=== PATIENT | female | born 2000 | race Caucasian/White ===

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

== ENCOUNTER 2023-07-04 07:39 | Outpatient (CLI) | payer OTHER, SELFPAY ==
--- NOTE | ~2023-07-04 | US_ITS ---
US thyroid INDICATION: Nontoxic goiter TECHNIQUE: Real-time sonographic images of the thyroid gland were obtained. COMPARISON: No prior studies for comparison. FINDINGS: The right thyroid lobe measures 4.6 x 1.1 x 1.3 cm. The left thyroid lobe measures 3.6 x 0 .6 x 1.3 cm. There is normal echotexture and echogenicity throughout the thyroid gland. No discrete n odules identified. Normal vascular flow is present. IMPRESSION: 1. Normal thyroid without discrete nodule or abnormal vascularity. Reviewed, dictated and finalized at location B. PRESIDENT OF MANUFACTURING
== END 2023-07-04 07:40 | disposition home or self-care (01) ==
PROVIDERS: PCP Family Medicine; Visit Provider Nurse Practitioner Family
DX: E04.9 Nontoxic goiter, unspecified (principal)
CPT/HCPCS: 76536

== ENCOUNTER 2023-08-11 11:59 | Outpatient (CLI) | payer OTHER, SELFPAY ==
--- NOTE | ~2023-08-11 | XR_ITS ---
EXAM: XR hand LT min 3V DATE: 08/11/2023 12:11 HISTORY: PAIN AND SWELLING IN JOINTS OF LEFT HAND, TREMORS . COMPARISON: None available. FINDINGS: Normal mineralization. No fracture or dislocation. No lytic or blastic lesion. Joint space s are maintained. No erosion or periosteal change. Soft tissues within normal limits. IMPRESSION: Normal left hand radiograph findings. Reviewed, dictated and finalized at location K. TS MANAGEMENT INTERN
== END 2023-08-11 12:00 | disposition home or self-care (01) ==
LOC: ANHIMG 12:01
PROVIDERS: PCP Nurse Practitioner Family; Visit Provider Nurse Practitioner Family
DX: M79.642 Pain in left hand (principal)
CPT/HCPCS: 73130

== ENCOUNTER 2023-10-15 13:28 | Outpatient (CLI) | payer OTHER, SELFPAY ==
--- NOTE | 2023-10-15 13:51 | ECHO_ITS ---
Patient Info Name: Lazara Ledesma Age: 23 years : 2000 Gender: Female Ht: 62 in Wt: 168 lbs BSA: 1.85 m2 HR: 69 bpm BP: 104 / 69 mmHg Heart Rhythm: Sinus Rhythm Technical Quality: Good Exam Date: 10/15/2023 1:56 PM Exam Location: Echo Lab Patient Status: Outpatient Admit Date: 10/15/2023 Staff Ordering Physician: Princess Buck NP Academic Interventionist: Chanel Chaney RDCS Attending Provider: Princess Buck NP Exam Type: CA echo doppler color flow Study Info Indications R00.2 - Palpitations Complete two-dimensional, color flow and Doppler transthoracic echocardiogram is performed. Summary 1. Complete two-dimensional, color flow and Doppler transthoracic echocardiogram is performed. 2. Left ventricular chamber dimension is normal. 3. Left ventricular systolic function is normal, estimated at 60-65%. 4. The left ventricular diastolic function is normal. 5. E/e' 5 is not elevated. 6. There is trace aortic valve regurgitation. Left Ventricle E/e' 5 is not elevated. Left ventricular chamber dimension is normal. Left ventricular systolic function is normal, estimated at 60-65%. The left ventricular diastolic function is normal. Right Ventricle Right ventricular systolic function is normal and with normal TAPSE 2.1 cm. Right ventricular chamber dimension is normal. Left Atria Left atrial chamber dimension is normal. Right Atria Right atrial chamber dimension is normal. Aortic Valve The aortic valve is trileaflet. There is no aortic valve stenosis. There is trace aortic valve regurgitation. Pulmonic Valve There is no pulmonic regurgitation. Mitral Valve There is no mitral valve stenosis. There is no mitral valve regurgitation. Tricuspid Valve There is no tricuspid valve regurgitation. Pericardium/Pleural There is no pericardial effusion. Inferior Vena Cava Normal inferior vena cava with >50% collapse upon inspiration consistent with normal right atrial pressure, 5 mmHg. Aorta The aortic root size at the sinus of Valsalva is normal. Tricuspid Valve Name Value Normal Estimated PAP/RSVP RA Pressure 5 mmHg Report Signatures
--- NOTE | 2023-10-15 14:37 | ECG_ITS ---
SEE SCANNED COPY FOR CONFIRMED REPORT MTDD
== END 2023-10-15 13:29 | disposition home or self-care (01) ==
LOC: ANHCARD 13:29
PROVIDERS: PCP Nurse Practitioner Family; Visit Provider Nurse Practitioner Family
DX: R00.2 Palpitations (principal); R42 Dizziness and giddiness
CPT/HCPCS: 93005; 93306

== ENCOUNTER 2023-11-02 13:32 | Outpatient (CLI) | payer OTHER, SELFPAY ==
--- NOTE | 2023-11-06 12:31 | WPDHOLTEREM ---
Holter/Event Monitor Holter/Event Monitor Date of procedure: 11/02/23 Holter/Event Procedure: 24 Hr Holter Monitor Indications: Dizziness Conclusion: 1. 24 hour holter monitor on 11/02/23. 2. Underlying rhythm is sinus rhythm. HR range 50-174 bpm; average HR 86 bpm. 3. There are 8 premature supraventricular complexes and 1 supraventricular couplet. No supraventricular tachycardia. 4. There is 1 premature ventricular complex. No ventricular tachycardia. 5. No sinoatrial or atrioventricular blocks. No significant pauses greater than 2 seconds. 6. Patient reports symptoms of dizziness, palpitations which demonstrate sinus rhythm, HR range 73-100 bpm.
== END 2023-11-02 13:33 | disposition home or self-care (01) ==
LOC: ANHCARD 13:33
PROVIDERS: PCP Nurse Practitioner Family; Visit Provider Nurse Practitioner Family
DX: R00.2 Palpitations (principal); R42 Dizziness and giddiness
CPT/HCPCS: 93225; 93226

== ENCOUNTER → 2023-12-04 10:12 | Outpatient (CLI) | payer OTHER, SELFPAY ==
--- NOTE | ~2023-12-04 | XR_ITS ---
Right Knee Technique: AP, lateral, and oblique views were obtained. Clinical History: Pain Findings: No fracture or dislocation is seen. Osseous alignment is anatomic. Joint spaces are preserv ed without degenerative or erosive change. Soft tissues are unremarkable. No joint effusion is seen. Impression: Unremarkable right knee radiographs. Reviewed, dictated and finalized at location . Impression: Unremarkable right knee radiographs.
== END ==
PROVIDERS: PCP Nurse Practitioner Family; Visit Provider Nurse Practitioner Family
DX: M25.561 Pain in right knee (principal); M25.562 Pain in left knee
CPT/HCPCS: 73564

== ENCOUNTER 2023-12-04 19:34 | Emergency (ER) | payer OTHER, SELFPAY ==
[2023-12-04 19:37] VITALS: BP 141/85; PULSE 98; RESP 16; TEMP 36.7; O2SAT 100
--- NOTE | 2023-12-04 21:49 | ED.LOWEXIN ---
HPI - Extremity Injury (Lower) General Chief Complaint: Extremity Injury, Lower Stated Complaint: knee pain Time Seen by Provider: 12/04/23 21:35 Source: patient Mode of arrival: ambulatory Limitations: no limitations History of Present Illness HPI Narrative: Patient presents with complaint of bilateral knee pain and subjective weakness, bilaterally though right greater than left. Currently being worked up by her PCP Princess Bcuk for this , particularly suspected nerve damage and has a conduction study scheduled for 12/18. She describes it as a burning and buzzing down her right posterior hip. No edema. SHe feels like her right knee cap is going to pop off. History of a tremor in these extremities. Related Data Home Medications Medication Instructions Recorded Confirmed albuterol sulfate 90 mcg/actuation 1 puff inhalation Q4H PRN 06/12/23 12/04/23 aerosol inhaler Shortness Of Breath metformin 500 mg tablet 500 mg PO DAILY 06/12/23 12/04/23 cholecalciferol (vitamin D3) 125 125 mcg PO DAILY 08/13/23 12/04/23 mcg (5,000 unit) capsule loratadine 10 mg disintegrating 10 mg PO DAILY 11/28/23 12/04/23 tablet (Claritin RediTabs) Allergies Allergy/AdvReac Type Severity Reaction Status Date / Time No Known Allergies Allergy Verified 12/04/23 19:40 [facility] Past Medical History Medical History (Updated 12/06/23 @ 00:01 by Julián Echols) Acid reflux ADD (attention deficit disorder) ADHD Anxiety Arthralgia of multiple joints BMI 25.0-25.9,adult BMI 26.0-26.9,adult BMI 27.0-27.9,adult BMI 30.0-30.9,adult 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 Curvature of thoracic spine Depression Dizziness Dysphagia Encounter to establish care Enlarged thyroid Exercise-induced asthma Fatigue Hand edema History of kidney stones Hypercalcemia Hyperlipidemia Left hand pain Left knee pain Low serum parathyroid hormone (PTH) Palpitations Paresthesia Paresthesia of both feet Paresthesia of both hands PCOS (polycystic ovarian syndrome) Post-traumatic stress disorder, unspecified PTSD (post-traumatic stress disorder) Recurrent kidney stones Right knee pain Snoring Tremor Family History Family History Mother Alcoholic Sibling Depression Asthma Grandparent Diabetes mellitus Grandparent Carcinoma of colon Father , 2014 No problems noted. Social History Social History (Updated 12/06/23 @ 18:54 by Isis Garcia MD) Smoking status: Never smoker Alcohol intake: current Alcohol use details: RARE OCCASIONS Substance use: current Substance use type: marijuana Other substance usage details: OCCASIONALLY FOR PAIN Do You Feel Safe in your Home?: Yes Lack of Transportation: No Lack of Food: Never True Current Housing: I Have Housing Concerned About Future Housing: No Difficulty Paying Gas/Electric Bills: No Difficulty Paying for Meds: No Currently Unemployed: YES Education: High School Diploma/GED Living arrangements: with family Additional living arrangements comments: LIVES WITH SISTER Occupation/Education: occupation 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 HEAD: Normocephalic, atraumatic. EYES: Non injected, non icteric ENT: Nares clear, no rhinorrhea or epistaxis. NECK: Supple. CHEST: Speaking in full sentences. No respiratory distress. HEART: Regular rate and rhythm. . ABDOMEN: Soft, nondistended. EXTREMITIES: Normal range of motion. No bilateral lower extremity edema. Grossly symmetric. No collateral veins present. Warm and well perfused. SKIN: Warm, dry, no rash. NEURO: No focal deficits. Alert and oriented x3. Slightly tremulous. PSYCH: Normal mood and affect. Course Vital Signs Vital signs: Vital Signs Temperature 98.1 F 12/04/23
[2023-12-04] MEDS: HYDROcodone/acetaminophen (*CRX) 5-325 MG TABLET 1 TAB PO (22:08)
[2023-12-04 22:20] LABS: Basophils Absolute Auto 0.1 K/mm3 (0.0-0.1); Basophils Percent Auto 0.3 % (0.2-1.2); Eosinophils Absolute Auto 0.4 K/mm3 (0-0.3); Eosinophils Percent Auto 2.8 % (0-4.4); Hematocrit 39.9 % (37.0-47.0); Hemoglobin 12.4 g/dL (12.0-15.0); Immature Granulocyte Absolute 0.03 K/mm3 (0.00-0.031); Immature Granulocyte Percent A 0.2 % (0-0.5); Lymphocytes Absolute Auto 3.52 K/mm3 (0.9-3.2); Lymphocytes Percent Auto 23.3 % (18.3-44.2); Mean Corpuscular HGB Conc 31.1 g/dl (32-36); Mean Corpuscular Hemoglobin 23.5 pg (26-34); Mean Corpuscular Volume 75.7 fl (80-100); Mean Platelet Volume 9.2 fl (7.4-10.4); Monocytes Absolute Auto 0.9 K/mm3 (0.1-0.6); Monocytes Percent Auto 5.8 % (2.6-8.5); Neutrophils Absolute Auto 10.2 K/mm3 (1.3-6.7); Neutrophils Percent Auto 67.6 % (45.5-73.1); Platelet Count Result 342 k/mm3 (150-375); Red Blood Count 5.27 M/mm3 (4.2-5.4); Red Cell Distribution Width 15.3 % (11.5-14.5); White Blood Count 15.1 K/mm3 (4.5-10.0)
[2023-12-04 22:28] LABS: Creatine Kinase 75 U/L (30-135)
[2023-12-04 22:30] LABS: Alanine Aminotransferase 22 U/L (6-35); Albumin Level 4.8 g/dL (3.5-5.1); Alkaline Phosphatase 83 U/L (38-126); Anion Gap 10 mmol/L (4-12); Aspartate Amino Transferase 24 U/L (14-36); Bilirubin,Total 0.3 mg/dL (0.2-1.3); Blood Urea Nitrogen 14 mg/dL (7-17); Calcium 9.5 mg/dL (8.4-10.2); Carbon Dioxide 26 mmol/L (22-30); Chloride 103 mmol/L (98-107); Estimated CRCL calculation 105 ml/min; Estimated Glomerular Filt Rate > 60; Glucose 87 mg/dL (65-110); Magnesium 2.1 mg/dL (1.6-2.3); Potassium 3.8 mmol/L (3.4-5.0); Sodium 139 mmol/L (137-145)
== END 2023-12-04 23:15 | disposition home or self-care (01) ==
PROVIDERS: Emergency Provider Student in an Organized Health Care Education/Training Program; PCP Nurse Practitioner Family
DX: M25.562 Pain in left knee (principal); M25.561 Pain in right knee; D72.829 Elevated white blood cell count, unspecified; E78.5 Hyperlipidemia, unspecified; Z79.84 Long term (current) use of oral hypoglycemic drugs
CPT/HCPCS: 36415; 73564; 80053; 82550; 83735; 85025; 99283; A9270

== ENCOUNTER 2023-12-14 01:15 | Day surgery (SDC) | payer OTHER, SELFPAY ==
[2023-11-28 15:47] VITALS: BMI 29.4
[2023-12-14 09:58] VITALS: BP 107/72; PULSE 103; RESP 17; TEMP 35.9; O2SAT 99; BMI 30.9
--- NOTE | 2023-12-14 10:04 | SUR.PREOP ---
Patient on metformin for treatment of her PCOS.
--- NOTE | 2023-12-14 10:05 | WPDANESEPPF ---
Anes - Initial Pre Proc Eval Procedure: Operation Date: 12/14/23 11:30 Proposed Procedures p Esophagogastroduodenoscopy - Ben Gomez MD Date/Time: 12/14/23 10:05 Surgeon: Ben Gomez MD Pre Op Diagnosis: Dysphagia Patient Data Age: 23 Gender: F Height: 1.57 m Weight: 76.7 kg Last Vital Signs Temp 96.7 F L 12/14/23 09:58 Pulse 103 H 12/14/23 09:58 Resp 17 12/14/23 09:58 BP 107/72 12/14/23 09:58 Pulse Ox 99 12/14/23 09:58 O2 Del Method Room Air 12/14/23 09:58 Allergies Allergy/AdvReac Type Severity Reaction Status Date / Time No Known Allergies Allergy Verified 12/14/23 09:57 Home Medications Medication Instructions Recorded Confirmed Type albuterol sulfate 90 mcg/actuation 1 puff inhalation Q4H PRN 06/12/23 12/14/23 History aerosol inhaler Shortness Of Breath metformin 500 mg tablet 500 mg PO DAILY 06/12/23 12/14/23 History cholecalciferol (vitamin D3) 125 125 mcg PO DAILY 08/13/23 12/14/23 History mcg (5,000 unit) capsule buspirone 5 mg tablet 5 mg PO BID #90 tabs 09/28/23 12/14/23 Rx loratadine 10 mg disintegrating 10 mg PO DAILY 11/28/23 12/14/23 History tablet (Claritin RediTabs) acetaminophen 500 mg capsule 1,000 mg PO Q6H PRN pain #30 caps 12/04/23 12/14/23 Rx ibuprofen 600 mg tablet 600 mg PO TID PRN pain #30 tabs 12/04/23 12/14/23 Rx Patient hx anesthesia problems: none Family hx anesthesia problems: none Results Review: All pre-operative results and documents have been reviewed as part of the pre-operative evaluation. 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 Curvature of thoracic spine Depression Dizziness Dysphagia Encounter to establish care Enlarged thyroid Exercise-induced asthma Fatigue Hand edema History of kidney stones Hypercalcemia Hyperlipidemia Left hand pain Left knee pain Low serum parathyroid hormone (PTH) Palpitations Paresthesia Paresthesia of both feet Paresthesia of both hands PCOS (polycystic ovarian syndrome) Post-traumatic stress disorder, unspecified PTSD (post-traumatic stress disorder) Recurrent kidney stones Right knee pain Snoring Tremor Family History Family History Mother Alcoholic Sibling Depression Asthma Grandparent Diabetes mellitus Grandparent Carcinoma of colon Father , 2014 No problems noted. Social History Social History (Updated 12/06/23 @ 18:54 by Isis Garcia MD) Smoking status: Never smoker Alcohol intake: current Alcohol use details: RARE OCCASIONS Substance use: current Substance use type: marijuana Other substance usage details: OCCASIONALLY FOR PAIN Do You Feel Safe in your Home?: Yes Lack of Transportation: No Lack of Food: Never True Current Housing: I Have Housing Concerned About Future Housing: No Difficulty Paying Gas/Electric Bills: No Difficulty Paying for Meds: No Currently Unemployed: YES Education: High School Diploma/GED Living arrangements: with family Additional living arrangements comments: LIVES WITH SISTER Occupation/Education: occupation 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
--- NOTE | 2023-12-14 11:00 | PM.HPGS ---
History of Present Illness History of Present Illness Consent: Risks, benefits, and alternatives have been discussed and questions answered. Patient agrees to proceed with procedure. 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 Curvature of thoracic spine Depression Dizziness Dysphagia Encounter to establish care Enlarged thyroid Exercise-induced asthma Fatigue Hand edema History of kidney stones Hypercalcemia Hyperlipidemia Left hand pain Left knee pain Low serum parathyroid hormone (PTH) Palpitations Paresthesia Paresthesia of both feet Paresthesia of both hands PCOS (polycystic ovarian syndrome) Post-traumatic stress disorder, unspecified PTSD (post-traumatic stress disorder) Recurrent kidney stones Right knee pain Snoring Tremor Family History Family History Mother Alcoholic Sibling Depression Asthma Grandparent Diabetes mellitus Grandparent Carcinoma of colon Father , 2014 No problems noted. Social History Social History (Updated 12/06/23 @ 18:54 by Isis Garcia MD) Smoking status: Never smoker Alcohol intake: current Alcohol use details: RARE OCCASIONS Substance use: current Substance use type: marijuana Other substance usage details: OCCASIONALLY FOR PAIN Do You Feel Safe in your Home?: Yes Lack of Transportation: No Lack of Food: Never True Current Housing: I Have Housing Concerned About Future Housing: No Difficulty Paying Gas/Electric Bills: No Difficulty Paying for Meds: No Currently Unemployed: YES Education: High School Diploma/GED Living arrangements: with family Additional living arrangements comments: LIVES WITH SISTER Occupation/Education: occupation 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 Spiritual care concerns: No Meds Home Medications and Allergies Home Medications Medication Instructions Recorded Confirmed Type albuterol sulfate 90 mcg/actuation 1 puff inhalation Q4H PRN 06/12/23 12/14/23 History aerosol inhaler Shortness Of Breath metformin 500 mg tablet 500 mg PO DAILY 06/12/23 12/14/23 History cholecalciferol (vitamin D3) 125 125 mcg PO DAILY 08/13/23 12/14/23 History mcg (5,000 unit) capsule buspirone 5 mg tablet 5 mg PO BID #90 tabs 09/28/23 12/14/23 Rx loratadine 10 mg disintegrating 10 mg PO DAILY 11/28/23 12/14/23 History tablet (Claritin RediTabs) acetaminophen 500 mg capsule 1,000 mg PO Q6H PRN pain #30 caps 12/04/23 12/14/23 Rx ibuprofen 600 mg tablet 600 mg PO TID PRN pain #30 tabs 12/04/23 12/14/23 Rx Allergies Allergy/AdvReac Type Severity Reaction Status Date / Time No Known Allergies Allergy Verified 12/14/23 09:57 Vital Signs Vital Signs - 24 hr 12/14/23 09:58 Temperature 96.7 F L Pulse Rate 103 H Respiratory Rate 17 Blood Pressure 107/72 Pulse Oximetry 99 Oxygen Delivery Room Air Exam Const: General: comfortable and no acute distress HENMT: Face/Nose/Sinus: Normal nares present Eyes: General: appearance normal, both eyes and all related structures Neck: Neck: no JVD Resp: Auscultation: clear to auscultation bilaterally Cardio: Rate: regular rate Rhythm: regular rhythm GI: Inspection: non-distended GI Palp: Yes Soft to palpation Skin: General skin exam: normal color Neuro: General: gait normal Speech: normal speech Extrem: General: normal to inspection Psych: Mental St
[2023-12-14 11:08] LABS: Beta HCG Quantitative < 2.39 mIU/ML
[2023-12-14 11:51] VITALS: BP 105/60; PULSE 91; RESP 22; O2SAT 93
[2023-12-14] MEDS: LACTATED RINGERS 1,000 ML 150 ML IV CONT (11:53)
[2023-12-14 12:00] VITALS: BP 110/64; PULSE 91; RESP 22; O2SAT 100
[2023-12-14 12:10] VITALS: BP 113/73; PULSE 86; RESP 22; O2SAT 100
== END 2023-12-14 12:25 | disposition home or self-care (01) ==
PROVIDERS: Anesthesiology; PCP Nurse Practitioner Family; Visit Provider Internal Medicine Gastroenterology
PROC: 0DJ08ZZ Inspection of Upper Intestinal Tract, Via Natural or Artificial Opening Endoscopic (ICD-10-PCS; CPT 43235; principal; 2023-12-14 11:30)
DX: K20.0 Eosinophilic esophagitis (principal); K29.50 Unspecified chronic gastritis without bleeding; E78.5 Hyperlipidemia, unspecified; K21.9 Gastro-esophageal reflux disease without esophagitis; F90.9 Attention-deficit hyperactivity disorder, unspecified type; F41.9 Anxiety disorder, unspecified; F32.A Depression, unspecified; E83.52 Hypercalcemia; E28.2 Polycystic ovarian syndrome; F43.10 Post-traumatic stress disorder, unspecified; F12.90 Cannabis use, unspecified, uncomplicated; E66.9 Obesity, unspecified; Z68.30 Body mass index [BMI] 30.0-30.9, adult; Z79.51 Long term (current) use of inhaled steroids; Z79.84 Long term (current) use of oral hypoglycemic drugs; Z79.1 Long term (current) use of non-steroidal anti-inflammatories (NSAID); Z80.0 Family history of malignant neoplasm of digestive organs
CPT/HCPCS: 43239; 36415; 84702; 88305; J2704; J7120

== ENCOUNTER 2023-12-19 10:08 | Outpatient (CLI) | payer OTHER, SELFPAY ==
--- NOTE | 2023-12-19 11:00 | NEURO_ITS ---
Impression: # Complains of paresthesia in upper and lower extremities. # Normal Nerve Conduction Study. # Normal needle/EMG exam. # Clinical correlation recommended. Nerve Conduction Studies Anti Sensory Summary Table Stim Site NR Peak (ms) P-T Amp (?V) Site1 Site2 Delta-P (ms) Dist (cm) Vince (m/s) Left Median Anti Sensory (2-3nd Digit) Wrist 2.3 80.8 Wrist 2-3nd Digit 2.3 14.0 61 Wrist 2.3 84.3 Wrist 2-3nd Digit 2.3 14.0 61 Right Median Anti Sensory (2-3nd Digit) Wrist 2.3 84.8 Wrist 2-3nd Digit 2.3 14.0 61 Wrist 2.2 68.8 Wrist 2-3nd Digit 2.3 14.0 61 Left Radial Anti Sensory (Base 1st Digit) Wrist 1.7 56.2 Wrist Base 1st Digit 1.7 0.0 Right Radial Anti Sensory (Base 1st Digit) Wrist 1.8 47.0 Wrist Base 1st Digit 1.8 0.0 Left Sup Fibular Anti Sensory (Ant Lat Mall) 14 cm 2.5 16.2 14 cm Ant Lat Mall 2.5 14.0 56 Right Sup Fibular Anti Sensory (Ant Lat Mall) 14 cm 3.0 16.5 14 cm Ant Lat Mall 3.0 16.0 53 Left Sural Anti Sensory (Lat Mall) Calf 3.7 8.4 Calf Lat Mall 3.7 16.0 43 Right Sural Anti Sensory (Lat Mall) Calf 3.6 35.5 Calf Lat Mall 3.6 16.0 44 Left Ulnar Anti Sensory (5th Digit) Wrist 2.4 63.3 Wrist 5th Digit 2.4 14.0 58 Right Ulnar Anti Sensory (5th Digit) Wrist 2.1 77.4 Wrist 5th Digit 2.1 14.0 67 Motor Summary Table Stim Site NR Onset (ms) O-P Amp (mV) Site1 Site2 Delta-0 (ms) Dist (cm) Vince (m/s) Left Median Motor (Abd Poll Brev) Wrist 2.8 6.9 Elbow Wrist 4.0 26.0 65 Elbow 6.8 3.2 Right Median Motor (Abd Poll Brev) Wrist 2.5 11.8 Elbow Wrist 4.2 26.0 62 Elbow 6.7 6.8 Left Peroneal Motor (Vastus Med) Ankle 3.8 2.9 Popit Ankle 7.0 40.0 57 Popit 10.8 3.3 Right Peroneal Motor (Vastus Med) Ankle 4.0 3.1 Popit Ankle 6.3 35.0 56 Popit 10.3 2.8 Left Tibial Motor (Abd Oliva Brev) Ankle 3.8 6.7 Knee Ankle 7.2 39.0 54 Knee 11.0 4.9 Right Tibial Motor (Abd Oliva Brev) Ankle 4.1 3.2 Knee Ankle 7.3 38.0 52 Knee 11.4 1.5 Left Ulnar Motor (Abd Dig Minimi) Wrist 2.3 4.1 A Elbow Wrist 4.4 27.0 61 A Elbow 6.7 3.2 Right Ulnar Motor (Abd Dig Minimi) Wrist 2.3 6.2 A Elbow Wrist 4.5 27.0 60 A Elbow 6.8 5.8 F Wave Studies NR F-Lat (ms) L-R F-Lat (ms) Left Median (Mrkrs) (Abd Poll Brev) 24.12 0.89 Right Median (Mrkrs) (Abd Poll Brev) 23.23 0.89 Left Peroneal (Mrkrs) (EDB) 44.53 0.62 Right Peroneal (Mrkrs) (EDB) 45.15 0.62 Left Tibial (Mrkrs) (Abd Hallucis) 44.41 0.44 Right Tibial (Mrkrs) (Abd Hallucis) 44.84 0.44 Left Ulnar (Mrkrs) (Abd Dig Min) 24.14 1.02 Right Ulnar (Mrkrs) (Abd Dig Min) 23.13 1.02 EMG Side Muscle Nerve Root Ins Act Fibs Amp Dur Recrt Comment Right 1stDorInt Ulnar C8-T1 Nml Nml Nml Nml Nml Right Ext Indicis Radial (Post Int) C7-8 Nml Nml Nml Nml Nml Right Ext Digitorum Radial (Post Int) C7-8 Nml Nml Nml Nml Nml Right BrachioRad Radial C5-6 Nml Nml Nml Nml Nml Right PronatorTeres Median C6-7 Nml Nml Nml Nml Nml Right Abd Poll Brev Median C8-T1 Nml Nml Nml Nml Nml Right ABD Dig Min Ulnar C8-T1 Nml Nml Nml Nml Nml Right AntTibialis Dp Br Fibular L4-5 Nml Nml Nml Nml Nml Right Ga
== END 2023-12-19 10:09 | disposition home or self-care (01) ==
LOC: ANHNEURO 10:09
PROVIDERS: PCP Nurse Practitioner Family; Visit Provider Nurse Practitioner Family
DX: R20.2 Paresthesia of skin (principal)
CPT/HCPCS: 95886; 95913

== ENCOUNTER 2023-12-31 10:01 | Outpatient (CLI) | payer OTHER, SELFPAY ==
--- NOTE | ~2023-12-31 | US_ITS ---
US axilla LT 12/31/2023 10:25 Indication: Palpable left axillary abnormality. Procedure: High-resolution ultrasound of the left axilla Comparison: No prior studies for comparison. Findings: There are multiple enlarged left axillary lymph nodes, largest measuring 2.4 x 3 x 1 cm. Impression: 1: Left axillary lymphadenopathy, nonspecific. This may be reactive, although other etiologies such a s lymphoma are not excluded. Consider correlation with biopsy. Reviewed, dictated and finalized at location B. Impression: 1: Left axillary lymphadenopathy, nonspecific. This may be reactive, although o ther etiologies such as lymphoma are not excluded. Consider correlation with bi opsy.
== END 2023-12-31 10:02 | disposition home or self-care (01) ==
PROVIDERS: PCP Nurse Practitioner Family; Visit Provider Nurse Practitioner
DX: R59.0 Localized enlarged lymph nodes (principal); M79.622 Pain in left upper arm
CPT/HCPCS: 76882

== ENCOUNTER 2024-01-11 12:27 | Emergency (ER) | payer OTHER, SELFPAY ==
[2024-01-11 12:46] VITALS: PULSE 102; RESP 14; TEMP 36.2; O2SAT 98
[2024-01-11 12:48] VITALS: BP 114/71; PULSE 102; RESP 14; TEMP 36.2; O2SAT 98
--- NOTE | 2024-01-11 13:05 | ED.FEVER ---
HPI - Fever General Chief Complaint: Upper Respiratory Infection Stated Complaint: Fever Time Seen by Provider: 01/11/24 12:59 Source: patient and RN notes reviewed Mode of arrival: ambulatory Limitations: no limitations History of Present Illness HPI Narrative: Patient presents today complaining of a 2-3 day history of fever up to 102.5 with slight decreased appetite. Patient denies any additional symptoms to include cough, congestion, sore throat, abdominal pain, urinary symptoms, nausea, vomiting, diarrhea. She has not treated her fever with any [id number] medications prior to arrival. States she is putting out normal urine and drinking plenty of fluids. 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 Related Data Home Medications Medication Instructions Recorded Confirmed albuterol sulfate 90 mcg/actuation 1 puff inhalation Q4H PRN 06/12/23 01/11/24 aerosol inhaler Shortness Of Breath metformin 500 mg tablet 500 mg PO DAILY 06/12/23 01/11/24 cholecalciferol (vitamin D3) 125 125 mcg PO DAILY 08/13/23 01/11/24 mcg (5,000 unit) capsule Allergies Allergy/AdvReac Type Severity Reaction Status Date / Time No Known Allergies Allergy Verified 01/11/24 12:47 Review of Systems Review of Systems: CONSTITUTIONAL: Denies body aches,chills, or sweats.+ fever EYES: Denies visual changes, redness, or discharge. ENT: Denies rhinorrhea, congestion, sore throat, or otalgia. CARDIOVASCULAR: Denies chest pain, palpitations, or edema. RESPIRATORY: Denies cough or dyspnea. GASTROINTESTINAL: Denies abdominal pain, nausea, vomiting, or diarrhea.+ decreased appetite GENITOURINARY: Denies dysuria or hematuria. SKIN: Denies rash, itching, or wounds. MUSCULOSKELETAL: Denies back pain, joint pain, or myalgia. NEUROLOGIC: Denies headache, numbness, tingling, or weakness. PSYCH: Denies depression or anxiety. 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 Curvature of thoracic spine Depression Dizziness Dysphagia Encounter to establish care Enlarged thyroid Exercise-induced asthma Fatigue Hand edema History of kidney stones Hypercalcemia Hyperlipidemia Left hand pain Left knee pain Low serum parathyroid hormone (PTH) Palpitations Paresthesia Paresthesia of both feet Paresthesia of both hands PCOS (polycystic ovarian syndrome) Post-traumatic stress disorder, unspecified PTSD (post-traumatic stress disorder) Recurrent kidney stones Right knee pain Snoring Tremor Tremor of both hands Family History Family History Mother Alcoholic Sibling Depression Asthma Grandparent Diabetes mellitus Grandparent Carcinoma of colon Father , 2014 No problems noted. Social History Social History Smoking status: Never smoker Alcohol intake: current Alcohol use details: RARE OCCASIONS Substance use: current Substance use type: marijuana Other substance usage details: OCCASIONALLY FOR PAIN Do You Feel Safe in your Home?: Yes Lack of Transportation: No Lack of Food: Never True Current Housing: I Have Housing Concerned About Future Housing: No Difficulty Paying Gas/Electric Bills: No Difficulty Paying for Meds: No Currently Unemployed: YES Education: High School Diploma/GED Living arrangements: with family Additional living arrangements comments: LIVES WITH SISTER Occupation/Education: occupation Additional occupation/education comments: [employer]
[2024-01-11 13:28] LABS: EDINFLUASCREEN Negative; EDINFLUBSCREEN Negative; EDSTREPNEGPOS1 Presumptive Negative
== END 2024-01-11 13:29 | disposition home or self-care (01) ==
PROVIDERS: Emergency Provider Nurse Practitioner; PCP Nurse Practitioner Family
DX: R50.9 Fever, unspecified (principal); Z20.822 Contact with and (suspected) exposure to COVID-19; K21.9 Gastro-esophageal reflux disease without esophagitis; J45.990 Exercise induced bronchospasm; E78.5 Hyperlipidemia, unspecified; E28.2 Polycystic ovarian syndrome; F12.90 Cannabis use, unspecified, uncomplicated
CPT/HCPCS: 87081; 87426; 87804; 87880; 99213; G0463

== ENCOUNTER → 2024-01-14 13:48 | Outpatient (CLI) | payer OTHER, SELFPAY ==
--- NOTE | ~2024-01-14 | XR_ITS ---
Clinical Indication: Hyperhidrosis PA and lateral views of the chest: Comparison: None Findings: The lungs are clear, without evidence of focal consolidation or pleural effusion. Cardiome diastinal silhouette is within normal limits. Bones and soft tissues are unremarkable. Impression: Normal chest. Reviewed, dictated and finalized at [facility]. Impression: Normal chest.
== END ==
LOC: EXPTRAD 13:53
PROVIDERS: PCP Family Medicine; Visit Provider Family Medicine
DX: R61 Generalized hyperhidrosis (principal)
CPT/HCPCS: 71046

== ENCOUNTER 2024-01-20 08:27 | Emergency (ER) | payer OTHER, SELFPAY ==
[2024-01-20 08:37] VITALS: BP 114/65; PULSE 81; RESP 16; TEMP 36.7; O2SAT 100
--- NOTE | 2024-01-20 08:41 | ED.GENADULT ---
HPI - General Adult General Chief complaint: Upper Respiratory Infection Stated complaint: sore throat Time Seen by Provider: 01/20/24 08:41 Source: patient Mode of arrival: ambulatory Limitations: no limitations History of Present Illness HPI narrative: 23-year-old female patient presents to [facility] with complaints of a sore throat that started about 3-4 days ago. Patient states she has had fevers as high as 100. Patient states she more so has pain to the left side than the right. Patient also states she noticed some weight. Spots on her tonsils this morning decided come get checked out. Denies any nausea, vomiting or diarrhea. Denies any congestion, coughing, chest pain or shortness of breath. Related Data Home Medications Medication Instructions Recorded Confirmed albuterol sulfate 90 mcg/actuation 1 puff inhalation Q4H PRN 06/12/23 01/20/24 aerosol inhaler Shortness Of Breath cholecalciferol (vitamin D3) 125 125 mcg PO DAILY 08/13/23 01/20/24 mcg (5,000 unit) capsule Allergies Allergy/AdvReac Type Severity Reaction Status Date / Time No Known Allergies Allergy Verified 01/20/24 08:29 Review of Systems Review of Systems: CONSTITUTIONAL: Denies fever, chills, or sweats. EYES: Denies visual changes, redness, or discharge. ENT: Denies rhinorrhea, congestion, sore throat, or otalgia. CARDIOVASCULAR: Denies chest pain, palpitations, or edema. RESPIRATORY: Denies cough or dyspnea. GASTROINTESTINAL: Denies abdominal pain, nausea, vomiting, or diarrhea. GENITOURINARY: Denies dysuria or hematuria. SKIN: Denies rash or itching. MUSCULOSKELETAL: Denies back pain, joint pain, or myalgia. NEUROLOGIC: Denies headache, numbness, or weakness. PSYCHIATRIC: Denies anxiety or depression. 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 Palpitations Paresthesia Paresthesia of both feet Paresthesia of both hands PCOS (polycystic ovarian syndrome) Post-traumatic stress disorder, unspecified PTSD (post-traumatic stress disorder) Recurrent kidney stones Right knee pain Snoring Tremor Tremor of both hands Family History Family History Mother Alcoholic Sibling Depression Asthma Grandparent Diabetes mellitus Grandparent Carcinoma of colon Father , 2014 No problems noted. Social History Social History Smoking status: Never smoker Alcohol intake: current Alcohol use details: RARE OCCASIONS Substance use: current Substance use type: marijuana Other substance usage details: OCCASIONALLY FOR PAIN Do You Feel Safe in your Home?: Yes Lack of Transportation: No Lack of Food: Never True Current Housing: I Have Housing Concerned About Future Housing: No Difficulty Paying Gas/Electric Bills: No Difficulty Paying for Meds: No Currently Unemployed: YES Education: High School Diploma/GED Living arrangements: with family Additional living arrangements comments: LIVES WITH SISTER Occupation/Education: occupation 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 There is no relevant family history pertinent to the
[2024-01-20 08:58] LABS: EDSTREPNEGPOS1 Presumptive Negative
== END 2024-01-20 09:04 | disposition home or self-care (01) ==
PROVIDERS: Emergency Provider Nurse Practitioner Family; PCP Nurse Practitioner Family
DX: J02.9 Acute pharyngitis, unspecified (principal); K21.9 Gastro-esophageal reflux disease without esophagitis; J45.990 Exercise induced bronchospasm; E78.5 Hyperlipidemia, unspecified; E28.2 Polycystic ovarian syndrome
CPT/HCPCS: 87081; 87880; 99213; G0463

== ENCOUNTER 2024-01-22 08:57 | Outpatient (CLI) | payer OTHER, SELFPAY ==
--- NOTE | ~2024-01-22 | US_ITS ---
EXAMINATION: US_BXSTAXLIMG_US DATE: 01/22/2024 10:38 INDICATION: Enlarged left axillary lymph node TECHNIQUE: The procedure including the risks and benefits was discussed with the patient. Risks discu ssed included bleeding and infection. The patient understood the risks and agreed to proceed. The sk in overlying the left axilla was prepped and draped in usual sterile fashion. Anesthetic was adminis tered with 1% lidocaine subcutaneously. An 18 gauge core biopsy needle was advanced under continuous ultrasound observation to the lesion of interest. 4 core biopsy specimens were obtained, 2 placed i n RPMI media and 2 in formalin. The needle was removed and the entry site was cleaned and dressed. Post procedure ultrasound demonstrated no hemorrhage. FINDINGS: Ultrasound images demonstrate a 4.2 x 1.3 cm left axillary lymph node. Subsequent images de monstrate the biopsy needle advanced into the cortex of the lymph node. IMPRESSION: 1. Successful Ultrasound-guided biopsy of the 4.2 x 1.3 cm left axillary lymph node of concern. Reviewed, dictated and finalized at location A.
== END 2024-01-22 08:58 | disposition home or self-care (01) ==
LOC: ANHIMG 08:59
PROVIDERS: PCP Nurse Practitioner Family; Visit Provider Surgery
DX: R59.1 Generalized enlarged lymph nodes (principal)
CPT/HCPCS: 20999; 76942; 88108; 88184; 88185; 88305; 88341; 88342; 88360; 88364; 88365

== ENCOUNTER 2024-04-09 08:49 | Emergency (ER) | payer OTHER, SELFPAY ==
[2024-04-09 09:11] VITALS: BP 119/63; PULSE 119; RESP 18; TEMP 38; O2SAT 100
--- NOTE | 2024-04-09 09:31 | ED_ITS ---
HPI - URI/Sore Throat General Chief Complaint: Upper Respiratory Infection Stated Complaint: sore throat and fever History of Present Illness HPI Narrative: 23-year-old female presented for complaint of sore throat and fever x3 days. Temp up to 103. Endorses nausea this morning. Took Tylenol. Denies cough, shortness of breath, wheezing, vomiting. Related Data Home Medications Medication Instructions Recorded Confirmed albuterol sulfate 90 mcg/actuation 1 puff inhalation Q4H PRN 06/12/23 04/09/24 aerosol inhaler Shortness Of Breath metformin 500 mg tablet 500 mg PO BID 04/09/24 04/09/24 Allergies Allergy/AdvReac Type Severity Reaction Status Date / Time No Known Allergies Allergy Verified 04/09/24 09:18 Review of Systems 2 Review of Systems: CONSTITUTIONAL:reports body aches, fever, chills EYES: Denies visual changes, redness, or discharge. ENT: reports sore throat Denies rhinorrhea, congestion, or otalgia. CARDIOVASCULAR: Denies chest pain, palpitations, or edema. RESPIRATORY: Denies dyspnea. GASTROINTESTINAL: Denies abdominal pain, nausea, vomiting, or diarrhea. 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 Palpitations Paresthesia Paresthesia of both feet Paresthesia of both hands PCOS (polycystic ovarian syndrome) Post-traumatic stress disorder, unspecified PTSD (post-traumatic stress disorder) Recurrent kidney stones Right knee pain Snoring Tremor Tremor of both hands Family History Family History Mother Alcoholic Sibling Depression Asthma Grandparent Diabetes mellitus Grandparent Carcinoma of colon Father , 2014 No problems noted. Social History Social History Smoking status: Never smoker Alcohol intake: current Alcohol use details: RARE OCCASIONS Substance use: current Substance use type: marijuana Other substance usage details: OCCASIONALLY FOR PAIN Do You Feel Safe in your Home?: Yes Lack of Transportation: No Lack of Food: Never True Current Housing: I Have Housing Concerned About Future Housing: No Difficulty Paying Gas/Electric Bills: No Difficulty Paying for Meds: No Currently Unemployed: YES Education: High School Diploma/GED Living arrangements: with family Additional living arrangements comments: LIVES WITH SISTER Occupation/Education: occupation Additional occupation/education comments: [employer]CH[employer]IAN Spiritual care concerns: No Exam Narrative: GENERAL: mildly Ill-appearing, no acute distress. EYES: conjunctivae clear ENT: Mucous membranes moist. TM pearly mack with normal light reflex bilaterally; no tragal tenderness. Oropharynx severely erythematous without lesions. Tonsils enlarged 2+ without exudate. No drooling, no hoarseness, no trismus, uvula midline. No tripod positioning, hot potato voice, or soft palate swelling. NECK: Supple. No lymphadenopathy CHEST: Clear to auscultation, breath sounds equal. No respiratory distress, speaks in full sentences. HEART: Regular rate and rhythm. No murmur heard. SKIN: Warm, dry, no rash. NEURO: Alert and oriented x3. Baseline tremor. Course Course Emergency Course: Patient is aware of diagnosis, understands and agrees to treatment plan. Anticipatory guidance given. Patient agrees to follow-up as directed and is aware of reasons to seek care at the emergency department. Portions of this record may have been created with voice recognition software Level of Care: Express Care Visit Vital Signs Vital signs: Vital Signs Temperature 100.4 F H 04/09/24 09:11 Pulse Rate 119 H 04/09/24 09:11 Respiratory Rate 18 04/09/24 09:11 Blood Pressure 119/63 04/09/24 09:11 Pulse Oximetry 100 04/09/24 09:11 Oxygen Delivery Room Air 04/09/24 09:11 Temperature 100.4 F H 04/09/24 09:11 Pulse Rate 119 H 04/09/24 09:11 Respiratory Rate 18 04/09/24 09:11 Blood Pressure 119/63 04/09/24 09:11 Pulse Oximetry 100 04/09/24 09:11 Oxygen Delivery Room Air 04/09/24 09:11 MDM - URI/Sore Throat MDM Narrative Medical decision making narrative: POS strep result reviewed with pt. Advise supportive treatments. Patient is appropriate for outpatient treatment and follow-up. Differential Diagnosis Differential diagnosis: Likely upper respiratory infection, viral infection and pharyngitis Lab Data Labs: Lab Results 04/09/24 Range/Units 10:08 POC Grp A Strep Screen Positive (Negative) Discharge Plan Discharge Clinical Impression: Strep pharyngitis Patient Disposition: Home, Self-Care Condition: Stable Instructions: Antibiotic Form, Strep Throat (ED) Additional Instructions: - Take the antibiotic as directed. Fever and sore throat typically resolve within one to three days. Most patients can return to work, after 12 to 24 hours of antibiotic therapy, provided you are fever free and otherwise well. -Eat and drink things that are easy to swallow, like soft foods, cool liquids, tea with honey, or popsicles . -Salt water gargles and/or may use topical anesthetic ( Chloraseptic spray) or lozenges to relieve dryness or throat pain -Alternate Tylenol and ibuprofen as needed for pain and fever as directed. -Frequent hand washing or hand biomass production manager is one of the best ways to prevent spread of infection. Throw away the toothbrush after 24hours of antibiotic. -Follow up with primary care provider in 2-3 days if condition is not improving -Go to the ER if you have trouble breathing, cannot drink enough fluids, have muffled voice or drooling, difficulty opening your mouth, or severe swelling. Prescriptions: New ibuprofen 800 mg tablet 800 mg PO TID PRN (Reason: pain) Qty: 15 0RF amoxicillin 500 mg tablet 1,000 mg PO DAILY 10 Days Qty: 20 0RF No Action metformin 500 mg Tablet 500 mg PO BID albuterol sulfate 90 mcg/actuation HFA aerosol inhaler 1 puff inhalation Q4H PRN (Reason: Shortness Of Breath) buspirone 5 mg tablet 5 mg PO BID Qty: 90 0RF Rx Instructions: start 5mg 2x/day and increase by 5mg every 5 days to max 15mg BID. Call for refill fluticasone propionate 220 mcg/actuation HFA aerosol inhaler 2 puff .ROUTE Q12H 28 Days Qty: 12 1RF Rx Instructions: 2 puffs every 12 hours; Administer fluticasone by spraying the aerosol inhaler (without a spacer) into the throat; patient should not inhale when dose is being delivered; instead, patient should swallow the accumulated liquid. Do not eat or drink for 30 minutes after administration Follow-up/Referrals: Princess Buck, DARRYL [Primary Care Provider] -
[2024-04-09 10:10] LABS: EDSTREPNEGPOS1 Positive (Negative)
== END 2024-04-09 09:41 | disposition home or self-care (01) ==
PROVIDERS: Emergency Provider Nurse Practitioner Family; PCP Nurse Practitioner Family
DX: J02.0 Streptococcal pharyngitis (principal); F12.90 Cannabis use, unspecified, uncomplicated; K21.9 Gastro-esophageal reflux disease without esophagitis; J45.990 Exercise induced bronchospasm; E78.5 Hyperlipidemia, unspecified; E78.1 Pure hyperglyceridemia; E28.2 Polycystic ovarian syndrome; K20.0 Eosinophilic esophagitis
CPT/HCPCS: 87880; 99213; G0463

== ENCOUNTER 2024-07-11 14:24 | Emergency (ER) | payer OTHER, SELFPAY ==
[2024-07-11 14:30] VITALS: BP 111/94; PULSE 88; RESP 18; TEMP 36.6; O2SAT 99
--- NOTE | 2024-07-11 14:30 | ED_ITS ---
HPI - URI/Sore Throat General Chief Complaint: Upper Respiratory Infection Stated Complaint: covid and flu test Time Seen by Provider: 07/11/24 14:30 Source: patient, RN notes reviewed and old records reviewed Mode of arrival: ambulatory Limitations: no limitations History of Present Illness HPI Narrative: 23-year-old female presents to the [facility] with complaints of cough, sinus pressure, drainage and headache that started last night. Has taken ibuprofen. Onset (ago): day(s) (1) Treatments prior to arrival: ibuprofen Related Data Home Medications ?Medication ?Instructions ?Recorded ?Confirmed ?Last Taken ?Type albuterol sulfate 90 mcg/actuation 1 puff inhalation Q4H PRN 06/12/23 04/09/24 Unknown History aerosol inhaler Shortness Of Breath metformin 500 mg tablet 500 mg PO BID 04/09/24 04/09/24 Unknown History ergocalciferol (vitamin D2) 1,250 07/11/24 Unknown History mcg (50,000 unit) capsule Allergies Allergy/AdvReac Type Severity Reaction Status Date / Time No Known Allergies Allergy Verified 07/11/24 14:32 Review of Systems Review of Systems: All systems reviewed & are unremarkable except as noted in HPI and below Constitutional: Constitutional: Reports as per HPI and Reports headache(s) ENT: Reports as per HPI and Reports nasal discharge Cardiovascular: Cardiovascular: Reports no additional cardiovascular complaints, Denies chest pain and Denies dyspnea Respiratory: Respiratory: Reports as per HPI, Denies chest congestion, Reports cough and Denies dyspnea Musculoskeletal: Musculoskeletal: Reports no additional musculoskeletal complaints Integumentary/Breasts: Skin/Breast: Reports system reviewed and no additional complaints, except as docu PMFSH Past Medical History Medical History Hypertriglyceridemia Elevated liver enzymes Eosinophilic esophagitis Night sweats Chest x-ray 01/14/2024 unremarkable. Tremor of both hands Right knee pain Left knee pain Paresthesia of both hands Paresthesia of both feet Dizziness Palpitations PTSD (post-traumatic stress disorder) Low serum parathyroid hormone (PTH) Left hand pain Hand edema Arthralgia of multiple joints Hyperlipidemia Hypercalcemia ADHD Recurrent kidney stones Dysphagia Fatigue Snoring Exercise-induced asthma Paresthesia Tremor Encounter to establish care Enlarged thyroid BMI 30.0-30.9,adult History of kidney stones PCOS (polycystic ovarian syndrome) Acid reflux BMI 27.0-27.9,adult ADD (attention deficit disorder) BMI 26.0-26.9,adult BMI 25.0-25.9,adult Anxiety Post-traumatic stress disorder, unspecified 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 Social History Social History Smoking status: Never smoker Alcohol intake: current Alcohol use details: RARE OCCASIONS Substance use: current Substance use type: marijuana Other substance usage details: OCCASIONALLY FOR PAIN Do You Feel Safe in your Home?: Yes Lack of Transportation: No Lack of Food: Never True Current Housing: I Have Housing Concerned About Future Housing: No Difficulty Paying Gas/Electric Bills: No Difficulty Paying for Meds: No Currently Unemployed: YES Education: High School Diploma/GED Living arrangements: with family Additional living arrangements comments: LIVES WITH SISTER Occupation/Education: occupation 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 There is no relevant family history pertinent to the patient complaint. Exam Const: General: cooperative, healthy appearing, comfortable, no acute distress, well developed, alert and well nourished Nutritional Appearance: well nourished Orientation/consciousness: patient oriented x3 Limitations: no limitations HENMT: Head: normal to inspection Ears: hearing grossly normal bilaterally, external ears normal, TM's normal bilaterally, EAC's normal, mastoids normal and no periauricular adenopathy Mouth: Yes Normal oral and palatal mucosa present, Yes lip normal, Yes tongue normal and Yes moist mucous membranes Throat: posterior oropharynx normal, uvula midline and no uvular edema Eyes: General: appearance normal, both eyes and all related structures Alignment and Position: alignment normal Neck: Neck: normal visual inspection, full ROM, no lymphadenopathy and no meningeal signs Chest: Chest palpation & inspection: normal inspection of the chest Resp: Effort & Inspection: normal respiratory effort and able to speak in complete sentences Auscultation: clear to auscultation bilaterally, no crackles, no rales, no rhonchi and no wheezes Cardio: Rate: regular rate Skin: General skin exam: normal color and no rashes or lesions noted Neuro: General: patient oriented x3, gait normal, moves all extremities and no meningeal signs Cognition (Neuro): normal cognition Speech: normal speech Gait exam (Neuro): Normal gait present Extrem: General: normal to inspection, full ROM, capillary refill normal and normal gait Psych: Appearance: grossly normal and well kempt Mental Status: mental status grossly normal Speech and movement: Normal speech and movement present and Clear speech present Affect: normal affect Attitude: cooperative Course Course Level of Care: Express Care Visit Vital Signs Vital signs: Vital Signs Temperature 97.8 F 07/11/24 14:30 Pulse Rate 88 07/11/24 14:30 Respiratory Rate 18 07/11/24 14:30 Blood Pressure 111/94 H 07/11/24 14:30 Pulse Oximetry 99 07/11/24 14:30 Oxygen Delivery Room Air 07/11/24 14:30 Temperature 97.8 F 07/11/24 14:30 Pulse Rate 88 07/11/24 14:30 Respiratory Rate 18 07/11/24 14:30 Blood Pressure 111/94 H 07/11/24 14:30 Pulse Oximetry 99 07/11/24 14:30 Oxygen Delivery Room Air 07/11/24 14:30 Reviewed MDM - URI/Sore Throat MDM Narrative Medical decision making narrative: Patient sitting comfortably in exam room. Nontoxic, vitals stable. Patient in no acute distress. Patient presents with less than 24 hours of URI symptoms Flu and COVID test are negative Patient appropriate for outpatient treatment of viral URI Discharge instructions reviewed with patient, as well as provided in writing per nursing staff. The instructions also include specific and strict return/GO TO THE ER as well as f/u information. All questions have been answered, and the patient deny any further questions with discharge and discharge plan. Some parts of this dictation were generated by voice recognition software and may contain typographical and/or grammatical inaccuracies. Differential Diagnosis Differential diagnosis: Likely upper respiratory infection, otitis media, sinusitis, viral infection, bronchitis and influenza Lab Data Labs: Lab Results 07/11/24 Range/Units 14:49 POC Influenza A Ag Negative (Negative) POC Influenza B Ag Negative (Negative) POC SARS CoV-2 Ag Negative (Negative) Reviewed Critical Care Time Critical Care Time Critical Care Time: No Discharge Plan Discharge Clinical Impression: Upper respiratory infection, viral Patient Disposition: Home, Self-Care Condition: Stable Instructions: Antibiotic Form, Upper Respiratory Infection (DC) Additional Instructions: Your rapid COVID test were negative Your rapid flu test was negative If you still have concerns in the next 24-48 hours for flu were COVID it is recommended that you do an at home test. Your symptoms are likely due to a viral illness, which is not treated with antibiotics. Typically viral infections last 7-10 days, can linger for couple of weeks. It is very important to treat your symptoms. Drink plenty of water, Gatorade, Pedialyte, ice pops or Jell-O. -Alternate Tylenol and Motrin per package directions for fever or pain. You can alternate every 4 hours -Antihistamine medication such as Zyrtec/Claritin/Samantha during the day can help improve symptoms. -doing daily nasal irrigations can help relieve pressure your sinuses. Things like a Neti pot -Use Flonase twice a day for 5 days then daily to help reduce the inflammation and dry up your sinuses. -You can also use Mucinex. Be sure to drink plenty of water with this medication at least 8 ounces with every dose and it is important to drink 8 to 10 glasses of water per day. Water is a natural decongestant -Eat and drink things that are easy to swallow, like tea or soup, or popsicles. -Oral rinses such as: Salt water gargles and/or may use topical anesthetic (eg. Chloraseptic spray) or lozenges to relieve dryness or throat pain). -Frequent hand washing or hand activity therapy teacher is one of the best ways to prevent spread of infection. -Using a vaporizer or humidifier at night will also help thin secretions and help with coughing up phlegm. -Follow up with primary care provider in 7-10 days if condition is not improving - For new or worsening symptoms go directly to the nearest ER Patient Language: [place] Prescriptions: No Action metformin 500 mg Tablet 500 mg PO BID ergocalciferol (vitamin D2) 1,250 mcg (50,000 unit) capsule albuterol sulfate 90 mcg/actuation HFA aerosol inhaler 1 puff inhalation Q4H PRN (Reason: Shortness Of Breath) buspirone 5 mg tablet 5 mg PO BID Qty: 90 0RF Rx Instructions: start 5mg 2x/day and increase by 5mg every 5 days to max 15mg BID. Call for refill fluticasone propionate 220 mcg/actuation HFA aerosol inhaler 2 puff .ROUTE Q12H 28 Days Qty: 12 1RF Rx Instructions: 2 puffs every 12 hours; Administer fluticasone by spraying the aerosol inhaler (without a spacer) into the throat; patient should not inhale when dose is being delivered; instead, patient should swallow the accumulated liquid. Do not eat or drink for 30 minutes after administration Follow-up/Referrals: Princess Buck NP [Primary Care Provider] - 2 Weeks ([facility] follow-up) Stand Alone Forms: Work/School Release IP Time of Disposition: 14:46
--- OUTSIDE RECORDS SUMMARY | 2024-07-11 14:31 | XMS_ITS | Data Portability ---
Author Organization [place] - [facility], [place] [address] Care Team Providers Care Certified Legal Secretary Specialist Name Role Phone MONIKA JOLIE Referring Provider Assessment Encounter Date Assessment Date Assessment LastModified by Organization Details LastModified Time 01/16/2023 01/16/2023 UA reviewed and does not appear infected. Discussed options of continued trial of passage vs ureteroscopy with stent placement. She has been to the ER twice and would like to have the stone removed. I discussed URS in detail. I discuss the need for a stent and stent related side effects. Patient understands all information and agrees to proceed. Will work on scheduling. She will continue to strain all her urine and call us should her stone pass. Not available 01/17/2023 14:25:59 02/21/2023 02/21/2023 She is doing well postop ureteroscopy and stone extraction. You today's is a few cells but is pretty unremarkable. She was given a copy of her stone analysis. Would advise increasing fluids and cutting down oxalates in her diet. She will follow-up as needed. [email or web address] Not available 02/22/2023 22:35:58 Plan of Treatment Reminders Order Date Submit Date Provider Last Modified By Organization Details Last Modified Time Details Appointments None recorded. Lab urinalysis, dipstick, auto 2022 023 [email or web address] [facility]), [address], [address], [place], [address], 15:16:02 urinalysis, microscopic 2022 023 [email or web address] [facility], [address], [place], [address], 3 15:16:02 urinalysis, dipstick, auto 2022 023 CHAR[facility] ([facility]), [address], [address], [place], [address], 3 15:37:39 urinalysis, microscopic 2022 023 [email or web address] [facility], [address], [place], [address], 3 15:27:08 Referral None recorded. Procedures None recorded. Surgeries ureteroscop y with stone basket extraction, holmium laser fragmentati on (SURG) 2022 023 [email or web address] [facility], [address], [place], [address], 3 10:08:26 Imaging None recorded. Medication Orders None recorded. Patient TargetsNo targets recorded. Patient Instructions Encounter Date Encounter Id Patient Instructions Last Modified By Organization Details Last Modified Time 01/16/2023 [id number] Patient Surgery Schedule and Instructions Not available 01/16/2023 15:16:47 Reason for Referral None Reported. Results Created Date Observation Date Name Description Value Unit Range Abnormal Flag Note LastModifiedBy Organization Detail LastModifiedTime 01/17/2001/16/2023 urina lysis , micro scopi c WBC/hpf rare 0 - 4 Not Available [facility] [address], [place], [address], 01/16/2023 15:01:55 01/17/20 23 01/16/2023 urina lysis , micro scopi c RBC/hpf 10-20 0 - 2 Not Available [facility] [address], [place], [address], 01/16/2023 15:01:55 01/17/20 23 01/16/2023 urina lysis , micro scopi c casts/lpf 0 neg Not Available [facility] [address], [place], [address], 01/16/2023 15:01:55 01/17/20 23 01/16/2023 urina lysis , micro scopi c bacteria trace neg Not Available [facility] [address], [place], [address], 01/16/2023 15:01:55 01/17/20 23 01/16/2023 urina lysis , micro scopi c crystals 0 occ Not Available [facility] [address], [place], [address], 01/16/2023 15:01:55 01/17/20 23 01/16/2023 urina lysis , micro scopi c epith cells >40 0 - 5 Not Available [facility] [address], [place], [address], 01/16/2023 15:01:55 01/17/20 23 01/16/2023 urina lysis , micro scopi c date resulted 01/16/23 Not Available [facility] [address], [place], [address], 01/16/2023 15:01:55 01/17/20 23 01/16/2023 urina lysis , micro scopi c resulted by tk Not Available [facility] [address], [place], [address], 01/16/2023 15:01:55 01/17/20 23 01/16/2023 urina lysis , dipst ick, auto color lizet normal Not Available [facility]) [address], [place], [address], 01/16/2023 14:48:16 01/17/20 23 01/16/2023 urina lysis , dipst ick, auto clarity slight ly cloudy normal Not Available [facility] ([facility]) [address], [place], [address], 01/16/2023 14:48:16 01/17/20 23 01/16/2023 urina lysis , dipst ick, auto glucose negati ve mg/dL neg normal Not Available [facility] ([facility]) [address], [place], [address], 01/16/2023 14:48:16 01/17/20 23 01/16/2023 urina lysis , dipst ick, auto bilirubin negati ve neg normal Not Available [facility] ([facility]) [address], [place], [address], 01/16/2023 14:48:16 01/17/20 23 01/16/2023 urina lysis , dipst ick, auto ketones trace neg abnormal Not Available [facility] ([facility]) [address], [place], [address], 01/16/2023 14:48:16 01/17/20 23 01/16/2023 urina lysis , dipst ick, auto specific gravity 1.015 1-1.03 normal Not Available [facility] ([facility]) [address], [place], [address], 01/16/2023 14:48:16 01/17/20 23 01/16/2023 urina lysis , dipst ick, auto blood/hemogl obin modera te joseluis/m c neg abnormal Not Available [facility] ([facility]) [address], [place], [address], 01/16/2023 14:48:16 01/17/20 23 01/16/2023 urina lysis , dipst ick, auto pH 6.0 5-9 normal Not Available [facility]) [address], [place], [address], 01/16/2023 14:48:16 01/17/20 23 01/16/2023 urina lysis , dipst ick, auto protein 30 mg/dL neg abnormal Not Available [facility]) [address], [place], [address], 01/16/2023 14:48:16 01/17/20 23 01/16/2023 urina lysis , dipst ick, auto urobilinogen 0.2 eu/dL normal normal Not Available [facility]) [address], [place], [address], 01/16/2023 14:48:16 01/17/20 23 01/16/2023 urina lysis , dipst ick, auto nitrites negati ve neg normal Not Available [facility]) [address], [place], [address], 01/16/2023 14:48:16 01/17/20 23 01/16/2023 urina lysis , dipst ick, auto leukocytes small neg abnormal Not Available [facility]) [address], [place], [address], 01/16/2023 14:48:16 02/22/20 23 02/21/2023 urina lysis , dipst ick, auto color yellow normal Not Available [facility]) [address], [place], [address], 02/21/2023 15:13:18 02/22/20 23 02/21/2023 urina lysis , dipst ick, auto clarity clear normal Not Available [facility] [place] [facility] ([facility]) [address], [place], [address], 02/21/2023 15:13:18 02/22/20 23 02/21/2023 urina lysis , dipst ick, auto glucose negati ve mg/dL neg normal Not Available [facility] ([facility]) [address], [place], [address], 02/21/2023 15:13:18 02/22/20 23 02/21/2023 urina lysis , dipst ick, auto bilirubin negati ve neg normal Not Available [facility] ([facility]) [address], [place], [address], 02/21/2023 15:13:18 02/22/20 23 02/21/2023 urina lysis , dipst ick, auto ketones negati ve neg normal Not Available [facility] ([facility]) [address], [place], [address], 02/21/2023 15:13:18 02/22/20 23 02/21/2023 urina lysis , dipst ick, auto specific gravity 1.025 1-1.03 normal Not Available The [facility] ([facility]) [address], [place], [address], 02/21/2023 15:13:18 02/22/20 23 02/21/2023 urina lysis , dipst ick, auto blood/hemogl obin small joseluis/m c neg abnormal Not Available [facility] ([facility]) [address], [place], [address], 02/21/2023 15:13:18 02/22/20 23 02/21/2023 urina lysis , dipst ick, auto pH 7.0 5-9 normal Not Available [facility]) [address], [place], [address], 02/21/2023 15:13:18 02/22/20 23 02/21/2023 urina lysis , dipst ick, auto protein trace mg/dL neg abnormal Not Available [facility]) [address], [place], [address], 02/21/2023 15:13:18 02/22/20 23 02/21/2023 urina lysis , dipst ick, auto urobilinogen 0.2 eu/dL normal normal Not Available [facility] [place] [facility] ([facility]) [address], [place], [address], 02/21/2023 15:13:18 02/22/20 23 02/21/2023 urina lysis , dipst ick, auto nitrites negati ve neg normal Not Available [facility]) [address], [place], [address], 02/21/2023 15:13:18 02/22/20 23 02/21/2023 urina lysis , dipst ick, auto leukocytes trace neg abnormal Not Available [facility] ([facility]) [address], [place], [address], 02/21/2023 15:13:18 02/22/20 23 02/21/2023 urina lysis , micro scopi c WBC/hpf rare 0 - 4 Not Available [facility] [address], [place], [address], 02/21/2023 15:18:33 02/22/20 23 02/21/2023 urina lysis , micro scopi c RBC/hpf 5-10 0 - 2 Not Available [facility] [address], [place], [address], 02/21/2023 15:18:33 02/22/20 23 02/21/2023 urina lysis , micro scopi c casts/lpf 0 neg Not Available [facility] [address] , [place], [address], 02/21/2023 15:18:33 02/22/20 23 02/21/2023 urina lysis , micro scopi c bacteria trace neg Not Available The [place] [address] , [place], [address], 02/21/2023 15:18:33 02/22/20 23 02/21/2023 urina lysis , micro scopi c crystals 0 occ Not Available The [place] [address] , [place], [address], 02/21/2023 15:18:33 02/22/20 23 02/21/2023 urina lysis , micro scopi c epith cells 4 0 - 5 Not Available The [facility] [place] [address] , [place], [address], 02/21/2023 15:18:33 02/22/20 23 02/21/2023 urina lysis , micro scopi c date resulted 3 Not Available [facility] [address] , [place], [address], 02/21/2023 15:18:33 02/22/20 23 02/21/2023 urina lysis , micro scopi c resulted by tk Not Available The [place] [address] , [place], [address], 02/21/2023 15:18:33 01/17/20 23 01/12/2023 CT, abdom en + pelvi s, w/o contr ast No observ ation record ed. [email or web address] Not Available 2022 12:53:56 01/20/20 23 01/18/2023 fluor oscop y (PROC ) No observ ation record ed. [address], [address], 01/19/2023 12:25:35 05/07/20 23 05/07/2023 XR, urogr am, retro grade No observ ation record ed. [address], [address], 05/07/2023 17:10:11 Result Notes None recorded. Problems No Known Problems Procedures Surgical History Date Name Laterality Status Provider Name and Address Organization Details Recorded Time 05/11/20 23 DELORES Dangler Stent Removal completed Minoo Miles [facility] 05/11/2023 15:59:19 05/06/20 23 Cystouretero w/stone remove completed Sreedhar Flores [facility] 05/10/2023 11:31:39 01/24/20 23 DELORES Clinical Photographer Assistant Note completed Isabelle Barba [facility] 01/23/2023 09:23:43 01/24/20 23 Cysto Stent Removal completed Sreedhar Flores [facility] 02/06/2023 11:06:03 01/19/20 23 Cystouretero w/stone remove completed Sreedhar Flores [facility] 02/06/2023 11:05:49 06/11/19 21 extraction of wisdom tooth completed Minoo Miles [facility] 01/16/2023 15:14:22 Imaging Results Imaging Date Name Status LastModified by Organ [facility] Details LastModified Time 01/12/2023 CT, abdomen + pelvis, w/o contrast completed [email or web address] Information not available 01/16/2023 12:53:56 01/18/2023 fluoroscopy (PROC) completed [address], [address], 01/19/2023 12:25:35 05/07/2023 XR, urogram, retrograde completed [address], [address], 05/07/2023 17:10:11 Procedure Notes None recorded. Medical Equipment None Reported. Allergies No known drug allergies Medications Name Sig Start Date Stop Date Status Note LastModified by Organization Details LastModified Time primidone 50 mg tablet 02/21 completed Not Available Not Available Not Available azithromyci n 250 mg tablet TAKE TWO TABLETS BY MOUTH ONE DOSE ON THE FIRST DAY, THEN TAKE ONE DAILY THEREBHUPENDRAE R. active Not Available Not Available No t Available fluconazole 150 mg tablet 01/16 completed Not Available Not Available Not Available benzonatate 200 mg capsule TAKE ONE CAPSULE BY MOUTH EVERY 8 HOURS NEEDED FOR COUGH active Not Available Not Available No t Available hydrocodone 5 mg-acetamin ophen 325 mg tablet TAKE 1 TABLET BY MOUTH EVERY 6 HOURS NEEDED FOR PAIN. MAX OF 4 TABLETS PER DAY 01/16 completed Not Available Not Available Not Available phenazopyri dine 200 mg tablet TAKE 1 TABLET BY MOUTH THREE TIMES DAILY FOR 3 DAYS active Not Available Not Available No t Available prednisone 20 mg tablet TAKE 2 TABLETS BY MOUTH DAILY FOR 5 DAYS active Not Available Not Available No t Available ketorolac 10 mg tablet 02/21 completed Not Available Not Available Not Available propranolol 10 mg tablet TAKE 1 TABLET BY MOUTH TWICE DAILY NEEDED FOR ANXIETY 01/16 completed Not Available Not Available Not Available tamsulosin 0.4 mg capsule TAKE 1 CAPSULE BY MOUTH EVERY DAY FOR 14 DAYS 02/21 completed Not Available Not Available Not Available cephalexin 500 mg capsule TAKE 1 CAPSULE BY MOUTH TWICE DAILY FOR 7 DAYS 02/21 completed Not Available Not Available Not Available ibuprofen 400 mg tablet 02/21 completed Not Available Not Available Not Available fluoxetine 10 mg capsule 01/16 completed Not Available Not Available Not Available oxybutynin chloride ER 5 mg tablet,exte nded release 24 hr TAKE 1 TABLET BY MOUTH DAILY active Not Available Not Available No t Available hydroxyzine HCl 25 mg tablet TAKE ONE-HALF TO 1 TABLET BY MOUTH EVERY NIGHT AT BEDTIME NEEDED FOR ANXIETY OR POOR SLEEP 01/16 completed Not Available Not Available Not Available albuterol sulfate HFA 90 mcg/actuati on aerosol inhaler INHALE 2 PUFFS INTO THE LUNGS EVERY 4 TO 6 HOURS NEEDED FOR COUGH/ARIA RTNESS OF BREATH active Not Available Not Available No t Available oxybutynin chloride 5 mg tablet TAKE 1 TABLET BY MOUTH TWICE DAILY 02/21 completed Not Available Not Available Not Available ondansetron 4 mg disintegrat ing tablet DISSOLVE 1 TABLET ON THE TONGUE EVERY 6 HOURS NEEDED FOR NAUSEA active Not Available Not Available No t Available fluoxetine 20 mg capsule 01/16 completed Not Available Not Available Not Available metformin ER 500 mg tablet,exte nded release 24 hr active Not Available Not Available Not Available amoxicillin 875 mg-potassiu m clavulanate 125 mg tablet TAKE 1 TABLET BY MOUTH TWICE DAILY FOR 10 DAYS active Not Available Not Available No t Available oxycodone 5 mg tablet TAKE 1 TABLET BY MOUTH EVERY 4 HOURS FOR 2 DAYS NEEDED FOR PAIN active Not Available Not Available No t Available aripiprazol e 10 mg tablet 01/16 completed Not Available Not Available Not Available aripiprazol e 5 mg tablet TAKE 1 TABLET BY MOUTH DAILY 01/16 completed Not Available Not Available Not Available omeprazole 20 mg tablet,suzanne yed release active Not Available Not Available Not Available Xulane 150 mcg-35 mcg/24 hr transdermal patch 01/16 completed Not Available Not Available Not Available Vitals Date Recorded Body temperature Provider Name a nd Address Organization Details Last Updated DateTime 01/16/2023 98.3 [degF] Denise Davies [place] [facility] 01/16/2023 14:57:00 Date Recorded Heart rate Provider Name an d Address Organization Details Last Updated DateTime 01/16/2023 88 /min Denise Davies [place] [facility] 01/16/2023 14:57:06 Date Recorded Body height Provider Name an d Address Organization Details Last Updated DateTime 01/16/2023 170.18 cm Minoo Miles [facility] 01/16/2023 15:11:06 Date Recorded Body mass index (BMI) Percentile per age and sex Body mass index (BMI) Body weight Provider Name and Address Organization Details Last Updated DateTime 01/16/2023 86 % 26.9 kg/m2 61362.89 g Minoo Miles [facility] 01/16/2023 15:11:14 Date Recorded Body height Provider Name an d Address Organization Details Last Updated DateTime 01/23/2023 170.18 cm [facility] [place] [facility] 01/23/2023 09:20:02 Date Recorded Body mass index (BMI) Percentile per age and sex Body mass index (BMI) Body weight Provider Name and Address Organization Details Last Updated DateTime 01/23/2023 87 % 27.4 kg/m2 60857.66 g Isabelle Barba [place] [facility] 01/23/2023 09:20:13 Date Recorded Heart rate Provider Name an d Address Organization Details Last Updated DateTime 01/23/2023 89 /min Yogeshaudrey Freda [place] [facility] 01/23/2023 09:20:18 Date Recorded Body temperature Provider Name a nd Address Organization Details Last Updated DateTime 01/23/2023 98 [degF] Yogeshaudrey Barba [place] [facility] 01/23/2023 09:20:31 Date Recorded Body height Provider Name an d Address Organization Details Last Updated DateTime 02/21/2023 156.21 cm Minoo Miles [place] [facility] 02/21/2023 15:11:21 Date Recorded Body mass index (BMI) Percentile per age and sex Body mass index (BMI) Body weight Provider Name and Address Organization Details Last Updated DateTime 02/21/2023 95 % 32.2 kg/m2 52449.48 g Minoo Miles [place] [facility] 02/21/2023 15:11:25 Date Recorded Heart rate Provider Name an d Address Organization Details Last Updated DateTime 02/21/2023 86 /min [place] [facility] 02/21/2023 15:11:30 Date Recorded Body temperature Provider Name a nd Address Organization Details Last Updated DateTime 02/21/2023 97.6 [degF] [place]o [place] [facility] 02/21/2023 15:11:40 Date Recorded Body height Provider Name an d Address Organization Details Last Updated DateTime 05/11/2023 156.21 cm Minoo Miles [place] [facility] 05/11/2023 15:57:05 Date Recorded Body mass index (BMI) Percentile per age and sex Body mass index (BMI) Body weight Provider Name and Address Organization Details Last Updated DateTime 05/11/2023 96 % 33.5 kg/m2 52934.63 g Minoo Miles [place] [facility] 05/11/2023 15:57:16 Date Recorded Heart rate Provider Name an d Address Organization Details Last Updated DateTime 05/11/2023 89 /min [place] [facility] 05/11/2023 15:57:28 Date Recorded Body temperature Provider Name a nd Address Organization Details Last Updated DateTime 05/11/2023 97.7 [degF] [place]o [place] [facility] 05/11/2023 15:57:42 Date Recorded Systolic blood pressure Diastolic blood pressure Provider Name and Address Organization Details Last Updated DateTime 01/16/2023 120 mm[Hg] 66 mm[Hg] Denise Eastmanux [place] [facility] 01/16/2023 14:57:04 Date Recorded Systolic blood pressure Diastolic blood pressure Provider Name and Address Organization Details Last Updated DateTime 01/23/2023 129 mm[Hg] 74 mm[Hg] Isabelle Barba [place] [facility] 01/23/2023 09:20:27 Date Recorded Systolic blood pressure Diastolic blood pressure Provider Name and Address Organization Details Last Updated DateTime 02/21/2023 105 mm[Hg] 69 mm[Hg] Minoo Miles [place] [facility] 02/21/2023 15:11:36 Date Recorded Systolic blood pressure Diastolic blood pressure Provider Name and Address Organization Details Last Updated DateTime 05/11/2023 104 mm[Hg] 71 mm[Hg] Minoo Miles [place] [facility] 05/11/2023 15:57:36 Social History Question Answer Notes LastModified by Organizat ion Details LastModified Time Tobacco Smoking Status Never Smoker Minoo juarez, [place] - [facility] 01/16/2023 15:13:47 Do You Have An Advance Directive? No Information not available 01/16/2023 What Is Your Level Of Alcohol Consumption? None [email or web address] Information not available 01/16/2023 What Is Your Level Of Caffeine Consumption? Occasional Information not available 01/16/2023 Sex: Unknown Functional Status None recorded. Mental Status None recorded. Family History Relationship Description Onset Age of this Age Resolved Age Notes LastModified by Organization Details LastModified Time Mother Diabetes mellitus [email or web address] Not available 2022 15:12:02 Father Kidney stone [email or web address] Not avail able 01/16/2023 15:12:15 Notes:dad passed 38 from acc ident, mom passed at 50 from hepatitis from ETOH(kidneys and liver failed) Medical History Condition Response Cancer - Prostate N Coronary Artery Disease N Crohn's/Ulcerative Colitis N Gout N Spina Bifida or Myelomeningocele N Atrial Fibrillation N Kidney Stones N Liver Disease/Jaundice N MRSA N Benign Prostatic Hypertrophy (BPH) or En larged Prostate N Neurogenic Bladder N Renal Insufficiency N Glaucoma N High Blood Pressure/Hypertension N Prostatitis N Congestive Heart Failure N Bleeding Tendency Disorder N Deep Vein Thrombosis N Radiation Cystitis N Arthritis N Cancer - Bladder N Cancer N Stroke N COPD/Emphysema N Epilepsy/Seizure Disorder N Patient Denies Significant Past Medical History N Urethral Stricture Disease N Cancer - Kidney N STD N Cancer - Testicular N Parkinson's Disease N Heart Attack/LA N Chemotherapy N Cardiac Arrhythmia N Multiple Sclerosis N Diabetes N Dementia/Alzheimer's N Tuberculosis N Bladder Infection N Diverticulitis N Asthma N Sleep Apnea N Hepatitis N Pulmonary Embolism N Osteoporosis N Gynecological HistoryNo gynecological history recorded. Obstetrics History GPAL:G 0 P 0 0 0 0 Past Encounters Encounter ID Performer Location Encounter Start Date Encounter Closed Date Diagnosis/Indication Diagnosis SNOMED-CT Code Diagnosis ICD10 Code Diagnosis Note [id number] Roxane Curry [address] [address] 01/16/2023 14:45:54 01/18/2023 10:48:50 Urolithiasis 45455610 N20.9 Left flank pain 43276412 9 R10.9 [id number] Isabelle Barba [address] [address] 01/23/2023 08:48:54 01/23/2023 09:27:42 Urolithiasis 08285959 N20.9 [id number] Frankie Butts MD [address] [address] 02/21/2023 14:29:54 02/23/2023 12:47:55 Kidney stone 73543093 N20.0 [id number] Minoo Miles [address] [address] 05/11/2023 15:34:25 05/11/2023 16:00:45 Health Concerns Section Related Observation LastModified by Organization Detai ls LastModified Time None Recorded Concern Status LastModified by Organization Details LastModified Time None Recorded Advance Directives Directive N: Payers Encounter Date Sequence Insurance Name Policy Number Policy Sorto Covered Member ID Sorto Member ID Guarantor Name 01/16/2023 1 [employer] () Zaire Marian Hymane [id number] Lazara Jeniffer Kuhse 01/23/2023 1 [employer] () Zaire Fonseca Kuhse [id number] Lazara R Kuhse 02/21/2023 1 [employer] () Zaire Marian Hymane [id number] Lazara Jeniffer Kuhse 05/11/2023 1 [employer] () Zaire Marian Ledesma [id number] Lazara Swift Kuhse Notes Date Note Type Note Provider Name and Address Organization Details Recorded Time 01/16/2023 text/html 22 year old mitch le patient who presents today for ER follow up. She initially presented to [facility] ER on 01/12/23 due to severe left flank pain. CT scan was done showing a 3 mm left UPJ stone. UA with 10-100 bacteria. Creatinine 0.8. She was discharged with norco, zofran, and flomax.She returned to the ER on 01/15/23 due to increased pain, nausea, and vomiting. Creat 1.11. UA 0-10 bacteria. WBC 21. ER MD spoke with Urologist, Dr. Trujillo who recommended antibiotics. She was given Rocephin in the ER and discharged with Keflex.She has had a stone when she was 18 years old Today she continues to have left flank pain. She has not seen the stone pass. She does have some nausea when the pain is worse. No vomiting. No fevers, chills, No gross hematuria or dysuria. She does have a history of some issues with dysphagia. She is currently being evaluated for this. Roxane Curry [address] [place] [address], [id number], [facility] 01/17/2023 14:26:14 02/21/2023 text/html She initially presented to [facility] ER on 01/12/23 due to severe left flank pain. CT scan was done showing a 3 mm left UPJ stone. She returned to the ER on 01/15/23 due to increased pain.She has had a stone when she was 18 years old She underwent a left ureteroscopy and extraction of the 3 mm left UPJ stone on 01/18/23. Cease felt fine since her stent was removed. The stone was 50% calcium oxalate and 50% calcium phosphate. Frankie Butts MD [address] [place] [address], [phone], [place] [facility] 02/22/2023 22:36:42 OBGyn Episode No OBEpisode recorded.
--- OUTSIDE RECORDS SUMMARY | 2024-07-11 14:31 | XMS_ITS | Continuity of Care Document ---
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 [facility] Urinalys is UA Urobilinog en 0.2 E.U./dL 11/13 N [facility] Urinalys is UA Nitrite Negative (11/13/22 11:34 AM) 11/13 N [facility] Urinalys is UA Leuk Esterase Moderate *ABN* (11/13/22 11:34 AM) 11/13 [facility] Urinalys is UA WBC >20 /HPF 0 - 5 11/13 A Result Comment: UNSPUN MICROSCOPIC [facility] Urinalys is UA RBC 6-10 /HPF 0 - 5 11/13 A Result Comment: UNSPUN MICROSCOPIC [facility] Urinalys is UA Bacteria 1+ 9 *ABN* (11/13/22 11:34 AM) 11/13 A Result Comment: UNSPUN MICROSCOPIC [facility] Urinalys is UA Epi Squam >20 /HPF 11/13 N Result Comment: UNSPUN MICROSCOPIC [facility] Urinalys is UA Mucous 1+ 11 *ABN* (11/13/22 11:34 AM) 11/13 A Result Comment: UNSPUN MICROSCOPIC [facility] Urinalys is UA Ca Ox Crystal 5 - 10 /HPF 11/13 A Result Comment: UNSPUN MICROSCOPIC [facility] Immunolo gy/Serol ogy Immunoglob E 190.2 IU/mL 0.0 - 100.0 10/13 H Interpretiv e Data: 13 APR 2017 Notice: Samples for this assay should not be taken from patients receiving therapy with high biotin doses (i.e. > 5 mg/day) until 8 hours following last biotin administrat ion. [facility] Allergy Testing Allergen, Honey bee IgE <0.10 kUA/l 10/13 Interpretiv e Data: Result Class Level of Allergen-Sp ecific IgE Antibody <0.10 kUA/l 0 Absent or Undetectabl e 0.10 - 0.34 kUA/l 0/I Very Low 0.35 - 0.69 kUA/l I Low 0.70 - 3.49 kUA/l II Moderate 3.50 - 17.50 kUA/l III High 17.5 - 49.99 kUA/l IV Very High 50.0 - 100.0 kUA/l V Very High >100.0 kUA/l Very High In food allergy, circulating IgE antibodies may remain undetectabl e despite a convincing clinical history because these antibodies may be directed towards allergens that are revealed or altered during industrial processing, cooking or digestion and therefore do not exist in the original food for which the patient is tested. Methodology - FEIA (Fluorescen ce Enzyme Immunoassay ) [facility] Allergy Testing Allergen, White-face d hornet venom IgE <0.10 kUA/l 10/13 Interpretiv e Data: Result Class Level of Allergen-Sp ecific IgE Antibody <0.10 kUA/l 0 Absent or Undetectabl e 0.10 - 0.34 kUA/l 0/I Very Low 0.35 - 0.69 kUA/l I Low 0.70 - 3.49 kUA/l II Moderate 3.50 - 17.50 kUA/l III High 17.5 - 49.99 kUA/l IV Very High 50.0 - 100.0 kUA/l V Very High >100.0 kUA/l Very High In food allergy, circulating IgE antibodies may remain undetectabl e despite a convincing clinical history because these antibodies may be directed towards allergens that are revealed or altered during industrial processing, cooking or digestion and therefore do not exist in the original food for which the patient is tested. Methodology - FEIA (Fluorescen ce Enzyme Immunoassay ) [facility] Allergy Testing Allergen, Wasp Venom, yellow jacket IgE <0.10 kUA/l 10/13 Interpretiv e Data: Result Class Level of Allergen-Sp ecific IgE Antibody <0.10 kUA/l 0 Absent or Undetectabl e 0.10 - 0.34 kUA/l 0/I Very Low 0.35 - 0.69 kUA/l I Low 0.70 - 3.49 kUA/l II Moderate 3.50 - 17.50 kUA/l III High 17.5 - 49.99 kUA/l IV Very High 50.0 - 100.0 kUA/l V Very High >100.0 kUA/l Very High In food allergy, circulating IgE antibodies may remain undetectabl e despite a convincing clinical history because these antibodies may be directed towards allergens that are revealed or altered during industrial processing, cooking or digestion and therefore do not exist in the original food for which the patient is tested. Methodology - FEIA (Fluorescen ce Enzyme Immunoassay ) [facility] Allergy Testing Allergen, Paper wasp IgE <0.10 kUA/l 10/13 Interpretiv e Data: Result Class Level of Allergen-Sp ecific IgE Antibody <0.10 kUA/l 0 Absent or Undetectabl e 0.10 - 0.34 kUA/l 0/I Very Low 0.35 - 0.69 kUA/l I Low 0.70 - 3.49 kUA/l II Moderate 3.50 - 17.50 kUA/l III High 17.5 - 49.99 kUA/l IV Very High 50.0 - 100.0 kUA/l V Very High >100.0 kUA/l Very High In food allergy, circulating IgE antibodies may remain undetectabl e despite a convincing clinical history because these antibodies may be directed towards allergens that are revealed or altered during industrial processing, cooking or digestion and therefore do not exist in the original food for which the patient is tested. Methodology - FEIA (Fluorescen ce Enzyme Immunoassay ) [facility] Allergy Testing Allergen, Yellow Hornet Venom IgE <0.10 kUA/l 10/13 Interpretiv e Data: Result Class Level of Allergen-Sp ecific IgE Antibody <0.10 kUA/l 0 Absent or Undetectabl e 0.10 - 0.34 kUA/l 0/I Very Low 0.35 - 0.69 kUA/l I Low 0.70 - 3.49 kUA/l II Moderate 3.50 - 17.50 kUA/l III High 17.5 - 49.99 kUA/l IV Very High 50.0 - 100.0 kUA/l V Very High >100.0 kUA/l Very High In food allergy, circulating IgE antibodies may remain undetectabl e despite a convincing clinical history because these antibodies may be directed towards allergens that are revealed or altered during industrial processing, cooking or digestion and therefore do not exist in the original food for which the patient is tested. Methodology - FEIA (Fluorescen ce Enzyme Immunoassay ) [facility] Allergy Testing Allergen, Fire Ant IgE 0.36 kUA/l 10/13 Interpretiv e Data: Result Class Level of Allergen-Sp ecific IgE Antibody <0.10 kUA/l 0 Absent or Undetectabl e 0.10 - 0.34 kUA/l 0/I Very Low 0.35 - 0.69 kUA/l I Low 0.70 - 3.49 kUA/l II Moderate 3.50 - 17.50 kUA/l III High 17.5 - 49.99 kUA/l IV Very High 50.0 - 100.0 kUA/l V Very High >100.0 kUA/l Very High In food allergy, circulating IgE antibodies may remain undetectabl e despite a convincing clinical history because these antibodies may be directed towards allergens that are revealed or altered during industrial processing, cooking or digestion and therefore do not exist in the original food for which the patient is tested. Methodology - FEIA (Fluorescen ce Enzyme Immunoassay ) [facility] Chemistr y Albumin Lvl.EPI 5.08 g/dL 03/03 Result Comment: INTERPRETAT ION(S): Performed by: [facility] [employer] [address] [place] [address], [place] [phone] [facility] Chemistr y Testostero ne Free.EPI 0.61 ng/dL 03/03 H [facility] Chemistr y Testostero ne Total.EPI 24.9 ng/dL 03/03 Result Comment: INTERPRETAT ION(S): Performed by: [facility] [employer] [address]. [address] [place] [address], [place] [address] [facility] Chemistr y SHBG.EPI 13.7 nmol/L 03/03 L Result Comment: INTERPRETAT ION(S): Performed by: [facility] [employer] [address] [address] [place] [address], [place] [address] [facility] Chemistr y Androgen Free.EPI 6.31 % 03/03 H [facility] Chemistr y Testostero ne Bioavail.E PI 16.74 ng/dL 03/03 H [facility] Chemistr y Beta hCG, Serum Qual Negative (03/03/22 2:07 PM) 03/03 N [facility] Chemistr y TSH No Result 0.47 - 4.68 03/03 [facility] Chemist[facility] y LH.LC 5.9 m[iU]/mL 03/03 Result Comment: Adult Female: Follicular phase 2.4 - 12.6 Ovulation phase 14.0 - 95.6 Luteal phase 1.0 - 11.4 [place]men[place] jeremiah 7.7 - 58.5 [facility] Chemistr y FSH.LC 5.5 m[iU]/mL 03/03 Result Comment: Adult Female: Follicular phase 3.5 - 12.5 Ovulation phase 4.7 - 21.5 Luteal phase 1.7 - 7.7 [place] jeremiah 25.8 - 134.8 Performed At: 01 [facility] [address] [id number] Jorge Lockwood MD [phone] [facility] Chemistr y Prolactin. LC 6.7 ng/mL 03/03 Result Comment: Performed At: 01 [facility] [id number] [id number] Jorge Lockwood MD Ph:[phone] [facility] Chemistr y DHEA Sulfate.EP I 438.0 ug/dL 03/03 H Result Comment: INTERPRETAT ION(S): Performed by: [facility]emi[facility] [address] [place] [phone] [facility] Vital Signs Combined list of inpatient and outpatient Vital Signs from Department of Defense and Veterans Affairs, ranging from 12 months to all on record, depending upon the facility. Vital Sign Value Date Comments Source Systolic Blood Pressure 117mm[Hg] 04/13/2023 20:50:00 Ambulatory Pharmacy Diastolic Blood Pressure 76mm[Hg] 04/13/2023 20:50:00 Ambulatory Pharmacy Mean Arterial Pressure, Calc 90mm[Hg] 04/13/2023 20:50:00 Ambulatory P harmacy Peripheral Pulse Rate 77bpm 04/13/2023 20:50:00 Ambulatory Pharmacy Temperature Oral 36.5Cel 04/13/2023 20:50:00 Ambulatory Pharmacy BP Site 04/13/2023 20:50:00 [facility] Blood Pressure Manual 04/13/2023 20:50:00 Ambulatory Pharmacy Systolic Blood Pressure 120mm[Hg] 08/29/2022 20:13:00 Ambulatory Pharmacy Diastolic Blood Pressure 64mm[Hg] 08/29/2022 20:13:00 Ambulatory Pharmacy Mean Arterial Pressure, Calc 83mm[Hg] 08/29/2022 20:13:00 Ambulatory P harmacy Peripheral Pulse Rate 18bpm 08/29/2022 20:13:00 Ambulatory Pharmacy Temperature Oral 36.5Cel 08/29/2022 20:13:00 Ambulatory Pharmacy BP Site 08/29/2022 20:13:00 [facility] Blood Pressure Manual 08/29/2022 20:13:00 Ambulatory Pharmacy Systolic Blood Pressure 108mm[Hg] 09/12/2022 20:36:00 Ambulatory Pharmacy Diastolic Blood Pressure 68mm[Hg] 09/12/2022 20:36:00 Ambulatory Pharmacy Mean Arterial Pressure, Calc 81mm[Hg] 09/12/2022 20:36:00 Ambulatory P harmacy Peripheral Pulse Rate 93bpm 09/12/2022 20:36:00 Ambulatory Pharmacy Respiratory Rate 16br/min 09/12/2022 20:36:00 Ambulatory Pharmacy Temperature Oral 36.7Cel 09/12/2022 20:36:00 Ambulatory Pharmacy Blood Pressure Manual 09/12/2022 20:36:00 Ambulatory Pharmacy Systolic Blood Pressure 113mm[Hg] 06/23/2022 17:28:00 Ambulatory Pharmacy Diastolic Blood Pressure 82mm[Hg] 06/23/2022 17:28:00 Ambulatory Pharmacy Mean Arterial Pressure, Calc 92mm[Hg] 06/23/2022 17:28:00 Ambulatory P harmacy Peripheral Pulse Rate 82bpm 06/23/2022 17:28:00 Ambulatory Pharmacy Respiratory Rate 16br/min 06/23/2022 17:28:00 Ambulatory Pharmacy Temperature Oral 36.4Cel 06/23/2022 17:28:00 Ambulatory Pharmacy Systolic Blood Pressure 107mm[Hg] 04/14/2022 17:41:00 Ambulatory Pharmacy Diastolic Blood Pressure 70mm[Hg] 04/14/2022 17:41:00 Ambulatory Pharmacy Mean Arterial Pressure, Calc 82mm[Hg] 04/14/2022 17:41:00 Ambulatory P harmacy Peripheral Pulse Rate 80bpm 04/14/2022 17:41:00 Ambulatory Pharmacy Respiratory Rate 18br/min 04/14/2022 17:41:00 Ambulatory Pharmacy Temperature Oral 36.4Cel 04/14/2022 17:41:00 Ambulatory Pharmacy BP Site 04/14/2022 17:41:00 [facility] Blood Pressure Manual 04/14/2022 17:41:00 Ambulatory Pharmacy Systolic Blood Pressure Supine 113mm[Hg] 04/14/2022 17:41:00 Ambulatory P harmacy Diastolic Blood Pressure Supine 67mm[Hg] 04/14/2022 17:41:00 Ambulatory P harmacy Systolic Blood Pressure Sitting 104mm[Hg] 04/14/2022 17:41:00 Ambulatory P harmacy Diastolic Blood Pressure Sitting 66mm[Hg] 04/14/2022 17:41:00 Ambulatory P harmacy Systolic Blood Pressure Standing 114mm[Hg] 04/14/2022 17:41:00 Ambulatory P harmacy Diastolic Blood Pressure Standing 74mm[Hg] 04/14/2022 17:41:00 Ambulatory P harmacy Systolic Blood Pressure 104mm[Hg] 02/16/2023 13:30:00 Ambulatory Pharmacy Diastolic Blood Pressure 71mm[Hg] 02/16/2023 13:30:00 Ambulatory Pharmacy Mean Arterial Pressure, Calc 82mm[Hg] 02/16/2023 13:30:00 Ambulatory P harmacy Peripheral Pulse Rate 93bpm 02/16/2023 13:30:00 Ambulatory Pharmacy Respiratory Rate 16br/min 02/16/2023 13:30:00 Ambulatory Pharmacy Temperature Oral 37.5Cel 02/16/2023 13:30:00 Ambulatory Pharmacy Systolic Blood Pressure 112mm[Hg] 03/03/2022 18:13:00 Ambulatory Pharmacy Diastolic Blood Pressure 78mm[Hg] 03/03/2022 18:13:00 Ambulatory Pharmacy Mean Arterial Pressure, Calc 89mm[Hg] 03/03/2022 18:13:00 Ambulatory P harmacy Peripheral Pulse Rate 98bpm 03/03/2022 18:13:00 Ambulatory Pharmacy BP Site 03/03/2022 18:13:00 [facility] Blood Pressure Manual 03/03/2022 18:13:00 Ambulatory Pharmacy Systolic Blood Pressure 125mm[Hg] 11/13/2022 16:16:00 Ambulatory Pharmacy Diastolic Blood Pressure 70mm[Hg] 11/13/2022 16:16:00 Ambulatory Pharmacy Mean Arterial Pressure, Calc 88mm[Hg] 11/13/2022 16:16:00 Ambulatory P harmacy Peripheral Pulse Rate 69bpm 11/13/2022 16:16:00 Ambulatory Pharmacy Respiratory Rate 16br/min 11/13/2022 16:16:00 Ambulatory Pharmacy Temperature Oral 36.7Cel 11/13/2022 16:16:00 Ambulatory Pharmacy Systolic Blood Pressure 105mm[Hg] 04/05/2022 16:03:00 Ambulatory Pharmacy Diastolic Blood Pressure 67mm[Hg] 04/05/2022 16:03:00 Ambulatory Pharmacy Mean Arterial Pressure, Calc 80mm[Hg] 04/05/2022 16:03:00 Ambulatory P harmacy Peripheral Pulse Rate 85bpm 04/05/2022 16:03:00 Ambulatory Pharmacy BP Site 04/05/2022 16:03:00 [facility] Pharm[facility] Blood Pressure Manual 04/05/2022 16:03:00 Ambulatory Pharmacy Encounters Combined list of: 1) Encounters from Department of [facility] 2) Encounters from the Department of [facility] facilities going back up to 280 months. Location Location Details Encounter Type Encounter Number Reason For Visit Attending Provider ADM Date DC Date Status Disposition Source [facility] OUTPATIENT [id number] blue lips, rsv+ MICHOACANO CLINTON 08/18 Released w/o Limitations [facility] OUTPATIENT [id number] CHEST CONGEST ION/COL D SYMPTOM S/RASH ON MOUTH CHEEKS MICHOACANO CLINTON 09/06 Released w/o Limitations [facility] Red [facility]) TELE CONSULT [id number] HANDS ALEXKE EMILIANA CAN 11/30 [facility] Red [facility]) [facility] Blue [facility]) TELE CONSULT [id number] ant bite on rt foot/ swellin g/ redness / eyes swellin g/ foot is hot to touch JAMES ALEXIS 12/05 [facility] Blue Team) [facility] Red [facility]) TELE CONSULT [id number] ER VISIT JHONY VARELA 01/18 [employer] [facility] Red [facility]) [facility] Red [facility]) OUTPATIENT [id number] 5YR OLD;BOWERS DS DO MEZA 01/26 Released w/o Limitations [employer] [facility] Red Team) [facility]) OUTPATIENT [id number] SHAKING DO WADDELL 06/19 Released w/o Limitations [facility] Red [facility]) [facility] TELE CONSULT [id number] GT GRAY 07/16 [facility] Red Team) [facility] Practice Red Team) TELE CONSULT [id number] SWALLOW ED RHETT CREWS 12/26 [facility] Pract[facility] Red Team) [facility] Practice Red Team) OUTPATIENT [id number] SWELLIN G TO TOE--UN ABLE TO WEAR SHOE GABE VUONG 02/14 Released w/o Limitations [facility] Pract[facility] Red Team) [facility] TELE CONSULT [id number] VAGINAL RASH REUBEN , JAMES G 02/26 [facility] Red [facility]) [facility] Practice Red Team) OUTPATIENT [id number] new pt- eval/ referra ARUN Stewart 04/10 Released w/o Limitations [employer] [facility] Pract[facility] Red Team) [facility] OUTPATIENT [id number] LA Haywood 06/28 Released w/o Limitations [facility] Red [facility]) [facility] Practice Red Team) TELE CONSULT [id number] cac-- rt eye redness /cruste d over/it RHETT García 11/25 [facility] Red Team) [facility] Practice Red Team) OUTPATIENT [id number] fever/ nausea/ poss insect bite to rt arm DIANA ANTONY S 02/11 Sick at Home/Quarter s [facility] Red Team) [facility]) OUTPATIENT [id number] Paperwo rk to be complet ed for PCS Dany Buck 7 3922 BECK WHITTAKER 06/18 Released w/o Limitations [facility]) [facility]) TELE CONSULT [id number] CAC - constip ation x1wk now vomitin g x3 today NICHOLEJHONY Mariano 08/19 [facility]) OUTPATIENT [id number] impacti ons x 4 this week AKBARLEIDY SalRA 08/20 Released w/o Limitations [facility]) [employer] [facility](Ped iatric Team A Non-GME) OUTPATIENT [id number] neuro check per parent request for school ARTZEN [place] 12/22 Released w/o Limitations [employer](P ediatri c Team A Non-GME ) [facility](Ped iatric Team A Non-GME) OUTPATIENT [id number] sports physicSYED Matta 01/26 Released w/o Limitations [employer](P ediatri c Team A Non-GME ) [facility](Ped iatric Team A Non-GME) OUTPATIENT [id number] NEW REFERRA L SHANNANS TUYET DE LA VEGA 08/19 Released w/o Limitations [employer](P ediatri c Team A Non-GME ) [facility](Ped iatric Team A Non-GME) TELE CONSULT [id number] NOT ABLE TO CONTACT PT RONY YUAN 08/[facility](P ediatri c Team A Non-GME ) [facility](Ped iatric Team A Non-GME) OUTPATIENT [id number] Sports Physica PRISCILA Blank 02/17 Released w/o Limitations [employer](P ediatri c Team A Non-GME ) [facility](Ped iatric Team A-Non-GME ) TELE CONSULT [id number] G DIRECT REFERRA L RONY YUAN 07/03 [employer](P ediatri c Team A-Non-G ME) [employer](Ped iatric Team A-Non-GME ) TELE CONSULT [id number] Notes Entered by: BASSAM CHI 24 Oct 2011 1540 ------- ------- ------- ------- -- SPECIAL NEEDS OCTOBERDELMI Dany 10/23 [employer](P ediatri c Team A-Non-G ME) [facility] [facility](Ped iatric Team A-Non-GME ) OUTPATIENT [id number] Rosangela yeh Evaluat ion OCTOBERDELMI 11/06 Released w/o Limitations [employer] [facility](P ediatri c Team A-Non-G ME) [employer] [facility](Ped iatric Team A-Non-GME ) TELE CONSULT [id number] Notes Entered by: BASSAM CHI 09 Jul 2012 1527 ------- ------- ------- ------- -- MEDICAL GA VIVAS 07/09 Referred for Appointment [facility](P ediatri c Team A-Non-G ME) [employer] [facility](Ped iatric Team A-Non-GME ) OUTPATIENT [id number] pain when urinati on ALEJANDRA BENITO S 08/01 Released w/o Limitations [employer] [facility](P ediatri c Team A-Non-G ME) [facility] [facility](Ped iatric Team A-Non-GME ) OUTPATIENT [id number] 11yo PRISCILA Bourgeois 09/04 Released w/o Limitations [employer] [facility](P ediatri c Team A-Non-G ME) [employer] [facility](Ped iatric Team A-Non-GME ) TELE CONSULT [id number] Notes Entered by: CARIDAD CONTRERAS 25 Sep 2012 1451 ------- ------- ------- ------- -- Network Results - Optomet oliverio 3 ZEN SWANSON 09/25 [employer](P ediatri c Team A-Non-G ME) [facility] [facility](Ped iatric Team A-Non-GME ) TELE CONSULT [id number] Notes Entered by: ABY COREY 08 Oct 2012 1420 ------- ------- ------- ------- -- Out-pro ABY Tong 10/08 Referred for Appointment [facility](P ediatri c Team A-Non-G ME) [employer] [facility](Ped iatric Team A-Non-GME ) OUTPATIENT [id number] FEVER, SORE THROAT, AND COUGHIN G/AYAH YIP 10/30 Released w/o Limitations [employer](P ediatri c Team A-Non-G ME) [employer] [facility] [facility] FAM[facility] Tm Blue) OUTPATIENT [id number] [facility] stanlyDAIANA Cavazos 01/07 Released w/o Limitations [employer] ([facility]S cott [facility] Tm Blue) [employer] ([facility]Sco tt [facility] Fam Res Tm Green) OUTPATIENT [id number] [facility] JEANNIE HUGHES LT 01/27 Released w/o Limitations [employer] ([facility]S cott [facility] Fam Res Tm Green) [employer] ([facility]Sco tt [facility] Fam Res Tm Green) OUTPATIENT [id number] fever, sore throat, losing voice, [phone] REUBEN KHAN 03/30 Released w/o Limitations [employer] ([facility]S cott [facility] Fam Res Tm Green) [facility] [employer] ([facility]Sco tt [facility] Fam Res Tm Red) TELE CONSULT [id number] Notes Entered by: Marian PHAN 02 Apr 2014 1734 ------- ------- ------- ------- -- Error in Rapid strep testing JOEY CARDONA 04/02 Referred for Appointment [employer] ([facility]S cott [facility] Fam Res Tm Red) [employer] [facility]Sco tt [facility] Fam Res Tm Green) OUTPATIENT [id number] [facility] physica l - [phone] CYRIL WEINSTEIN 01/12 Released w/o Limitations [address] [place] [address] [employer] ([facility]S [facility] Fam Res Tm Green) [address] [place] [address] [facility] Fam Res Tm Gold) TELE CONSULT [id number] Notes Entered by: ABY LYLE 27 May 2015 1513 ------- ------- ------- ------- -- Lebron / CYRIL Camara 05/[address] [place] [address] [facility]S cott [facility] Fam Res Tm Gold) [address] [place] [address] [facility]zo [facility] Fam Res Tm Green) TELE CONSULT [id number] Notes Entered by: Mariano PHAM 01 Jun 2015 1323 ------- ------- ------- ------- -- MOP request s re evaluat ion for autism/ Justin/6 [phone] or [phone] CYRIL WEINSTEIN 06/[address] [place] [address] [employer] [facility] [place] [place] [place]) Procedures Combined list of: 1) Procedures from Department of Veterans Affairs facilities going back up to thelast 18 months, not all VA non-surgical procedures are included; 2) All procedures from the Department of Defense facilities. Procedure Procedure Type Code Date Perfomer Comments Sour e Psychiatric Diagnostic Evaluation Review of Records and Reports Psychiatric Diagnostic Evaluation Review of Records and Reports 27617 12/31/19 10 NICK CARRENO [facility] Psychiatric Diagnostic Evaluation Comprehensive Examination Psychiatric Diagnostic Evaluation Comprehensive Examination [id number] 11/13/19 10 NEVAEH HOPKINS [facility] Psychiatric Diagnostic Evaluation Comprehensive Examination Psychiatric Diagnostic Evaluation Comprehensive Examination [id number] 08/16/19 10 CESIA AYALA [facility] PSYCHIATRIC EVALUATION OF HOSPITAL RECORDS, OTHER PSYCHIATRIC REPORTS, PSYCHOMETRIC AND/OR PROJECTIVE TESTS, AND OTHER ACCUMULATED DATA FOR MEDICALDIAGNOSTIC PURPOSES 12/31/19 10 [facility] PSYCHIATRIC DIAGNOSTIC INTERVIEW EXAMINATION 11/13/19 10 [facility] PSYCHIATRIC DIAGNOSTIC INTERVIEW EXAMINATION 08/13/19 10 [facility] No data available for this section Ambulatory Pharmacy Social History Combined list of available smoking, tobacco, and other social history from Department of Defense and Veterans Affairs facilities. Social History Type Response Date Comment Sourc e This section is an empty social history section. DoD Tobacco Never-cigarette user Cigarette use:. Never-other tobacco user (not cigarettes) Other Tobacco use:. Ambulatory Pharmacy Sexual Orientation Ambula tory Pharmacy Gender identity Ambulator y Pharmacy Female Ambulatory Pha rmacy Assessment and Plan Combined list of future care activities from Department of Defense and Veterans Affairs facilities (e.g., assessment and plan notes, appointments, orders, and referrals). Additional future care activities may be listed in the Plan of Care section. Result Assessment and Plan Date Source Assessment and Plan Extracted from:Title : FMR n europathy Author: CAMILLE JACK DO Date: 04/13/23 1.?Neuropathy Established. ?Uncontrolled. Patient's lab work-up to date has been largely unremarkable. ?No identified?cause of?her neuropathies.? Given patient's ongoing tremor with?ongoing neuropathy, will refer to neurology.? Patient symptoms inconsistent with carpal tunnel?and do not follow a dermatomal pattern.? Discussed?potential for?nerve conduction testing?with neurology, however,?low suspicion that this would lead to?useful data.? Patient to follow-up?as needed or?if symptoms are?worse. Ordered: Referral Request 2.0 ? 2.?Anxiety Established. ?Well-controlled. Patient wishes to reestablish with new psychiatrist. ?Patient currently seeing [facility]psychiatry. ?Discussed due to the long wait times with psychiatry?that she should continue seeing [facility] psychiatry?until she is able to reestablish.? Patient will continue to get Abilify from her [facility] psychiatrist. ? Orders: Microalbumin Panel, Urine Urinalysis with Microscopic and Culture if Indicated Urine Culture Capt Camille Jack DO [employer], [facility], [facility] [employer], [place] ? ? ? Addendum by SYLVAIN MENDOZA MD on April 16, 2023 08:35:47 PROFESSOR OF COMMUNICATION ARTS I have reviewed the above record as preceptor for this encounter. ?I was available for consultation during this encounter. ?The case WAS discussed with me [id number] at the time of the encounter. ?I agree with the assessment and plan for this encounter as described above.? ? 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 ?Uncontrolled. Likely gastroenteritis given close contact with?sick individuals?on a daily basis.? Given her symptoms are going on for 2 days, will?treat with Imodium. ?No indication to do GI pathogen panel at this time.? Patient to follow-up if her symptoms do not resolve. Ordered: RF Esophagus ? 2.?Neuropathy Chronic. ?Uncontrolled. Recent?lab?revealed?mildly microcytic?with increased RDW.? She also had elevated eosinophils.? We will add B12 and folate?to initiate neuropathy work-up. ?Low suspicion for carpal tunnel or?nerve?compression given bilateral upper and lower extremity distribution.? No observable muscle weakness.? Sensations?distribution?not consistent nerve distribution.? Ordered: Vitamin B12 and Folate Panel RF Esophagus ? 3.?Globus sensation Chronic. ?Uncontrolled. Will begin sensation work-up with?esophagram. ?Will consider?GI?referral for possible EGD based on results.? Given patient's history of uncontrolled GERD?differential includes Lewis's esophagus.? Symptom is described?could be consistent with achalasia.? Patient will follow-up after esophagram is obtained. Ordered: RF Esophagus ? Orders: loperamide(loperamide 1 mg/7.5 mL oral liquid), 10 mL, Oral, TID, PRN loose stool, not to exceed 40 mL/day, # 120 mL, 0 total refill(s), Acute, 02/23/2023, 10 mL Oral TID,PRN:loose stool,Instr:not to exceed 40 mL/day, Pharmacy: [facility] [Not filled] Capt Camille Jack DO [facility], [facility], [facility] [place], [place] ? Addendum by SYLVAIN JAMESON MD on February 19, 2023 11:21:38 CDT I have reviewed the above record and discussed the patient with the resident?as preceptor for this encounter. ?I was immediately?available in the clinic for consultation during the encounter. ?The case WAS discussed with me [id number] at the time of the encounter. ?I agree with the assessment and plan for this encounter as described above.? ? Capt Sylvain Jameson MD, Family Medicine [address] [place] [address], [facility] [place], [place]? Extracted from:Title: [facility]MR ([facility] - ER Follow-up/Nephrolithiasis Author: FRANKLYN GARCIA MD Date: 11/13/22 1.?Nephrolithiasis Acute on chronic, improving - asymptomatic -Patient presented to ER on November 01 with R plank pain and was diagnosed with bilateral nephrolithiasis, with evidence of mild hydronephrosis R -Reviewed CT imaging and labs results. Will repeat CBC, BMP, and UA today. -Vitals were reviewed and are normal. Physical exam is reassuring. -Has scheduled follow-up with Urology, will see them in the coming weeks. -Counseled patient on preventative measures - namely fluid intake with the goal to reach approximately 2L urine output per day. ? Ordered: Basic Metabolic Panel CBC w/ Diff Urinalysis with Microscopic ? Orders: *Differential Automated *Glomerular Filtration Rate, Estimated Urine Culture Addendum by RULA EVERETT DO on November 14, 2022 15:54:41 CDT I have reviewed the above record and discussed the patient with the resident?as preceptor for this encounter. ?I was immediately?available in the clinic for consultation during the encounter. ?The case WAS discussed with me [id number] at the time of the encounter. ?I agree with the assessment and plan for this encounter as described above.? ? Rula Everett DO, FAWM [employer], [facility] Faculty Physician Extracted from:Title: History of anaphylactic reaction, panic attack Author: ERICK ZHOU MD Date: 09/13/22 History of anaphylaxis Chronic,?patient currently establishing with allergy and immunology for exposure prophylaxis,?when seen on September 05 patient was given?2 EpiPen's.?symptoms today do seem to be more consistent with?panic attack,?however if?there is a underlying component of reactive airway process, patient is already?establishing with allergy and immunology?who can consider?skin prick testing,?or if desired pulmonary function testing.? Patient has?plenty of urgent care provided?albuterol?inhaler. ?Normal physical exam and?only single utilization of?albuterol inhaler?do seem to be?more consistent with?single episode panic attack. Ordered: ? Addendum by МАРИЯ HUERTA MD on September 18, 2022 11:03:19 CDT On the date of this encounter, I was immediately available to assist the resident in the care of the patient, and we discussed the case on the day of the encounter, and I have reviewed and agree with the resident s findings and plan of care. Extracted from:Title: History of anaphylactic reaction Author: ERICK ZHOU MD Date: 09/01/22 Anaphylactic reaction Chronic,?order placed for allergy and immunology?referral?due to patient's reported history of anaphylactic reaction.? Anticipate patient will be provided with epinephrine pen?when she is assessed by the paid internship.? Patient has never been previously formally diagnosed with?any form of allergy or reactive?type condition.? Patient had no further questions Addendum by SYLVAIN MENDOZA MD on September 01, 2022 09:15:09 CDT I have reviewed the above record as preceptor for this encounter. ?I was available for consultation during this encounter. ?The case WAS discussed with me [id number] at the time of the encounter. ?I agree with the assessment and plan for this encounter as described above.? Extracted from:Title: FMR ([employer]) - Back Pain/Rash Author: FRANKLYN GARCIA MD Date: 06/23/22 1.?Back pain Acute on chronic, stable -No red flags are present on history or physical exam -Continue current conservative measures?with heating pad as needed.? Recommended use of topical products such as icy hot, BenGay or Aspercreme.? Tylenol or ibuprofen as needed. -Given duration of symptoms, patient would be a good candidate for formal physical therapy, patient amendable. ?Referral placed. -No indication for?x-ray or more advanced?imaging at this time. -Discussed overall expectations for recovery?and?recommended?patient contact/return to clinic if?symptoms fail to improve?after a full course of physical therapy and the above measures. -All questions were answered and patient is in agreement with the above plan ? Ordered: Referral Request 2.0 ? 2.?Tinea versicolor Acute, uncontrolled -History and physical exam appear most consistent with pityriasis versicolor -Given?diffuse?distribution?will treat with?oral therapy f luconazole?300 mg?once weekly for 2 weeks ? 3.?Hearing loss Chronic, stable -Based on provided history, suspect?secondary to?exposure to loud noise/music -We will refer to audiology for formal hearing assessment ? ? ? Ordered: Referral Request 2.0 ? Orders: fluconazole(fluconazole 150 mg oral tablet), See Instructions, Take 2 tabs (300mg) once weekly for two weeks., # 4 tab(s), 0 total refill(s), Acute, 06/24/2023, Take 2 tabs (300mg) once weekly for two weeks., Pharmacy: [facility] [Last filled 06/23/22] ketoconazole topical(ketoconazole 2% topical cream), 1 appl(s), Topical, Daily, Apply to affected areas and immediate surrounding skin once daily for 2-3 weeks., # 60 g, 0 total refill(s), Acute, 1 appl(s) Topical Daily,Instr:Apply to affected areas and immediate surrounding skin once daily for 2-3 week... Addendum by DEANDRA GUSTAFSON MD on June 27, 2022 10:17:36 PROFESSOR OF COMMUNICATION ARTS I have reviewed the above record and discussed the patient with the resident?as preceptor for this encounter. ?I was immediately?available in the clinic for consultation during the encounter. ?The case WAS discussed with me [id number] at the time of the encounter. ?I agree with the assessment and plan for this encounter as described above.? Extracted from:Title: FMR - essential tremor, dizzziness Author: MEGAN THOMPSON DO Date: 04/14/22 1.?Dizziness new the last few years. postural, exertion, and heat triggers likely orthostatic despite negative orthostatic pressures. physical exam findings were also reassuring. - discussed maintaining adequate hydration, giving herself time between positional changes, being aware of her triggers (exertion/heat), and adding extra salt to her diet may help mitigate it - return to clinic if it continues to worsen ? ? 2.?Essential tremor chronic. constant tremor in arms and sometimes legs. Requesting neurology referral. Previously worked-up when she was younger and providers were leaning toward essential tremor. 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 She has not started taking propranolol yet. - start her prescription for propranolol. Make sure that the first time it is taken is at home or a safe environment to monitor for any adverse effects - neurology referral given ? Ordered: Referral Request 2.0 ? 3.?Anxiety est. diagnosis with depression, PTSD, ADHD, and Autism.?on Abilify and prozac. Managed by?Dr. Sal at [facility], ? Addendum by NEDA MCKINLEY MD on April 17, 2022 09:31:40 PROFESSOR OF COMMUNICATION ARTS This encounter was indirectly supervised. ?I was physically at the site of patient care and was immediately available to provide direct supervision. ?I have reviewed the note and agree with the findings, assessment, and plan. ? Neda Fonseca. MD [facility] Faculty Physician Extracted from:Title: PCOS -> iniation of OrthoEvra Patch [facility] Author: GERMAN ZHOU, DOCUMENT MANAGEMENT TECHNICIAN Date: 04/05/22 1.?PCOS- polycystic ovary syndrome Reviewed lab and ultrasound results with pt and her friend Tanika.? These results along with Lazara's hx of irregular periods suggest she has PCOS.? We had discussed at previous appt that we need to have her have a routine withdrawal bleed to protect her endometrium.? Pt does not want to use OCPs as she is going to be starting some new antidepression meds so instead would like to use the Patch which we also discussed before.? Pt will start this Sunday.? Pt is not concerned about any and did have a period within this past month.? Written instructions regarding risks,benefits, warning signs associated with combined hormone contraception given to pt.? Pt denies any hx of bleeding disorders/blood clots or migraine headaches. Ordered: norelgestromin-ethinyl estradiol(Ortho Evra 150 mcg-35 mcg/24 hr transdermal film, extended release), 1 patch(es), Topical, every week, # 12 EA, 4 total refill(s), Maintenance, 1 patch(es) Topical every week, Pharmacy: [facility] [Not filled] ? Extracted from:Title: Ambulatory Patient Education Author: GERMAN ZHOU NP Date: 04/05/22 Patient Education Materials Follows:and Gynecology Polycystic Ovary Syndrome Polycystic ovarian syndrome (PCOS) is a common hormonal disorder among women of reproductive age. In most women with PCOS, small fluid-filled sacs (cysts) grow on the ovaries. PCOS can cause problems with menstrual periods and make it hard to get and stay . If this condition is not treated, it can lead to serious health problems, such as diabetes and heart disease. What are the causes? The cause of this condition is not known. It may be due to certain factors, such as: Irregular menstrual cycle. High levels of certain hormones. Problems with the hormone that helps to control blood sugar (insulin). Certain genes. What increases the risk? You are more likely to develop this condition if you: Have a family history of PCOS or type 2 diabetes. Are overweight, eat unhealthy foods, and are not active. These factors may cause problems with blood sugar control, which can contribute to PCOS or PCOS symptoms. What are the signs or symptoms? Symptoms of this condition include: Ovarian cysts and sometimes pelvic pain. Menstrual periods that are not regular or are too heavy. Inability to get or stay . Increased growth of hair on the face, chest, stomach, back, thumbs, thighs, or toes. Acne or oily skin. Acne may develop during adulthood, and it may not get better with treatment. Weight gain or obesity. Patches of thickened and dark brown or black skin on the neck, arms, breasts, or thighs. How is this diagnosed? This condition is diagnosed based on: Your medical history. A physical exam that includes a pelvic exam. Your health care provider may look for areas of increased hair growth on your skin. Tests, such as: ? An ultrasound to check the ovaries for cysts and to view the lining of the uterus. ? Blood tests to check levels of sugar (glucose), male hormone (testosterone), and female hormones (estrogen and progesterone). How is this treated? There is no cure for this condition, but treatment can help to manage symptoms and prevent more health problems from developing. Treatment varies depending on your symptoms and if you want to have a baby or if you need control. Treatment may include: Making nutrition and lifestyle changes. Taking the progesterone hormone to start a menstrual period. Taking control pills to help you have regular menstrual periods. Taking medicines such as: ? Medicines to make you ovulate, if you want to get . ? Medicine to reduce extra hair growth. Having surgery in severe cases. This may involve making small holes in one or both of your ovaries. This decreases the amount of testosterone that your body makes. Follow these instructions at home: Take puzm-pqh-wevdgjy and prescription medicines only as told by your health care provider. Follow a healthy meal plan that includes lean proteins, complex carbohydrates, fresh fruits and vegetables, low-fat dairy products, healthy fats, and fiber. If you are overweight, lose weight as told by your health care provider. Your health care provider can determine how much weight loss is best for you and can help you lose weight safely. Keep all follow-up visits. This is important. Contact a health care provider if: Your symptoms do not get better with medicine. Your symptoms get worse or you develop new symptoms. Summary Polycystic ovarian syndrome (PCOS) is a common hormonal disorder among women of reproductive age. PCOS can cause problems with menstrual periods and make it hard to get and stay . If this condition is not treated, it can lead to serious health problems, such as diabetes and heart disease. There is no cure for this condition, but treatment can help to manage symptoms and prevent more health problems from developing. This information is not intended to replace advice given to you by your health care provider. Make sure you discuss any questions you have with your health care provider. Document Revised: 11/04/2020 Document Reviewed: 11/04/2020 [employer] Patient Education ? 2021 [employer] Diet for Polycystic Ovary Syndrome Polycystic ovary syndrome (PCOS) is a common hormonal disorder that affects a woman's reproductive system. It can cause problems with menstrual periods and make it hard to get and stay . Changing what you eat can help your hormones reach normal levels, improve your health, and help you better manage PCOS. Following a balanced diet can help you lose weight and improve the way that your body uses the hormone insulin to control blood sugar. This may include: Eating low-fat (lean) proteins, complex carbohydrates, fresh fruits and vegetables, low-fat dairy products, healthy fats, and fiber. Cutting down on calories. Exercising regularly. What are tips for following this plan? Follow a balanced diet for meals and snacks. Eat breakfast, lunch, dinner, and one or two snacks every day. Include protein in each meal and snack. Choose whole grains instead of products that are made with refined flour. Eat a variety of foods. Exercise regularly as told by your health care provider. Aim to do at least 30 minutes of exercise on most days of the week. If you are overweight or obese: ? Pay attention to how many calories you eat. Cutting down on calories can help you lose weight. ? Work with your health care provider or a dietitian to figure out how many calories you need each day. What foods should I eat? Fruits Include a variety of colors and types. All fruits are helpful for PCOS. Vegetables Include a variety of colors and types. All vegetables are helpful for PCOS. Grains Whole grains, such as whole wheat. Whole-grain breads, crackers, cereals, and pasta. Unsweetened oatmeal. Bulgur, barley, quinoa, and brown rice. Tortillas made from corn or whole-wheat flour. Meats and other proteins Lean proteins, such as fish, chicken, beans, eggs, and tofu. Dairy Low-fat dairy products, such as skim milk, cheese sticks, and yogurt. Beverages Low-fat or fat-free drinks, such as water, low-fat milk, sugar-free drinks, and small amounts of 100% fruit juice. Seasonings and condiments Ketchup. Mustard. Barbecue sauce. Relish. Low-fat or fat-free mayonnaise. Fats and oils Cameron oil or canola oil. Walnuts and almonds. The items listed above may not be a complete list of recommended foods and beverages. Contact a dietitian for more options. What foods should I avoid? Foods that are high in calories or fat, especially saturated or trans fats. Fried foods. Sweets. Products that are made from refined white flour, including white bread, pastries, white rice, and pasta. The items listed above may not be a complete list of foods and beverages to avoid. Contact a dietitian for more information. Summary PCOS is a hormonal imbalance that affects a woman's reproductive system. It can cause problems with menstrual periods and make it hard to get and stay . You can help to manage your PCOS by exercising regularly and eating a healthy, varied diet of vegetables, fruit, whole grains, lean protein, and low-fat dairy products. Changing what you eat can improve the way that your body uses insulin, help your hormones reach normal levels, and help you lose weight. This information is not intended to replace advice given to you by your health care provider. Make sure you discuss any questions you have with your health care provider. Document Revised: 11/04/2020 Document Reviewed: 11/04/2020 [employer] Patient Education ? 2021 [employer]. Extracted from:Title: Oligomenorrhea [facility] Author: GEMRAN ZHOU NP Date: 03/03/22 1.?Oligomenorrhea Pt to get labs done today (day #3 of menses) and scheduled pelvic us.? Pt to f/u with me the week after u/s completed to review results and discuss plan of care. Ordered: Beta HCG Qualitative, Serum DHEA Sulfate EPI 2604 FSH and LH [id number] Prolactin [id number] Thyroid Stimulating Hormone with reflex Free T4 US Pelvis Ltd w/Transvag if indicated ? Orders: Testosterone Panel EPI [id number] Extracted from:Title: Ambulatory Patient Education Author: GERMAN ZHOU NP Date: 03/03/22 Patient Education Materials Follows:and Gynecology Polycystic Ovary Syndrome Polycystic ovarian syndrome (PCOS) is a common hormonal disorder among women of reproductive age. In most women with PCOS, small fluid-filled sacs (cysts) grow on the ovaries. PCOS can cause problems with menstrual periods and make it hard to get and stay . If this condition is not treated, it can lead to serious health problems, such as diabetes and heart disease. What are the causes? The cause of this condition is not known. It may be due to certain factors, such as: Irregular menstrual cycle. High levels of certain hormones. Problems with the hormone that helps to control blood sugar (insulin). Certain genes. What increases the risk? You are more likely to develop this condition if you: Have a family history of PCOS or type 2 diabetes. Are overweight, eat unhealthy foods, and are not active. These factors may cause problems with blood sugar control, which can contribute to PCOS or PCOS symptoms. What are the signs or symptoms? Symptoms of this condition include: Ovarian cysts and sometimes pelvic pain. Menstrual periods that are not regular or are too heavy. Inability to get or stay . Increased growth of hair on the face, chest, stomach, back, thumbs, thighs, or toes. Acne or oily skin. Acne may develop during adulthood, and it may not get better with treatment. Weight gain or obesity. Patches of thickened and dark brown or black skin on the neck, arms, breasts, or thighs. How is this diagnosed? This condition is diagnosed based on: Your medical history. A physical exam that includes a pelvic exam. Your health care provider may look for areas of increased hair growth on your skin. Tests, such as: ? An ultrasound to check the ovaries for cysts and to view the lining of the uterus. ? Blood tests to check levels of sugar (glucose), male hormone (testosterone), and female hormones (estrogen and progesterone). How is this treated? There is no cure for this condition, but treatment can help to manage symptoms and prevent more health problems from developing. Treatment varies depending on your symptoms and if you want to have a baby or if you need control. Treatment may include: Making nutrition and lifestyle changes. Taking the progesterone hormone to start a menstrual period. Taking control pills to help you have regular menstrual periods. Taking medicines such as: ? Medicines to make you ovulate, if you want to get . ? Medicine to reduce extra hair growth. Having surgery in severe cases. This may involve making small holes in one or both of your ovaries. This decreases the amount of testosterone that your body makes. Follow these instructions at home: Take [id number] and prescription medicines only as told by your health care provider. Follow a healthy meal plan that includes lean proteins, complex carbohydrates, fresh fruits and vegetables, low-fat dairy products, healthy fats, and fiber. If you are overweight, lose weight as told by your health care provider. Your health care provider can determine how much weight loss is best for you and can help you lose weight safely. Keep all follow-up visits. This is important. Contact a health care provider if: Your symptoms do not get better with medicine. Your symptoms get worse or you develop new symptoms. Summary Polycystic ovarian syndrome (PCOS) is a common hormonal disorder among women of reproductive age. PCOS can cause problems with menstrual periods and make it hard to get and stay . If this condition is not treated, it can lead to serious health problems, such as diabetes and heart disease. There is no cure for this condition, but treatment can help to manage symptoms and prevent more health problems from developing. This information is not intended to replace advice given to you by your health care provider. Make sure you discuss any questions you have with your health care provider. Document Revised: 11/04/2020 Document Reviewed: 11/04/2020 [employer] Patient Education ? 2021 [employer] 07/11/2024 Ambulatory Pharmacy Functional Status Combined list of recent functional and cognitive assessments recorded at [employer] ([employer]VA Functional Prospect Measurement (FIM) Scale: 1 = Total Assistance (Subject = 0% +), 2 = Maximal Assistance (Subject = 25% +), 3 = Moderate Assistance (Subject = 50% +), 4 = Minimal Assistance (Subject = 75% +), 5 = Supervision, 6 = Modified Prospect (Device), 7 = Complete Prospect (Timely, Safely). Assessment Date/Time Source Assessment Type Assessment Skill Assessment Score Assessment Details No data available for this section
--- OUTSIDE RECORDS SUMMARY | 2024-07-11 14:31 | XMS_ITS | Referral Summary ---
Author Organization [facility] Address [address] [place] [address] Care Team Providers Care Dumpcart Driver Name Role Phone Unavailable Primary Care Provider Unavailabl e Source Comments [facility],non-owned Affiliates and Associated Physician Practices is amultiple site organization consisting of ambulatory clinics and hospital sitesin [place], [place], [place] and [place]. This disclosure is being madepursuant to the Care Everywhere program and may not contain all information available regarding this patient. Last updated 18.[facility] Social History Tobacco Use Types Packs/Day Years Used Date Smoking Tobacco: Never Assessed Sex and Gender Information Value Date Recorded Sex Assigned at Not on file Gender Identity Not on file Sexual Orientation Not on file Plan of Treatment Not on file RAFY LEDESMA Personal/Famil y [address] [place] [address] [place] [address] RAFY LEDESMA Personal/Famil y [address] [place] [address] [place] [address] RAFY LEDESMA Personal/Famil y [address] [place] [address] [place] [address]
--- OUTSIDE RECORDS SUMMARY | 2024-07-11 14:31 | XMS_ITS | Clinical Summary ---
Author Organization [facility] Address [address] [place] [address] Care Team Providers Care Press Pipe Inspector Name Role Phone Unavailable Primary Care Provider Unavailabl e Source Comments [facility],non-owned Affiliates and Associated Physician Practices is amultiple site organization consisting of ambulatory clinics and hospital sitesin [place], [place], [place] and [place]. This disclosure is being madepursuant to the Care Everywhere program and may not contain all information available regarding this patient. Last updated 18.[facility] Social History Tobacco Use Types Packs/Day Years Used Date Smoking Tobacco: Never Assessed Sex and Gender Information Value Date Recorded Sex Assigned at Not on file Gender Identity Not on file Sexual Orientation Not on file Plan of Treatment Health Maintenance Due Date Last Done Comments PAP SMEAR 2002 HIV SCREENING 2017 HPV VACCINE (1 - 3-dose series) 2017 CHLAMYDIA/GONORRHEA SCREENING 2018 MENINGOCOCCAL (Group B) VACC INE (1 of 2 - Standard) 2018 HEPATITIS C SCREENING 08/21/2020 DTAP/TDAP/TD VACCINES (1 - Tdap) 2021 HEPATITIS B VACCINE (1 of 3 - 19+ 3-dose series) 2021 COVID-19 VACCINE (1 - 2023-2 5 season) 2024 INFLUENZA VACCINE (#1) 2024 DEPRESSION SCREENING 06/11/2024 ZOSTER VACCINE (1 of 2) 2052 HIB VACCINE Aged Out No longer eligi ble based on patient's age to complete this topic MENINGOCOCCAL VACCINE Aged Out No makenna austin eligible based on patient's age to complete this topic PNEUMOCOCCAL VACCINE Aged Out No long er eligible based on patient's age to complete this topic TRICE LEDESMAANA Personal/Famil y [address] [place] [address] [place] [address] CALLIERAFY Personal/Famil y [address] [place] [address] [place] [address] LYNSEYHSDallasRAFY Personal/Famil y [address] [place] [address] [place] [address]
--- OUTSIDE RECORDS SUMMARY | 2024-07-11 14:31 | XMS_ITS | Data Portability ---
Author Organization [facility] Address [address] [place] [address] Care Team Providers Care Global Marketing Operations Manager Name Role Phone TIM POON Primary Care Provider Assessment Encounter Date Assessment Date Assessment LastModified by Organization Details LastModified Time 09/01/2023 09/01/2023 Annual gynecological exam performed. Patient will come back in a year unless there are new symptoms. Not available 09/01/2023 10:59:30 Plan of Treatment Reminders Order Date Submit Date Provider Last Modified By Organization Details Last Modified Time Details Appointments None recorded. Lab prolactin, serum 2023 024 [facility] (Lab), [address] [place], [address], 4 23:59:03 FSH (follicle-s timulating hormone), serum 2023 024 [facility] (Lab), [address] [place], [address], 4 23:59:04 estradiol, serum 2023 024 [facility] (Lab), [address] [place], [address], 4 23:59:03 lh (luteinizin g hormone), serum 2023 024 [facility] (Lab), [address] [place], [address], 4 23:59:04 17-hydroxyp rogesterone , QN, serum 2023 024 [facility] (Lab), [address], [place], [address], 4 23:59:05 HbA1c (hemoglobin A1c), blood 2023 024 [facility] (Lab), [address], [place], [address], 4 23:59:05 testosteron e, total, serum 2023 024 [facility] (Lab), [address], [place], [address], 4 23:59:02 Referral None recorded. Procedures None recorded. Surgeries None recorded. Imaging US, pelvis [address], [address], [address], [place], [address], 4 15:20:44 US, transvagina l [address], [address], [place], [address], 15:20:44 US, transvagina l 2023 [address], [address], [place], [address], 4 22:38:19 US, axilla - left 2023 024 [facility], [address], [place] [address], [place], [address], 4 12:02:26 Medication Orders Provera 10 mg tablet 2023 024 [id number], [address], [place], [place], [id number], 10:21:42 Prometrium 200 mg capsule 2023 [id number], [address], [place], [place], [id number], 17:38:58 Patient TargetsNo targets recorded. Patient InstructionsNo instructions recorded. Reason for Referral None Reported. Results Created Date Observation Date Name Description Value Unit Range Abnormal Flag Note LastModifiedBy Organization Detail LastModifiedTime 09/03/19 24 09/03/2023 IMAGE GUIDE D PAP, REFLE X HPV IF ASCUS ONLY image guided Pap, reflex HPV ASCUS only SEE RESULT S BELOW CASE REPOR T: Cytol ogy Gynec ologi dave Repor t Case: [id number] Autho melvina alvarez Provi shiloh: Markel Shukla Colle cted: 09/02 0805 POLISHER ALUMINUM Order ing Locat ion: [place] [facility] Recei edgardo: 09/03 0951 First Scree n: Megan Pathak, CT Speci men: Scree susie Pap - Image d, Cervi x STATE MENT OF ADEQU ACY: Satis facto ry for evalu ation Trans forma tion zone compo nent prese nt FINAL DIAGN OSIS: Negat maria del carmen for Intra epith elial Sayra holman or Nic busch (NIL) . Elect jesse kang nicol d by Megan Pathak, CT on 2023 at 8:59 PM ----- ----- ----- ----- ----- ----- ----- ----- ----- ----- ----- ----- ----- ----- ----- ----- ----- ---- COMME NT: This speci men was revie wed by a Cytot echno logis t and/o r Patho logis t (as indic ated in this repor t) after evalu ation using the Thinp rep Imagi ng Syste m. CLINI DAVE INFOR MATIO N: Menst rual Statu s: LMP (if appli cable ): Clini dave Histo ry/Pr eviou s Pap: Type of Neopl marco a (if appli cable ): Signi fican t Clini dave Findi ngs: Other Histo ry: Hormo raeann (if appli cable ): PAP EDUCA ANALIA L NOTE: The Pap Test is a scree susie test with an inher ent false negat maria del carmen rate. Liqui d-bas ed sampl ing may decre ase, but will not elimi philip, false negat maria del carmen resul ts. A negat maria del carmen resul t does not precl ude the prese nce and/o r devel opmen t of disea se, since the prese nce of abnor mal cells in the sampl e depen ds on the locat ion of the lesio n and sampl ing techn ique. Tom nued regul ar scree susie is the best metho d of cance r preve ntion . If repor priscilla cytol ogic findi ng do not corre late with physi dave and/o r histo rical findi ngs, furth er inves tigat ion is recom ihsan d, as clini chema curran nted. Not Available [facility] (Lab) [address] , [place], [address], 09/05/2023 22:02:42 09/03/19 24 09/03/2023 TRICH OMONA S VAGIN BRONWYN (RRNA ) trichomonas vaginalis ribosomal RNA (rrna) Negati ve negati ve Not Available [facility] (Lab) [address], [place], [address], 09/05/2023 22:02:42 09/03/19 24 09/03/2023 CT/GC (HEYDI) , THINP REP VIAL chlamydia trachomatis, PCR Negati ve negati ve Not Available [facility] (Lab) [address] [place], [address], 09/05/2023 22:02:43 09/03/19 24 09/03/2023 CT/GC (HEYDI) , THINP REP VIAL neisseria gonorrhoeae, PCR Negati ve negati ve Not Available [facility] (Lab) [address], [place], [address], 09/05/2023 22:02:43 09/17/19 24 09/17/2023 TESTO STERO NE, TOTAL testosterone , total 90 NG/dL 0-100 Not Available [facility] (Lab) [address], [place], [address], 09/20/2023 23:59:02 09/17/19 24 09/17/2023 ESTRA DIOL estradiol 39.2 pg/mL This assay was perfo rmed using [employer] ratio n reage nts and test kits. Value s obtai yaneth with other assay metho ds or kits canno t be used inter joyce eably . Femal e Estra diol Range s: Folli cular phasE 12.4- 233 pg/mL Ovula tion phasE 41.0- 398 pg/mL Lutea l phasE 22.3- 341 pg/mL Postm enopa usal <5-13 8 pg/mL Healt hy Pregn ant Women 1st Trime ster 154-3 243 pg/mL 2nd Trime ster 1561- 34894 pg/mL 3rd Trime ster 8525- >3000 0 pg/mL Not Available [facility] (Lab) [address], [place], [address], 09/20/2023 23:59:03 09/17/19 24 09/17/2023 PROLA CTIN prolactin, total 40.30 NG/mL 4.79-2 3.30 high This assay was perfo rmed using [employer] ratio n reage nts and test kits. Value s obtai yaneth with other assay metho ds or kits canno t be used inter joyce eably . Not Available [facility] (Lab) [address], [place], [address], 09/20/2023 23:59:03 09/17/19 24 09/17/2023 LH (LUTE NIZIN G HORMO NE) LH 16.7 mIU/m L This assay was perfo rmed using [employer] reage nts and test kits. Value s obtai yaneth with other assay metho ds or kits canno t be used inter [facility] . Femal es Mid-F ollic ular: 2.4-1 2.6 mIU/m L Mid-C ycle: 14.0- 95.6 mIU/m L Mid-L uteal : 1.0-1 1.4 mIU/m L Postm enopa use: 7.7-5 8.5 mIU/m L Not Available [facility] (Lab) [address], [place], [address], 09/20/2023 23:59:04 09/17/19 24 09/17/2023 FSH FSH 5.9 mIU/m L This assay was perfo rmed using [employer] ratio n reage nts and test kits. Value s obtai yaneth with other assay metho ds or kits canno t be used inter [facility] . Femal es Folli cular : 3.5-1 2.5 mIU/m L Ovula tion: 4.7-2 1.5 mIU/m L Lutea l: 1.7-7 .7 mIU/m L Postm enopa use: 25.8- 134.8 mIU/m L Not Available [facility] (Lab) [address], [place], [address], 09/20/2023 23:59:04 09/17/19 24 09/17/2023 HEMOG LOBIN A1C hemoglobin A1C 6.0 % 0-5.6 high The Ameri can Diabe maylin [employer] iatio n recom mends that a prima ry goal of thera py jg d be a HBA1C of < 7% and that physi cians shoul d reeva luate the treat ment regim en in patie nts with HBA1C value s consi stent ly > 8%. <5.7% Lilia l 5.7 - 6.4% Incre ased risk for diabe maylin >=6.5 % Diagn ostic of diabe amylin <7.0% Goal of thera py >8.0% Actio n sugge sted Not Available [facility] (Lab) [address], [place], [address], 09/20/2023 23:59:05 09/17/19 24 09/17/2023 17-OH PROGE STERO NE 17-hydroxypr ogesterone, lc/MS/MS 76 NG/dL Adult Femal e Refer ence Range s for 17-Hy droxy proge stero ne: Pre-M enopa usal Mid Folli cular : 23-10 2 ng/dL Pre-M enopa usal Surge : 67-34 9 ng/dL Pre-M enopa usal Mid Lutea l: 139-4 31 ng/dL Postm enopa usal Phase : < or = 45 ng/dL Pregn patricia: First Trime ster: 78-45 7 ng/dL Secon d Trime ster: 90-35 7 ng/dL Third Trime ster: 144-5 78 ng/dL This test was devel oped and its johnson tical perfo rmanc e ciera cteri stics have been deter mined by [facility]. It has not been clear ed or appro edgardo by FDA. This assay has been valid ated pursu ant to the CLIA regul ation s and is used for clini dave purpo ses. Perfo rming Organ izati on [facility]for [facility]: Site ID: [id number] Name: [facility] Jostin Mulligan [place] , Addre ss: [id number] [place] [address] Direc tor: Licha clayton MD,Ph D,GABRIELLA Not Available [facility] (Lab) [address], [place], [address], 09/20/2023 23:59:05 10/04/19 24 10/04/2023 GTT- NON GESTA ANALIA L, 2 HOUR glucose, fasting 77 mg/dL 70-100 Not Available [facility] (Lab) [address] [place], [address], 10/05/2023 07:28:22 10/04/19 24 10/04/2023 GTT- NON GESTA ANALIA L, 2 HOUR glucose, 2 hour 138 mg/dL 70-139 Not Available [facility] (Lab) [address], [place], [address], 10/05/2023 07:28:22 10/04/19 24 10/04/2023 PROLA CTIN prolactin, total 40.30 NG/mL 4.79-2 3.30 high This assay was perfo rmed using [employer] ratio n reage nts and test kits. Value s obtai yaneth with other assay metho ds or kits canno t be used inter [facility] . Not Available [facility] (Lab) [address] [place], [address], 10/05/2023 07:28:23 10/04/19 24 10/04/2023 INSUL IN,FA STING insulin, fasting 11.4 uIU/m L 1.9-23 .0 Not Available [facility] (Lab) [address] [place], [address], 10/05/2023 07:28:23 10/04/19 24 10/04/2023 C-PEP TIDE C-peptide 3.29 NG/mL 1.1-4. 4 Not Available [facility] (Lab) [address] [place], [address], 10/05/2023 07:28:23 10/18/19 24 10/18/2023 PROLA CTIN prolactin, total 21.70 NG/mL 4.79-2 3.30 This assay was perfo rmed using [employer] ratio n reage nts and test kits. Value s obtai yaneth with other assay metho ds or kits canno t be used inter joyce eay . Not Available [facility] (Lab) [address], [place], [address], 10/19/2023 03:55:41 11/20/19 24 11/20/2023 PROLA CTIN prolactin, total 20.30 NG/mL 4.79-2 3.30 This assay was perfo rmed using [employer] ratio n reage nts and test kits. Value s obtai yaneth with other assay metho ds or kits canno t be used inter joyce eably . Not Available [facility] ([facility]) [address], [place], [address], 11/21/2023 03:55:46 09/17/19 24 09/18/2023 US, pelvi s No observ ation record ed. [email or web address] [facility] [address], [place], [address], 09/18/2023 13:05:27 09/17/19 24 09/18/2023 US, trans vagin al No observ ation record ed. [email or web address] [facility] [address], [place], [address], 09/18/2023 13:05:17 09/17/19 24 09/17/2023 US, pelvi s No observ ation record ed. [email or web address] [address] [facility], [place], [address], 09/19/2023 13:50:40 12/17/19 24 12/17/2023 US, trans vagin al No observ ation record ed. [email or web address] [facility] [address], [place], [address], 12/17/2023 11:06:17 12/17/19 24 12/17/2023 US, trans vagin al No observ ation record ed. [email or web address] [address], [place], [address], 12/19/2023 15:54:48 07/22/20 24 12/31/2023 US, axill a No observ ation record ed. [email or web address] [facility] [address], [place], [address], 01/08/2024 17:14:08 Result Notes None recorded. Procedures Surgical History Date Name Laterality Status Provider Name and Address Organization Details Recorded Time 09/01/19 24 Date of Last Pap Smear completed Maryuri Vasquez [facility] 09/01/2023 11:08:39 06/11/19 23 ultrasonic fragmentation of urinary stone through percutaneous nephrostomy completed Kristi [facility] 12/18/2023 10:22:59 06/11/19 21 extraction of wisdom tooth completed Kristi Anne [facility] 12/18/2023 10:22:44 Imaging Results Imaging Date Name Status LastModified by Organization Details LastModified Time 09/18/2023 US, pelvis completed [email or web address] [facility] [address], [place], [address], 09/18/2023 13:05:27 09/18/2023 [facility]inal [email or web address] [address], [place], [address], 09/18/2023 13:05:17 09/17/2023 US, pelvis completed [email or web address] [address], [place], [address], 09/19/2023 13:50:40 12/17/2023 US, transvaginal completed [email or web address] [facility] [address], [place], [address], 12/17/2023 11:06:17 12/17/2023 US, transvaginal completed [email or web address] [address], [place], [address], 12/19/2023 15:54:48 12/31/2023 US, axilla completed [email or web address] [facility] [address], [place], [address], 01/08/2024 17:14:08 Procedure Notes None recorded. Medical Equipment None Reported. Allergies No known drug allergies Medications Name Sig Start Date Stop Date Status Note LastModified by Organization Details LastModified Time cyclobenzap rine 10 mg tablet TAKE 1 TABLET BY MOUTH EVERY 8 HOURS 08/31 completed Not Available Not Available Not Available medroxyprog esterone 10 mg tablet TAKE 1 TABLET BY MOUTH EVERY DAY AT BEDTIME FOR 10 DAYS 12/17 completed Not Available Not Available Not Available buspirone 5 mg tablet active Not Available Not Available No t Available azithromyci n 250 mg tablet 08/31 completed Not Available Not Available Not Available ibuprofen 800 mg tablet TAKE 1 TABLET BY MOUTH THREE TIMES DAILY NEEDED FOR PAIN 08/31 completed Not Available Not Available Not Available benzonatate 200 mg capsule TAKE ONE CAPSULE BY MOUTH EVERY 8 HOURS NEEDED FOR COUGH 08/31 completed Not Available Not Available Not Available hydrocodone 5 mg-acetamin ophen 325 mg tablet TAKE 1 TABLET BY MOUTH EVERY 6 HOURS NEEDED FOR PAIN. MAX OF 4 TABLETS PER DAY 08/31 completed Not Available Not Available Not Available phenazopyri dine 200 mg tablet TAKE 1 TABLET BY MOUTH THREE TIMES DAILY FOR 3 DAYS 08/31 completed Not Available Not Available Not Available prednisone 20 mg tablet TAKE 2 TABLETS BY MOUTH DAILY FOR 5 DAYS 08/31 completed Not Available Not Available Not Available omeprazole 40 mg capsule,del ayed release active Not Available Not Available Not Available ketorolac 10 mg tablet 08/31 completed Not Available Not Available Not Available tamsulosin 0.4 mg capsule TAKE 1 CAPSULE BY MOUTH EVERY DAY FOR 14 DAYS 08/31 completed Not Available Not Available Not Available cephalexin 500 mg capsule TAKE 1 CAPSULE BY MOUTH TWICE DAILY FOR 7 DAYS 08/31 completed Not Available Not Available Not Available ibuprofen 400 mg tablet 08/31 completed Not Available Not Available Not Available progesteron e micronized 200 mg capsule If at home test is negative, then take 1 tablet by mouth for 10 days every 3 months if period does not occur on its own active Not Available Not Available No t Available oxybutynin chloride ER 5 mg tablet,exte nded release 24 hr TAKE 1 TABLET BY MOUTH DAILY 08/31 completed Not Available Not Available Not Available albuterol sulfate HFA 90 mcg/actuati on aerosol inhaler INHALE 2 PUFFS INTO THE LUNGS EVERY 4 TO 6 HOURS NEEDED FOR COUGH/ARIA RTNESS OF BREATH 08/31 completed Not Available Not Available Not Available oxybutynin chloride 5 mg tablet TAKE 1 TABLET BY MOUTH TWICE DAILY 08/31 completed Not Available Not Available Not Available ondansetron 4 mg disintegrat ing tablet DISSOLVE 1 TABLET ON THE TONGUE EVERY 6 HOURS NEEDED FOR NAUSEA 08/31 completed Not Available Not Available Not Available metformin ER 500 mg tablet,exte nded release 24 hr active Not Available Not Available Not Available amoxicillin 875 mg-potassiu m clavulanate 125 mg tablet TAKE 1 TABLET BY MOUTH TWICE DAILY FOR 10 DAYS 08/31 completed Not Available Not Available Not Available oxycodone 5 mg tablet TAKE 1 TABLET BY MOUTH EVERY 4 HOURS FOR 2 DAYS NEEDED FOR PAIN 08/31 completed Not Available Not Available Not Available omeprazole 20 mg tablet,suzanne yed release 08/31 completed Not Available Not Available Not Available Vitals Date Recorded Body height Body mass index (BMI) Body weight Systolic blood pressure Diastolic blood pressure Provider Name and Address Organization Details Last Updated DateTime 09/01/2023 157.48 cm 31.3 kg/m2 91009.73 g 111 mm[Hg] 79 mm[Hg] Maryuri Vasquez [facility] 4 11:08:15 Date Recorded Body height Body mass index (BMI) Body weight Systolic blood pressure Diastolic blood pressure Provider Name and Address Organization Details Last Updated DateTime 09/18/2023 157.48 cm 31.3 kg/m2 75896.3 g 126 mm[Hg] 64 mm[Hg] Lia Roger [facility] 4 12:02:18 Date Recorded Body height Body mass index (BMI) Body weight Systolic blood pressure Diastolic blood pressure Provider Name and Address Organization Details Last Updated DateTime 12/18/2023 157.48 cm 31.1 kg/m2 29490.7 g 100 mm[Hg] 70 mm[Hg] Kristi Smith [facility] 10:21:11 Social History Question Answer Notes LastModified by Organizat ion Details LastModified Time Tobacco Smoking Status Never Smoker Maryuri Vasquez ann, [facility] 09/01/2023 11:09:37 What Is Your Level Of Alcohol Consumption? None Information not available 09/01/2023 Are You Blind Or Do You Have Difficulty Seeing? No Information n ot available 09/01/2023 What Is Your Level Of Caffeine Consumption? Moderate Information not available 09/01/2023 In The 14 Days Before Symptom Onset, Have You Had Close Contact With A Laboratory-confirm ed COVID-19 While That Case Was Ill? No Information n ot available 09/01/2023 In The 14 Days Before Symptom Onset, Have You Had Close Contact With A Person Who Is Under Investigation For COVID-19 While That Person Was Ill? No Information not available 09/01/2023 Have You Been To An Area Known To Be High Risk For COVID-19? No Information not available 09/01/2023 Are You Deaf Or Do You Have Serious Difficulty Hearing? No Information not available 09/01/2023 What Type Of Diet Are You Following? REGULAR Information n ot available 09/01/2023 What Is The Highest Grade Or Level Of School You Have Completed Or The Highest Degree You Have Received? [id number] Information not available 09/01/2023 What Is Your Occupation? [employer] Information not available 09/01/2023 Are There Any Guns Present In Your Home? No Information not available 09/01/2023 Do You Use Your Seat Belt Or Car Seat Routinely? Yes Information not available 09/01/2023 Do You Have Smoke And Carbon Monoxide Detectors In Your Home? No Information not available 09/01/2023 How Much Tobacco Do You Smoke? No Information not available 09/01/2023 Do You Feel Stressed (tense, Restless, Nervous, Or Anxious, Or Unable To Sleep At Night)? [id number] Information not available 09/01/2023 Do You Use Any Illicit Or Recreational Drugs? No Information not available 09/01/2023 Do You Use Sunscreen Routinely? No Information not available 09/01/2023 Have You Used IV Drugs? No Information not available 09/01/2023 Sex: Unknown Functional Status Question Answer Note LastModified by Organizat ion Details LastModified Time Do you have difficulty walking or climbing stairs? No Information not available 09/01/2023 Are you able to walk? YESWOREST Information not available 09/01/2023 Are you able to care for yourself? Yes Information not available 09/01/2023 Do you have difficulty dressing or bathing? No Information not available 09/01/2023 What is your exercise level? Moderate Information not available 09/01/2023 Mental Status None recorded. Family History Nothing Reported. Medical History Condition Response Polycystic ovary syndrome Y Acid Reflux (GERD) Y Gynecological History Statement/Question Response Abnormal Pap N Date of Last Mammogram Date of LMP 12/10/2023 N On BCP's at Conception? N STIs/STDs N Was last menstrual period normal N HPV Vaccine Y Colposcopy Duration of Flow (days) 2 Current Control Method None Are cycles usually normal N Date of Last Colonoscopy Frequency of Cycle (Q days) 2 Sexually Active? Y Menses Monthly N Date of DEXA bone scan Age of first menstrual cycle 14 Date of Last Pap Smear 09/01/2023 Sexual Problems? N LMP Approximate N Obstetrics History GPAL:G 0 P 0 0 0 0 Past Encounters Encounter ID Performer Location Encounter Start Date Encounter Closed Date Diagnosis/Indication Diagnosis SNOMED-CT Code Diagnosis ICD10 Code Diagnosis Note [id number] Shahida Will [facility] [address] [address] 09/01/2023 10:56:59 09/01/2023 11:35:56 Gynecologic examination 83029610 Z01.419 Take Calcium with Vitamin D 1200mg daily if not receiving in daily diet. It is strongly advised to have an annual flu shot and up can obtain at most pharmacies . If you have not had a TDap shot in the last 10 years you should obtain one as well. Discussed with patient & provided with informatio n regarding Gardisil vaccine to prevent the 4 strains for HPV that cause cervical cancer if under age 26. Encourage safe sexual practices, to use condoms and limit partners if not already in a monogamous relationsh ip. Do monthly self breast exams. Have mammogram yearly or every other year depending on family history. BRCA testing is now available for patients with strong genetic history of female cancer. If interested contact the office. Engage in daily exercise of low impact aerobic exercise 45-60 minutes 4-5 times weekly. Avoid tobacco and illicit drugs as well as using moderation with alcohol intake less than 1-2 8 oz beverages daily. This lifestyle behavior pattern will lead to less health conditions and longer life span. If BMI greater than 25 weight watchers or dietary consult advised. Patient received above instructio ns, and questions have been answered. If you have any questions please call or respond to this email. Patient was made aware of the patient portal and may obtain a paper copy of today's plan if desired.Curtis znuiga sentSTD Screen sentGeneti c Screen discussedC olon Screen naDexa Screen naRoutine Labs Ordered Secondary amenorrhea 156 480288 N91.1 Today we discussed pursuing the followin. TAUS with possible TVUS if feels comfortabl e with this.2. Lab work-when return for US3. Consider Provera q1-3mos to manage menses4. EMBX-will need ativan (very anxious) [id number] Mirta Coats [facility] [address] [address] 09/17/2023 09:45:21 09/17/2023 11:19:19 Irregular periods [id number] N92.6 [id number] [facility] [address],[place] [address] 09/18/2023 11:51:51 09/18/2023 12:16:23 Secondary amenorrhea [id number] N91.1 Today we reviewed TVUS/TAUSW e agreed to first complete provera 10mg x 10 days; to initiate a withdrawal bleed.We will r/p TVUS/TAUS in 3mos and recheck lining.We will then decide if she would like to continue q1-3mos provera to keep lining thin and avoid risks uterine cancers; or if a daily option would be more appropriat e.We can also discuss if an EMBx is warranted if not getting the results we expect.Lab work was not back yet so I will reach out if further interventi on is required. Counseled on medication R/B's, Most common side effects, & use. All questions were answered to patient satisfacti on. RTO x 3mos r/p US and med check Time spent in visit is a total of 25 mins with at least 50% of visit consisting of counseling and review of plan of care. [id number] Yenny Lopez [facility] [address] [address] 12/17/2023 10:14:42 12/17/2023 11:05:18 Irregular periods [id number] N92.6 [id number] DANNIE Albarran [facility] [address] [address] 12/18/2023 10:14:01 12/19/2023 07:24:56 Irregular periods 61992090 N92.6 Detailed health hx updated and revieweddi scussed h/o irregular periods/PC OSreviewed updated pelvic u/sdiscuss ed options for endometria l protection declines BC at this time, would like to continue with cyclic progestero ner/b/a reviewed, rx sent, take every 3 months if spontaneou s menses does not occurquest ions answered, encouraged healthy lifestyle/ regular exercise Pain in axilla [id number] M79.629 left axillary u/s ordered Time spent in visit is a total of 30 mins with at least 50% of visit consisting of counseling and review of plan of care. Health Concerns Section Related Observation LastModified by Organization Detai ls LastModified Time None Recorded Concern Status LastModified by Organization Details LastModified Time None Recorded Advance Directives Directive None Recorded Payers Encounter Date Sequence Insurance Name Policy Number Policy Sorto Covered Member ID Sorto Member ID Guarantor Name 09/01/2023 1 [facility] - DOS ON OR AFTER 20 (MEDICAID REPLACEMENT - HMO) Lazara Ledesma [id number] Lazara Ledesma 09/17/2023 1 [facility] ON OR AFTER 12/09/20 (MEDICAID REPLACEMENT - HMO) Lazara Ruizlissette [id number] Lazara Ledesma 09/18/2023 1 [facility] ON OR AFTER 12/09/20 (MEDICAID REPLACEMENT - HMO) Lazara Ledesma [id number] Lazara Ledesma 12/17/2023 1 [facility] ON OR AFTER 12/09/20 (MEDICAID REPLACEMENT - HMO) Lazara Ruizlissette [id number] Lazara Ledesma 12/18/2023 1 [facility] ON OR AFTER 12/09/20 (MEDICAID REPLACEMENT - HMO) Lazara Ruizlissette [id number] Lazara Hymane Notes Date Note Type Note Provider Name and Address Organization Details Recorded Time 09/01/2023 text/html Annual GYNReport ed bypatient.Menstrua l cycle:Missed most recent period(Secondary amenorrhea with Hx of PCOS Had a full menses August of 2022; then no menses until June of 2023 which was only2 days and very light.SA-Females only Never SA Males) Urinary symptoms:No hematuria; No incontinence Vulva:No genital lesion Vagina:Normal vaginal discharge Breast:No breast pain; No breast lump; No nipple discharge Current Contraception:Teto h control not practiced Sexual complaints:No sexual complaints; No pain during intercourse; Normal libido Menopausal Symptoms:No menopausal symptoms; Normal vaginal lubrication Psychological symptoms:No depression; No anxiety; No PMDD Preventive measures:Encourage self breast examination; Encourage regular exercise; Encourage no tobacco use; Encourage regular mammograms starting age 40; Followed with yearly pap smears DANNIE Tsai-BC [address], [place], [address], [facility] 09/01/2023 11:35:02 12/18/2023 text/html 23yop[age] for u/s f/uh/o irregular periods/PCOS, went 1 yr without a period in 2022took provera course 09/2023 which produced a withdrawal bleed, had a period on her own last week that lasted 4 daysnot currently SA left axillary tenderness x 1 month, comes and goes Jennie LaMay, WHNP [address], [place], [address], [facility] 12/18/2023 17:40:44 OBGyn Episode No OBEpisode recorded.
--- OUTSIDE RECORDS SUMMARY | 2024-07-11 14:31 | XMS_ITS | Patient Health Summary ---
Author Organization [facility] Address [address] [place] [address] Care Team Providers Care Wiper Blender Name Role Phone Unavailable Primary Care Provider Unavailabl e Note from [facility],non-owned Affiliates and Associated Physician Practices is amultiple site organization consisting of ambulatory clinics and hospital sitesin [place], [place], [place] and [place]. This disclosure is being madepursuant to the Care Everywhere program and may not contain all information available regarding this patient. Last updated 18.[facility] Social History Tobacco Use Types Packs/Day Years Used Date Smoking Tobacco: Never Assessed Sex and Gender Information Value Date Recorded Sex Assigned at Not on file Gender Identity Not on file Sexual Orientation Not on file Procedures * PATHOLOGY TISSUE(Performed 01/22/2024) Performed for Illness, unspecified * FLOW CYTOMETRY TISSUE PANEL(Performed 01/22/2024) Performed for Enlarged lymph nodes, unspecified Results * PATHOLOGY TISSUE (01/22/2024 10:41 AM CDT) Case Report Surgical Pathology Report ? Case: [id number] ? Authorizing Provider: ??Bri Mendoza MD ? Collected: ? 01/22/2024 10:41 AM ? Ordering Location: ? [facility] - ??Received: ?01/24/2024 09:10 AM ? Pathology Lab ? Pathologist: ? Peter Greenwood MD ? Specimen: ?Lymph Node Biopsy ? 01/29/2024 3:39 PM [facility] Final Diagnosis Axillary lymph node, core biopsy: Reactive lymphoid tissue, with EBV-related changes and focal dermatopathic changes. 01/29/2024 3:39 PM [facility] Microscopic Description and Comment The H&E sections of the lymph node core biopsy specimen reveal lymphoid proliferation, and collections of histiocytes, plasma cells, and rare neutrophils. Scattered hemosiderin-laden macrophages, and scattered larger cells with more conspicuous nucleoli, and irregular nuclear membrane are present. Selected immunostains are performed to further evaluate the immunoarchitecture, and reveal the following: CD45 highlights the lymphocytes, including some larger forms. EBV by in-situ hybridization ([place]) highlights scattered cells, including a subset of larger forms. CD3 and CD5 highlight the T-cells, predominantly in the interfollicular areas. CD20, PAX5, and Gino 1 highlight the B-cells, predominantly in the follicles. BCL2 highlights the T-cells, the B-cells in primary follicles, and the B-cells in the mantle zone. CD10 and BCL6 highlight scattered cells, with no discernible germinal center B-cells being highlighted. CD30 highlights scattered larger cells. KHADRA displays background staining. CD138 highlights the scattered plasma cells, which are polyclonal, as demonstrated by in-situ hybridization for kappa and lambda stains. Ki-67 highlights the proliferating cells with no specific pattern. CD21 and CD23 highlight the follicular dendritic cell networks. CD15 highlights the background granulocytes/neutroph ils. Concurrent flow cytometry study reveals no diagnostic evidence of non Hodgkin T-cell or B-cell lymphoma. 01/29/2024 3:39 PM [facility] Clinical History Lymphadenopathy. 01/29/2024 3:39 PM [facility] AP Comment Overall, the finding s are consistent with EBV-related lymphoid proliferation. There is no diagnostic evidence of T- or B-cell lymphoma in the current material. If clinically indicated, an excisional biopsy can be considered to provide architecture information, and additional material for further evaluation. Clinical and imaging correlation, and correlation with serology study recommended. 01/29/2024 3:39 PM [facility] Materials Received Received are 3 slide(s) and 1 block labeled [id number] along with a copy of the outside pathology report. [place] [address] . All original materials are returned to the referring institution, along with a copy of our final report. 01/29/2024 3:39 PM [facility] Pathologist Location at [facility] 01/29/2024 3:39 PM [facility] Disclaimer The performance characteristics of all immunohistochemical and indirect immunofluorescence stains (if any) cited in this report were determined by the Histopathology Laboratory of [facility]. Some of these tests were developed by our own laboratory and have not been cleared or approved by the US Food and Drug Administration. The FDA does not require this test to go through premarket FDA review. These tests are used for clinical purposes. They should not be regarded as investigational or for research. This laboratory is certified under the Clinical Laboratory Improvement Amendments (CLIA) as qualified to perform high complexity clinical laboratory testing. This case has been personally reviewed and interpreted by the attending (teaching) pathologist. 01/29/2024 3:39 PM [facility] Embedded Images 01/29/2024 3:39 PM [facility] Pathology/Cytolo gy BIOPSY OF LYMPH NODE / Unknown 01/22/2024 10:41 AM CDT 01/24/2024 9:10 AM CDT Bri Mendoza MD LAB - PATHOLOGY/CYT OLOGY ORDERABLES [facility] [address] [place] [address], [place] [phone] * FLOW CYTOMETRY TISSUE PANEL (01/22/2024 10:00 AM CDT) Case Report Flow Cytometry ?Case: [id number] ? Authorizing Provider: ??Bri Mendoza MD ? Collected: ? 01/22/2024 10:00 AM ? Ordering Location: ? [facility] - ??Received: ?01/22/2024 02:01 PM ? Pathology Lab ? Pathologist: ? Peter Greenwood MD ? Specimen: ?Axillary Lymph Node, Left Axillary ? 01/23/2024 8:13 AM [facility] Final Diagnosis Axillary lymph node, flow cytometric immunophenotypic analysis: - No diagnostic evidence of non-Hodgkin T-cell or B-cell lymphoma. - See interpretation. 01/23/2024 8:13 AM [facility] Flow Cytometry Interpretation Viability: 71% Lymphocytes: 99% B-cells: 37% of the lymphocytes, polytypic, kappa:lambda ratio 1.56:1 T-cells: 61% % of the lymphocytes, no immunophenotypic aberrancy detected based on the markers performed, CD4:CD8 ratio 1.57:1 Dim CD45 region: 0%. No blasts are identified Granulocytes: 1% A cytospin prepared from the flow cytometry specimen has been reviewed for bottle house quality control technician purposes. 01/23/2024 8:13 AM [facility] Flow Cytometry Results Differential Result Comment Flow Cell Count /uL 4,200 Total Viability % 71.0 Lymphocytes % 99 Dim CD45 Region % 0 Monocytes % 0 Granulocytes % 1 01/23/2024 8:13 AM [facility] Reason for test Enlarged lymph nodes, unspecified 01/23/2024 8:13 AM [facility] Client Specimen ID # [id number] 01/23/2024 8:13 AM [facility] Number of markers 16 were performed. A-2 Flow CD3 A-4 Flow CD10 A-6 Flow CD20 A-7 Flow CD23 A-12 Flow CD2 A-13 Flow CD4 A-16 Flow CD1a A-3 Flow CD5 A-5 Flow CD19 A-8 Flow CD34 A-9 Flow CD45 A-14 Flow CD7 A-15 Flow CD8 A-17 Flow CD30 A-10 [place]+CD19+ A-11 Lambda+CD19+ 01/23/2024 8:13 AM [facility] Pathologist Location at [facility] 01/23/2024 8:13 AM [facility] Disclaimer Test performed at [facility], [address] [place] [address], [id number]. *The established laboratory minimum viability is 70%. Values below the minimum may result in the failure to find an abnormal population of cells. This test was developed and its performance characteristics determined by the Flow Cytometry Laboratory. It has not been cleared by the [place] Food and Drug Administration (FDA). The FDA has determined that such clearance or approval is not necessary. This test is used for clinical purposes. It should not be regarded as investigational or for research. This laboratory is regulated under the Clinical Laboratory Improvement Amendments of 1998 (CLIA) as a qualified to perform high complexity clinical testing. 01/23/2024 8:13 AM CDT [facility] Embedded Images 8:13 AM CDT [facility] Pathology/Cytolo gy AXILLARY LYMPH NODE STRUCTURE / Unknown 01/22/2024 10:00 AM CDT 01/22/2024 2:01 PM CDT Bri Mendoza MD LAB - PATHOLOGY/CYT OLOGY ORDERABLES [facility] [address] [phone]
--- OUTSIDE RECORDS SUMMARY | 2024-07-11 14:31 | XMS_ITS | Encounter Summary ---
Author Organization [facility] Address [address] [place] [address] [place] [address] Care Team Providers Care Embosser Operator Name Role Phone Unavailable Primary Care Provider Unavailabl e Encounter Details Date Type Department Care Team (Late st Contact Info) Description 01/24/2024 Lab Requisition [facility] - Pathology Lab [address] [place] [address] Bri Mendoza MD [address] [place] [address] Illness, unspecified Social History Tobacco Use Types Packs/Day Years Used Date Smoking Tobacco: Never Assessed Sex and Gender Information Value Date Recorded Sex Assigned at Not on file Gender Identity Not on file Sexual Orientation Not on file documented as of this encounter Plan of Treatment Not on file documented as of this encounter Procedures Procedure Name Priority Date/Time Associated Diagnosis Comments PATHOLOGY TISSUE Routine 01/22/2024 10:4 1 AM CDT Illness, unspecified documented in this encounter Results * PATHOLOGY TISSUE (01/22/2024 10:41 AM CDT) Case Report Surgical Pathology Report ? Case: [id number] ? Authorizing Provider: ??Bri Mendoza MD ? Collected: ? 01/22/2024 10:41 AM ? Ordering Location: ? [facility] - ??Received: ?01/24/2024 09:10 AM ? Pathology Lab ? Pathologist: ? Peter Greenwood MD ? Specimen: ?Lymph Node Biopsy ? 01/29/2024 3:39 PM [facility] Final Diagnosis Axillary lymph node, core biopsy: Reactive lymphoid tissue, with EBV-related changes and focal dermatopathic changes. 01/29/2024 3:39 PM [facility] Microscopic Description and Comment The [...] T-cell or B-cell lymphoma. 01/29/2024 3:39 PM [facility] Clinical History Lymphadenopathy. 01/29/2024 3:39 PM [facility] AP Comment Overall, the finding s are consistent with EBV-related lymphoid proliferation. There is no diagnostic evidence of T- or B-cell lymphoma in the current material. If clinically indicated, an excisional biopsy can be considered to provide architecture information, and additional material for further evaluation. Clinical and imaging correlation, and correlation with serology study recommended. 01/29/2024 3:39 PM [facility] Materials Received Received are 3 slide(s) and 1 block labeled [id number] along with a copy of the outside pathology report. [place] [address] . All original materials are returned to the referring institution, along with a copy of our final report. 01/29/2024 3:39 PM [facility] Pathologist Location at [facility] 01/29/2024 3:39 PM [facility] Disclaimer The performance characteristics of all immunohistochemical and indirect immunofluorescence stains (if any) cited in this report were determined by the Histopathology Laboratory of [facility]. Some of these tests were developed [...] the attending (teaching) pathologist. 01/29/2024 3:39 PM [facility] Embedded Images 01/29/2024 3:39 PM CDT [facility] Pathology/Cytolo gy BIOPSY OF LYMPH NODE / Unknown 01/22/2024 10:41 AM CDT 01/24/2024 9:10 AM CDT Bri Mendoza MD LAB - PATHOLOGY/CYT OLOGY ORDERABLES Performing Organization Address City/State/[facility] Co de Phone Number [facility] [address] [phone] documented in this encounter Visit Diagnoses Diagnosis Illness, unspecified documented in this encounter
--- OUTSIDE RECORDS SUMMARY | 2024-07-11 14:31 | XMS_ITS | Encounter Summary ---
Author Organization [facility] Address [address] [place] [address] [place] [address] Care Team Providers Care Cmm Technician Name Role Phone Unavailable Primary Care Provider Unavailabl e Encounter Details Date Type Department Care Team (Late st Contact Info) Description 01/22/2024 Lab Requisition [facility] - Pathology Lab [address] [place] [phone] Bri Mendoza MD [address] [place] [address] Enlarged lymph nodes, unspecified Social History Tobacco Use Types Packs/Day Years Used Date Smoking Tobacco: Never Assessed Sex and Gender Information Value Date Recorded Sex Assigned at Not on file Gender Identity Not on file Sexual Orientation Not on file documented as of this encounter Plan of Treatment Not on file documented as of this encounter Procedures Procedure Name Priority Date/Time Associated Diagnosis Comments FLOW CYTOMETRY TISSUE PANEL Routine 01/22/2024 10:00 AM CDT Enlarged lymph nodes, unspecified documented in this encounter Results * FLOW CYTOMETRY TISSUE PANEL (01/22/2024 10:00 AM CDT) Case Report Flow Cytometry ?Case: [id number] ? Authorizing Provider: ??Bri Mendoza MD ? Collected: ? 01/22/2024 10:00 AM ? Ordering Location: ? [facility] - ??Received: ?01/22/2024 02:01 PM ? Pathology Lab ? Pathologist: ? Peter Greenwood MD ? Specimen: ?Axillary Lymph Node, Left Axillary ? 01/23/2024 8:13 AM [facility] Final Diagnosis Axillary lymph node, flow cytometric immunophenotypic analysis: - No diagnostic evidence of non-Hodgkin T-cell or B-cell lymphoma. - See interpretation. 01/23/2024 8:13 AM [facility] Flow Cytometry Interpretation Viability: 71% Lymphocytes: 99% B-cells: 37% of the lymphocytes, polytypic, kappa:lambda ratio 1.56:1 T-cells: 61% % of the lymphocytes, no immunophenotypic aberrancy detected based on the markers performed, CD4:CD8 ratio 1.57:1 Dim CD45 region: 0%. No blasts are identified Granulocytes: 1% A cytospin prepared from the flow cytometry specimen has been reviewed for senior quality technician purposes. 01/23/2024 8:13 AM [facility] Flow Cytometry Results Differential Result Comment Flow Cell Count /uL 4,200 Total Viability % 71.0 Lymphocytes % 99 Dim CD45 Region % 0 Monocytes % 0 Granulocytes % 1 01/23/2024 8:13 AM [facility] Reason for test Enlarged lymph nodes, unspecified 01/23/2024 8:13 AM T [facility] Client Specimen ID # [id number] 01/23/2024 8:13 AM [facility] Number of markers 16 were performed. A-2 Flow CD3 A-4 Flow CD10 A-6 Flow CD20 A-7 Flow CD23 A-12 Flow CD2 A-13 Flow CD4 A-16 Flow CD1a A-3 Flow CD5 A-5 Flow CD19 A-8 Flow CD34 A-9 Flow CD45 A-14 Flow CD7 A-15 Flow CD8 A-17 Flow CD30 A-10 [place]+CD19+ A-11 Lambda+CD19+ 01/23/2024 8:13 AM T [facility] Pathologist Location at [facility] 01/23/2024 8:13 AM [facility] Disclaimer Test performed at [facility], [address] [place] [address], [facility]. *The established laboratory minimum viability is 70%. [...] high complexity clinical testing. 01/23/2024 8:13 AM T [facility] Embedded Images 8:13 AM T [facility] Pathology/Cytolo gy AXILLARY LYMPH NODE STRUCTURE / Unknown 01/22/2024 10:00 AM CDT 01/22/2024 2:01 PM CDT Bri Mendoza MD LAB - PATHOLOGY/CYT OLOGY ORDERABLES [facility] [address] [place] [address]. [place] [address], [facility] [phone] documented in this encounter Visit Diagnoses Diagnosis Enlarged lymph nodes, unspecified documented in this encounter
[2024-07-11 14:52] LABS: EDCOVIDSCREEN Negative (Negative); EDINFLUASCREEN Negative (Negative); EDINFLUBSCREEN Negative (Negative)
== END 2024-07-11 14:50 | disposition home or self-care (01) ==
PROVIDERS: Emergency Provider Nurse Practitioner; PCP Nurse Practitioner Family
DX: J06.9 Acute upper respiratory infection, unspecified (principal); Z20.822 Contact with and (suspected) exposure to COVID-19; E78.1 Pure hyperglyceridemia; K20.0 Eosinophilic esophagitis; E78.5 Hyperlipidemia, unspecified; E28.2 Polycystic ovarian syndrome; K21.9 Gastro-esophageal reflux disease without esophagitis; F41.9 Anxiety disorder, unspecified; J45.990 Exercise induced bronchospasm; F32.A Depression, unspecified
CPT/HCPCS: 87426; 87804; 99212; G0463

== ENCOUNTER 2024-07-22 08:28 | Emergency (ER) | payer OTHER, SELFPAY ==
[2024-07-22 08:43] VITALS: BP 97/59; PULSE 115; RESP 18; TEMP 38.3; O2SAT 98
--- NOTE | 2024-07-22 08:48 | ED_ITS ---
HPI - URI/Sore Throat General Chief Complaint: Upper Respiratory Infection Stated Complaint: cough / fever / dizzy Time Seen by Provider: 07/22/24 09:11 Source: patient, RN notes reviewed and old records reviewed Mode of arrival: ambulatory Limitations: no limitations History of Present Illness HPI Narrative: 23-year-old female presents to the [facility] with complaints of cough, fever for 3 days. States that she has been taking Tylenol and Advil. Patient is not flu vaccinated this year Onset (ago): day(s) (Three) Treatments prior to arrival: acetaminophen and ibuprofen Related Data Home Medications ?Medication ?Instructions ?Recorded ?Confirmed ?Last Taken ?Type albuterol sulfate 90 mcg/actuation 1 puff inhalation Q4H PRN 06/12/23 04/09/24 Unknown History aerosol inhaler Shortness Of Breath metformin 500 mg tablet 500 mg PO BID 04/09/24 04/09/24 Unknown History ergocalciferol (vitamin D2) 1,250 07/11/24 Unknown History mcg (50,000 unit) capsule Allergies Allergy/AdvReac Type Severity Reaction Status Date / Time No Known Allergies Allergy Verified 07/22/24 08:37 Review of Systems Review of Systems: All systems reviewed & are unremarkable except as noted in HPI and below Constitutional: Constitutional: Reports as per HPI, Reports body ache(s), Reports chills, Reports fatigue and Reports fever(s) ENT: Reports system reviewed and no additional complaints, except as documented Cardiovascular: Cardiovascular: Reports no additional cardiovascular complaints, Denies chest pain and Denies dyspnea Respiratory: Respiratory: Reports as per HPI, Denies chest congestion, Reports cough and Denies dyspnea Musculoskeletal: Musculoskeletal: Reports no additional musculoskeletal complaints Integumentary/Breasts: Skin/Breast: Reports system reviewed and no additional complaints, except as docu PMFSH Past Medical History Medical History Hypertriglyceridemia Elevated liver enzymes Eosinophilic esophagitis Night sweats Chest x-ray 01/14/2024 unremarkable. Tremor of both hands Right knee pain Left knee pain Paresthesia of both hands Paresthesia of both feet Dizziness Palpitations PTSD (post-traumatic stress disorder) Low serum parathyroid hormone (PTH) Left hand pain Hand edema Arthralgia of multiple joints Hyperlipidemia Hypercalcemia ADHD Recurrent kidney stones Dysphagia Fatigue Snoring Exercise-induced asthma Paresthesia Tremor Encounter to establish care Enlarged thyroid BMI 30.0-30.9,adult History of kidney stones PCOS (polycystic ovarian syndrome) Acid reflux BMI 27.0-27.9,adult ADD (attention deficit disorder) BMI 26.0-26.9,adult BMI 25.0-25.9,adult Anxiety Post-traumatic stress disorder, unspecified 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 Social History Social History Smoking status: Never smoker Alcohol intake: current Alcohol use details: RARE OCCASIONS Substance use: current Substance use type: marijuana Other substance usage details: OCCASIONALLY FOR PAIN Do You Feel Safe in your Home?: Yes Lack of Transportation: No Lack of Food: Never True Current Housing: I Have Housing Concerned About Future Housing: No Difficulty Paying Gas/Electric Bills: No Difficulty Paying for Meds: No Currently Unemployed: YES Education: High School Diploma/GED Living arrangements: with family Additional living arrangements comments: LIVES WITH SISTER Occupation/Education: occupation 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 There is no relevant family history pertinent to the patient complaint. Exam Const: General: cooperative, no acute distress, well developed, alert, tired appearing, uncomfortable and well nourished Nutritional Appearance: well nourished Orientation/consciousness: patient oriented x3 Limitations: no limitations HENMT: Head: normal to inspection Ears: hearing grossly normal bilaterally, external ears normal, TM's normal bilaterally, EAC's normal, mastoids normal and no periauricular adenopathy Mouth: Yes Normal oral and palatal mucosa present, Yes lip normal, Yes tongue normal and Yes moist mucous membranes Throat: posterior oropharynx normal, uvula midline and no uvular edema Eyes: General: appearance normal, both eyes and all related structures Alignment and Position: alignment normal Neck: Neck: normal visual inspection, full ROM, no lymphadenopathy and no meningeal signs Chest: Chest palpation & inspection: normal inspection of the chest Resp: Effort & Inspection: normal respiratory effort and able to speak in complete sentences Auscultation: clear to auscultation bilaterally, no crackles, no rales, no rhonchi and no wheezes Cardio: Rate: regular rate Skin: General skin exam: normal color and no rashes or lesions noted Neuro: General: patient oriented x3, gait normal, moves all extremities and no meningeal signs Cognition (Neuro): normal cognition Speech: normal speech Gait exam (Neuro): Normal gait present Extrem: General: normal to inspection, full ROM, capillary refill normal and normal gait Psych: Appearance: grossly normal and well kempt Mental Status: mental status grossly normal Speech and movement: Normal speech and movement present and Clear speech present Affect: normal affect Attitude: cooperative Course Course Level of Care: Express Care Visit Vital Signs Vital signs: Vital Signs Temperature 100.9 F H 07/22/24 08:43 Pulse Rate 115 H 07/22/24 08:43 Respiratory Rate 18 07/22/24 08:43 Blood Pressure 97/59 L 07/22/24 08:43 Pulse Oximetry 98 07/22/24 08:43 Oxygen Delivery Room Air 07/22/24 08:43 Temperature 100.9 F H 07/22/24 08:43 Pulse Rate 115 H 07/22/24 08:43 Respiratory Rate 18 07/22/24 08:43 Blood Pressure 97/59 L 07/22/24 08:43 Pulse Oximetry 98 07/22/24 08:43 Oxygen Delivery Room Air 07/22/24 08:43 Reviewed MDM - URI/Sore Throat MDM Narrative Medical decision making narrative: Patient sitting comfortably in exam room. Nontoxic, vitals stable. Patient presents with 3 day history of URI symptoms. Patient is flu A positive. Patient appropriate for outpatient treatment with close follow-up. Discharge instructions reviewed with patient, as well as provided in writing per nursing staff. The instructions also include specific and strict return/GO TO THE ER as well as f/u information. All questions have been answered, and the patient deny any further questions with discharge and discharge plan. Some parts of this dictation were generated by voice recognition software and may contain typographical and/or grammatical inaccuracies. Differential Diagnosis Differential diagnosis: Likely upper respiratory infection, otitis media, sinusitis, viral infection, bronchitis and influenza Lab Data Labs: Lab Results 07/22/24 Range/Units 09:18 POC Influenza A Ag Positive (Negative) POC Influenza B Ag Negative (Negative) POC SARS CoV-2 Ag Negative (Negative) Reviewed Critical Care Time Critical Care Time Critical Care Time: No Discharge Plan Discharge Clinical Impression: Influenza A Patient Disposition: Home, Self-Care Condition: Stable Instructions: Antibiotic Form, Influenza (DC) Additional Instructions: Your rapid COVID test were negative Your rapid flu test was positive for influenza A Your symptoms are due to a viral illness, which is not treated with antibiotics. Typically viral infections last 7-10 days, can linger for couple of weeks. Up It is very important to treat your symptoms. Drink plenty of water, Gatorade, Pedialyte, ice pops or Jell-O. -Alternate Tylenol and Motrin per package directions for fever or pain. You can alternate every 4 hours -Antihistamine medication such as Zyrtec/Claritin/Samantha during the day can help improve symptoms. -doing daily nasal irrigations can help relieve pressure your sinuses. Things like a Neti pot -Use Flonase twice a day for 5 days then daily to help reduce the inflammation and dry up your sinuses. -You can also use Mucinex. Be sure to drink plenty of water with this medication at least 8 ounces with every dose and it is important to drink 8 to 10 glasses of water per day. Water is a natural decongestant -Eat and drink things that are easy to swallow, like tea or soup, or popsicles. -Oral rinses such as: Salt water gargles and/or may use topical anesthetic (eg. Chloraseptic spray) or lozenges to relieve dryness or throat pain). -Frequent hand washing or hand equalizing saw operator is one of the best ways to prevent spread of infection. -Using a vaporizer or humidifier at night will also help thin secretions and help with coughing up phlegm. -Follow up with primary care provider in 7-10 days if condition is not improving - For new or worsening symptoms go directly to the nearest ER Patient Language: Nepali Prescriptions: No Action metformin 500 mg Tablet 500 mg PO BID ergocalciferol (vitamin D2) 1,250 mcg (50,000 unit) capsule albuterol sulfate 90 mcg/actuation HFA aerosol inhaler 1 puff inhalation Q4H PRN (Reason: Shortness Of Breath) buspirone 5 mg tablet 5 mg PO BID Qty: 90 0RF Rx Instructions: start 5mg 2x/day and increase by 5mg every 5 days to max 15mg BID. Call for refill fluticasone propionate 220 mcg/actuation HFA aerosol inhaler 2 puff .ROUTE Q12H 28 Days Qty: 12 1RF Rx Instructions: 2 puffs every 12 hours; Administer fluticasone by spraying the aerosol inhaler (without a spacer) into the throat; patient should not inhale when dose is being delivered; instead, patient should swallow the accumulated liquid. Do not eat or drink for 30 minutes after administration Follow-up/Referrals: Princess Buck NP [Primary Care Provider] - 2 Weeks ([facility] care follow [facility] ) Stand Alone Forms: Work/School Release IP Time of Disposition: 09:17
--- OUTSIDE RECORDS SUMMARY | 2024-07-22 09:01 | XMS_ITS | Encounter Summary ---
Author Organization [facility] Address [address] [place] [address] [place] [address] Care Team Providers Care Finished Cloth Examiner Name Role Phone Unavailable Primary Care Provider Unavailabl e Encounter Details Date Type Department Care Team (Late st Contact Info) Description 01/22/2024 Lab Requisition [facility] - Pathology Lab [address] [place] [id number] Bri Mendoza MD [address] [place] [address] Enlarged lymph nodes, unspecified Social [...] 10:00 AM CDT) Case Report Flow Cytometry Case: [id number] Authorizing Provider: Bri Mendoza MD Collected: 01/22/2024 10:00 AM Ordering Location: [facility] - Received: 01/22/2024 02:01 PM Pathology Lab Pathologist: Peter Greenwood MD Specimen: Axillary Lymph Node, Left Axillary 01/23/2024 8:13 AM CDT [facility] Final Diagnosis Axillary lymph node, flow cytometric immunophenotypic analysis: - No diagnostic evidence of non-Hodgkin T-cell or B-cell lymphoma. - See interpretation. 01/23/2024 8:13 AM CDT [facility] Flow Cytometry Interpretation Viability: 71% Lymphocytes: 99% B-cells: 37% of the lymphocytes, polytypic, kappa:lambda ratio 1.56:1 T-cells: 61% % of the lymphocytes, no immunophenotypic aberrancy detected based on the markers performed, CD4:CD8 ratio 1.57:1 Dim CD45 region: 0%. No blasts are identified Granulocytes: 1% A cytospin prepared from the flow cytometry specimen has been reviewed for quality system manager purposes. 01/23/2024 8:13 AM [facility] Flow Cytometry Results Differential Result Comment Flow Cell Count /uL 4,200 Total Viability % 71.0 Lymphocytes % 99 Dim CD45 Region % 0 Monocytes % 0 Granulocytes % 1 01/23/2024 8:13 AM [facility] Reason for test Enlarged lymph nodes, unspecified 01/23/2024 8:13 AM [facility] Client Specimen ID # [id number] 01/23/2024 8:13 AM [facility] Number of markers 16 were performed. A-2 Flow CD3 A-4 Flow CD10 A-6 Flow CD20 A-7 Flow CD23 A-12 Flow CD2 A-13 Flow CD4 A-16 Flow CD1a A-3 Flow CD5 A-5 Flow CD19 A-8 Flow CD34 A-9 Flow CD45 A-14 Flow CD7 A-15 Flow CD8 A-17 Flow CD30 A-10 [place]+CD19+ A-11 Lambda+CD19+ 01/23/2024 8:13 AM [facility] Pathologist Location at [facility] 01/23/2024 8:13 AM [facility] Disclaimer Test performed at [facility], [address] [place] [address], [id number]. *The established laboratory minimum viability is 70%. [...] complexity clinical testing. 01/23/2024 8:13 AM CDT [facility] Embedded Images 8:13 AM CDT [facility] Pathology/Cytolo gy AXILLARY LYMPH NODE STRUCTURE / Unknown 01/22/2024 10:00 AM CDT 01/22/2024 2:01 PM CDT Bri Mendoza MD LAB - PATHOLOGY/CYT OLOGY ORDERABLES [facility] [address] [phone] documented in this encounter Visit Diagnoses Diagnosis Enlarged lymph nodes, unspecified documented in this encounter
--- OUTSIDE RECORDS SUMMARY | 2024-07-22 09:02 | XMS_ITS | Data Portability ---
Author Organization [place] [facility], [place] [address] Care Team Providers Care Accelerator Operator Name Role Phone MONIKA JOLIE Referring Provider [...] auto 2022 023 [email or web address] [facility] ([facility]), [address], [address], [place], [address], 15:16:02 urinalysis, microscopic 2022 023 [email or web address] [facility], [address], [place], [address], 3 15:16:02 urinalysis, dipstick, auto 2022 023 CHARLY [facility] ([facility]), [address], [address], [place], [address], 3 15:37:39 urinalysis, microscopic 2022 023 [email or web address] [facility], [address], [place], [address], 3 15:27:08 Referral None recorded. Procedures None recorded. Surgeries ureteroscop y with stone basket extraction, holmium laser fragmentati on (SURG) 2022 023 [facility], [address], [place], [address], 3 10:08:26 Imaging None recorded. Medication Orders None recorded. Patient TargetsNo targets recorded. Patient Instructions Encounter Date Encounter Id Patient Instructions Last Modified By Organization Details Last Modified Time 01/16/2023 [id number] Patient Surgery Schedule and Instructions Not available 01/16/2023 15:16:47 Reason for Referral None Reported. Results Created Date Observation Date Name Description Value Unit Range Abnormal Flag Note LastModifiedBy Organization Detail LastModifiedTime 01/17/2001/16/2023 urina lysis , micro scopi c WBC/hpf rare 0 - 4 Not Available [facility] [address], [place], [address], 01/16/2023 15:01:55 01/17/20 23 01/16/2023 urina lysis , micro scopi c RBC/hpf 10-20 0 - 2 Not Available [facility] [address], [place], [address], 01/16/2023 15:01:55 01/17/20 23 01/16/2023 urina lysis , micro scopi c casts/lpf 0 neg Not Available [facility] [address], [place], [address], 01/16/2023 15:01:55 01/17/20 23 01/16/2023 urina lysis , micro scopi c bacteria trace neg Not Available [facility] [address], [place], [address], 01/16/2023 15:01:55 01/17/20 23 01/16/2023 urina lysis , micro scopi c crystals 0 occ Not Available [facility] [address], [place], [address], 01/16/2023 15:01:55 01/17/20 23 01/16/2023 urina lysis , micro scopi c epith cells >40 0 - 5 Not Available [facility] [address], [place], [address], 01/16/2023 15:01:55 01/17/20 23 01/16/2023 urina lysis , micro scopi c date resulted 01/16/23 Not Available [facility] [address], [place], [address], 01/16/2023 15:01:55 01/17/20 23 01/16/2023 urina lysis , micro scopi c resulted by tk Not Available [facility] [address], [place], [address], 01/16/2023 15:01:55 01/17/20 23 01/16/2023 urina lysis , dipst ick, auto color lizet normal Not Available [facility] ([facility]) [address], [place], [address], 01/16/2023 14:48:16 01/17/20 23 01/16/2023 urina lysis , dipst ick, auto clarity slight ly cloudy normal Not Available [facility] ([facility]) [address], [place], [address], 01/16/2023 14:48:16 01/17/20 23 01/16/2023 urina lysis , dipst ick, auto glucose negati ve mg/dL neg normal Not Available [facility] ([facility]) [address], [place], [address], 01/16/2023 14:48:16 01/17/20 23 01/16/2023 urina lysis , dipst ick, auto bilirubin negati ve neg normal Not Available [facility] ([facility]) [address], [place], [address], 01/16/2023 14:48:16 01/17/20 23 01/16/2023 urina lysis , dipst ick, auto ketones trace neg abnormal Not Available [facility] ([facility]) [address], [place], [address], 01/16/2023 14:48:16 01/17/20 23 01/16/2023 urina lysis , dipst ick, auto specific gravity 1.015 1-1.03 normal Not Available [facility] ([facility]) [address], [place], [address], 01/16/2023 14:48:16 01/17/20 23 01/16/2023 urina lysis , dipst ick, auto blood/hemogl obin modera te joseluis/m c neg abnormal Not Available [facility] ([facility]) [address], [place], [address], 01/16/2023 14:48:16 01/17/20 23 01/16/2023 urina lysis , dipst ick, auto pH 6.0 5-9 normal Not Available [facility] ([facility]) [address], [place], [address], 01/16/2023 14:48:16 01/17/20 23 01/16/2023 urina lysis , dipst ick, auto protein 30 mg/dL neg abnormal Not Available [facility]) [address], [place], [address], 01/16/2023 14:48:16 01/17/20 23 01/16/2023 urina lysis , dipst ick, auto urobilinogen 0.2 eu/dL normal normal Not Available [facility]) [address], [place], [address], 01/16/2023 14:48:16 01/17/20 23 01/16/2023 urina lysis , dipst ick, auto nitrites negati ve neg normal Not Available [facility] ([facility]) [address], [place], [address], 01/16/2023 14:48:16 01/17/20 23 01/16/2023 urina lysis , dipst ick, auto leukocytes small neg abnormal Not Available [facility] ([facility]) [address], [place], [address], 01/16/2023 14:48:16 02/22/20 23 02/21/2023 urina lysis , dipst ick, auto color yellow normal Not Available [facility]) [address], [place], [address], 02/21/2023 15:13:18 02/22/20 23 02/21/2023 urina lysis , dipst ick, auto clarity clear normal Not Available [facility] ([facility]) [address], [place], [address], 02/21/2023 15:13:18 02/22/20 23 02/21/2023 urina lysis , dipst ick, auto glucose negati ve mg/dL neg normal Not Available The [facility] ([facility]) [address], [place], [address], 02/21/2023 15:13:18 02/22/20 23 02/21/2023 urina lysis , dipst ick, auto bilirubin negati ve neg normal Not Available [facility] ([facility]) [address], [place], [address], 02/21/2023 15:13:18 02/22/20 23 02/21/2023 urina lysis , dipst ick, auto ketones negati ve neg normal Not Available [facility] ([facility]) [address], [place], [address], 02/21/2023 15:13:18 02/22/20 23 02/21/2023 urina lysis , dipst ick, auto specific gravity 1.025 1-1.03 normal Not Available The [facility] ([facility]) [address], [place], [address], 02/21/2023 15:13:18 02/22/20 23 02/21/2023 urina lysis , dipst ick, auto blood/hemogl obin small joseluis/m c neg abnormal Not Available The [facility] ([facility]) [address], [place], [address], 02/21/2023 15:13:18 02/22/20 23 02/21/2023 urina lysis , dipst ick, auto pH 7.0 5-9 normal Not Available [facility]) [address], [place], [address], 02/21/2023 15:13:18 02/22/20 23 02/21/2023 urina lysis , dipst ick, auto protein trace mg/dL neg abnormal Not Available [facility]) [address], [place], [address], 02/21/2023 15:13:18 02/22/20 23 02/21/2023 urina lysis , dipst ick, auto urobilinogen 0.2 eu/dL normal normal Not Available [facility] ([facility]) [address], [place], [address], 02/21/2023 15:13:18 02/22/20 23 02/21/2023 urina lysis , dipst ick, auto nitrites negati ve neg normal Not Available [facility] ([facility]) [address], [place], [address], 02/21/2023 15:13:18 02/22/20 23 02/21/2023 urina lysis , dipst ick, auto leukocytes trace neg abnormal Not Available The [facility] ([facility]) [address], [place], [address], 02/21/2023 15:13:18 02/22/20 23 02/21/2023 urina lysis , micro scopi c WBC/hpf rare 0 - 4 Not Available [facility] [address], [place], [address], 02/21/2023 15:18:33 02/22/20 23 02/21/2023 urina lysis , micro scopi c RBC/hpf 5-10 0 - 2 Not Available [facility] [address], [place], [address], 02/21/2023 15:18:33 02/22/20 23 02/21/2023 urina lysis , micro scopi c casts/lpf 0 neg Not Available [facility] [address] , [place], [address], 02/21/2023 15:18:33 02/22/20 23 02/21/2023 urina lysis , micro scopi c bacteria trace neg Not Available The [place] [address] , [place], [address], 02/21/2023 15:18:33 02/22/20 23 02/21/2023 urina lysis , micro scopi c crystals 0 occ Not Available The [place] [address] , [place], [address], 02/21/2023 15:18:33 02/22/20 23 02/21/2023 urina lysis , micro scopi c epith cells 4 0 - 5 Not Available The oly [place] [address] , [place], [address], 02/21/2023 15:18:33 02/22/20 23 02/21/2023 urina lysis , micro scopi c date resulted 3 Not Available [facility] [address] , [place], [address], 02/21/2023 15:18:33 02/22/20 23 02/21/2023 urina lysis , micro scopi c resulted by tk Not Available The [place] [address] , [place], [address], 02/21/2023 15:18:33 01/17/20 23 01/12/2023 CT, abdom en + pelvi s, w/o contr ast No observ ation record ed. [email or web address] Not Available 2022 12:53:56 01/20/20 23 01/18/2023 fluor oscop y (PROC ) No observ ation record ed. [address], [address], 01/19/2023 12:25:35 05/07/20 23 05/07/2023 XR, urogr am, retro grade No observ ation record ed. [address], [address], 05/07/2023 17:10:11 Result Notes None recorded. Problems No Known Problems Procedures Surgical History Date Name Laterality Status Provider Name and Address Organization Details Recorded Time 05/11/20 23 DELORES Dangler Stent Removal completed Minoo Miles [facility] 05/11/2023 15:59:19 05/06/20 23 Cystouretero w/stone remove completed Sreedhar Flores [facility] 05/10/2023 11:31:39 01/24/20 23 DELORES Clinical Accelerator Operator Note completed Isabelle Barba [facility] 01/23/2023 09:23:43 01/24/20 23 Cysto Stent Removal completed Sreedhar Flores [facility] 02/06/2023 11:06:03 01/19/20 23 Cystouretero w/stone remove completed Sreedhar Flores [facility] 02/06/2023 11:05:49 06/11/19 21 extraction of wisdom tooth completed Minoo Miles [facility] 01/16/2023 15:14:22 Imaging Results Imaging Date Name Status LastModified by Organ [facility] Details LastModified Time 01/12/2023 CT, abdomen + pelvis, w/o contrast completed [email or web address] Information not available 01/16/2023 12:53:56 01/18/2023 fluoroscopy (PROC) completed [address], [address], 01/19/2023 12:25:35 05/07/2023 XR, urogram, retrograde completed [address], [address], 05/07/2023 17:10:11 Procedure Notes None recorded. Medical [...] Not Available Vitals Date Recorded Body temperature Heart rate Systolic blood pressure Diastolic blood pressure Provider Name and Address Organization Details Last Updated DateTime 01/16/2023 98.3 [degF] 88 /min 120 mm[Hg] 66 mm[Hg] Halie Davies [place] - [facility] 01/16/2023 14:57:04 Date Recorded Body height Body mass index (BMI) Percentile per age and sex Body mass index (BMI) Body weight Provider Name and Address Organization Details Last Updated DateTime 01/16/2023 170.18 cm 86 % 26.9 kg/m2 90421.89 g Minoo Miles [place] [facility] 01/16/2023 15:11:14 Date Recorded Body height Body mass index (BMI) Percentile per age and sex Body mass index (BMI) Body weight Heart rate Body temperature Systolic blood pressure Diastolic blood pressure Provider Name and Address Organization Details Last Updated DateTime 170.18 cm 87 % 27.4 kg/m2 96078.6 6 g 89 /min 98 [degF] 129 mm[Hg] 74 mm[Hg] Isabelle Barba [facility] 3 09:20:27 Date Recorded Body height Body mass index (BMI) Percentile per age and sex Body mass index (BMI) Body weight Heart rate Body temperature Systolic blood pressure Diastolic blood pressure Provider Name and Address Organization Details Last Updated DateTime 3 156.21 cm 95 % 32.2 kg/m2 72017.4 8 g 86 /min 97.6 [degF] 105 mm[Hg] 69 mm[Hg] Minoo Miles [facility] 3 15:11:36 Date Recorded Body height Body mass index (BMI) Percentile per age and sex Body mass index (BMI) Body weight Heart rate Body temperature Systolic blood pressure Diastolic blood pressure Provider Name and Address Organization Details Last Updated DateTime 3 156.21 cm 96 % 33.5 kg/m2 83325.6 3 g 89 /min 97.7 [degF] 104 mm[Hg] 71 mm[Hg] Minoo Miles [facility] 3 15:57:36 Social History Question Answer Notes LastModified by [employer] ion Details LastModified Time Tobacco Smoking Status Never Smoker [facility] 01/16/2023 15:13:47 Do You Have An Advance Directive? No [email or web address] Information not available 01/16/2023 What Is Your Level Of Alcohol Consumption? None Information not available 01/16/2023 What Is Your Level Of Caffeine Consumption? Occasional [email or web address] Information not available 01/16/2023 Sex: Unknown Functional Status None recorded. Mental Status None recorded. Family History Relationship Description Onset Age of this Age Resolved Age Notes LastModified by Organization Details LastModified Time Mother Diabetes mellitus [email or web address] Not available 2022 15:12:02 Father Kidney stone Not avail able 01/16/2023 15:12:15 Notes:dad passed 38 from acc ident, mom passed at 50 from hepatitis from ETOH(kidneys and liver failed) Medical History Condition Response Coronary Artery Disease N Cancer - Prostate N Gout N Crohn's/Ulcerative Colitis N Spina Bifida or Myelomeningocele N Atrial Fibrillation N Kidney Stones N MRSA N Benign Prostatic Hypertrophy (BPH) or En larged Prostate N Liver Disease/Jaundice N Neurogenic Bladder N Renal Insufficiency N Glaucoma N High Blood Pressure/Hypertension N Prostatitis N Congestive Heart Failure N Bleeding Tendency Disorder N Deep Vein Thrombosis N Radiation Cystitis N Cancer - Bladder N Arthritis N Cancer N Stroke N COPD/Emphysema N Epilepsy/Seizure Disorder N Patient Denies Significant Past Medical History N Urethral Stricture Disease N Cancer - Kidney N STD N Cancer - Testicular N Parkinson's Disease N Heart Attack/ND N Chemotherapy N Cardiac Arrhythmia N Multiple [...] SNOMED-CT Code Diagnosis ICD10 Code Diagnosis Note [id number] Roxane Curry [address] [address] 01/16/2023 14:45:54 01/18/2023 10:48:50 Urolithiasis 62537187 N20.9 Left flank pain 78430960 9 R10.9 [id number] Isabelle Barba [address] [address] 01/23/2023 08:48:54 01/23/2023 09:27:42 Urolithiasis 34191440 N20.9 [id number] Frankie Butts MD [address] [address] 02/21/2023 14:29:54 02/23/2023 12:47:55 Kidney stone 56503771 N20.0 [id number] Minoo Milse [address] [address] 05/11/2023 15:34:25 05/11/2023 16:00:45 Health Concerns Section Related Observation LastModified by Organization Detai ls LastModified Time None Recorded Concern Status LastModified by Organization Details LastModified Time None Recorded Advance Directives Directive N: Payers Encounter Date Sequence Insurance Name Policy Number Policy Sorto Covered Member ID Sorto Member ID Guarantor Name 01/16/2023 1 [facility] () Zaire Ledesma [id number] Lazara Ledesma 01/23/2023 1 [place] () Zaire Fonseca Josephe [id number] Lazara Ledesma 02/21/2023 1 [place] [employer] () Zaire Fonseca Josephlissette [id number] Lazara Ledesma 05/11/2023 1 [place] [employer] () Zaire Fonseca Josephlissette [id number] Lazara Ledesma Notes Date Note Type Note Provider Name and Address Organization Details Recorded Time 01/16/2023 text/html 22 year old mitch tanner patient who presents today for ER follow up. She initially presented to [facility] ER on 01/12/23 due to severe left [...] currently being evaluated for this. Roxane Curry [address] [place] [address], [phone], [facility] 01/17/2023 14:26:14 02/21/2023 text/html She initially presented to [facility] ER on 01/12/23 due to severe left [...] and 50% calcium phosphate. Frankie Butts MD [address] [place] [address], [address], [place] [facility] 02/22/2023 22:36:42 OBGyn Episode No OBEpisode recorded.
--- OUTSIDE RECORDS SUMMARY | 2024-07-22 09:02 | XMS_ITS | Patient Health Summary ---
Author Organization [facility] Address [address] [place] [address] Care Team Providers Care Instant Printer Operator Name Role Phone Unavailable Primary Care Provider Unavailabl e Note from [facility],non-owned Affiliates and Associated Physician Practices is amultiple site organization consisting of ambulatory clinics and hospital sitesin [place], [place], [place] and [place]. This disclosure is being madepursuant to the Care Everywhere program and may not contain all information available regarding this patient. Last updated 18.[facility] Social History Tobacco Use Types Packs/Day Years [...] AM CDT) Case Report Surgical Pathology Report Case: [id number] Authorizing Provider: Bri Mendoza MD Collected: 01/22/2024 10:41 AM Ordering Location: [facility] - Received: 01/24/2024 09:10 AM Pathology Lab Pathologist: Peter Greenwood MD Specimen: Lymph Node Biopsy 01/29/2024 3:39 PM CDT [facility] Final Diagnosis Axillary lymph node, core biopsy: Reactive lymphoid tissue, with EBV-related changes and focal dermatopathic changes. 01/29/2024 3:39 PM CDT [facility] Microscopic Description and [...] T-cell or B-cell lymphoma. 01/29/2024 3:39 PM [facility] Clinical History Lymphadenopathy. 01/29/2024 3:39 PM [facility] AP Comment Overall, the finding s are consistent with EBV-related lymphoid proliferation. There is no diagnostic evidence of T- or B-cell lymphoma in the current material. If clinically indicated, an excisional biopsy can be considered to provide architecture information, and additional material for further evaluation. Clinical and imaging correlation, and correlation with serology study recommended. 01/29/2024 3:39 PM [facility] Materials Received Received are 3 slide(s) and 1 block labeled [id number] along with a copy of the outside pathology report. [place] [address] . All original materials are returned to the referring institution, along with a copy of our final report. 01/29/2024 3:39 PM [facility] 01/29/2024 3:39 PM [facility] Disclaimer The performance characteristics of all immunohistochemical and indirect immunofluorescence stains (if any) cited in this report were determined by the Histopathology Laboratory of [facility]. Some of these tests were developed by [...] the attending (teaching) pathologist. 01/29/2024 3:39 PM CDT [facility] Embedded Images 01/29/2024 3:39 PM CDT [facility] Pathology/Cytolo gy BIOPSY OF LYMPH NODE / Unknown 01/22/2024 10:41 AM CDT 01/24/2024 9:10 AM CDT Bri Mendoza MD LAB - PATHOLOGY/CYT OLOGY ORDERABLES Performing Organization Address [facility] de Phone Number [facility] [address] [phone] * FLOW CYTOMETRY TISSUE PANEL (01/22/2024 10:00 AM CDT) Case Report Flow Cytometry Case: [id number] Authorizing Provider: Bri Mendoza MD Collected: 01/22/2024 10:00 AM Ordering Location: [facility] - Received: 01/22/2024 02:01 PM Pathology Lab Pathologist: Peter Greenwood MD Specimen: Axillary Lymph Node, Left Axillary 01/23/2024 8:13 AM CDT [facility] Final Diagnosis Axillary lymph node, flow cytometric immunophenotypic analysis: - No diagnostic evidence of non-Hodgkin T-cell or B-cell lymphoma. - See interpretation. 01/23/2024 8:13 AM CDT [facility] Flow Cytometry Interpretation Viability: 71% Lymphocytes: 99% B-cells: 37% of the lymphocytes, polytypic, kappa:lambda ratio 1.56:1 T-cells: 61% % of the lymphocytes, no immunophenotypic aberrancy detected based on the markers performed, CD4:CD8 ratio 1.57:1 Dim CD45 region: 0%. No blasts are identified Granulocytes: 1% A cytospin prepared from the flow cytometry specimen has been reviewed for air quality chemist purposes. 01/23/2024 8:13 AM [facility] Flow Cytometry Results Differential Result Comment Flow Cell Count /uL 4,200 Total Viability % 71.0 Lymphocytes % 99 Dim CD45 Region % 0 Monocytes % 0 Granulocytes % 1 01/23/2024 8:13 AM [facility] Reason for test Enlarged lymph nodes, unspecified 01/23/2024 8:13 AM [facility] Client Specimen ID # [id number] 01/23/2024 8:13 AM [facility] Number of markers 16 were performed. A-2 Flow CD3 A-4 Flow CD10 A-6 Flow CD20 A-7 Flow CD23 A-12 Flow CD2 A-13 Flow CD4 A-16 Flow CD1a A-3 Flow CD5 A-5 Flow CD19 A-8 Flow CD34 A-9 Flow CD45 A-14 Flow CD7 A-15 Flow CD8 A-17 Flow CD30 A-10 [place]+CD19+ A-11 Lambda+CD19+ 01/23/2024 8:13 AM [facility] Pathologist Location at [facility] 01/23/2024 8:13 AM [facility] Disclaimer Test performed at [facility], [address] [place] [address], [address]. *The established laboratory minimum viability is 70%. [...] high complexity clinical testing. 01/23/2024 8:13 AM [facility] Embedded Images 8:13 AM [facility] Pathology/Cytolo gy AXILLARY LYMPH NODE STRUCTURE / Unknown 01/22/2024 10:00 AM CDT 01/22/2024 2:01 PM CDT Bri Mendoza MD LAB - PATHOLOGY/CYT OLOGY ORDERABLES [facility] [address] [phone]
--- OUTSIDE RECORDS SUMMARY | 2024-07-22 09:02 | XMS_ITS | Encounter Summary ---
Author Organization [facility] Address [address] [place] [address] [place] [address] Care Team Providers Care Experimental Electronics Developer Name Role Phone Unavailable Primary Care Provider Unavailabl e Encounter Details Date Type Department Care Team (Late st Contact Info) Description 01/24/2024 Lab Requisition [facility] - Pathology Lab [address] [place] [address] Bri Mendoza MD [address] [place], [place] [id number] Illness, unspecified Social History Tobacco Use Types [...] CDT) Case Report Surgical Pathology Report Case: [id number] Authorizing Provider: Bri Mendzoa MD Collected: 01/22/2024 10:41 AM Ordering Location: [facility] - Received: 01/24/2024 09:10 AM Pathology Lab Pathologist: Peter Greenwood MD Specimen: Lymph Node Biopsy 01/29/2024 3:39 PM CDT [facility] Final Diagnosis Axillary lymph node, core biopsy: Reactive lymphoid tissue, with EBV-related changes and focal dermatopathic changes. 01/29/2024 3:39 PM CDT [facility] Microscopic Description and Comment The [...] or B-cell lymphoma. 01/29/2024 3:39 PM [facility] Clinical History Lymphadenopathy. 01/29/2024 3:39 PM [facility] AP Comment Overall, the finding s are consistent with EBV-related lymphoid proliferation. There is no diagnostic evidence of T- or B-cell lymphoma in the current material. If clinically indicated, an excisional biopsy can be considered to provide architecture information, and additional material for further evaluation. Clinical and imaging correlation, and correlation with serology study recommended. 01/29/2024 3:39 PM [facility] Materials Received Received are 3 slide(s) and 1 block labeled [id number] along with a copy of the outside pathology report. The materials originate from [address] [address] . All original materials are returned to the referring institution, along with a copy of our final report. 01/29/2024 3:39 PM [facility] Pathologist Location at [facility] 01/29/2024 3:[address] [facility] Disclaimer The performance characteristics of all immunohistochemical and indirect immunofluorescence stains (if any) cited in this report were determined by the Histopathology Laboratory of [facility]. Some of these tests were developed [...] attending (teaching) pathologist. 01/29/2024 3:[address] [facility] Embedded Images 01/29/2024 3:[address] [facility] Pathology/Cytolo gy BIOPSY OF LYMPH NODE / Unknown 01/22/2024 10:41 AM CDT 01/24/2024 9:10 AM CDT Bri Mendoza MD LAB - PATHOLOGY/CYT OLOGY ORDERABLES [facility] [address] [phone] documented in this encounter Visit Diagnoses Diagnosis Illness, unspecified documented in this encounter
--- OUTSIDE RECORDS SUMMARY | 2024-07-22 09:02 | XMS_ITS | Referral Summary ---
Author Organization [facility] Address [address] [place] [address] Care Team Providers Care Fixture Repairer Fabricator Name Role Phone Unavailable Primary Care Provider Unavailabl e Source Comments [facility],non-owned Affiliates and Associated Physician Practices is amultiple site organization consisting of ambulatory clinics and hospital sitesin [place], [place], [place] and [place]. This disclosure is being madepursuant to the Care Everywhere program and may not contain all information available regarding this patient. Last updated 18.[facility] Social History Tobacco Use Types Packs/Day Years Used Date Smoking Tobacco: Never Assessed Sex and Gender Information Value Date Recorded Sex Assigned at Not on file Gender Identity Not on file Sexual Orientation Not on file Plan of Treatment Not on file RAFY LEDESMA Personal/Famil y [address] [place] [address] RAFY LEDESMA Personal/Famil y [address] [place] [address] RAFY LEDESMA Personal/Famil y [address] [place] [address]
--- OUTSIDE RECORDS SUMMARY | 2024-07-22 09:02 | XMS_ITS | Data Portability ---
Author Organization [facility] Address [address] [place] [address] Care Team Providers Care Assistant Education Director Name Role Phone TIM POON Primary Care [...] None recorded. Lab prolactin, serum 2023 024 [facility] (Lab), [address] [place], [address], 4 23:59:03 FSH (follicle-s timulating hormone), serum 2023 024 [facility] (Lab), [address] [place], [address], 4 23:59:04 estradiol, serum 2023 024 [facility] (Lab), [address] [place], [address], 4 23:59:03 lh (luteinizin g hormone), serum 2023 024 [facility] (Lab), [address] [place], [address], 4 23:59:04 17-hydroxyp rogesterone , QN, serum 2023 024 [facility] (Lab), [address], [place], [address], 4 23:59:05 HbA1c (hemoglobin A1c), blood 2023 024 [facility] (Lab), [address], [place], [address], 4 23:59:05 testosteron e, total, serum 2023 024 [facility] (Lab), [address], [place], [address], 4 23:59:02 Referral None recorded. Procedures None recorded. Surgeries None recorded. Imaging US, pelvis [address], [address], [place], [address], 4 15:20:44 US, transvagina l [address], [address], [place], [address], 15:20:44 US, transvagina l 2023 [address], [place], [address], 4 22:38:19 US, axilla - left 2023 024 [facility], [address], [place] [address], [place], [address], 4 12:02:26 Medication Orders Provera 10 mg tablet 2023 024 [id number], [address], [place], [place], [id number], 10:21:42 Prometrium 200 mg capsule 2023 [id number], [address], [place], [place], [id number], 17:38:58 Patient TargetsNo targets recorded. 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 Not Available [facility] (Lab) [address] , [place], [address], 09/05/2023 22:02:42 09/03/19 24 09/03/2023 TRICH OMONA S VAGIN BRONWYN (RRNA ) trichomonas vaginalis ribosomal RNA (rrna) Negati ve negati ve Not Available [facility] (Lab) [address], [place], [address], 09/05/2023 22:02:42 09/03/19 24 09/03/2023 CT/GC (HEYDI) , THINP REP VIAL chlamydia trachomatis, PCR Negati ve negati ve Not Available [facility] (Lab) [address] [place], [address], 09/05/2023 22:02:43 09/03/19 24 09/03/2023 CT/GC (HEYDI) , THINP REP VIAL neisseria gonorrhoeae, PCR Negati ve negati ve Not Available [facility] (Lab) [address] [facility], [place], [address], 09/05/2023 22:02:43 09/17/19 24 09/17/2023 TESTO STERO NE, TOTAL testosterone , total 90 NG/dL 0-[address] [facility] (Lab) [address] [facility], [place], [address], 09/20/2023 23:59:02 09/17/19 24 09/17/2023 ESTRA DIOL [...] 154-3 243 pg/mL 2nd Trime ster 1561- 64160 pg/mL 3rd Trime ster 8525- >3000 0 pg/mL Not Available [facility] (Lab) [address] [facility], [place], [address], 09/20/2023 23:59:03 09/17/19 24 09/17/2023 PROLA CTIN prolactin, total 40.30 NG/mL 4.79-2 3.30 high This assay was perfo rmed using [employer] ratio n reage nts and test kits. Value s obtai yaneth with other assay metho ds or kits canno t be used inter joyce eably . Not Available [facility] (Lab) [address] [facility], [place], [address], 09/20/2023 23:59:03 09/17/19 24 09/17/2023 LH (LUTE NIZIN G HORMO NE) LH 16.7 mIU/m L This assay was perfo rmed using [employer] reage nts and test kits. Value s obtai yaneth with other assay metho ds or kits canno t be used inter [facility] . Femal es Mid-F ollic ular: 2.4-1 2.6 mIU/m L Mid-C ycle: 14.0- 95.6 mIU/m L Mid-L uteal : 1.0-1 1.4 mIU/m L Postm enopa use: 7.7-5 8.5 mIU/m L Not Available [facility] (Lab) [address] [facility], [place], [address], 09/20/2023 23:59:04 09/17/19 24 09/17/2023 FSH FSH 5.9 mIU/m L This assay was perfo rmed using [employer] n reage nts and test kits. Value s obtai yaneth with other assay metho ds or kits canno t be used inter [facility] . Femal es Folli cular : 3.5-1 2.5 mIU/m L Ovula tion: 4.7-2 1.5 mIU/m L Lutea l: 1.7-7 .7 mIU/m L Postm enopa use: 25.8- 134.8 mIU/m L Not Available [facility] (Lab) [address] [facility], [place], [address], 09/20/2023 23:59:04 09/17/19 24 09/17/2023 HEMOG LOBIN [...] maylin >=6.5 % Diagn ostic of diabe maylin <7.0% Goal of thera py >8.0% Actio n sugge sted Not Available [facility] (Lab) [address] [facility], [place], [address], 09/20/2023 23:59:05 09/17/19 24 09/17/2023 17-OH PROGE [...] ses. Perfo rming Organ izati on Infor [facility] partners[facility]ina n: Site ID: EZ Name: [facility] Jostin Mulligan [place] , Addre ss: [id number] [place] [address] Direc tor: Licha clayton MD,Ph D,GABRIELLA Not Available [facility] (Lab) [address] [facility], [place], [address], 09/20/2023 23:59:05 10/04/19 24 10/04/2023 GTT- NON GESTA ANALIA L, 2 HOUR glucose, fasting 77 mg/dL 70-[address] [facility] (Lab) [address] [place], [address], 10/05/2023 07:28:22 10/04/19 24 10/04/2023 GTT- NON GESTA ANALIA L, 2 HOUR glucose, 2 hour 138 mg/dL 70-[address] [facility] (Lab) [address] [facility], [place], [address], 10/05/2023 07:28:22 10/04/19 24 10/04/2023 PROLA CTIN prolactin, total 40.30 NG/mL 4.79-2 3.30 high This assay was perfo rmed using [employer] ratio n reage nts and test kits. Value s obtai yaneth with other assay metho ds or kits canno t be used inter [facility] . Not Available [facility] (Lab) [address] [place], [address], 10/05/2023 07:28:23 10/04/19 24 10/04/2023 INSUL IN,FA STING insulin, fasting 11.4 uIU/m L 1.9-23 .0 Not Available [facility] (Lab) [address] [place], [address], 10/05/2023 07:28:23 10/04/19 24 10/04/2023 C-PEP TIDE C-peptide 3.29 NG/mL 1.1-4. 4 Not Available [facility] (Lab) [address] [place], [address], 10/05/2023 07:28:23 10/18/19 24 10/18/2023 PROLA CTIN prolactin, total 21.70 NG/mL 4.79-2 3.30 This assay was perfo rmed using [employer] n reage nts and test kits. Value s obtai yaneth with other assay metho ds or kits canno t be used inter joyce eay . Not Available [facility] (Lab) [address] [facility], [place], [address], 10/19/2023 03:55:41 11/20/19 24 11/20/2023 PROLA CTIN prolactin, total 20.30 NG/mL 4.79-2 3.30 This assay was perfo rmed using [employer] n reage nts and test kits. Value s obtai yaneth with other assay metho ds or kits canno t be used inter joyce eably . Not Available [facility] (Lab) [address] [facility], [place], [address], 11/21/2023 03:55:46 09/17/19 24 09/18/2023 US, pelvi s No observ ation record ed. [email or web address] [facility] [address], [place], [address], 09/18/2023 13:05:27 09/17/19 24 09/18/2023 US, trans vagin al No observ ation record ed. [email or web address] [facility] [address], [place], [address], 09/18/2023 13:05:17 09/17/19 24 09/17/2023 US, pelvi s No observ ation record ed. [email or web address] [address] [facility], [place], [address], 09/19/2023 13:50:40 12/17/19 24 12/17/2023 US, trans vagin al No observ ation record ed. [email or web address] [facility] [address], [place], [address], 12/17/2023 11:06:17 12/17/19 24 12/17/2023 US, trans vagin al No observ ation record ed. [email or web address] [address], [place], [address], 12/19/2023 15:54:48 07/22/20 24 12/31/2023 US, axill a No observ ation record ed. [email or web address] [facility] [address], [place], [address], 01/08/2024 17:14:08 Result Notes None recorded. Procedures Surgical History Date Name Laterality Status Provider Name and Address Organization Details Recorded Time 09/01/19 24 Date of Last Pap Smear completed Maryuri Vasquez [facility] 09/01/2023 11:08:39 06/11/19 23 ultrasonic fragmentation of urinary stone through percutaneous nephrostomy completed Kristi [facility] 12/18/2023 10:22:59 06/11/19 21 extraction of wisdom tooth completed Kristi [facility] 12/18/2023 10:22:44 Imaging Results Imaging Date Name Status LastModified by Organization Details LastModified Time 09/18/2023 US, pelvis completed [email or web address] [facility] [address], [place], [address], 09/18/2023 13:05:27 09/18/2023 [facility]inal [email or web address] [address], [place], [address], 09/18/2023 13:05:17 09/17/2023 US, pelvis completed [email or web address] [address], [place], [address], 09/19/2023 13:50:40 12/17/2023 US, transvaginal completed [email or web address] [facility] [facility] [address], [place], [address], 12/17/2023 11:06:17 12/17/2023 US, transvaginal completed [email or web address] [address], [place], [address], 12/19/2023 15:54:48 12/31/2023 US, axilla completed [email or web address] [facility] [address], [place], [address], 01/08/2024 17:14:08 Procedure Notes None recorded. Medical [...] Updated DateTime 09/01/2023 157.48 cm 31.3 kg/m2 66637.73 g 111 mm[Hg] 79 mm[Hg] Maryuri Vasquez [facility] 4 11:08:15 Date Recorded Body height Body mass index (BMI) Body weight Systolic blood pressure Diastolic blood pressure Provider Name and Address Organization Details Last Updated DateTime 09/18/2023 157.48 cm 31.3 kg/m2 31237.3 g 126 mm[Hg] 64 mm[Hg] Lia Roger [facility] 4 12:02:18 Date Recorded Body height Body mass index (BMI) Body weight Systolic blood pressure Diastolic blood pressure Provider Name and Address Organization Details Last Updated DateTime 12/18/2023 157.48 cm 31.1 kg/m2 66398.7 g 100 mm[Hg] 70 mm[Hg] Kristi Smith [facility] 10:21:11 Social History Question Answer Notes LastModified by Organizat ion Details LastModified Time Tobacco Smoking Status Never Smoker Maryuri Vasquez ann, [facility] 09/01/2023 11:09:37 What Is Your Level [...] Or The Highest Degree You Have Received? UR87510-8 Information not available 09/01/2023 What Is Your [...] Anxious, Or Unable To Sleep At Night)? [id number] Information not available 09/01/2023 Do You Use [...] History Nothing Reported. Medical History Condition Response Acid Reflux (GERD) Y Polycystic ovary syndrome Y Gynecological History Statement/Question Response Abnormal Pap [...] SNOMED-CT Code Diagnosis ICD10 Code Diagnosis Note [id number] Shahida Will [facility] [address] [address] 09/01/2023 10:56:59 09/01/2023 11:35:56 Gynecologic examination [id number] Z01.419 Take Calcium with Vitamin D 1200mg [...] paper copy of today's plan if desired.Curtis zuniga sentSTD Screen sentGeneti c Screen discussedC olon Screen naDexa Screen naRoutine Labs Ordered Secondary amenorrhea 156 342230 N91.1 Today we discussed pursuing the followin. TAUS with possible TVUS if feels comfortabl e with this.2. Lab work-when return for US3. Consider Provera q1-3mos to manage menses4. EMBX-will need ativan (very anxious) [id number] Mirta Coats [facility] [address] [address] 09/17/2023 09:45:21 09/17/2023 11:19:19 Irregular periods 79297236 N92.6 [id number] [facility] [address],[place] [address] 09/18/2023 11:51:51 09/18/2023 12:16:23 Secondary amenorrhea 039590698 N91.1 Today we reviewed TVUS/TAUSW e agreed [...] counseling and review of plan of care. [id number] Yenny Lopez [facility] [address] [address] 12/17/2023 10:14:42 12/17/2023 11:05:18 Irregular periods 71411486 N92.6 [id number] DANNIE Albarran [facility] [address] [address] 12/18/2023 10:14:01 12/19/2023 07:24:56 Irregular periods 10497244 N92.6 Detailed health hx updated and revieweddi scussed h/o irregular periods/PC OSreviewed updated pelvic u/sdiscuss ed options for endometria l protection declines BC at this time, would like to continue with cyclic progestero ner/b/a reviewed, rx sent, take every 3 months if spontaneou s menses does not occurquest ions answered, encouraged healthy lifestyle/ regular exercise Pain in axilla [id number] M79.629 left axillary u/s ordered Time spent [...] Sorto Member ID Guarantor Name 09/01/2023 1 [facility] - DOS ON OR AFTER 20 (MEDICAID REPLACEMENT - HMO) Lazara Ledesma [id number] Lazara Ledesma 09/17/2023 1 [facility] ON OR AFTER 12/09/20 (MEDICAID REPLACEMENT - HMO) Lazara Ruizlissette [id number] Lazara Ledesma 09/18/2023 1 [facility] ON OR AFTER 12/09/20 (MEDICAID REPLACEMENT - HMO) Lazara Ledesma [id number] Lazara Ledesma 12/17/2023 1 [facility] ON OR AFTER 12/09/20 (MEDICAID REPLACEMENT - HMO) Lazara Ruizlissette [id number] Lazara Ledesma 12/18/2023 1 [facility] ON OR AFTER 12/09/20 (MEDICAID REPLACEMENT - HMO) Lazara Ruizlissette [id number] Lazara Hymane Notes Date Note Type Note [...] with yearly pap smears DANNIE Tsai-BC [address], [place], [address], [facility] 09/01/2023 11:35:02 12/18/2023 text/html 23yopresents for u/s f/uh/o irregular periods/PCOS, went 1 yr without a period in 2022took provera course 09/2023 which produced a withdrawal bleed, had a period on her own last week that lasted 4 daysnot currently SA left axillary tenderness x 1 month, comes and goes Jennie LaMay, [facility] [address], [place], [address], [place] [facility] 12/18/2023 17:40:44 OBGyn Episode No OBEpisode recorded.
--- OUTSIDE RECORDS SUMMARY | 2024-07-22 09:03 | XMS_ITS | Clinical Summary ---
Author Organization [facility] Address [address] 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 This disclosure is being madepursuant to the Care Everywhere program and may not contain all information available regarding this patient. Last updated 18.[facility] Social History Tobacco Use Types Packs/Day [...] Personal/Famil y [address] [place] [address] [place] [address] CALLIERAFY Personal/Famil y [address] [place] [address] [place] [address] LYNSEYHSDallasRAFY Personal/Famil y [address] [place] [address]
--- OUTSIDE RECORDS SUMMARY | 2024-07-22 09:04 | XMS_ITS | Continuity of Care Document ---
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 RTC if not improving DoD foreign body - alimentary tract swallowed Inactive Condition [facility] visit for: administrative purpose Inactive Condition Guardian [...] hyperactive. Parents wanted refered to child psychiatrist. [facility] Physical Examination Inactive Condition Her exam is normal except for deviation of left eye in when she looks at you. [place] has been seen at [place] Patient Counseling: Inactive Condition D oD visit for: administrative purpose Inactive Condition DoD otitis media Inactive Condition DoD gastroenteritis Inactive Condition [facility] visit for: follow-up exam Inactive Condition DoD Anxiety Active Condition [facility] Back pain Active Condition [facility] Depression Active Condition [facility] Diverticulosis of colon Active Condition [facility] GERD Active Condition [facility] Hearing loss Active Condition [facility] Nephrolithiasis Active Condition [facility] Tinea versicolor Active Condition [facility] Medications Combined list of outpatient medications from [...] Oral (given by mouth) Discont inued 02/16/[address] [place] [address] CYCLOBENZAP RINE HCL (cyclobenza jose angel HCl), 10 MG, TABLET, ORAL, [facility], 1000 ea. BOTTLE Active [id number] 2023 30 Pharmac y Data Transac tion Service Facilit y fluconazole 150 mg oral tablet See Instruct ions, Take 2 tabs (300mg) once weekly for two weeks., # 4 tab(s), 0 total refill(s ), Acute, 08/29/22 3:12:51 PM CDT, Pharmacy : [facility] Complet ed 08/29/[address] [place] [address] ketoconazol e 2% topical cream 1 appl(s), Topical, Daily, Apply to affected areas and immediat e surround ing skin once daily for 2-3 weeks., # 60 g, 0 total refill(s ), Acute, Pharmacy : [facility] Topica l (on the skin) Complet ed 09/12/[address] [place] [address] loperamide 1 mg/7.5 mL oral liquid 10 mL, Oral, TID, PRN loose stool, not to exceed 40 mL/day, # 120 mL, 0 total refill(s ), Acute, 02/23/23 12:00:00 AM CDT, Pharmacy : [facility] Oral (given by mouth) Complet ed 02/23/[address] [place] [address] metFORMIN 500 mg oral tablet, extended release See Instruct ions, Oral, Take one tablet by mouth every evening with food for 7 days, then take one tablet two times daily with food for blood sugar., # 180 tab(s), 3 total refill(s ), Maintena nce, 30 days, Pharmacy : [facility] Oral (given by mouth) Ordered 180.[address] [place] [address] Ortho Evra 150 mcg-35 mcg/24 hr transdermal film, extended release 1 patch(es ), Topical, every week, # 12 EA, 4 total refill(s ), Maintena nce, Pharmacy : [facility] Topica l (on the skin) Complet ed 09/12/[address] [place] [address] PREDNISONE (prednisone ), 20 MG, TABLET, ORAL, NOVITIUM/AN I PH, 500 ea. BOTTLE Active [id number] 2023 10 Pharmac y Data Transac tion Service Facilit y propranolol 0 total refill(s ), Maintena nce Discont inued 02/16/[address] [place] [address] PROzac Oral, Daily, 0 total refill(s ), Maintena nce Oral (given by mouth) Discont inued 02/16/[address] [place] [address] Allergies, Adverse Reactions, Alerts Combined list of [...] Site Reaction Lot Number CVX Code Drug Senior Coldfusion Developer Status Comments Source Influenza, injectable, MDCK, preservative free, quadrivalent 2021 TIP, () Not Given Influenza , injectabl e, MDCK, preservat maria del carmen free, quadrival ent DoD COVID-19, mRNA, LNP-S, PF, 100 mcg or 50 mcg dose 2021 [employer] (MOD) Not Given COVID-19, mRNA, LNP-S, PF, 100 mcg or 50 mcg dose DoD COVID-19, mRNA, LNP-S, PF, 100 mcg or 50 mcg dose 2020 [employer] (MOD) Not Given COVID-19, mRNA, LNP-S, PF, 100 mcg or 50 mcg dose DoD COVID-19, mRNA, LNP-S, PF, 100 mcg or 50 mcg dose 2020 [employer] (MOD) Not Given COVID-19, mRNA, LNP-S, PF, 100 mcg or 50 mcg dose DoD influenza, injectable, quadrivalent- pf 2015 zzLef t Arm [id number] GlaxoSmEcoDirectKli fl complet ed influenza , injectabl e, quadrival ent-pf 04/05/16 Given Ambulat ory Pharmac y Influenza, injectable, quadrivalent, preservative free 1 2015 Unknown, Provider [id number] 150 [facility] ([facility]) complet ed Influenza , injectabl e, quadrival ent, preservat maria del carmen free DoD influenza, live, intranasal,qu adrivalent 2014 [id number] Medimmune Inc comple t ed influenza , live, intranasa l,quadriv alent 05/05/15 Given Ambulat ory Pharmac y influenza, live, intranasal, quadrivalent 2 2014 Unknown, Provider [id number] 149 MedImmune, Inc. (MED) complet ed influenza , live, intranasa l, quadrival ent DoD influenza, live, intranasal,qu adrivalent 2013 [id number] Med[employer] Inc comple t ed influenza , live, intranasa l,quadriv alent 04/03/14 Given Ambulat ory Pharmac y influenza, live, intranasal, quadrivalent 2 2013 Unknown, Provider [id number] 149 MedImmune, Inc. (MED) complet ed influenza , live, intranasa l, quadrival ent DoD tetanus, diphtheria, acellular pertu is 2013 zzLef t Arm [id number] 115 sanofi pasteur complet ed tetanus, diphtheri a, acellular pertussis 01/13/14 Given Ambulat ory Pharmac y meningococcal A,C,Y,W-135 (MCV4P) 2013 zzRig ht Arm [id number] sanofi pasteur complet ed meningoco ccal A,C,Y,W-1 35 (MCV4P) 01/13/14 Given Ambulat ory Pharmac y meningococcal polysaccharid e (groups A, C, Y and W-135) diphtheria toxoid conjugate vaccine (MCV4P) 1 2013 Unknown, Provider [id number] 114 Sanofi Pasteur (PMC) complet ed meningoco ccal polysacch aride (groups A, C, Y and W-135) diphtheri a toxoid conjugate vaccine (MCV4P) DoD tetanus toxoid, reduced diphtheria toxoid, and acellular pertu is vaccine, adsorbed 1 2013 Unknown, Provider [id number] 115 Sanofi Pasteur (PMC) complet ed tetanus toxoid, reduced diphtheri a toxoid, and acellular pertussis vaccine, adsorbed DoD influenza, live, intranasal,qu adrivalent 2012 [id number] Medimmune Inc comple t ed influenza , live, intranasa l,quadriv alent 04/04/13 Given Ambulat ory Pharmac y influenza, live, intranasal, quadrivalent 2 2012 Unknown, Provider [id number] 149 MedImmune, Inc. (MED) complet ed influenza , live, intranasa l, quadrival ent DoD Hep A, pediatric, unspecified formul 2007 zRafiaef t Thigh [id number] 31 GlaxoSmithKli ne complet ed Hep A, pediatric , unspecifi ed formul 02/24/08 Given Ambulat ory Pharmac y hepatitis A vaccine, pediatric dosage, unspecified formulation 2 2007 Unknown, Provider [id number] 31 [facility] ([facility]) complet ed hepatitis A vaccine, pediatric dosage, unspecifi ed formulati on DoD influenza virus vaccine, live 2007 [id number] [employer] Inc comple t ed influenza virus vaccine, [...] for intranasal use 1 2007 Unknown, Provider [id number] 111 Veoh, [employer]. (MED) complet ed influenza virus vaccine, live, attenuate d, for intranasa l use DoD DTaP 2006 zzRig ht Thigh [id number] 20 GlaxoSmithKli ne complet ed DTaP [...] pertu is vaccine 5 2006 Unknown, Provider [id number] 20 [facility] ([facility]) complet ed diphtheri a, tetanus toxoids and acellular pertussis vaccine DoD hepatitis A vaccine, pediatric dosage, unspecified formulation 1 2006 Unknown, Provider [id number] 31 [employer] (SKB) complet ed hepatitis A vaccine, pediatric dosage, unspecifi ed formulati on DoD pneumococcal 7-valent vaccine 2004 zRafiaef t Thigh [id number] [employer] complet ed pneumococ dave 7-valent vaccine 07/13/04 Given Ambulat ory Pharmac y DTaP 2004 zJulia ht Thigh [id number] 20 sanofi pasteur complet ed DTaP 07/13/04 Given Ambulat ory Pharmac y diphtheria, tetanus toxoids and acellular pertu is vaccine 4 2004 Unknown, Provider [id number] 20 Sanofi Pasteur (PMC) complet ed diphtheri a, tetanus toxoids and acellular pertussis vaccine DoD pneumococcal conjugate vaccine, 7 valent 4 2004 Unknown, Provider [id number] [facility] complet ed pneumococ dave conjugate vaccine, 7 valent DoD haemophilus b-hepatitis B vaccine 2003 zzLef t Thigh [id number] 51 Merck & Company Inc complet ed haemophil us b-hepatit is B vaccine 10/13/03 Given Ambulat ory Pharmac y measles/mumps /rubella virus vaccine 2003 zzRig ht Thigh [id number] 03 Merck & Company Inc complet ed measles/m umps/rube lla virus vaccine 10/13/03 Given Ambulat ory Pharmac y varicella virus vaccine 2003 zzLef t Thigh [id number] 21 Merck & Company [...] B vaccine DoD pneumococcal 7-valent vaccine 2003 zzLef t Thigh [id number] [employer] complet ed pneumococ dave 7-valent vaccine 07/03/03 Given Ambulat ory Pharmac y DTaP 2003 zzRig ht Thigh [id number] 20 sanofi pasteur complet ed DTaP 07/03/03 Given Ambulat ory Pharmac y poliovirus vaccine, inactivated 2003 zzRig ht Thigh [id number] 10 sanofi pasteur complet ed polioviru s vaccine, inactivat ed 07/03/03 Given Ambulat ory Pharmac y poliovirus vaccine, inactivated 3 2003 Unknown, Provider [id number] 10 Sanofi Pasteur (PMC) complet ed polioviru s vaccine, inactivat ed DoD diphtheria, tetanus toxoids and acellular pertu is vaccine 3 2003 Unknown, Provider [id number] 20 Sanofi Pasteur (PMC) complet ed diphtheri a, tetanus toxoids and acellular pertussis vaccine DoD pneumococcal conjugate vaccine, 7 valent 3 2003 Unknown, Provider [id number] 100 Carli ([facility]) complet ed pneumococ dave conjugate vaccine, 7 [...] Reference Range Date Interpretation Specimen Comments Source Chemistry Ur Microalbum in 1.3 mg/24hr 0.0 - 30.024 04/13 N [facility] Chemistry Ur Microalb/U r Creat Ratio 22.81 mg/g 0.00 - 30.00 04/13 N [facility] Chemistry Ur Creat 57 mg/dL 04/13 [facility] Urinalysi s UA Color Yellow (04/13/23 4:23 PM) 04/13 N [facility] Urinalysi s UA Clarity CLEAR 04/13 [facility] Urinalysi s UA pH 6.5 5.0 - 8.0 04/13 N [facility] Urinalysi s UA Spec Sage 1.010 g/mL 1.003 - 1.035 04/13 N [facility] Urinalysi s UA Glucose Negative mg/dL 04/13 N Interpretiv [...] 500, >=1000 AND Ketones equals - Negative] [facility] Urinalysi s UA Ketones Negative mg/dL 04/13 N Interpretiv [...] 500, >=1000 AND Ketones equals - Negative] [facility] Urinalysi s UA Blood Small *ABN* (04/13/23 4:23 PM) 04/13 A [facility] Urinalysi s UA Protein Negative mg/dL 04/13 N [facility] Urinalysi s UA Bili Negative (04/13/23 4:23 PM) 04/13 N [facility] Urinalysi s UA Urobilinog en 0.2 E.U./dL 04/13 N [facility] Urinalysi s UA Nitrite Negative (04/13/23 4:23 PM) 04/13 N [facility] Urinalysi s UA Leuk Esterase Trace *ABN* (04/13/23 4:23 PM) 04/13 A [facility] Urinalysi s UA WBC 6-10 /HPF 0 - 5 04/13 A [facility] Urinalysi s UA RBC 0-5 /HPF 0 - 5 04/13 N [facility] Urinalysi s UA Bacteria Trace (04/13/23 4:23 PM) 04/13 N [facility] Chemistry Vitamin B12 397 pg/mL 232 - 1245 02/16 N Interpretiv e Data: 13 APR 2017 Notice: Samples for this assay should not be taken from patients receiving therapy with high biotin doses (i.e. > 5 mg/day) until 8 hours following last biotin administrat ion. [facility]117[facility] Chemistry Folate Lvl 13.4 ng/mL 02/16 N Interpretiv e Data: 10 MAY 2017 Notice: Samples for thes asssay should not be taken from patients receiving [...] dietary status. New Reference Range effective 17 0117A-[facility] -[facility]-59[facility] Chemistry Hemoglobin A1c LC 6.0 % 11/20 H Result Comment: Performed At: [address] [id number] Jorge Lockwood MD Ph:[phone] [facility] Chemistry Creatinine Level 0.61 mg/dL 0.52 - 1.04 11/13 N [facility]A-[facility] Chemistry AGAP 8.0 5.0 - 20.0 11/13 N [facility] Chemistry BUN 11 mg/dL 7 - 11/13 N [facility] Chemistry Calcium 9.0 mg/dL 8.9 - 10.5 11/13 N [facility] Chemistry Chloride 104 mmol/L 98 - 107 11/13 N [facility]A-[facility] Chemistry CO2 26 mmol/L 22 - 30 11/13 N [facility] Chemistry Glucose Lvl 157 mg/dL 70 - 100 11/13 H [facility] Chemistry Potassium Lvl 4.0 mmol/L 3.5 - 5.1 11/13 N [facility] Chemistry Sodium 138 mmol/L 137 - 145 11/13 N [facility] Chemistry eGFR CKD EPI 131 mL/min/1 .73_m2 11/13 Interpretiv e Data: Estimated Glomerular Filtration Rate (eGFR) calculated using the 2020 Chronic Kidney Disease-Epi demiology (CKD-EPI) Collaborati on creatinine equation; units of measure are mL/min/1.73 m2. Results are only valid for adults ( 18 years) whose serum creatinine is in steady state. eGFR calculation s are not valid for patients with acute kidney injury and for patients on dialysis. C reatinine-b ased estimates of kidney function may also be [...] (mL/min/1.7 3 m2) CKD stage Interpretat ion 90 G1 Normal 60-89 G2 Mild decrease 45-59 G3A Mild to moderate decrease 30-44 G3B Moderate to severe decrease 15-29 G4 Severe decrease <15 G5 Kidney failure [facility] Hematolog y WBC 8.2 x10^9/L 3.6 - 11.0109 11/13 N [facility] Hematolog y RBC 5.38 x10^12/L 3.79 - 5.111929 11/13 N [facility] Hematolog y Hemoglobin 12.7 g/dL 11.0 - 16.0 11/13 N [facility] Hematolog y Hematocrit 40.4 % 35.0 - 48.0 11/13 N [facility] Hematolog y MCV 75 fL 79 - 102 11/13 L [facility] Hematolog y MCH 23.6 pg 24.0 - 34.0 11/13 L [facility] Hematolog y MCHC 31.4 g/dL 30.2 - 34.8 11/13 N [facility] Hematolog y RDW 15.1 % 11.5 - 14.5 11/13 H [facility] Hematolog y Platelets 358 x10^9/L 165 - 157075 11/13 N [facility] Hematolog y MPV 9.20 fL 6.90 - 10.60 11/13 N [facility] Hematolog y Neutrophil % Auto 56.8 % 36.0 - 66.0 11/13 N [facility] Hematolog y Lymphocyte % Auto 29.6 % 22.0 - 44.0 11/13 N [facility] Hematolog y Monocyte % Auto 7.9 % 0.0 - 10.0 11/13 N [facility] Hematolog y Eosinophil % Auto 5.0 % 0.0 - 3.0 11/13 H [facility] Hematolog y Basophil % Auto 0.5 % 0.0 - 1.0 11/13 N [facility] Hematolog y Imm. Granulocyt e % 0.2 % 0.0 - 0.4 11/13 N [facility] Hematolog y Neutro Absolute 4.69 x10^9/L 1.30 - 7.11208 11/13 N [facility] Hematolog y Lymph Absolute 2.44 x10^9/L 0.70 - 3.39931 11/13 N [facility] Hematolog y Breathitt Absolute 0.65 x10^9/L 0.20 - 1.16886 11/13 N [facility] Hematolog y Eos Absolute 0.41 x10^9/L 0.00 - 0.33417 11/13 N [facility] Hematolog y Baso Absolute 0.04 x10^9/L 0.00 - 0.28945 11/13 N [facility] Hematolog y Imm. Granulocyt e Absolute 0.02 x10^3/mc L 0.00 - 0.01973 11/13 N [facility] Urinalysi s UA Color Yellow (11/13/22 11:34 AM) 11/13 N [facility] Urinalysi s UA Clarity Cloudy *ABN* (11/13/22 11:34 AM) 11/13 A [facility] Urinalysi s UA pH 6.0 5.0 - 8.0 11/13 N [facility] Urinalysi s UA Spec Sage 1.025 g/mL 1.003 - 1.035 11/13 N [facility] Urinalysi s UA Glucose Negative mg/dL 11/13 N Interpretiv [...] 500, >=1000 AND Ketones equals - Negative] [facility] Urinalysi s UA Ketones Negative mg/dL 11/13 N Interpretiv [...] 500, >=1000 AND Ketones equals - Negative] [facility] Urinalysi s UA Blood Trace-In tact *ABN* (11/13/22 11:34 AM) 11/13 A [facility] Urinalysi s UA Protein Trace mg/dL 11/13 A [facility] Urinalysi s UA Bili Negative (11/13/22 11:34 AM) 11/13 N [facility] Urinalysi s UA Urobilinog en 0.2 E.U./dL 11/13 N [facility] Urinalysi s UA Nitrite Negative (11/13/22 11:34 AM) 11/13 N [facility] Urinalysi s UA Leuk Esterase Moderate *ABN* (11/13/22 11:34 AM) 11/13 A [facility] Urinalysi s UA WBC >20 /HPF 0 - 5 11/13 A Result Comment: UNSPUN MICROSCOPIC [facility] Urinalysi s UA RBC 6-10 /HPF 0 - 5 11/13 A Result Comment: UNSPUN MICROSCOPIC [facility] Urinalysi s UA Bacteria 1+ 9 *ABN* (11/13/22 11:34 AM) 11/13 A Result Comment: UNSPUN MICROSCOPIC [facility] Urinalysi s UA Epi Squam >20 /HPF 11/13 N Result Comment: UNSPUN MICROSCOPIC [facility] Urinalysi s UA Mucous 1+ 11 *ABN* (11/13/22 11:34 AM) 11/13 A Result Comment: UNSPUN MICROSCOPIC [facility] Urinalysi s UA Ca Ox Crystal 5 - 10 /HPF 11/13 A Result Comment: UNSPUN MICROSCOPIC [facility] Immunolog y/Serolog y Immunoglob E 190.2 IU/mL 0.0 - 100.0 10/13 H Interpretiv e Data: 13 APR 2017 Notice: Samples for this assay should not be taken from patients receiving therapy with high biotin doses (i.e. > 5 mg/day) until 8 hours following last biotin administrat ion. 0117A-[facility] -[facility]U-59t h [facility] [place] [facility] Allergy Testing Allergen, Honey bee IgE <0.10 [...] - FEIA (Fluorescen ce Enzyme Immunoassay ) 0117A-AF -ASU-59t h [facility] [place] [facility] Allergy Testing Allergen, White-face d hornet venom [...] - FEIA (Fluorescen ce Enzyme Immunoassay ) 0117A-[facility] -[facility]-59t h [facility] Allergy Testing Allergen, Wasp Venom, yellow jacket [...] - FEIA (Fluorescen ce Enzyme Immunoassay ) 0117A-[facility] -[facility]U-59t [facility] Allergy Testing Allergen, Paper wasp IgE <0.10 [...] - FEIA (Fluorescen ce Enzyme Immunoassay ) 0117A-AF -[facility]U-59t h [facility] Allergy Testing Allergen, Yellow Hornet Venom IgE [...] - FEIA (Fluorescen ce Enzyme Immunoassay ) 0117A-AF -ASU-59t h [facility] nd Allergy Testing Allergen, Fire Ant IgE 0.36 [...] which the patient is tested. Methodology - RAGHAV (Fluorescen ce Enzyme Immunoassay ) 0117A-AF -ASU-59t h [facility] [facility] Chemistry Albumin Lvl.EPI 5.08 g/dL 03/03 Result Comment: INTERPRETAT ION(S): Performed by: Epidemiolog y Laboratory Service [facility] [id number] [place] [address], [place] [address] [facility] Chemistry Testostero ne Free.EPI 0.61 ng/dL 03/03 H [facility] Chemistry Testostero ne Total.EPI 24.9 ng/dL 03/03 Result Comment: INTERPRETAT ION(S): Performed by: [facility]olog [facility] Laboratory Service [employer] [address] [place] [address], [place] [address] [facility] Chemistry SHBG.EPI 13.7 nmol/L 03/03 L Result Comment: INTERPRETAT ION(S): Performed by: [facility] [address] [place] [address], [place] [address] [facility] Chemistry Androgen Free.EPI 6.31 % 03/03 H [facility] Chemistry Testostero ne Bioavail.E PI 16.74 ng/dL 03/03 H [facility] Chemistry Beta hCG, Serum Qual Negative (03/03/22 2:07 PM) 03/03 N [facility] Chemistry TSH No Result 0.47 - 4.68 03/03 [facility] Chemistry LH.LC 5.9 m[iU]/mL 03/03 Result Comment: Adult Female: Follicular phase 2.4 - 12.6 Ovulation phase 14.0 - 95.6 Luteal phase 1.0 - 11.4 [place] jeremiah 7.7 - 58.5 [facility] Chemistry FSH.LC 5.5 m[iU]/mL 03/03 Result Comment: Adult Female: Follicular phase 3.5 - 12.5 Ovulation phase 4.7 - 21.5 Luteal phase 1.7 - 7.7 [place] jeremiah 25.8 - 134.8 Performed At: [address] [id number] Jorge Lockwood MD Ph:[phone] 0078A-[facility] Chemistry Prolactin. LC 6.7 ng/mL 03/03 Result Comment: Performed At: [address] [id number] Jorge Lockwood MD Ph:[phone] 0078A-[facility] Chemistry DHEA Sulfate.EP I 438.0 ug/dL 03/03 H Result Comment: INTERPRETAT ION(S): Performed by: Epidemiolog y Laboratory Service [facility] [address] [place] [phone] 0078A-[facility] Vital Signs Combined list of inpatient and outpatient Vital Signs from Department of Defense and Veterans Affairs, ranging from 12 months to all on record, depending upon the facility. Vital Sign Value Date Comments Source Systolic Blood Pressure 117 mm[Hg] 04/13/20 23 20:50:[address] [place] [address] Diastolic Blood Pressure 76 mm[Hg] 023 20:50:[address] [place] [address] Mean Arterial Pressure, Calc 90 mm[Hg] 04/13/2023 20:50:[address] [place] [address] Peripheral Pulse Rate 77 bpm 04/13/2023 20:50:[address] [place] [address] Temperature Oral 36.5 Tosha 04/13/2023 20:50:[address] [place] [address] BP Site Left arm 04/13/2023 20:50:[address] [place] [address] Blood Pressure Manual Automatic 04/13/2023 20:50:[address] [place] [address] Systolic Blood Pressure 120 mm[Hg] 08/30/19 23 20:13:[address] [place] [address] Diastolic Blood Pressure 64 mm[Hg] 03/21/2 023 20:13:[address] [place] [address] Mean Arterial Pressure, Calc 83 mm[Hg] 08/29/2022 20:13:[address] [place] [address] Clinic Peripheral Pulse Rate 18 bpm 08/29/2022 20:13:[address] [place] [address] Medical Clinic Temperature Oral 36.5 Tosha 08/29/2022 20:13:[address] [place] [address] BP Site Right arm 08/29/2022 20:13:[address] [place] [address] Clinic Blood Pressure Manual Automatic 08/29/2022 20:13:[address] [place] [address] Systolic Blood Pressure 108 mm[Hg] 09/13/19 23 20:36:[address] [place] [address] Medical Clinic Diastolic Blood Pressure 68 mm[Hg] 023 20:36:[address] [place] [address] Clinic Mean Arterial Pressure, Calc 81 mm[Hg] 09/12/2022 20:36:[address] [place] [address] Peripheral Pulse Rate 93 bpm 09/12/2022 20:36:[address] [place] [address] Medical Clinic Respiratory Rate 16 br/min 09/12/2022 20:36:[address] [place] [address] Clinic Temperature Oral 36.7 Tosha 09/12/2022 20:36:00 [address] [place] [address] [facility] Clinic Blood Pressure Manual Automatic 09/12/2022 20:36:[address] [place] [address] Clinic Systolic Blood Pressure 113 mm[Hg] 06/23/19 23 17:28:[address] [place] [address] Medical Clinic Diastolic Blood Pressure 82 mm[Hg] 023 17:28:[address] [place] [address] Clinic Mean Arterial Pressure, Calc 92 mm[Hg] 06/23/2022 17:28:[address] [place] [address] Clinic Peripheral Pulse Rate 82 bpm 06/23/2022 17:28:[address] [place] [address] Medical Clinic Respiratory Rate 16 br/min 06/23/2022 17:28:[address] [place] [address] Clinic Temperature Oral 36.4 Tosha 06/23/2022 17:28:[address] [place] [address] Clinic Systolic Blood Pressure 107 mm[Hg] 04/14/20 22 17:41:[address] [place] [address] Diastolic Blood Pressure 70 mm[Hg] 022 17:41:[address] [place] [address] Mean Arterial Pressure, Calc 82 mm[Hg] 04/14/2022 17:41:[address] [place] [address] Peripheral Pulse Rate 80 bpm 04/14/2022 17:41:[address] [place] [address] Respiratory Rate 18 br/min 04/14/2022 17:41:[address] [place] [address] Temperature Oral 36.4 Tosha 04/14/2022 17:41:[address] [place] [address] BP Site Right arm 04/14/2022 17:41:[address] [place] [address] Blood Pressure Manual Automatic 04/14/2022 17:41:[address] [place] [address] Systolic Blood Pressure Supine 113 mm[Hg] 04/14/2022 17:41:[address] [place] [address] Diastolic Blood Pressure Supine 67 mm[Hg] 04/14/2022 17:41:[address] [place] [address] Systolic Blood Pressure Sitting 104 mm[Hg] 04/14/2022 17:41:[address] [place] [address] Diastolic Blood Pressure Sitting 66 mm[Hg] 04/14/2022 17:41:[address] [place] [address] Systolic Blood Pressure Standing 114 mm[Hg] 04/14/2022 17:41:[address] [place] [address] Diastolic Blood Pressure Standing 74 mm[Hg] 04/14/2022 17:41:[address] [place] [address] Systolic Blood Pressure 104 mm[Hg] 02/17/20 23 13:30:[address] [place] [address] Diastolic Blood Pressure 71 mm[Hg] 023 13:30:[address] [place] [address] Mean Arterial Pressure, Calc 82 mm[Hg] 02/16/2023 13:30:[address] [place] [address] Peripheral Pulse Rate 93 bpm 02/16/2023 13:30:[address] [place] [address] Respiratory Rate 16 br/min 02/16/2023 13:30:[address] [place] [address] Temperature Oral 37.5 Tosha 02/16/2023 13:30:[address] [place] [address] Systolic Blood Pressure 112 mm[Hg] 03/03/20 18:13:[address] [place] [address] Clinic Diastolic Blood Pressure 78 mm[Hg] 022 18:13:[address] [place] [address] Mean Arterial Pressure, Calc 89 mm[Hg] 03/03/2022 18:13:[address] [place] [address] Peripheral Pulse Rate 98 bpm 03/03/2022 18:13:[address] [place] [address] BP Site Left arm 03/03/2022 18:13:[address] [place] [address] Blood Pressure Manual Automatic 03/03/2022 18:13:[address] [place] [address] Systolic Blood Pressure 125 mm[Hg] 11/14/19 16:16:[address] [place] [address] Diastolic Blood Pressure 70 mm[Hg] 023 16:16:[address] [place] [address] Mean Arterial Pressure, Calc 88 mm[Hg] 11/13/2022 16:16:[address] [place] [address] Peripheral Pulse Rate 69 bpm 11/13/2022 16:16:[address] [place] [address] Respiratory Rate 16 br/min 11/13/2022 16:16:[address] [place] [address] Temperature Oral 36.7 Tosha 11/13/2022 16:16:[address] [place] [address] Systolic Blood Pressure 105 mm[Hg] 04/05/20 16:03:[address] [place] [address] Diastolic Blood Pressure 67 mm[Hg] 022 16:03:[address] [place] [address] Mean Arterial Pressure, Calc 80 mm[Hg] 04/05/2022 16:03:[address] [place] [address] Clinic Peripheral Pulse Rate 85 bpm 04/05/2022 16:03:[address] [place] [address] Clinic BP Site Left arm 04/05/2022 16:03:[address] [place] [address] Clinic Blood Pressure Manual Automatic 04/05/2022 16:03:00 [id number] Encounters Combined list of: 1) Encounters from Department of Veterans Affairs facilities going backup to the last 18 months, not all VA inpatient encounters are included; 2) Encounters from the Department of Defense facilities going backup to 280 months. Location Location Details Encounter Type Encounter Number Reason For Visit Attending Provider ADM Date DC Date Status Disposition Source [facility] OUTPATIENT [id number] blue lips, rsv+ MICHOACANO CLINTON D 08/18 Released w/o Limitations [facility]) [facility] OUTPATIENT [id number] CHEST CONGEST ION/COL D SYMPTOM S/RASH ON MOUTH CHEEKS MICHOACANO CLINTON 09/06 Released w/o Limitations [facility]) [facility] Red [facility]) TELE CONSULT [id number] HANDS ALEXKE EMILIANA CAN 11/30 [facility] Pract[facility] e Red Team) [facility] Blue Team) TELE CONSULT [id number] ant bite on rt foot/ swellin g/ redness / eyes swellin g/ foot is hot to touch JAMES ALEXIS 12/05 [facility] Pract[facility] e Blue Team) [facility] Red [facility]) TELE CONSULT [id number] ER VISIT JHONY VARELA 01/18 [facility] e Red Team) [facility] Red [facility]) OUTPATIENT [id number] 5YR OLD;BOWERS DS DO MEZA 01/26 Released w/o Limitations [facility] Pract[facility] e Red Team) [facility] Red [facility]) OUTPATIENT [id number] SHAKING DO WADDELL 06/19 Released w/o Limitations [facility] Pract[facility] e Red Team) [facility] Red [facility]) TELE CONSULT [id number] GT GRAY 07/16 [facility] Pract[facility] e Red Team) [facility] Practice Red Team) TELE CONSULT [id number] SWALLOW ED RHETT CREWS 12/26 [facility] Pract[facility] e Red Team[facility] Practice Red Team) OUTPATIENT [id number] SWELLIN G TO TOE--UN ABLE TO WEAR SHOE CAROLANNGABE A 02/14 Released w/o Limitations [facility] Pract[facility] e Red Team) [facility] Practice Red Team) TELE CONSULT [id number] VAGINAL RASH REUBEN , JAMES G 02/[facility](F [facility] Practic e Red Team) [facility] Practice Red Team) OUTPATIENT [id number] new pt- eval/ referra ARUN Stewart 04/10 Released w/o Limitations [facility] Red Team) [facility] Practice Red Team) OUTPATIENT [id number] seasonLA Adler 06/28 Released w/o Limitations [facility] Pract[facility] e Red Team) [facility] Practice Red Team) TELE CONSULT [id number] cac-- rt eye redness /cruste d over/it RHETT García 11/25 [facility] Pract[facility] e Red Team) [facility] Practice Red Team) OUTPATIENT [id number] fever/ nausea/ poss insect bite to rt arm DIANA ANTONY S 02/11 Sick at Home/Quarter s [facility] Practic e Red Team) [facility]) OUTPATIENT [id number] Paperwo rk to be complet ed for PCS Dany Buck 7 [phone] BECK WHITTAKER 06/18 Released w/o Limitations [facility]) [facility]) TELE CONSULT [id number] CAC - constip ation x1wk now vomitin g x3 today JHONY VARELA 08/19 [facility]) [facility]) OUTPATIENT [id number] impacti ons x 4 this week BECK WHITTAKER 08/20 Released w/o Limitations [facility]) [employer](Ped iatric Team A Non-GME) OUTPATIENT [id number] neuro check per parent request for gladys ZEN CORDOVA [place] 12/22 Released w/o Limitations [employer] [facility](P ediatri c Team A Non-GME ) [facility](Ped iatric Team A Non-GME) OUTPATIENT [id number] sports physicSYED Matta 01/26 Released w/o Limitations [facility](P ediatri c Team A Non-GME ) [facility] [facility](Ped iatric Team A Non-GME) OUTPATIENT [id number] NEW REFERRA Dany CAMPBELLS DEJAH MENDEZ TUYET GLOVERELYN 08/19 Released w/o Limitations [facility] [employer] [facility](P ediatri c Team A Non-GME ) [facility](Ped iatric Team A Non-GME) TELE CONSULT [id number] NOT ABLE TO CONTACT PT RONY YUAN 08/30 [employer] [facility](P ediatri c Team A Non-GME ) [facility] [facility](Ped iatric Team A Non-GME) OUTPATIENT [id number] Sports PhysicPRISCILA Leal 02/17 Released w/o Limitations [employer](P ediatri c Team A Non-GME ) [facility] [facility](Ped iatric Team A-Non-GME ) TELE CONSULT [id number] MDG DIRECT REFERRA RONY COE 07/03 [facility] [employer] [facility](P ediatri c Team A-Non-G ME) [facility](Ped iatric Team A-Non-GME ) TELE CONSULT [id number] Notes Entered by: BASSAM CHI 24 Oct 2011 1540 ------- ------- ------- ------- -- SPECIAL NEEDS OCTOBERDELMI 10/[facility](P ediatri c Team A-Non-G ME) [facility](Ped iatric Team A-Non-GME ) OUTPATIENT [id number] Rosangela l Evaluat ion DELMI RECINOS L 11/06 Released w/o Limitations [employer](P ediatri c Team A-Non-G ME) [facility] [facility](Ped iatric Team A-Non-GME ) TELE CONSULT [id number] Notes Entered by: BASSAM CHI 09 Jul 2012 1527 ------- ------- ------- ------- -- MEDICAL GA VIVAS 07/09 Referred for Appointment [facility] [employer] [facility](P ediatri c Team A-Non-G ME) [facility] [facility](Ped iatric Team A-Non-GME ) OUTPATIENT [id number] pain when urinati on ALEJANDRA BENITO 08/01 Released w/o Limitations [employer](P ediatri c Team A-Non-G ME) [facility] [facility](Ped iatric Team A-Non-GME ) OUTPATIENT [id number] 11yo PRISCILA Bourgeois 09/04 Released w/o Limitations [employer](P ediatri c Team A-Non-G ME) [facility] [employer] [facility](Ped iatric Team A-Non-GME ) TELE CONSULT [id number] Notes Entered by: CARIDAD CONTRERAS 25 Sep 2012 1451 ------- ------- ------- ------- -- Network Results - Optomet ry 3 ZEN SWANSON 09/25 [facility] [employer] [facility](P ediatri c Team A-Non-G ME) [facility] [employer] [facility](Ped iatric Team A-Non-GME ) TELE CONSULT [id number] Notes Entered by: ABY COREY 08 Oct 2012 1420 ------- ------- ------- ------- -- Out-pro nhiing ABY COREY 10/08 Referred for Appointment [facility] [employer] [facility](P ediatri c Team A-Non-G ME) [facility](Ped iatric Team A-Non-GME ) OUTPATIENT [id number] FEVER, SORE THROAT, AND COUGHIN G/AYAH YIP 10/30 Released w/o Limitations [facility](Radha sanchez Team A-Non-G ME) [facility] [employer] ([facility])(Sco tt [facility] FAM[facility] Tm Blue) OUTPATIENT [id number] [facility] DAIANA Byers 01/07 Released w/o Limitations [employer] ([facility])(S cott [facility] Tm Blue) [facility] [employer] ([facility])(Sco tt [facility] Fam Res Tm Green) OUTPATIENT [id number] [facility] JEANNIE HUGHES LT 01/27 Released w/o Limitations Medical [facility] [employer] ([facility])(S cott [facility] Fam Res Tm Green) Medical Group [employer] ([facility])(Sco tt [facility] Fam Res Tm Green) OUTPATIENT [id number] fever, sore throat, losing voice, [phone] REUBEN KHAN 03/30 Released w/o Limitations [employer] ([facility])(S cott [facility] Res Tm Green) [facility] [employer] [facility]Sco tt [facility] Fam Res Tm Red) TELE CONSULT [id number] Notes Entered by: Marian PHAN 02 Apr 2014 1734 ------- ------- ------- ------- -- Error in Rapid strep testing JOEY CARDONA 04/02 Referred for Appointment [facility] [employer] ([facility])(S cott [facility] Fam Res Tm Red) [facility] [employer] ([facility])(Sco tt [facility] Fam Res Tm Green) OUTPATIENT [id number] [facility] physica l - [phone] CYRIL WEINSTEIN 01/12 Released w/o Limitations [employer] ([facility])(S cott [facility] Fam Res Tm Green) [facility] [employer] ([facility])(Sco tt [facility] Fam Res Tm Gold) TELE CONSULT [id number] Notes Entered by: ABY LYLE 27 May 2015 1513 ------- ------- ------- ------- -- Lebron / CYRIL Camara 05/[address] [place] [address] [employer] MAT[employer] ([facility])(S cott [facility] Fam Res Tm Gold) [address] [place] [address] [employer] Franchesca [facility])(Sco tt [facility] Fam Res Tm Green) TELE CONSULT [id number] Notes Entered by: Mariano PHAM 01 Jun 2015 1323 ------- ------- ------- ------- -- MOP request s re evaluat ion for autism/ Justin/6 [phone] or [phone] CYRIL WEINSTEIN 06/[address] [place] [address] [employer] ([facility])(S jalyn [facility] Fam Res Tm Green) Procedures Combined list of: 1) Procedures from Department of Veterans Affairs facilities going back up to thelast 18 months, not all VA non-surgical procedures are included; 2) All procedures from the Department of Defense facilities. Procedure Procedure Type Code Date Perfomer Comments Sourc e PSYCHIATRIC EVALUATION OF HOSPITAL RECORDS, OTHER PSYCHIATRIC REPORTS, PSYCHOMETRIC AND/OR PROJECTIVE TESTS, AND OTHER ACCUMULATED DATA FOR MEDICALDIAGNOSTIC PURPOSES 12/31/19 10 [facility] PSYCHIATRIC DIAGNOSTIC INTERVIEW EXAMINATION 11/13/19 10 [facility] PSYCHIATRIC DIAGNOSTIC INTERVIEW EXAMINATION 08/13/19 10 [facility] Psychiatric Diagnostic Evaluation Review of Records and Reports Psychiatric Diagnostic Evaluation Review of Records and Reports [id number] 12/31/19 10 NICK CARRENO [facility] Psychiatric Diagnostic Evaluation Comprehensive Examination Psychiatric Diagnostic Evaluation Comprehensive Examination [id number] 11/13/19 10 NEVAEH HOPKINS [facility] Psychiatric Diagnostic Evaluation Comprehensive Examination Psychiatric Diagnostic Evaluation Comprehensive Examination [id number] 08/16/19 10 CESIA AYALA [facility] No data available for this section Ambulatory Pharmacy Social History Combined list of available smoking, tobacco, and other social history from Department of Defense and Veterans Affairs facilities. Social History Type Response Date Comment Sourc e This section is an empty social history section. [facility] Tobacco Never-cigarette user Cigarette use:. Never-other tobacco [...] and Plan Extracted from:Title : FMR n aviva Author: CAMILLE JACK, Date: 04/13/23 1. N europathy Established. U ncontrolled. Patient's lab work-up to date has been largely unremarkable. N o identified c ause of?her neuropathies. Given patient's ongoing tremor with o ngoing neuropathy, will refer to neurology. Patient symptoms inconsistent with carpal tunnel a nd do not follow a dermatomal pattern. Discussed p otential for n erve conduction testing w ith neurology, however, l ow suspicion that this would lead to u seful data. Patient to follow-up a s needed or i f symptoms are w orse. Ordered: Referral Request 2.0 2. A nxiety Established. W ell-controlled. Patient wishes to reestablish with new psychiatrist. P atient currently seeing [facility] p sychiatry. D iscussed due to the long wait times with psychiatry t hat she should continue seeing [facility] psychiatry u ntil she is able to reestablish. Patient will continue to get Abilify from her [facility] psychiatrist. Orders: Microalbumin Panel, Urine Urinalysis with Microscopic and Culture if Indicated Urine Culture Capt Camille Jack DO [address] [place] [address], [facility], [facility] SHAWNA, LADI Addendum by SYLVAIN MENDOZA MD on April 16, 2023 08:35:47 DESIGN ARCHITECT I have reviewed the above record as preceptor for this encounter. I was available for consultation during this encounter. T he case WAS discussed with me [id number] at the time of the encounter. I agree with the assessment and plan for this encounter as described above. Lopez Mendoza MD, FAAFP [address] [place] [address], HCOS [facility] [employer], [place] Extracted from:Title: [facility] - Multiple Author: CAMILLE JACK, Date: 02/16/23 1. N ausea, vomiting and diarrhea Acute. U ncontrolled. Likely gastroenteritis given close contact with s ick individuals o n a daily basis. Given her symptoms are going on for 2 days, will t reat with Imodium. N o indication to do GI pathogen panel at this time. Patient to follow-up if her symptoms do not resolve. Ordered: RF Esophagus 2. N europathy Chronic. U ncontrolled. Recent l ab r evealed m ildly microcytic w ith increased RDW. She also had elevated eosinophils. We will add B12 and folate t o initiate neuropathy work-up. L ow suspicion for carpal tunnel or n erve c ompression given bilateral upper and lower extremity distribution. No observable muscle weakness. Sensations d istribution n ot consistent nerve distribution. Ordered: Vitamin B12 and Folate Panel RF Esophagus 3. G lobus sensation Chronic. U ncontrolled. Will begin sensation work-up with e sophagram. W ill consider G I r eferral for possible EGD based on results. Given patient's history of uncontrolled GERD d ifferential includes Lewis's esophagus. Symptom is described c ould be consistent with achalasia. Patient will follow-up after esophagram is obtained. Ordered: RF Esophagus Orders: loperamide(loperamide 1 mg/7.5 mL oral liquid), 10 mL, Oral, TID, PRN loose stool, not to exceed 40 mL/day, # 120 mL, 0 total refill(s), Acute, 02/23/2023, 10 mL Oral TID,PRN:loose stool,Instr:not to exceed 40 mL/day, Pharmacy: [facility] [Not filled] Capt Camille Jack DO [address] [place] [address], [place], FMR [facility] [employer], [place] Addendum by SYLVAIN JAMESON MD on February 19, 2023 11:21:38 CDT I have reviewed the above record and discussed the patient with the resident a s preceptor for this encounter. I was immediately a vailable in the clinic for consultation during the encounter. T he case WAS discussed with me [id number] at the time of the encounter. I agree with the assessment and plan for this encounter as described above. Capt Sylvain Jameson MD, Family Medicine [address] [place] [address], [place] [facility] [employer], [place] Extracted from:Title: [facility] ([address]) - ER Follow-up/Nephrolithiasis Author: FRANKLYN GARCIA MD Date: 11/13/22 1. N ephrolithiasis Acute on chronic, improving - asymptomatic -Patient [...] reach approximately 2L urine output per day. Ordered: Basic Metabolic Panel CBC w/ Diff Urinalysis with Microscopic Orders: *Differential Automated *Glomerular Filtration Rate, Estimated Urine Culture Addendum by RULA EVERETT DO on November 14, 2022 15:54:41 CDT I have reviewed the above record and discussed the patient with the resident a s preceptor for this encounter. I was immediately a vailable in the clinic for consultation during the encounter. T he case WAS discussed with me [id number] at the time of the encounter. I agree with the assessment and plan for this encounter as described above. Rula Everett DO, JESIKA [employer] [facility] Faculty Physician Extracted from:Title: History of anaphylactic reaction, panic attack Author: ERICK ZHOU MD Date: 09/13/22 History of anaphylaxis Chronic, p atient currently establishing with allergy and immunology for exposure prophylaxis,?when seen on September 05 patient was given 2 EpiPen's. s ymptoms today do seem to be more consistent with p anic attack, h owever if t here is a underlying component of reactive airway process, patient is already e stablishing with allergy and immunology w ho can consider s kin prick testing, o r if desired pulmonary function testing. Patient has?plenty of urgent care provided a lbuterol i nhaler. N ormal physical exam and o nly single utilization of a lbuterol inhaler d o seem to be m ore consistent with s danuta episode panic attack. Ordered: Addendum by МАРИЯ HUERTA MD on September [...] ERICK ZHOU MD Date: 09/01/22 Anaphylactic reaction Chronic, o rder placed for allergy and immunology r eferral d ue to patient's reported history of anaphylactic reaction. Anticipate patient will be provided with epinephrine pen w hen she is assessed by the shuttle preparation supervisor. Patient has never been previously formally diagnosed with a ny form of allergy or reactive t ype condition. Patient had no further questions Addendum by SYLVAIN MENDOZA MD on September 01, 2022 09:15:09 CDT I have reviewed the above record as preceptor for this encounter. I was available for consultation during this encounter. T he case WAS discussed with me [id number] at the time of the encounter. I agree with the assessment and plan for this encounter as described above. Extracted from:Title: [facility] ([employer]) - Back Pain/Rash Author: FRANKLYN GARCIA MD Date: 06/23/22 1. B ack pain Acute on chronic, stable -No red flags are present on history or physical exam -Continue current conservative measures w ith heating pad as needed. Recommended use of topical products such as icy hot, BenGay or Aspercreme. Tylenol or ibuprofen as needed. -Given duration of symptoms, patient would be a good candidate for formal physical therapy, patient amendable. R eferral placed. -No indication for x -ray or more advanced i maging at this time. -Discussed overall expectations for recovery a nd r ecommended p atient contact/return to clinic if s ymptoms fail to improve a fter a full course of physical therapy and the above measures. -All questions were answered and patient is in agreement with the above plan Ordered: Referral Request 2.0 2. 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 H earing loss Chronic, stable -Based on provided history, suspect s econdary to e xposure to loud noise/music -We will refer to audiology for formal hearing assessment Ordered: Referral Request 2.0 Orders: fluconazole(fluconazole 150 mg oral tablet), See Instructions, Take 2 tabs (300mg) once weekly for two weeks., # 4 tab(s), 0 total refill(s), Acute, 06/24/2023, Take 2 tabs (300mg) once weekly for two weeks., Pharmacy: [facility] [Last filled 06/23/22] ketoconazole topical(ketoconazole 2% topical cream), 1 appl(s), Topical, Daily, Apply to affected areas and immediate surrounding skin once daily for 2-3 weeks., # 60 g, 0 total refill(s), Acute, 1 appl(s) Topical Daily,Instr:Apply to affected areas and immediate surrounding skin once daily for 2-3 week... Addendum by DEANDRA GUSTAFSON MD on June 27, 2022 10:17:36 DESIGN ARCHITECT I have reviewed the above record and discussed the patient with the resident a s preceptor for this encounter. I was immediately a vailable in the clinic for consultation during the encounter. T he case WAS discussed with me [id number] at the time of the encounter. I agree with the assessment and plan for this encounter as described above. Extracted from:Title: FMR - essential tremor, dizzziness Author: MEGAN THOMPSON, Date: 04/14/22 1. D izziness new the last few years. postural, exertion, and heat triggers likely orthostatic despite negative orthostatic pressures. physical exam findings were also reassuring. - discussed maintaining adequate hydration, giving herself time between positional changes, being aware of her triggers (exertion/heat), and adding extra salt to her diet may help mitigate it - return to clinic if it continues to worsen 2. E ssential tremor chronic. constant tremor in arms and [...] any adverse effects - neurology referral given Ordered: Referral Request 2.0 3. A nxiety est. diagnosis with depression, PTSD, ADHD, and Autism. kourtney Mcgowan and donny. Managed by Mateo Sal at [facility], Addendum by NEDA ECHAVARRIA MD on April 17, 2022 09:31:40 DESIGN ARCHITECT This encounter was indirectly supervised. I was physically at the site of patient care and was immediately available to provide direct supervision. I have reviewed the note and agree with the findings, assessment, and plan. Neda Echavarria MD [facility] Physician Extracted from:Title: PCOS -> iniation of OrthoEvra Patch NOVA Author: GERMAN ZHOU NP Date: 04/05/22 1. P COS- polycystic ovary syndrome Reviewed lab and ultrasound results with pt and her friend Tanika. These results along with Lazara's hx of irregular periods suggest she has PCOS. We had discussed at previous appt that we need to have her have a routine withdrawal bleed to protect her endometrium. Pt does not want to use OCPs as she is going to be starting some new antidepression meds so instead would like to use the Patch which we also discussed before. Pt will start this Sunday. Pt is not concerned about any and did have a period within this past month. Written instructions regarding risks,benefits, warning signs associated with combined hormone contraception given to pt. Pt denies any hx of bleeding disorders/blood clots or migraine headaches. Ordered: norelgestromin-ethinyl estradiol(Ortho Evra 150 mcg-35 mcg/24 hr transdermal film, extended release), 1 patch(es), Topical, every week, # 12 EA, 4 total refill(s), Maintenance, 1 patch(es) Topical every week, Pharmacy: [facility] [Not filled] Extracted from:Title: Ambulatory Patient Education Author: GERMAN [...] growth on your skin. Tests, such as: An ultrasound to check the ovaries for cysts and to view the lining of the uterus. Blood tests to check levels of sugar [...] regular menstrual periods. Taking medicines such as: Medicines to make you ovulate, if you want to get . Medicine to reduce extra hair growth. Having surgery in severe cases. This may involve making small holes in one or both of your ovaries. This decreases the amount of testosterone that your body makes. Follow these instructions at home: Take [id number] and prescription medicines only as told by [...] provider. Document Revised: 11/04/2020 Document Reviewed: 11/04/2020 [employer] Patient Education 2021 [employer]. Diet for Polycystic Ovary Syndrome Polycystic ovary [...] week. If you are overweight or obese: Pay attention to how many calories you eat. Cutting down on calories can help you lose weight. Work with your health care provider or [...] Low-fat or fat-free mayonnaise. Fats and oils Peck oil or canola oil. Walnuts and almonds. [...] provider. Document Revised: 11/04/2020 Document Reviewed: 11/04/2020 [employer] Patient Education 2021 [employer] Extracted from:Title: Oligomenorrhea NOVA Author: GERMAN ZHOU NP Date: 03/03/22 1. O ligomenorrhea Pt to get labs done today (day #3 of menses) and scheduled pelvic us. Pt to f/u with me the week after u/s completed to review results and discuss plan of care. Ordered: Beta HCG Qualitative, Serum DHEA Sulfate EPI 2604 FSH and LH [id number] Prolactin [id number] Thyroid Stimulating Hormone with reflex Free T4 US Pelvis Ltd w/Transvag if indicated Orders: Testosterone Panel EPI [id number] Extracted from:Title: [...] growth on your skin. Tests, such as: An ultrasound to check the ovaries for cysts and to view the lining of the uterus. Blood tests to check levels of sugar [...] regular menstrual periods. Taking medicines such as: Medicines to make you ovulate, if you want to get . Medicine to reduce extra hair growth. Having surgery in severe cases. This may involve making small holes in one or both of your ovaries. This decreases the amount of testosterone that your body makes. Follow these instructions at home: Take [id number] and prescription medicines only as told by [...] provider. Document Revised: 11/04/2020 Document Reviewed: 11/04/2020 [employer] Patient Education 2021 [employer] 07/22/2024 [id number] Functional Status Combined list of recent functional and cognitive assessments recorded at [employer]VA Functional [place] Measurement (FIM) Scale: 1 = Total Assistance (Subject = 0% +), 2 = Maximal Assistance (Subject = 25% +), 3 = Moderate Assistance (Subject = 50% +), 4 = Minimal Assistance (Subject = 75% +), 5 = Supervision, 6 = Modified Highland (Device), 7 = Complete Highland (Timely, Safely). Assessment Date/Time Source Assessment Type Assessment Skill Assessment Score Assessment Details No data available for this section
[2024-07-22 09:19] LABS: EDCOVIDSCREEN Negative (Negative); EDINFLUASCREEN Positive (Negative); EDINFLUBSCREEN Negative (Negative)
== END 2024-07-22 09:24 | disposition home or self-care (01) ==
PROVIDERS: Emergency Provider Nurse Practitioner; PCP Nurse Practitioner Family
DX: J10.1 Influenza due to other identified influenza virus with other respiratory manifestations (principal); Z20.822 Contact with and (suspected) exposure to COVID-19; E78.1 Pure hyperglyceridemia; J45.990 Exercise induced bronchospasm; E28.2 Polycystic ovarian syndrome; K20.0 Eosinophilic esophagitis; K21.9 Gastro-esophageal reflux disease without esophagitis
CPT/HCPCS: 87426; 87804; 99212; G0463

== ENCOUNTER 2024-10-20 16:58 | Emergency (ER) | payer OTHER, SELFPAY ==
[2024-10-20 17:00] VITALS: BP 134/74; PULSE 89; TEMP 36.6; O2SAT 100
--- NOTE | 2024-10-20 17:10 | ED_ITS ---
HPI - Psych General Chief Complaint: Psychiatric Symptoms Stated Complaint: self harm Time Seen by Provider: 10/20/24 17:04 Source: patient Mode of arrival: ambulatory Limitations: no limitations History of Present Illness HPI Narrative: Patient is a 24 y/o female who presents to the ED with c/o suicidal ideation. Patient has a history of depression, anxiety, PTSD. She has history of self- harm, via cutting her legs with a shaving razor. She states over the past few weeks, she has been performing self-harm more frequently. Today she began self- harming and felt as though it went further than usual. She feels as though she is isolated at home and did not feel comfortably being at home by herself. She does live with her sister but she reports that her sister has her own issues and that this is not a good situation. Patient does admit to intrusive suicidal ideation, does not feel she would ever fully act on this. Denies homicidal ideation. She does see a therapist. She is not currently on any medication for depression or anxiety. Has previously been prescribed buspirone and Prozac. Tetanus UTD. Related Data Home Medications ?Medication ?Instructions ?Recorded ?Confirmed ?Last Taken ?Type albuterol sulfate 90 mcg/actuation 1 puff inhalation Q4H PRN 06/12/23 10/13/24 Unknown History aerosol inhaler Shortness Of Breath Allergies Allergy/AdvReac Type Severity Reaction Status Date / Time No Known Allergies Allergy Verified 10/20/24 18:44 Review of Systems 2 Review of Systems: All systems reviewed & are unremarkable except as noted in HPI. All systems reviewed & are unremarkable except as noted in HPI and below PMFSH Past Medical History Medical History BMI 31.0-31.9,adult Hypersomnia Peripheral neuropathy Benign essential tremor Peripheral neuropathy Autistic disorder Vitamin D deficiency Paresthesia and pain of extremity Hypertriglyceridemia Elevated liver enzymes Eosinophilic esophagitis Night sweats Chest x-ray 01/14/2024 unremarkable. Tremor of both hands Right knee pain Left knee pain Paresthesia of both hands Paresthesia of both feet Dizziness Palpitations PTSD (post-traumatic stress disorder) Low serum parathyroid hormone (PTH) Left hand pain Hand edema Arthralgia of multiple joints Hyperlipidemia Hypercalcemia ADHD Recurrent kidney stones Dysphagia Fatigue Snoring Exercise-induced asthma Paresthesia Tremor Encounter to establish care Enlarged thyroid BMI 30.0-30.9,adult History of kidney stones PCOS (polycystic ovarian syndrome) Acid reflux BMI 27.0-27.9,adult ADD (attention deficit disorder) BMI 26.0-26.9,adult BMI 25.0-25.9,adult Anxiety Post-traumatic stress disorder, unspecified 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 Social History Social History Smoking status: Never smoker Alcohol intake: current Alcohol use details: RARE OCCASIONS Substance use: current Substance use type: does not use Other substance usage details: OCCASIONALLY FOR PAIN Do You Feel Safe in your Home?: Yes Lack of Transportation: No Lack of Food: Never True Current Housing: I Have Housing Concerned About Future Housing: No Difficulty Paying Gas/Electric Bills: No Difficulty Paying for Meds: No Currently Unemployed: YES Education: High School Diploma/GED Living arrangements: with family Additional living arrangements comments: LIVES WITH SISTER Occupation/Education: occupation 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 HEAD: Normocephalic, atraumatic. RESPIRATORY: Airway patent, respirations nonlabored. CARDIOVASCULAR: Regular rate and rhythm MUSCULOSKELETAL: Moves all extremities. No gross deformities. SKIN: Warm, dry, normal color. Innumerable superficial abrasions to julia lower extremities, anterior and lateral thighs, lateral calves. No deeper wounds or lacerations. No active bleeding. No signs of infection. NEURO: A&O X3. Speech clear. PSYCHIATRIC: Appropriate mood and affect. Normal interaction. Good insight. Course Vital Signs Vital signs: Vital Signs Temperature 97.9 F 10/20/24 17:00 Pulse Rate 89 10/20/24 17:00 Blood Pressure 134/74 10/20/24 17:00 Pulse Oximetry 100 10/20/24 17:00 Oxygen Delivery Room Air 10/20/24 17:00 Temperature 97.9 F 10/20/24 17:00 Pulse Rate 77 10/20/24 21:39 Respiratory Rate 18 10/20/24 21:39 Blood Pressure 127/67 10/20/24 21:39 Pulse Oximetry 100 10/20/24 21:39 Oxygen Delivery Room Air 10/20/24 17:00 MDM - Psych MDM Narrative Medical decision making narrative: Patient presented to ED with suicidal ideation, self-harm. Cutting to bilateral legs. Abrasions are very superficial, do not require repair. Tetanus is up-to-date. Vital signs are otherwise stable. ED psych workup was initiated. UA looked consistent with infection. Sent for culture. Will Tx. Given dose of keflex in the ED. Will Rx this. Patient was medically cleared to undergo psychiatric evaluation by crisis team. Crisis evaluated patient and determine her to meet criteria for inpatient psychiatric placement. Patient under voluntary status. She is in agreement with this plan. Awaiting bed placement. 0025- Patient received a bed at [facility], under Dr. Ferreira. Transportation being arranged. Patient has been calm and cooperative throughout ED stay, no events overnight. Medical Records Attestation: I reviewed the patient's medical records. Lab Data Attestation: I reviewed the patient's lab results. 10/20/24 17:47 10/20/24 17:47 Labs: Lab Results 10/20/24 10/20/24 10/20/24 Range/Units 17:16 17:20 17:47 WBC 13.2 H (4.5-10.0) K/mm3 RBC 5.48 H (4.2-5.4) M/mm3 Hgb 12.7 (12.0-15.0) g/dL Hct 41.1 (37.0-47.0) % MCV 75.0 L (80-100) fl MCH 23.2 L (26-34) pg MCHC 30.9 L (32-36) g/dl RDW 15.1 H (11.5-14.5) % Plt Count 345 (150-375) k/mm3 MPV 9.8 (7.4-10.4) fl Immature Gran % (Auto) 0.3 (0-0.5) % Neut % (Auto) 68.6 (45.5-73.1) % Lymph % (Auto) 21.6 (18.3-44.2) % Treasure % (Auto) 4.9 (2.6-8.5) % Eos % (Auto) 4.3 (0-4.4) % Baso % (Auto) 0.3 (0.2-1.2) % Lymph # (Auto) 2.84 (0.9-3.2) K/mm3 Treasure # (Auto) 0.7 H (0.1-0.6) K/mm3 Eos # (Auto) 0.6 H (0-0.3) K/mm3 Baso # (Auto) 0.0 (0.0-0.1) K/mm3 Abs Immat Gran (auto) 0.04 H (0.00-0.031) K/mm3 Absolute Neuts (auto) 9.0 H (1.3-6.7) K/mm3 Absolute Nucleated RBC 0.000 (0.0-0.012) K/mm3 Nucleated RBC % 0.0 (0.0-0.2) % Sodium 140 (137-145) mmol/L Potassium 3.7 (3.4-5.0) mmol/L Chloride 104 (98-107) mmol/L Carbon Dioxide 24 (22-30) mmol/L Anion Gap 12 (4-12) mmol/L BUN 11 (7-17) mg/dL Creatinine 0.62 L (0.7-1.0) mg/dL Estim Creat Clear Calc 116 ml/min Estimated GFR > 60 (59 - ) Glucose 90 (65-110) mg/dL Calcium 9.5 (8.4-10.2) mg/dL Total Bilirubin 0.2 (0.2-1.3) mg/dL AST 27 (14-36) U/L ALT 26 (6-35) U/L Alkaline Phosphatase 79 (38-126) U/L Total Protein 8.0 (6.3-8.2) g/dL Albumin 4.8 (3.5-5.1) g/dL TSH 3.350 (0.465-4.680) uIU/mL Urine Color Yellow (Yellow) Urine Appearance Cloudy H (Clear) Urine pH 6.0 (5.0-9.0) Ur Specific [place] 1.029 (1.001-1.035) Urine Protein Trace (Negative) mg/dL Urine Glucose (UA) Negative (Negative) mg/dL Urine Ketones Trace H (Negative) mg/dL Ur Blood (Man) Trace (Negative) Urine Nitrate Negative (Negative) Urine Bilirubin Negative (Negative) Urine Urobilinogen 0.2 (<2.0) mg/dL Add Ur Microanalysis Reviewed Leukocyte Esterase Rfl 2+ H (Negative) JUAN/UL Urine RBC 0-2 (0-2) /hpf Urine WBC 21-50 H (0-3) /hpf Ur Squamous Epith Cells Many H (Few) /hpf Urine Bacteria 4+ H /hpf Urine Casts 0-2 POC Urine HCG, Qual Negative (Negative) Salicylates < 1.0 L (2-20) mg/dL Urine Opiates Screen Negative (Negative) Urine Methadone Screen Negative (Negative) Acetaminophen < 10 L (10-30) ug/mL Ur Barbiturates Screen Negative (Negative) Ur Phencyclidine Scrn Negative (Negative) Ur Amphetamine Screen Negative (Negative) U Benzodiazepines Scrn Negative (Negative) Urine Cocaine Screen Negative (Negative) U Cannabinoids Screen Positive A (Negative) Ethyl Alcohol < 10 (<10) mg/dL Influenza A (RT-PCR) Negative (Negative) Influenza B (RT-PCR) Negative (Negative) RSV (RT-PCR) Negative (Negative) SARS-CoV-2 RNA (RT-PCR) Negative (Negative) Discharge Plan Discharge Clinical Impression: Suicidal ideation, Intentional self-harm Urinary tract infection Qualifiers: Urinary tract infection type: acute cystitis Hematuria presence: without hematuria Qualified Code(s): N30.00 - Acute cystitis without hematuria Patient Disposition: Psychiatric Hosp Condition: Serious Patient Language: Yi Prescriptions: New cephalexin 500 mg capsule 500 mg PO Q6H 7 Days Qty: 28 0RF No Action albuterol sulfate 90 mcg/actuation HFA aerosol inhaler 1 puff inhalation Q4H PRN (Reason: Shortness Of Breath) sertraline 50 mg tablet 50 mg PO DAILY Qty: 30 6RF metformin 500 mg tablet 500 mg PO BID Qty: 60 11RF ergocalciferol (vitamin D2) 1,250 mcg (50,000 unit) capsule 1,250 mcg PO WEEKLY Qty: 12 3RF buspirone 5 mg tablet 5 mg PO BID Qty: 90 0RF Rx Instructions: start 5mg 2x/day and increase by 5mg every 5 days to max 15mg BID. Call for refill Follow-up/Referrals: Princess Buck, INDUSTRIAL HEALTH ENGINEER [Primary Care Provider] -
--- OUTSIDE RECORDS SUMMARY | 2024-10-20 17:26 | XMS_ITS | Data Portability ---
Author Organization [facility] Address [address] [place] [address] Care Team Providers Care Rental Car Porter Name Role Phone TIM POON Primary Care [...] None recorded. Lab prolactin, serum [address] [facility] (Lab), [address] [place], [address], 4 23:59:03 FSH (follicle-s timulating hormone), serum [address] [facility] (Lab), [address] [place], [address], 4 23:59:04 estradiol, serum [address] [facility] (Lab), [address] [place], [address], 4 23:59:03 lh (luteinizin g hormone), serum [address] [facility] (Lab), [address] [place], [address], 4 23:59:04 17-hydroxyp rogesterone , QN, serum [address] [facility] (Lab), [address], [place], [address], 4 23:59:05 HbA1c (hemoglobin A1c), blood [address] [facility] (Lab), [address], [place], [address], 4 23:59:05 testosteron e, total, serum [address] [facility] (Lab), [address], [place], [address], 4 23:59:02 Referral None recorded. Procedures None recorded. Surgeries None recorded. Imaging US, axilla - left 2023 024 [facility], [address], [place] [place] [address], [place], [address], 4 12:02:26 US, transvagina l [address], [address], [address], [place], [address], 4 22:38:19 US, pelvis 2023 [address], [address], [place], [address], 4 15:20:44 US, transvagina l 2023 [address], [place], [address], 4 15:20:44 Medication Orders Prometrium 200 mg capsule 07/2023 [id number], [address], [place], [place], [id number], 17:38:58 Provera 10 mg tablet 2023 [id number], [address], [place], [place], [id number], 4 10:21:42 Patient TargetsNo targets recorded. Patient InstructionsNo instructions [...] shiloh: Markel Shukla Colle cted: 09/02 0805 QUILLER TENDER Order ing Locat ion: [place] [facility] Recei edgardo: 09/03 0951 First Scree n: Megan Pathak CT Speci men: Scree susie Pap - [...] as clini chema curran nted. Not Available [facility] (Lab) [address] , [place], [address], 09/05/2023 22:02:42 09/03/19 24 09/03/2023 TRICH OMONA S VAGIN BRONWYN (RRNA ) trichomonas vaginalis ribosomal RNA (rrna) Negati ve negati ve Not Available [facility] (Lab) [address], [place], [address], 09/05/2023 22:02:42 09/03/19 24 09/03/2023 CT/GC (HEYDI) , THINP REP VIAL chlamydia trachomatis, PCR Negati ve negati ve Not Available [facility] (Lab) [address] [place], [address], 09/05/2023 22:02:43 09/03/19 24 09/03/2023 CT/GC (HEYDI) , THINP REP VIAL neisseria gonorrhoeae, PCR Negati ve negati ve Not Available [facility] (Lab) [address] [facility], [place], [address], 09/05/2023 22:02:43 09/17/19 24 09/17/2023 TESTO STERO NE, TOTAL testosterone , total 90 NG/dL 0-100 Not Available [facility] (Lab) [address], [place], [address], 09/20/2023 23:59:02 09/17/19 24 09/17/2023 ESTRA DIOL [...] 154-3 243 pg/mL 2nd Trime ster 1561- 77608 pg/mL 3rd Trime ster 8525- >3000 0 pg/mL Not Available [facility] (Lab) [address], [place], [address], 09/20/2023 23:59:03 09/17/19 24 09/17/2023 PROLA CTIN prolactin, total 40.30 NG/mL 4.79-2 3.30 high This assay was perfo rmed using [employer] ratio n reage nts and test kits. Value s obtai yaneth with other assay metho ds or kits canno t be used inter joyce eably . Not Available [facility] (Lab) [address], [place], [address], 09/20/2023 23:59:03 09/17/19 24 09/17/2023 LH (LUTE NIZIN G HORMO NE) LH 16.7 mIU/m L This assay was perfo rmed using [employer] reage nts and test kits. Value s obtai yaneth with other assay metho ds or kits canno t be used [facility] . Femal es Mid-F ollic ular: 2.4-1 2.6 mIU/m L Mid-C ycle: 14.0- 95.6 mIU/m L Mid-L uteal : 1.0-1 1.4 mIU/m L Postm enopa use: 7.7-5 8.5 mIU/m L Not Available [facility] (Lab) [address], [place], [address], 09/20/2023 23:59:04 09/17/19 24 09/17/2023 FSH FSH 5.9 mIU/m L This assay was perfo rmed using [employer] n reage nts and test kits. Value s obtai yaneth with other assay metho ds or kits canno t be used [facility] . Femal es Folli cular : 3.5-1 2.5 mIU/m L Ovula tion: 4.7-2 1.5 mIU/m L Lutea l: 1.7-7 .7 mIU/m L Postm enopa use: 25.8- 134.8 mIU/m L Not Available [facility] (Lab) [address], [place], [address], 09/20/2023 23:59:04 09/17/19 24 09/17/2023 HEMOG LOBIN [...] >8.0% Actio n sugge sted Not Available [facility] (Lab) [address], [place], [address], 09/20/2023 23:59:05 09/17/19 24 09/17/2023 17-OH PROGE [...] ses. Perfo rming Organ izati on [facility]: Site ID: [id number] Name: [facility] Jostin Mulligan [place] , Addre ss: [id number] [place] [address] Direc tor: Licha clayton MD,Ph D,GABRIELLA Not Available [facility] (Lab) [address], [place], [address], 09/20/2023 23:59:05 10/04/19 24 10/04/2023 GTT- NON GESTA ANALIA L, 2 HOUR glucose, fasting 77 mg/dL 70-100 Not Available [facility] (Lab) [address] [place], [address], 10/05/2023 07:28:22 10/04/19 24 10/04/2023 GTT- NON GESTA ANALIA L, 2 HOUR glucose, 2 hour 138 mg/dL 70-139 Not Available [facility] (Lab) [address], [place], [address], 10/05/2023 07:28:22 10/04/19 24 10/04/2023 PROLA CTIN prolactin, total 40.30 NG/mL 4.79-2 3.30 high This assay was perfo rmed using [employer] n reage nts and test kits. Value s obtai yaneth with other assay metho ds or kits canno t be used inter [facility] . Not Available [facility] (Lab) [address] [place], [address], 10/05/2023 07:28:23 10/04/19 24 10/04/2023 INSUL IN,FA STING insulin, fasting 11.4 uIU/m L 1.9-23 .0 Not Available [facility] (Lab) [address] [place], [address], 10/05/2023 07:28:23 10/04/19 24 10/04/2023 C-PEP TIDE C-peptide 3.29 NG/mL 1.1-4. 4 Not Available [facility] (Lab) [address] [place], [address], 10/05/2023 07:28:23 10/18/19 24 10/18/2023 PROLA CTIN prolactin, total 21.70 NG/mL 4.79-2 3.30 This assay was perfo rmed using [employer] n reage nts and test kits. Value s obtai yaneth with other assay metho ds or kits canno t be used inter joyce eay . Not Available [facility] (Lab) [address], [place], [address], 10/19/2023 03:55:41 11/20/19 24 11/20/2023 PROLA CTIN prolactin, total 20.30 NG/mL 4.79-2 3.30 This assay was perfo rmed using [employer] n reage nts and test kits. Value s obtai yaneth with other assay metho ds or kits canno t be used inter joyce eably . Not Available [facility] (Lab) [address], [place], [address], 11/21/2023 03:55:46 09/17/19 24 09/18/2023 US, pelvi s No observ ation record ed. [email or web address] [place] [address], [place], [address], 09/18/2023 13:05:27 09/17/19 24 09/18/2023 US, trans vagin al No observ ation record ed. [email or web address] [place] [address], [place], [address], 09/18/2023 13:05:17 09/17/19 24 09/17/2023 US, pelvi s No observ ation record ed. [email or web address] [address] [facility], [place], [address], 09/19/2023 13:50:40 12/17/19 24 12/17/2023 US, trans vagin al No observ ation record ed. [email or web address] [place] [address], [place], [address], 12/17/2023 11:06:17 12/17/19 24 12/17/2023 US, trans vagin al No observ ation record ed. [email or web address] [address], [place], [address], 12/19/2023 15:54:48 07/22/20 24 12/31/2023 US, axill a No observ ation record ed. [email or web address] [facility] [address], [place], [address], 01/08/2024 17:14:08 Result Notes None recorded. Procedures Surgical History Date Name Laterality Status Provider Name and Address Organization Details Recorded Time 09/01/19 24 Date of Last Pap Smear completed Maryuri Vasquez [facility] 09/01/2023 11:08:39 06/11/19 23 ultrasonic fragmentation of urinary stone through percutaneous nephrostomy completed Kristi [facility] 12/18/2023 10:22:59 06/11/19 21 extraction of wisdom tooth completed Kristi [facility] 12/18/2023 10:22:44 Imaging Results Imaging Date Name Status LastModified by Organization Details LastModified Time 09/18/2023 US, pelvis completed [email or web address] [place] [address], [place], [address], 09/18/2023 13:05:27 09/18/2023 [email or web address] [address], [place], [address], 09/18/2023 13:05:17 09/17/2023 US, pelvis completed [email or web address] [address], [place], [address], 09/19/2023 13:50:40 12/17/2023 US, transvaginal completed [email or web address] [place] [address], [place], [address], 12/17/2023 11:06:17 12/17/2023 US, transvaginal completed [email or web address] [address], [place], [address], 12/19/2023 15:54:48 12/31/2023 US, axilla completed [email or web address] [facility] [address], [place], [address], 01/08/2024 17:14:08 Procedure Notes None recorded. Medical [...] Updated DateTime 09/01/2023 157.48 cm 31.3 kg/m2 16772.73 g 111 mm[Hg] 79 mm[Hg] Maryuri Vasquez [facility] 4 11:08:15 Date Recorded Body height Body mass index (BMI) Body weight Systolic blood pressure Diastolic blood pressure Provider Name and Address Organization Details Last Updated DateTime 09/18/2023 157.48 cm 31.3 kg/m2 41457.3 g 126 mm[Hg] 64 mm[Hg] Lia Roger [facility] 4 12:02:18 Date Recorded Body height Body mass index (BMI) Body weight Systolic blood pressure Diastolic blood pressure Provider Name and Address Organization Details Last Updated DateTime 12/18/2023 157.48 cm 31.1 kg/m2 89427.7 g 100 mm[Hg] 70 mm[Hg] Kristi Smith [facility] 10:21:11 Social History Question Answer Notes LastModified by Organizat ion Details LastModified Time Tobacco Smoking Status Never Smoker Maryuri Vasquez ann, [facility] 09/01/2023 11:09:37 Are You Blind Or Do You Have [...] Or The Highest Degree You Have Received? [id number] Information not available 09/01/2023 Are There Any [...] Organizat ion Details LastModified Time Do you use any illicit or recreational drugs? No Information not available 09/01/2023 What is your level of alcohol consumption? None Information not available 09/01/2023 Do you have difficulty walking or climbing stairs? No Information not available 09/01/2023 Are you able to walk? YESWOREST Information not available 09/01/2023 Are you able to care for yourself? Yes Information n ot available 09/01/2023 What is your occupation? [employer] Information not available 09/01/2023 Do you have difficulty dressing or bathing? No Information not available 09/01/2023 What is your exercise level? Moderate Information not available 09/01/2023 Mental Status Question Answer Note LastModified by Organization D etails LastModified Time Do you feel stressed (tense, restless, nervous, or anxious, or unable to sleep at night)? [id number] Information not available 09/01/2023 Family History Nothing Reported. Medical History Condition [...] SNOMED-CT Code Diagnosis ICD10 Code Diagnosis Note [id number] Shahida Will [facility] [address] [address] 09/01/2023 10:56:59 09/01/2023 11:35:56 Gynecologic examination [id number] Z01.419 Take Calcium with Vitamin D 1200mg [...] Screen naRoutine Labs Ordered Secondary amenorrhea 156 789935 N91.1 Today we discussed pursuing the followin. TAUS with possible TVUS if feels comfortabl e with this.2. Lab work-when return for US3. Consider Provera q1-3mos to manage menses4. EMBX-will need ativan (very anxious) [id number] Josh Heredia MD [place] [address] [address] 09/17/2023 09:45:21 09/17/2023 11:19:19 Irregular periods 92517649 N92.6 [id number] DANNIE [facility] [address] [address] 09/18/2023 11:51:51 09/18/2023 12:16:23 Secondary amenorrhea [id number] N91.1 Today we reviewed TVUS/TAUSW e agreed [...] counseling and review of plan of care. [id number] Josh Heredia MD [place] [address] [address] 12/17/2023 10:14:42 12/17/2023 11:05:18 Irregular periods 08558167 N92.6 [id number] DANNIE Albarran [place] [address] [address] 12/18/2023 10:14:01 12/19/2023 07:24:56 Irregular periods 45250290 N92.6 Detailed health hx updated and revieweddi scussed h/o irregular periods/PC OSreviewed updated pelvic u/sdiscuss ed options for endometria l protection declines BC at this time, would like to continue with cyclic progestero ner/b/a reviewed, rx sent, take every 3 months if spontaneou s menses does not occurquest ions answered, encouraged healthy lifestyle/ regular exercise Pain in axilla [id number] M79.629 left axillary u/s ordered Time spent [...] Sorto Member ID Guarantor Name 09/01/2023 1 [facility] - DOS ON OR AFTER 20 (MEDICAID REPLACEMENT - HMO) Lazara Ruize [id number] Lazara Hymane 09/17/2023 1 [facility] - DOS ON OR AFTER 20 (MEDICAID REPLACEMENT - HMO) Lazara Hymane [id number] Lazara Ledesma 09/18/2023 1 [facility] - DOS ON OR AFTER 20 (MEDICAID REPLACEMENT - HMO) Lazara Ledesma [id number] Lazara Ledesma 12/17/2023 1 [facility] - DOS ON OR AFTER 20 (MEDICAID REPLACEMENT - HMO) Lazara Hymane [id number] Lazara Ledesma 12/18/2023 1 [facility] - DOS ON OR AFTER 20 (MEDICAID REPLACEMENT - HMO) Lazara Hymane [id number] Lazara Kuericke Notes Date Note Type Note Provider Name [...] age 42; Followed with yearly pap smears Shahida Will, DANNIE-[facility] [address], [place], [address], [facility] 09/01/2023 11:35:02 12/18/2023 text/html 23yopresents for u/s f/uh/o irregular periods/PCOS, went 1 yr without a period in 2022took provera course 09/2023 which produced a withdrawal bleed, had a period on her own last week that lasted 4 daysnot currently SA left axillary tenderness x 1 month, comes and goes Jennie Landry, DANNIE [address], [place], [address], [place] [facility] 12/18/2023 17:40:44 OBGyn Episode No OBEpisode recorded.
--- OUTSIDE RECORDS SUMMARY | 2024-10-20 17:26 | XMS_ITS | Encounter Summary ---
Author Organization [facility] Address [address] [place] [address] [place] [address] Care Team Providers Care Virtualization Engineer Name Role Phone Unavailable Primary Care Provider Unavailabl e Encounter Details Date Type Department Care Team (Late st Contact Info) Description 01/24/2024 Lab Requisition [facility] - Pathology Lab [address] [place] [address] Bri Mendoza MD [address] [place], [place] [id number] Illness, unspecified Social History Tobacco Use Types Packs/Day Years Used Date Smoking Tobacco: Never Assessed Comments Unknown Sex and Gender Information Value Date Recorded Sex Assigned at Not on file Legal Sex Female 7:03 AM CDT Gender Identity Not on file Sexual Orientation Not on file documented as of this encounter Plan of Treatment Not on file documented as of this encounter Procedures Procedure Name Priority Date/Time Associated Diagnosis Comments PATHOLOGY TISSUE Routine 01/22/2024 10:4 1 AM CDT Illness, unspecified documented in this encounter Results * PATHOLOGY TISSUE (01/22/2024 10:41 AM CDT) Case Report Surgical Pathology Report Case: [id number] Authorizing Provider: Bri Mendoza MD Collected: 01/22/2024 10:41 AM Ordering Location: [facility] - Received: 01/24/2024 09:10 AM Pathology Lab Pathologist: Peter Greenwood MD Specimen: Lymph Node Biopsy 01/29/2024 3:39 PM CDT [facility] Final Diagnosis Axillary lymph node, core biopsy: Reactive lymphoid tissue, with EBV-related changes and focal dermatopathic changes. 01/29/2024 3:39 PM CDT [facility] Microscopic Description and Comment The [...] T-cell or B-cell lymphoma. 01/29/2024 3:39 PM [facility] Clinical History Lymphadenopathy. 01/29/2024 3:39 PM [facility] AP Comment Overall, the finding s are consistent with EBV-related lymphoid proliferation. There is no diagnostic evidence of T- or B-cell lymphoma in the current material. If clinically indicated, an excisional biopsy can be considered to provide architecture information, and additional material for further evaluation. Clinical and imaging correlation, and correlation with serology study recommended. 01/29/2024 3:39 PM [facility] Materials Received Received are 3 slide(s) and 1 block labeled [id number] along with a copy of the outside pathology report. [place] [address] . All original materials are returned to the referring institution, along with a copy of our final report. 01/29/2024 3:39 PM [facility] Pathologist Location at [facility] 01/29/2024 3:39 PM [facility] Disclaimer The performance characteristics of all immunohistochemical and indirect immunofluorescence stains (if any) cited in this report were determined by the Histopathology Laboratory of [facility]. Some of these tests were developed [...] attending (teaching) pathologist. 01/29/2024 3:39 PM CDT [facility] Embedded Images 01/29/2024 3:39 PM CDT [facility] Pathology/Cytolo gy BIOPSY OF LYMPH NODE / Unknown 01/22/2024 10:41 AM CDT 01/24/2024 9:10 AM CDT us Bri Mendoza MD LAB - PATHOLOGY/CYTOLOGY OR DERABLES Final Result [facility] [address] [place] [address], [facility] [phone] documented in this encounter Visit Diagnoses Diagnosis Illness, unspecified documented in this encounter
--- OUTSIDE RECORDS SUMMARY | 2024-10-20 17:26 | XMS_ITS | Encounter Summary ---
Author Organization [facility] Address [address] [place] [address] [place] [address] Care Team Providers Care Isolation Washer Name Role Phone Unavailable Primary Care Provider Unavailabl e Encounter Details Date Type Department Care Team (Late st Contact Info) Description 01/22/2024 Lab Requisition [facility] - Pathology Lab [address] [place] [address] Bri Mendoza MD [address] [place] [address] Enlarged lymph nodes, unspecified Social [...] AM CDT) Case Report Flow Cytometry Case: [id number] Authorizing Provider: Bri Mendoza MD Collected: 01/22/2024 10:00 AM Ordering Location: [facility] - Received: 01/22/2024 02:01 PM Pathology Lab Pathologist: Peter Greenwood MD Specimen: Axillary Lymph Node, Left Axillary 01/23/2024 8:13 AM CDT [facility] Final Diagnosis Axillary lymph node, flow cytometric immunophenotypic analysis: - No diagnostic evidence of non-Hodgkin T-cell or B-cell lymphoma. - See interpretation. 01/23/2024 8:13 AM [facility] Flow Cytometry Interpretation Viability: 71% Lymphocytes: 99% B-cells: 37% of the lymphocytes, polytypic, kappa:lambda ratio 1.56:1 T-cells: 61% % of the lymphocytes, no immunophenotypic aberrancy detected based on the markers performed, CD4:CD8 ratio 1.57:1 Dim CD45 region: 0%. No blasts are identified Granulocytes: 1% A cytospin prepared from the flow cytometry specimen has been reviewed for assistant quality manager purposes. 01/23/2024 8:13 AM [facility] Flow Cytometry Results Differential Result Comment Flow Cell Count /uL 4,200 Total Viability % 71.0 Lymphocytes % 99 Dim CD45 Region % 0 Monocytes % 0 Granulocytes % 1 01/23/2024 8:13 AM [facility] Reason for test Enlarged lymph nodes, unspecified 01/23/2024 8:13 AM [facility] Client Specimen ID # [id number] 01/23/2024 8:13 AM [facility] Number of markers 16 were performed. A-2 Flow CD3 A-4 Flow CD10 A-6 Flow CD20 A-7 Flow CD23 A-12 Flow CD2 A-13 Flow CD4 A-16 Flow CD1a A-3 Flow CD5 A-5 Flow CD19 A-8 Flow CD34 A-9 Flow CD45 A-14 Flow CD7 A-15 Flow CD8 A-17 Flow CD30 A-10 Ebro+CD19+ A-11 Lambda+CD19+ 01/23/2024 8:13 AM [facility] Pathologist Location at [facility] 01/23/2024 8:13 AM [facility] Disclaimer Test performed at [facility], [address] [place] [address], [id number]. *The established laboratory minimum viability is 70%. [...] complexity clinical testing. 01/23/2024 8:13 AM CDT [facility] Embedded Images 8:13 AM CDT [facility] Pathology/Cytolo gy AXILLARY LYMPH NODE STRUCTURE / Unknown 01/22/2024 10:00 AM CDT 01/22/2024 2:01 PM CDT Bri Mendoza MD LAB - PATHOLOGY/CYTOLOGY OR DERABLES Final Result [facility] [address] [place] [address], [facility] [phone] documented in this encounter Visit Diagnoses Diagnosis Enlarged lymph nodes, unspecified documented in this encounter
--- OUTSIDE RECORDS SUMMARY | 2024-10-20 17:26 | XMS_ITS | Continuity of Care Document ---
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 Clinic) OUTPATIENT [id number] CHEST CONGEST ION/COL D SYMPTOM S/RASH ON MOUTH CHEEKS MICHOACANO [place]ON 09/06 Released w/o Limitations [address] [facility](P ediatri c Clinic) [facility] Red Team) TELE CONSULT [id number] HANDS SHAKE EMILIANA CAN 11/30 [facility](F amily Practic e Red Team) [facility](Fam [facility] Blue Team) TELE CONSULT [id number] ant bite on rt foot/ swellin g/ redness / eyes swellin g/ foot is hot to touch JAMES ALEXIS 12/05 [facility](F amily Practic e Blue Team) [facility](Fam [facility] Red Team) TELE CONSULT [id number] ER VISIT NICHOLEJHONY THORNTON Mariano 01/18 [facility] Medical [facility](F amily Practic e Red Team) [facility] Medical [facility] Red Team) OUTPATIENT [id number] 3YR OLD;BOWERS DS DO MEZA 01/26 Released w/o Limitations [facility] Medical [facility](F amily Practic e Red Team) [facility] Medical [facility] Red Team) OUTPATIENT [id number] SHAKING HANDS DO TIERNEY 06/19 Released w/o Limitations [facility](F amily Practic e Red Team) [facility] TELE CONSULT [id number] GT GRAY 07/16 [facility](F amily Practic e Red Team) [facility] Practice Red Team) TELE CONSULT [id number] SWALLOW ED RHETT CREWS 12/26 [facility](F amily Practic e Red Team) [facility]) OUTPATIENT [id number] SWESHARIF G TO TOE--UN ABLE TO WEAR SHOE GABE VUONG A 02/14 Released w/o Limitations [facility](F amily Practic e Red Team) [facility] TELE CONSULT [id number] VAGINAL RASH REUBEN , JAMES G 02/26 [facility](F amily Practic e Red Team) [facility] OUTPATIENT [id number] new pt- eval/ referra ARUN Stewart 04/10 Released w/o Limitations [facility](F amily Practic e Red Team) [facility]) OUTPATIENT [id number] LA Haywood 06/28 Released w/o Limitations [facility](F amily Practic e Red Team) [facility] Practice Red Team) TELE CONSULT [id number] cac-- rt eye redness /cruste d over/it RHETT García 11/25 [facility](F amily Practic e Red Team) [facility] Practice Red Team) OUTPATIENT [id number] fever/ nausea/ poss insect bite to rt arm DIANA ANTONY S 02/11 Sick at Home/Quarter s [facility](F amily Practic e Red Team) [facility](Ped iatric Clinic) OUTPATIENT [id number] Paperwo rk to be complet ed for PCS L Heber [phone] BECK WHITTAKER 06/18 Released w/o Limitations [facility](P ediatri c Clinic) [facility](Ped [facility]atric Clinic) TELE CONSULT [id number] CAC - constip ation x1wk now vomitin g x3 today JHONY VARELA Mariano 08/19 [facility] Clinic) [facility](Ped [facility]ric Clinic) OUTPATIENT [id number] impacti ons x 4 this week DeyviBECK DUBOSE 08/20 Released w/o Limitations [facility](P ediat[facility] Clinic) [employer](Ped iatric Team A Non-GME) OUTPATIENT [id number] neuro check per parent request for school ZEN CORDOVA [place] 12/22 Released w/o Limitations [facility](P ediatri c Team A Non-GME ) [employer](Ped iatric Team A Non-GME) OUTPATIENT [id number] sports physicSYED Matta 01/26 Released w/o Limitations [employer](P ediatri c Team A Non-GME ) [facility] [employer](Ped iatric Team A Non-GME) OUTPATIENT [id number] NEW REFERRA L SHANNANS NEUROLO TUYET ALEX 08/19 Released w/o Limitations [employer](P ediatri c Team A Non-GME ) [employer](Ped iatric Team A Non-GME) TELE CONSULT [id number] NOT ABLE TO CONTACT PT RONY YUAN 08/30 Medical Group(P ediatri c Team A Non-GME ) [employer](Ped iatric Team A Non-GME) OUTPATIENT [id number] Sports PhysicPRISCILA Leal 02/17 Released w/o Limitations [employer](P ediatri c Team A Non-GME ) [employer](Ped iatric Team A-Non-GME ) TELE CONSULT [id number] G DIRECT REFERRA L RONY YUAN 07/03 [employer](P ediatri c Team A-Non-G ME) [employer](Ped iatric Team A-Non-GME ) TELE CONSULT [id number] Notes Entered by: BASSAM CHI 24 Oct 2011 8672 ------- ------- ------- ------- -- SPECIAL NEEDS OCTOBERDELMI Dany 10/23 [employer](P ediatri c Team A-Non-G ME) [employer](Ped iatric Team A-Non-GME ) OUTPATIENT [id number] Rosangela l Evaluat ion OCTOBERDELMI 11/06 Released w/o Limitations [employer](P ediatri c Team A-Non-G ME) [employer](Ped iatric Team A-Non-GME ) TELE CONSULT [id number] Notes Entered by: BASSAM CHI 09 Jul 2012 1527 ------- ------- ------- ------- -- MEDICAL GA VIVAS 07/09 Referred for Appointment [employer](P ediatri c Team A-Non-G ME) [employer](Ped iatric Team A-Non-GME ) OUTPATIENT [id number] pain when urinati on ALEJANDRA BENITO 08/01 Released w/o Limitations [employer](P ediatri c Team A-Non-G ME) [employer](Ped iatric Team A-Non-GME ) OUTPATIENT [id number] 11yo PRISCILA Bourgeois 09/04 Released w/o Limitations [employer](P ediatri c Team A-Non-G ME) [employer](Ped iatric Team A-Non-GME ) TELE CONSULT [id number] Notes Entered by: CARIDAD CONTRERAS 25 Sep 2012 1451 ------- ------- ------- ------- -- Network Results - Optomet ry 3 ZEN SWANSON 09/25 [employer](P ediatri c Team A-Non-G ME) [employer](Ped iatric Team A-Non-GME ) TELE CONSULT [id number] Notes Entered by: ABY COREY 08 Oct 2012 1420 ------- ------- ------- ------- -- Out-pro ABY Tong 10/08 Referred for Appointment [employer](P ediatri c Team A-Non-G ME) [employer](Ped iatric Team A-Non-GME ) OUTPATIENT [id number] FEVER, SORE THROAT, AND COUGHIN G/AYAH YIP 10/30 Released w/o Limitations [facility](P wooiatri c Team A-Non-G MI) [employer] ([facility]Sco tt [facility] FAMRES Tm Blue) [facility]PAT[facility] [id number] [facility]/07 Released w/o Limitations [employer] ([facility])(S cott [facility] FAMRES Tm Blue) [employer] ([facility])(Sco tt [facility] Fam Res Tm Green) OUTPATIENT [id number] [facility] JEANNIE HUGHES LT 01/27 Released w/o Limitations [employer] ([facility])(S cott [facility] Fam Res Tm Green) [employer] ([facility])(Sco tt [facility] Fam Res Tm Green) OUTPATIENT [id number] fever, sore throat, losing voice, [phone] REUBEN KHAN 03/30 Released w/o Limitations [employer] ([facility])(S cott [facility] Fam Res Tm Green) [employer] ([facility])(Sco tt [facility] Fam Res Tm Red) TELE CONSULT [id number] Notes Entered by: Marian PHAN 02 Apr 2014 1734 ------- ------- ------- ------- -- Error in Rapid strep testing JOEY CARDONA 04/02 Referred for Appointment [employer] ([facility]S cott [facility] Fam Res Tm Red) [employer] ([facility])(Sco tt [facility] Fam Res Tm Green) OUTPATIENT [id number] [facility] physica l - [id number] 92CYRIL DAVIS 01/12 Released w/o Limitations [address] [place] [address] Group [employer] ([facility])(S [facility] Fam Res Tm Green) [address] [place] [address] [employer] [facility])(Iao formerly [facility] Fam Res Tm Gold) TELE CONSULT [id number] Notes Entered by: ABY LYLE 27 May 2015 1513 ------- ------- ------- ------- -- Lebron / CYRIL Camara 05/[address] [place] [address] [employer] ([facility]S cott [facility] Fam Res Tm Gold) [address] [place] [address] [employer])(Iao tt [facility] Fam Res Tm Green) TELE CONSULT [id number] Notes Entered by: Mariano PHAM 01 Jun 2015 1323 ------- ------- ------- ------- -- MOP request s re evaluat ion for autism/ Justin/6 [phone] or [phone] CYRIL WEINSTEIN 06/[address] [place] [address] [facility])(S [facility] Fam Res Tm Green) Procedures Combined list of: 1) Procedures from Department of Veterans Affairs facilities going back up to thelast 18 months, not all VA non-surgical procedures are included; 2) All procedures from the Department of Defense facilities. Procedure Procedure Type Code Date Perfomer Comments [facility] e Psychiatric Evaluation Review of Records and Reports Psychiatric Evaluation Review of Records and Reports [id number] 12/31/19 10 NICK CARRENO [facility] Psychiatric Evaluation Comprehensive Examination Psychiatric Evaluation Comprehensive Examination [id number] 11/13/19 10 NEVAEH HOPKINS [facility] Psychiatric Evaluation Comprehensive Examination Psychiatric Evaluation Comprehensive Examination [id number] 08/16/19 10 CESIA AYALA [facility] PSYCHIATRIC EVALUATION OF HOSPITAL RECORDS, OTHER PSYCHIATRIC REPORTS, PSYCHOMETRIC AND/OR PROJECTIVE TESTS, AND OTHER ACCUMULATED DATA FOR MEDICALDIAGNOSTIC PURPOSES 12/31/19 10 [facility] PSYCHIATRIC DIAGNOSTIC INTERVIEW EXAMINATION 11/13/19 10 [facility] PSYCHIATRIC DIAGNOSTIC INTERVIEW EXAMINATION 08/13/19 10 [facility] No data available for this section Ambulatory Pharmacy Social History Combined list of available smoking, tobacco, and other social history from Department of Defense and Veterans Affairs facilities. Social History Type Response Date Comment Sour e This section is an empty social history section. [facility] Tobacco Never-cigarette user Cigarette use:. Never-other tobacco user (not cigarettes) Other Tobacco use:. Ambulatory Pharmacy Sexual Orientation Ambula tory Pharmacy Gender identity Ambulator y Pharmacy Sex Representation Female (finding) Unknown Organization Assessment and Plan Combined list of future care activities from Department of Defense and Veterans Affairs facilities (e.g., assessment and plan notes, appointments, orders, and referrals). Additional future care activities may be listed in the Plan of Care section. Result Assessment and Plan Date Source Assessment and Plan Extracted from:Title : FMR [facility] Author: CAMILLE JACK DO Date: 04/13/23 1. N europathy Established. U [...] with new psychiatrist. P atient currently seeing [facility] sychiatry. D iscussed due to the long wait times with psychiatry t hat she should continue seeing [facility] u ntil she is able to reestablish. Patient will continue to get Abilify from her [facility] psychiatrist. Orders: Microalbumin Panel, Urine Urinalysis with Microscopic and Culture if Indicated Urine Culture Capt Camille Jack DO [employer] [facility], [facility], FMR [facility] [employer], [place] Addendum by SYLVAIN MENDOZA MD on April 16, 2023 08:35:47 CNC MACHINE PROGRAMMER I have reviewed the above record as preceptor for this encounter. I was available for consultation during this encounter. T he case WAS discussed with me [id number] at the time of the encounter. I agree with the assessment and plan for this encounter as described above. Major Sylvain Mendoza MD, FAAFP [facility], [facility] [employer], [place] Extracted from:Title: R - Multiple Author: CAMILLE JACK DO Date: 02/16/23 1. N ausea, vomiting and [...] U ncontrolled. Will begin sensation work-up with dallas christensen. W ill consider G I r eferral [...] TID,PRN:loose stool,Instr:not to exceed 40 mL/day, Pharmacy: [facility] [Not filled] Capt Camille Jack DO [facility], [facility], R [facility] [employer], [place] Addendum by SYLVAIN JAMESON MD on February 19, 2023 11:21:38 CDT I have reviewed the above record and discussed the patient with the resident renée middleton preceptor for this encounter. I was immediately a vailable in the clinic for consultation during the encounter. T he case WAS discussed with me [id number] at the time of the encounter. I agree with the assessment and plan for this encounter as described above. Capt Sylvain Jameson MD, Family Medicine [facility], [facility] Noav LADI MATOS Extracted from:Title: [facility] ([facility] - ER Follow-up/Nephrolithiasis Author: FRANKLYN GARCIA MD [...] T he case WAS discussed with me [id number] at the time of the encounter. I agree with the assessment and plan for this encounter as described above. Rula Everett DO, FAWM RAJESH [facility] Faculty Physician Extracted from:Title: [...] w hen she is assessed by the concrete bucket hooker. Patient has never been previously formally diagnosed with a ny form of allergy or reactive t ype condition. Patient had no further questions Addendum by SYLVAIN MENDOZA MD on September 01, 2022 09:15:09 CDT I have reviewed the above record as preceptor for this encounter. I was available for consultation during this encounter. T he case WAS discussed with me [id number] at the time of the encounter. I [...] (300mg) once weekly for two weeks., Pharmacy: [facility] [Last filled 06/23/22] ketoconazole topical(ketoconazole 2% topical cream), 1 appl(s), Topical, Daily, Apply to affected areas and immediate surrounding skin once daily for 2-3 weeks., # 60 g, 0 total refill(s), Acute, 1 appl(s) Topical Daily,Instr:Apply to affected areas and immediate surrounding skin once daily for 2-3 week... Addendum by DEANDRA GUSTAFSON MD on June 27, 2022 10:17:36 CNC MACHINE PROGRAMMER I have reviewed the above record and discussed the patient with the resident a s preceptor for this encounter. I was immediately a vailable in the clinic for consultation during the encounter. T he case WAS discussed with me [id number] at the time of the encounter. I [...] diagnosis with depression, PTSD, ADHD, and Autism. o n Abilipedro luis and prozac. Managed by Mateo Sal at [facility], Addendum by NEDA ECHAVARRIA MD on April 17, 2022 09:31:40 CNC MACHINE PROGRAMMER This encounter was indirectly supervised. I was [...] Maintenance, 1 patch(es) Topical every week, Pharmacy: [facility] [Not filled] Extracted from:Title: Ambulatory [...] makes. Follow these instructions at home: Take [id number] and prescription medicines only as told by [...] provider. Document Revised: 11/04/2020 Document Reviewed: 11/04/2020 [employer] Patient Education 2021 [employer] Diet for Polycystic Ovary Syndrome Polycystic [...] Low-fat or fat-free mayonnaise. Fats and oils [place] oil or canola oil. Walnuts and almonds. [...] provider. Document Revised: 11/04/2020 Document Reviewed: 11/04/2020 [employer] Patient Education 2021 [employer]. Extracted from:Title: Oligomenorrhea [facility] Author: GERMAN ZHOU NP Date: 03/03/22 1. O ligomenorrhea Pt to get labs done today (day #3 of menses) and scheduled pelvic us. Pt to f/u with me the week after u/s completed to review results and discuss plan of care. Ordered: Beta HCG Qualitative, Serum DHEA Sulfate EPI 2604 FSH and LH [id number] Prolactin [id number] Thyroid Stimulating Hormone with reflex Free T4 [...] makes. Follow these instructions at home: Take [id number]-[id number] and prescription medicines only as told by [...] provider. Document Revised: 11/04/2020 Document Reviewed: 11/04/2020 [employer] Patient Education 2021 [employer]. 10/20/[address] [place] [address] Functional Status Combined list of recent functional and cognitive assessments recorded at Department of Defense and Veterans Affairs (VA).VA Functional [place] Measurement (FIM) Scale: 1 = Total Assistance (Subject = 0% +), 2 = Maximal Assistance (Subject = 25% +), 3 = Moderate Assistance (Subject = 50% +), 4 = Minimal Assistance (Subject = 75% +), 5 = Supervision, 6 = Modified [place] (Device), 7 = Complete [place] (Timely, Safely). Assessment Date/Time Source Assessment Type Assessment Skill Assessment Score Assessment Details No data available for this section
--- OUTSIDE RECORDS SUMMARY | 2024-10-20 17:26 | XMS_ITS | Clinical Summary ---
Author Organization [facility] Address [facility] [place] [address] Care Team Providers Care Size Changer Name Role Phone Unavailable Primary Care Provider Unavailabl e Source Comments [facility],non-owned Affiliates and Associated Physician Practices is amultiple site organization consisting of ambulatory clinics and hospital sitesin [place], [place], [place] and [place]. This disclosure is being madepursuant to the Care Everywhere program and may not contain all information available regarding this patient. Last updated 18.[facility] [employer] Social History Tobacco Use Types Packs/Day Years [...] SCREENING 2018 MENINGOCOCCAL (Group B) VACC INE SHARED DECISION-MAKING (1 of 2 - Standard) 2018 HEPATITIS C SCREENING 08/21/2020 DTAP/TDAP/TD VACCINES (1 - Tdap) 2021 HEPATITIS B VACCINE (1 of 3 - 19+ 3-dose series) 2021 COVID-19 VACCINE (1 - 2023-2 5 season) 2024 DEPRESSION SCREENING 06/11/2024 INFLUENZA VACCINE (Season Ended) 2025 ZOSTER VACCINE (1 of 2) 2052 HIB VACCINE Aged Out No longer eligi ble based on patient's age to complete this topic MENINGOCOCCAL GROUPS A/C/Y/W VACCINE Aged Out No longer eligible b ased on patient's age to complete this topic PNEUMOCOCCAL VACCINE Aged Out No long er eligible based on patient's age to complete this topic Insurance [facility] SELF PAY NO INSURANCE Member Subscriber Plan / Payer (Ef fective for All Dates) Name:Rafy Ledesma Member ID:Not on file Relation to Subscriber:Not on file Name:RAFY LEDESMA Subscriber ID:Not on file (Home) Address: [address] [place] [address] Payer ID:Not on file Group ID:Not on file Type:Self Pay Address: [place], [place] * Guarantor: RAFY LEDESMA Account Type Relation to Patient Date of Phone Billing Address Personal/Family [address] [place] [address] [facility] [employer] PA[employer] NO INSURANCE Member Subscriber Plan / Payer (Ef fective for All Dates) Name:Rafy Ledesma Member ID:Not on file Relation to Subscriber:Not on file Name:RAFY LEDESMA Subscriber ID:Not on file Address: [address] [place] [address] Payer ID:Not on file Group ID:Not on file Type:Self Pay Address: [place], [place] * Guarantor: CALLIERAFY Account Type Relation to Patient Date of Phone Billing Address Personal/Family [address] [place] [address] [facility] [employer] PA[employer] NO INSURANCE Member Subscriber Plan / Payer (Ef fective for All Dates) Name:Callie Rafy Member ID:Not on file Relation to Subscriber:Not on file Name:YENNILissetteRAFY Subscriber ID:Not on file Address: [address] [place] [address] Payer ID:Not on file Group ID:Not on file Type:Self Pay Address: [place], [place] * Guarantor: RAFY LEDESMA Account Type Relation to Patient Date of Phone Billing Address Personal/Family [address] [place] [address] [facility] NO INSURANCE Member Subscriber Plan / Payer (Ef fective for All Dates) Name:Rafy Ledesma Member ID:Not on file Relation to Subscriber:Not on file Name:RAFY LEDESMA Subscriber ID:Not on file Address: [address] [place] [address] Payer ID:Not on file Group ID:Not on file Type:Self Pay Address: [place], [place]
--- OUTSIDE RECORDS SUMMARY | 2024-10-20 17:26 | XMS_ITS | Data Portability ---
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 [email or web address] Not available 01/17/2023 14:25:59 02/21/2023 02/21/2023 She is doing well postop ureteroscopy and stone extraction. You today's is a few cells but is pretty unremarkable. She was given a copy of her stone analysis. Would advise increasing fluids and cutting down oxalates in her diet. She will follow-up as needed. fabian Not available 02/22/2023 22:35:58 Plan of Treatment Reminders Order Date Submit Date Provider Last Modified By Organization Details Last Modified Time Details Appointments None recorded. Lab urinalysis, dipstick, auto 2022 023 CHARLY [facility] ([facility]), [address], [address], [place], [address], 15:37:39 urinalysis, microscopic 2022 023 [email or web address] [facility] , [address], [place], [address], 3 15:27:08 urinalysis, dipstick, auto 2022 023 [email or web address] [facility] ([facility]), [address], [address], [place], [address], 3 15:16:02 urinalysis, microscopic 2022 023 [email or web address] [facility], [address], [place], [address], 3 15:16:02 Referral None recorded. Procedures None recorded. Surgeries ureteroscop y with stone basket extraction, holmium laser fragmentati on (SURG) 2022 023 [facility], [address], [place], [address], 3 10:08:26 Imaging None recorded. Medication Orders None recorded. Patient TargetsNo targets recorded. Patient Instructions Encounter Date Encounter Id Patient Instructions Last Modified By Organization Details Last Modified Time 01/16/2023 [id number] Patient Surgery Schedule and Instructions [facility] Not available 01/16/2023 15:16:47 Reason for Referral None Reported. Results Created Date Observation Date Name Description Value Unit Range Abnormal Flag Note LastModifiedBy Organization Detail LastModifiedTime 01/17/2001/16/2023 urina lysis , micro scopi c WBC/hpf rare 0 - 4 Not Available [facility] [address], [place], [address], 01/16/2023 15:01:55 01/17/20 23 01/16/2023 urina lysis , micro scopi c RBC/hpf 10-20 0 - 2 Not Available The [facility] [address], [place], [address], 01/16/2023 15:01:55 08/08/20 23 01/16/2023 urina lysis , micro scopi c casts/lpf 0 neg Not Available [facility] [address], [place], [address], 01/16/2023 15:01:55 01/17/20 23 01/16/2023 urina lysis , micro scopi c bacteria trace neg Not Available [facility] [address], [place], [address], 01/16/2023 15:01:55 01/17/20 23 01/16/2023 urina lysis , micro scopi c crystals 0 occ Not Available [facility] [address], [place], [address], 01/16/2023 15:01:55 01/17/20 23 01/16/2023 urina lysis , micro scopi c epith cells >40 0 - 5 Not Available [facility] [address], [place], [address], 01/16/2023 15:01:55 01/17/20 23 01/16/2023 urina lysis , micro scopi c date resulted 01/16/23 Not Available [facility] [address], [place], [address], 01/16/2023 15:01:55 01/17/20 23 01/16/2023 urina lysis , micro scopi c resulted by tk Not Available [facility] [address], [place], [address], 01/16/2023 15:01:55 01/17/20 23 01/16/2023 urina lysis , dipst ick, auto color lizet normal Not Available [facility]) [address], [place], [address], 01/16/2023 14:48:16 01/17/20 23 01/16/2023 urina lysis , dipst ick, auto clarity slight ly cloudy normal Not Available [facility] ([facility]) [address], [place], [address], 01/16/2023 14:48:16 01/17/20 23 01/16/2023 urina lysis , dipst ick, auto glucose negati ve mg/dL neg normal Not Available [facility] ([facility]) [address], [place], [address], 01/16/2023 14:48:16 01/17/20 23 01/16/2023 urina lysis , dipst ick, auto bilirubin negati ve neg normal Not Available [facility] ([facility]) [address], [place], [address], 01/16/2023 14:48:16 01/17/20 23 01/16/2023 urina lysis , dipst ick, auto ketones trace neg abnormal Not Available [facility] ([facility]) [address], [place], [address], 01/16/2023 14:48:16 01/17/20 23 01/16/2023 urina lysis , dipst ick, auto specific gravity 1.015 1-1.03 normal Not Available [facility]) [address], [place], [address], 01/16/2023 14:48:16 01/17/20 23 01/16/2023 urina lysis , dipst ick, auto blood/hemogl obin modera te joseluis/m c neg abnormal Not Available [facility] ([facility]) [address], [place], [address], 01/16/2023 14:48:16 01/17/20 23 01/16/2023 urina lysis , dipst ick, auto pH 6.0 5-9 normal Not Available [facility]) [address], [place], [address], 01/16/2023 14:48:16 01/17/20 23 01/16/2023 urina lysis , dipst ick, auto protein 30 mg/dL neg abnormal Not Available [facility]) [address], [place], [address], 01/16/2023 14:48:16 01/17/20 23 01/16/2023 urina lysis , dipst ick, auto urobilinogen 0.2 eu/dL normal normal Not Available [facility]) [address], [place], [address], 01/16/2023 14:48:16 01/17/20 23 01/16/2023 urina lysis , dipst ick, auto nitrites negati ve neg normal Not Available [facility]) [address], [place], [address], 01/16/2023 14:48:16 01/17/20 23 01/16/2023 urina lysis , dipst ick, auto leukocytes small neg abnormal Not Available [facility]) [address], [place], [address], 01/16/2023 14:48:16 02/22/20 23 02/21/2023 urina lysis , dipst ick, auto color yellow normal Not Available [facility]) [address], [place], [address], 02/21/2023 15:13:18 02/22/20 23 02/21/2023 urina lysis , dipst ick, auto clarity clear normal Not Available [facility] ([facility]) [address], [place], [address], 02/21/2023 15:13:18 02/22/20 23 02/21/2023 urina lysis , dipst ick, auto glucose negati ve mg/dL neg normal Not Available The [facility] ([facility]) [address], [place], [address], 02/21/2023 15:13:18 02/22/20 23 02/21/2023 urina lysis , dipst ick, auto bilirubin negati ve neg normal Not Available The [facility] ([facility]) [address], [place], [address], 02/21/2023 15:13:18 02/22/20 23 02/21/2023 urina lysis , dipst ick, auto ketones negati ve neg normal Not Available The [facility] ([facility]) [address], [place], [address], 02/21/2023 15:13:18 02/22/20 23 02/21/2023 urina lysis , dipst ick, auto specific gravity 1.025 1-1.03 normal Not Available The [facility] ([facility]) [address], [place], [address], 02/21/2023 15:13:18 02/22/20 23 02/21/2023 urina lysis , dipst ick, auto blood/hemogl obin small joseluis/m c neg abnormal Not Available The [facility] ([facility]) [address], [place], [address], 02/21/2023 15:13:18 02/22/20 23 02/21/2023 urina lysis , dipst ick, auto pH 7.0 5-9 normal Not Available [facility]) [address], [place], [address], 02/21/2023 15:13:18 02/22/20 23 02/21/2023 urina lysis , dipst ick, auto protein trace mg/dL neg abnormal Not Available [facility]) [address], [place], [address], 02/21/2023 15:13:18 02/22/20 23 02/21/2023 urina lysis , dipst ick, auto urobilinogen 0.2 eu/dL normal normal Not Available [facility] ([facility]) [address], [place], [address], 02/21/2023 15:13:18 02/22/20 23 02/21/2023 urina lysis , dipst ick, auto nitrites negati ve neg normal Not Available [facility]) [address], [place], [address], 02/21/2023 15:13:18 02/22/20 23 02/21/2023 urina lysis , dipst ick, auto leukocytes trace neg abnormal Not Available The [facility] ([facility]) [address], [place], [address], 02/21/2023 15:13:18 02/22/20 23 02/21/2023 urina lysis , micro scopi c WBC/hpf rare 0 - 4 Not Available [facility] [address], [place], [address], 02/21/2023 15:18:33 02/22/20 23 02/21/2023 urina lysis , micro scopi c RBC/hpf 5-10 0 - 2 Not Available [facility] [address], [place], [address], 02/21/2023 15:18:33 02/22/20 23 02/21/2023 urina lysis , micro scopi c casts/lpf 0 neg Not Available [facility] [address] , [place], [address], 02/21/2023 15:18:33 02/22/20 23 02/21/2023 urina lysis , micro scopi c bacteria trace neg Not Available The [place] [address] , [place], [address], 02/21/2023 15:18:33 02/22/20 23 02/21/2023 urina lysis , micro scopi c crystals 0 occ Not Available The [place] [address] , [place], [address], 02/21/2023 15:18:33 02/22/20 23 02/21/2023 urina lysis , micro scopi c epith cells 4 0 - 5 Not Available The [facility] [place] [address] , [place], [address], 02/21/2023 15:18:33 02/22/20 23 02/21/2023 urina lysis , micro scopi c date resulted 3 Not Available [facility] [address] , [place], [address], 02/21/2023 15:18:33 02/22/20 23 02/21/2023 urina lysis , micro scopi c resulted by tk Not Available The [place] [address] , [place], [address], 02/21/2023 15:18:33 01/17/20 23 01/12/2023 CT, abdom en + pelvi s, w/o contr ast No observ ation record ed. [email or web address] Not Available 2022 12:53:56 01/20/20 23 01/18/2023 fluor oscop y (PROC ) No observ ation record ed. [address], [address], 01/19/2023 12:25:35 05/07/20 23 05/07/2023 XR, urogr am, retro grade No observ ation record ed. [address], [address], 05/07/2023 17:10:11 Result Notes None recorded. Problems No Known Problems Procedures Surgical History Date Name Laterality Status Provider Name and Address Organization Details Recorded Time 05/11/20 23 DELORES Dangler Stent Removal completed Minoo Miles [facility] 05/11/2023 15:59:19 05/06/20 23 Cystouretero w/stone remove completed Sreedhar Flores [facility] 05/10/2023 11:31:39 01/24/20 23 DELORES Clinical Fiction Writer Note completed Isabelle Barba [facility] 01/23/2023 09:23:43 01/24/20 23 Cysto Stent Removal completed Sreedhar Flores [facility] 02/06/2023 11:06:03 01/19/20 23 Cystouretero w/stone remove [facility] 02/06/2023 11:05:49 06/11/19 21 extraction of wisdom tooth completed Minoo Miles [facility] 01/16/2023 15:14:22 Imaging Results Imaging Date Name Status LastModified by [facility] Details LastModified Time 01/12/2023 CT, abdomen + pelvis, w/o contrast completed [email or web address] Information not available 01/16/2023 12:53:56 01/18/2023 fluoroscopy (PROC) completed [address], [address], 01/19/2023 12:25:35 05/07/2023 XR, urogram, retrograde completed [address], [address], 05/07/2023 17:10:11 Procedure Notes None recorded. Medical [...] /min 120 mm[Hg] 66 mm[Hg] Halie Davies [place] - [facility] 01/16/2023 14:57:04 Date Recorded Body height Body mass index (BMI) [Percentile] Per age and sex Body mass index (BMI) Body weight Provider Name and Address Organization Details Last Updated DateTime 01/16/2023 170.18 cm 86 % 26.9 kg/m2 75264.89 g Minoo Miles [facility] 01/16/2023 15:11:14 Date Recorded Body height Body mass index (BMI) [Percentile] Per age and sex Body mass index (BMI) Body weight Heart rate Body temperature Systolic blood pressure Diastolic blood pressure Provider Name and Address Organization Details Last Updated DateTime 170.18 cm 87 % 27.4 kg/m2 94761.6 6 g 89 /min 98 [degF] 129 mm[Hg] 74 mm[Hg] Isabelle Barba [facility] 3 09:20:27 Date Recorded Body height Body mass index (BMI) [Percentile] Per age and sex Body mass index (BMI) Body weight Heart rate Body temperature Systolic blood pressure Diastolic blood pressure Provider Name and Address Organization Details Last Updated DateTime 3 156.21 cm 95 % 32.2 kg/m2 91171.4 8 g 86 /min 97.6 [degF] 105 mm[Hg] 69 mm[Hg] Minoo Miles [facility] 3 15:11:36 Date Recorded Body height Body mass index (BMI) [Percentile] Per age and sex Body mass index (BMI) Body weight Heart rate Body temperature Systolic blood pressure Diastolic blood pressure Provider Name and Address Organization Details Last Updated DateTime 3 156.21 cm 96 % 33.5 kg/m2 61679.6 3 g 89 /min 97.7 [degF] 104 mm[Hg] 71 mm[Hg] Minoo Miles [facility] 3 15:57:36 Social History Question Answer Notes LastModified by Organizat ion Details LastModified Time Tobacco Smoking Status Never Smoker [facility] 01/16/2023 15:13:47 Do You Have An Advance Directive? No [email or web address] Information not available 01/16/2023 What Is Your Level Of Caffeine Consumption? Occasional Information not available 01/16/2023 Sex: Unknown Functional Status Question Answer Note LastModified by Organization D etails LastModified Time What is your level of alcohol consumption? None [email or web address] Information not available 01/16/2023 Mental Status None recorded. Family History Relationship Description Onset Age of this Age Resolved Age Notes LastModified by Organization Details LastModified Time Mother Diabetes mellitus [email or web address] Not available 2022 15:12:02 Father Kidney stone Not avail able 01/16/2023 15:12:15 Notes:dad passed 38 from acc ident, mom passed at 50 from hepatitis from ETOH(kidneys and liver failed) Medical History Condition Response Cancer - Prostate N Coronary Artery Disease N Crohn's/Ulcerative Colitis N Gout N Spina Bifida or Myelomeningocele N Atrial Fibrillation N Kidney Stones N Benign Prostatic Hypertrophy (BPH) or En larged Prostate N MRSA N Liver Disease/Jaundice N Neurogenic Bladder N [...] N Cancer - Kidney N STD N Parkinson's Disease N Cancer - Testicular N Heart Attack/CO N Chemotherapy N Cardiac Arrhythmia N Multiple [...] SNOMED-CT Code Diagnosis ICD10 Code Diagnosis Note [id number] Roxane Curry [address] [address] 01/16/2023 14:45:54 01/18/2023 10:48:50 Urolithiasis 34822267 N20.9 Left flank pain 77895868 9 R10.9 [id number] Frankie Butts MD [address] [address] 01/23/2023 08:48:54 01/23/2023 09:27:42 Urolithiasis 47308608 N20.9 [id number] Frankie Butts MD [address] [address] 02/21/2023 14:29:54 02/23/2023 12:47:55 Kidney stone [id number] N20.0 [id number] Shreyas Gilmore MD [address] [address] 05/11/2023 15:34:25 05/11/2023 16:00:45 Health Concerns Section Related Observation LastModified by Organization Detai ls LastModified Time None Recorded Concern Status LastModified by Organization Details LastModified Time None Recorded Advance Directives Directive N: Payers Insurance Date Sequence Insurance Name Policy Number Policy Sorot Covered Member ID Sorto Member ID Guarantor Name 01/18/2023 1 [facility] () [id number] Zaire Fonseca Josephlissette [id number] Lazara Jeniffer Callie 05/11/2023 1 [facility] () Zaire Ruizlissette [id number] Lazara Ledesma Notes Date Note Type Note Provider Name and Address Organization Details Recorded Time 01/16/2023 text/html 22 year old femrenée le patient who presents today for ER follow up. She initially presented to [facility] ER on 01/12/23 due to [...] currently being evaluated for this. Roxane Curry [address] [place] [address], [phone], [facility] [place] [facility] 01/17/2023 14:26:14 02/21/2023 text/html She initially presented to [facility] ER on 01/12/23 due to [...] and 50% calcium phosphate. Frankie Butts MD [address], [address], [place] [facility] 02/22/2023 22:36:42 OBGyn Episode No OBEpisode recorded.
--- OUTSIDE RECORDS SUMMARY | 2024-10-20 17:26 | XMS_ITS | Clinical Summary ---
Author Organization 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 Take po q 12 h 3 Active albuterol 108 (90 Base) MCG/ACT Aerosol Solution take 2 Puffs by inhalation every 4 hours as needed for Wheezing or Cough. 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 Care Visit [facility] [place] [address] [facility] [place] [address] Amaury Herring, [place] Bacterial upper respiratory infection (Primary Dx) Discharge Disposition: Discharged to home or Selfcare 07/28/2024 Travel from Last 3 Months Immunizations Immunization Administration Dates Next Due DTAP VACCINE 01/14/2007, 5,07/03/2003,01/01,2002 HEP B/HIB Combined Vaccine 10/13/2003,01/01/2003 ,2002 Hepatitis A, Pediatric, Unsp ecified Formulation 02/24/2008,01/14/2007 Human Papillomavirus (HPV) 9 -valent Vaccine 07/29/2019 Human Papillomavirus Vaccine (HPV), quadrivalent 04/07/2019,01/21/2019 Inactivated Polio Vaccine 01/14/2007,,01/01/2003,10/29 Influenza Vaccine Nasal 06/20/2007 Influenza Vaccine Quadrivalent Nasal 05/05/2015, 04/03/2014,04/04/2013 Influenza Vaccine, MDCK,quad rivalent, pres free 06/25/2021 Influenza Vaccine, Quadrivalent, PF 04/05/2016 MMR Vaccine 01/14/2007,10/13/2003 Meningococcal Polysaccharide Vaccine (MPSV4) 01/21/2019 Meningococcal Vaccine 01/13/2014 Pneumococcal Vaccine Peds - 7 Valent 07/2004,07/03/2003,01/01/2003,10/29 TDAP Vaccine 01/13/2014 Tuberculin Skin Test; Riyaifi ed Protein Derivative Solutiol 12/01/2022 Varicella Vaccine Live 06/20/2007,10/13/2003 Social History Tobacco Use Types Packs/Day Years Used Date Smoking Tobacco: Never Smokeless Tobacco: Never Alcohol Use Standard Drinks/Week Comments Not Currently 0 (1 standard drink = 0.6 oz pur e alcohol) Comments No Sex and Gender Information Value Date Recorded Sex Assigned at Not on file Legal Sex Female 11:41 AM 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 Gender Identity Not on file Sexual Orientation Not on file Last Filed Vital Signs Vital Sign Reading Time Taken Comments Blood Pressure 98/78 07/28/2024 11:59 AM 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 Pulse 90 07/28/2024 11:59 AM 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 Temperature 36.9 C (98.5 F) 07/28/2024 11:59 AM 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 Respiratory Rate 16 07/28/2024 11:59 AM 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 Oxygen Saturation 99% 07/28/2024 11:59 AM 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 Inhaled Oxygen Concentration - - Weight 77.1 kg (170 lb) 07/28/2024 11:59 AM 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 Height - - Body Mass Index - - Plan of Treatment Health Maintenance Due Date Last Done Comments Hepatitis C Virus (HCV) Screening 2002 Meningococcal B Immunization (1 of 2 - Standard) 2018 Pap Smear 08/27/2023 DTaP/Tdap/Td Immunization (7 - Td or Tdap) 01/14/2024 01/13/2014, 01/14/2007, 07/13/2004, Additional history exists Influenza Immunization (#1) 02/10/202406/11, 04/05/2016, 05/05/2015, Additional history exists SARS-COV-2 Immunization ( season) 2024 06/25/2021, 11/21/2020, 10/24/2020 Respiratory Syncytial Virus (RSV) Immunization (Adult) (1 - 1-dose 75+ series) 2077 Hepatitis B Immunization Completed 004, 01/01/2003, 2002 Pneumococcal Immunization Combined Aged Out 07/13/2004, 07/03/2003, 01/01/2003, Additional history exists No longer eligible based on patient's age to complete this topic Meningococcal Immunization (ACWY) Aged Out 01/21/2019, 01/13/2014 No longer eligibl e based on patient's age to complete this topic Human Papillomavirus (HPV) Immunization Completed 07/29/2019, 04/07/2019, 01/21/2019 Rotavirus Immunization Aged Out No lo nger eligible based on patient's age to complete this topic Insurance MEDICAID [employer] Care Teams Gun Sealing Machine Operator Relationship Specialty Start Date End Date Princess Buck APRN, PHYSICAL THERAPY TECHNICIAN [address] [place] [id number] PCP - General Advanced Practice Nurse 07/28/24
[2024-10-20 17:31] LABS: BEDSIDEPREGUCG Negative (Negative)
--- OUTSIDE RECORDS SUMMARY | 2024-10-20 17:32 | XMS_ITS | Continuity of Care Document ---
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 Pract[facility] e Red Team) [facility] Practice Red Team) TELE CONSULT [id number] cac-- rt eye redness /cruste d over/it RHETT García 11/25 [facility](F [facility] Practic e Red Team) [facility] Practice Red Team) OUTPATIENT [id number] fever/ nausea/ poss insect bite to rt arm DIANA ANTONY S 02/11 Sick at Home/Quarter s [facility](F amily Practic e Red Team) [facility](Ped [facility]ric Clinic[facility] OUTPATIENT [id number] Paperwo rk to be complet ed for PCS L Heber [phone] BECK WHITTAKER 06/18 Released w/o Limitations [facility]) [facility](Ped [facility]atric Clinic) TELE CONSULT [id number] CAC - constip ation x1wk now vomitin g x3 today JHONY VARELA Mariano 08/19 [facility](P ed[facility] Clinic) [facility](Ped [facility]atric Clinic) OUTPATIENT [id number] impacti ons x 4 this week DeyviBECK DUBOSE 08/20 Released w/o Limitations [facility](P ediat[facility] c Clinic) [employer](Ped iatric Team A Non-GME) OUTPATIENT [id number] neuro check per parent request for school ZEN CORDOVA [place] 12/22 Released w/o Limitations [facility](P ediatri c Team A Non-GME ) [facility](Ped iatric Team A Non-GME) OUTPATIENT [id number] sports physicSYED Matta 01/26 Released w/o Limitations [employer] [facility] [employer](P ediatri c Team A Non-GME ) [facility](Ped iatric Team A Non-GME) OUTPATIENT [id number] NEW REFERRA L SHANNANS NEUROLO TUYET ALEX 08/19 Released w/o Limitations [employer](P ediatri c Team A Non-GME ) [facility](Ped iatric Team A Non-GME) TELE CONSULT [id number] NOT ABLE TO CONTACT PT RONY YUAN 08/30 Medical Group(P ediatri c Team A Non-GME ) [facility](Ped iatric Team A Non-GME) OUTPATIENT [id number] Sports PhysicPRISCILA Leal 02/17 Released w/o Limitations [employer](P ediatri c Team A Non-GME ) [facility](Ped iatric Team A-Non-GME ) TELE CONSULT [id number] G DIRECT REFERRA L RONY YUAN 07/03 [employer] [facility](P ediatri c Team A-Non-G ME) [facility](Ped iatric Team A-Non-GME ) TELE CONSULT [id number] Notes Entered by: BASSAM CHI 24 Oct 2011 6018 ------- ------- ------- ------- -- SPECIAL NEEDS OCTOBERDELMI Dany 10/23 [facility](P ediatri c Team A-Non-G ME) [facility](Ped iatric Team A-Non-GME ) OUTPATIENT [id number] Rosangela l Evaluat ion OCTOBERDELMI 11/06 Released w/o Limitations [employer] [facility](P ediatri c Team A-Non-G ME) [employer](Ped iatric Team A-Non-GME ) TELE CONSULT [id number] Notes Entered by: BASSAM CHI 09 Jul 2012 1527 ------- ------- ------- ------- -- MEDICAL GA VIVAS 07/09 Referred for Appointment [facility](P ediatri c Team A-Non-G ME) [employer](Ped iatric Team A-Non-GME ) OUTPATIENT [id number] pain when urinati on ALEJANDRA BENITO 08/01 Released w/o Limitations [employer] [facility](P ediatri c Team A-Non-G ME) [facility](Ped iatric Team A-Non-GME ) OUTPATIENT [id number] 11yo PRISCILA Bourgeois 09/04 Released w/o Limitations [facility](P ediatri c Team A-Non-G ME) [facility](Ped iatric Team A-Non-GME ) TELE CONSULT [id number] Notes Entered by: CARIDAD CONTRERAS 25 Sep 2012 1451 ------- ------- ------- ------- -- Network Results - Optomet ry 3 ZEN SWANSON 09/25 [facility](P ediatri c Team A-Non-G ME) [facility](Ped iatric Team A-Non-GME ) TELE CONSULT [id number] Notes Entered by: ABY COREY 08 Oct 2012 1420 ------- ------- ------- ------- -- Out-pro ABY Tong 10/08 Referred for Appointment [facility](P ediatri c Team A-Non-G ME) [facility](Ped iatric Team A-Non-GME ) OUTPATIENT [id number] FEVER, SORE THROAT, AND COUGHIN G/AYAH YIP 10/30 Released w/o Limitations [facility](P wooiatri c Team A-Non-G [place]) [employer] [place]Sco [place] [facility] Tm Blue) [facility]PAT[facility] [id number] [facility] Released w/o Limitations [employer] ([facility]S cott [facility] Tm Blue) [employer] ([facility]Sco tt [facility] Fam Res Tm Green) OUTPATIENT [id number] [facility] JEANNIE HUGHES LT 01/27 Released w/o Limitations [employer] ([facility]S cott [facility] Fam Res Tm Green) [employer] ([facility]Sco tt [facility] Fam Res Tm Green) OUTPATIENT [id number] fever, sore throat, losing voice, [phone] REUBEN KHAN 03/30 Released w/o Limitations [employer] ([facility]S cott [facility] Fam Res Tm Green) [employer] ([facility]Sco tt [facility] Fam Res Tm Red) TELE CONSULT [id number] Notes Entered by: Marian PHAN 02 Apr 2014 1734 ------- ------- ------- ------- -- Error in Rapid strep testing JOEY CARDONA 04/02 Referred for Appointment [employer] ([facility]S cott [facility] Fam Res Tm Red) [employer] [facility] [employer] ([facility]Sco tt [facility] Fam Res Tm Green) OUTPATIENT [id number] [facility] physica l - [phone] 92CYRIL DAVIS 01/12 Released w/o Limitations [address] [place] [address] Group [employer] ([facility]S [facility] Fam Res Tm Green) [address] [place] [address] [facility])(Ino [facility] Fam Res Tm Gold) TELE CONSULT [id number] Notes Entered by: ABY LYLE 27 May 2015 1513 ------- ------- ------- ------- -- Lebron / CYRIL Camara 05/[address] [place] [address] [employer] [facility] ([facility]S cott [facility] Fam Res Tm Gold) [address] [place] [address] [facility])(Ino tt [facility] Fam Res Tm Green) TELE CONSULT [id number] Notes Entered by: Mariano PHAM 01 Jun 2015 1323 ------- ------- ------- ------- -- MOP request s re evaluat ion for autism/ Justin/6 [phone] or [phone] CYRIL WEINSTEIN 06/[address] [place] [address] [facility])(S [facility] Fam Res Tm Green) Procedures Combined list of: 1) Procedures from Department of Veterans Affairs facilities going back up to thelast 18 months, not all VA non-surgical procedures are included; 2) All procedures from the Department of Defense facilities. Procedure Procedure Type Code Date Perfomer Comments [facility] e Psychiatric Evaluation Review of Records and Reports Psychiatric Evaluation Review of Records and Reports [id number] 12/31/19 10 NICK CARRENO [facility] Psychiatric Evaluation Comprehensive Examination Psychiatric Evaluation Comprehensive Examination [id number] 11/13/19 10 NEVAEH HOPKINS [facility] Psychiatric Evaluation Comprehensive Examination Psychiatric Evaluation Comprehensive Examination [id number] 08/16/19 10 CESIA AYALA [facility] PSYCHIATRIC EVALUATION OF HOSPITAL RECORDS, OTHER PSYCHIATRIC REPORTS, PSYCHOMETRIC AND/OR PROJECTIVE TESTS, AND OTHER ACCUMULATED DATA FOR MEDICALDIAGNOSTIC PURPOSES 12/31/19 10 [facility] PSYCHIATRIC DIAGNOSTIC INTERVIEW EXAMINATION 11/13/19 10 [facility] PSYCHIATRIC DIAGNOSTIC INTERVIEW EXAMINATION 08/13/19 10 [facility] No data available for this section Ambulatory Pharmacy Social History Combined list of available smoking, tobacco, and other social history from Department of Defense and Veterans Affairs facilities. Social History Type Response Date Comment Sour e This section is an empty social history section. [facility] Tobacco Never-cigarette user Cigarette use:. Never-other tobacco [...] will continue to get Abilify from her [facility] psychiatrist. Orders: Microalbumin Panel, Urine Urinalysis with Microscopic and Culture if Indicated Urine Culture Capt Camille Jack DO [facility], [facility], F[facility] [place] [employer] Addendum by SYLVAIN MENDOZA MD on April 16, 2023 08:35:47 FUR STORAGE CLERK I have reviewed the above record as preceptor for this encounter. I was available for consultation during this encounter. T he case WAS discussed with me uizw-ny-kmtv at the time of the encounter. I agree with the assessment and plan for this encounter as described above. Major Sylvain Mendoza MD, FAAFP [facility], [facility] [place] [employer] Extracted from:Title: R [...] TID,PRN:loose stool,Instr:not to exceed 40 mL/day, Pharmacy: [facility] [Not filled] Capt Camille Jack DO [facility], [facility], R [facility] [place] [employer] Addendum by SYLVAIN JAMESON MD on February 19, 2023 11:21:38 CDT I have reviewed the above record and discussed the patient with the resident renée middleton preceptor for this encounter. I was immediately a vailable in the clinic for consultation during the encounter. T he case WAS discussed with me vdma-pf-rkni at the time of the encounter. I agree with the assessment and plan for this encounter as described above. Capt Sylvain Jameson MD, Family Medicine [facility], [facility] [place] LAD[facility] Extracted from:Title: [facility]/Nephrolithiasis Author: FRANKLYN GARCIA MD [...] T he case WAS discussed with me cydn-cp-hltf at the time of the encounter. I [...] w hen she is assessed by the follow up manager. Patient has never been previously formally diagnosed with a ny form of allergy or reactive t ype condition. Patient had no further questions Addendum by SYLVAIN MENDOZA MD on September 01, 2022 09:15:09 CDT I have reviewed the above record as preceptor for this encounter. I was available for consultation during this encounter. T he case WAS discussed with me sjti-mz-ofuc at the time of the encounter. I [...] (300mg) once weekly for two weeks., Pharmacy: [facility] [Last filled 06/23/22] ketoconazole topical(ketoconazole 2% topical cream), 1 appl(s), Topical, Daily, Apply to affected areas and immediate surrounding skin once daily for 2-3 weeks., # 60 g, 0 total refill(s), Acute, 1 appl(s) Topical Daily,Instr:Apply to affected areas and immediate surrounding skin once daily for 2-3 week... Addendum by DEANDRA GUSTAFSON MD on June 27, 2022 10:17:36 FUR STORAGE CLERK I have reviewed the above record and discussed the patient with the resident a s preceptor for this encounter. I was immediately a vailable in the clinic for consultation during the encounter. T he case WAS discussed with me zsub-ax-bfvs at the time of the encounter. I [...] and prozac. Managed by Mateo Sal at [facility], Addendum by NEDA ECHAVARRIA MD on April 17, 2022 09:31:40 FUR STORAGE CLERK This encounter was indirectly supervised. I was [...] Maintenance, 1 patch(es) Topical every week, Pharmacy: [facility] [Not filled] Extracted from:Title: Ambulatory Patient [...] makes. Follow these instructions at home: Take dqwn-ufh-rbcivfq and prescription medicines only as told by [...] provider. Document Revised: 11/04/2020 Document Reviewed: 11/04/2020 [employer] Patient Education 2021 [employer] Diet for Polycystic Ovary Syndrome Polycystic [...] Low-fat or fat-free mayonnaise. Fats and oils Borden oil or canola oil. Walnuts and almonds. [...] provider. Document Revised: 11/04/2020 Document Reviewed: 11/04/2020 [employer] Patient Education 2021 [employer]. Extracted from:Title: Oligomenorrhea [facility] Author: GERMAN ZHOU NP Date: 03/03/22 1. O ligomenorrhea Pt to get labs done today (day #3 of menses) and scheduled pelvic us. Pt to f/u with me the week after u/s completed to review results and discuss plan of care. Ordered: Beta HCG Qualitative, Serum DHEA Sulfate EPI 2604 FSH and LH [id number] Prolactin [id number] Thyroid Stimulating Hormone with reflex Free T4 [...] makes. Follow these instructions at home: Take kafp-omo-scbyqnn and prescription medicines only as told by [...] provider. Document Revised: 11/04/2020 Document Reviewed: 11/04/2020 [employer] Patient Education 2021 [employer]. 10/20/[address] [place] [address] Functional Status Combined list of recent functional and cognitive assessments recorded at Department of Defense and Veterans Affairs (VA).VA Functional Grayson Measurement (FIM) Scale: 1 = Total Assistance (Subject = 0% +), 2 = Maximal Assistance (Subject = 25% +), 3 = Moderate Assistance (Subject = 50% +), 4 = Minimal Assistance (Subject = 75% +), 5 = Supervision, 6 = Modified Grayson (Device), 7 = Complete Grayson (Timely, Safely). Assessment Date/Time Source Assessment Type Assessment Skill Assessment Score Assessment Details No data available for this section
[2024-10-20 17:47] LABS: Add Urine Microscopic? YES; Appearance Urine Cloudy (Clear); Bacteria Urine 4+ /hpf; Bilirubin Urine Negative (Negative); Blood Urine Trace (Negative); Color Urine Yellow (Yellow); Glucose Urine UA Negative (Negative); Ketones Urine Trace mg/dL (Negative); Leukocyte Esterase Ur 2+ LEU/UL (Negative); Need Manual Microscopic Reviewed; Nitrate Urine Negative (Negative); Non Pathogenic Casts 0-2; Protein Urine Trace mg/dL (Negative); RBC Urine 0-2 /hpf (0-2); Specific Grav Ur 1.029 (1.001-1.035); Squamous Epithelial Cell Urine Many /hpf (Few); Urobilinogen Urine 0.2 mg/dL (<2.0); WBC Urine 21-50 /hpf (0-3)
[2024-10-20 18:04] LABS: Basophils Percent Auto 0.3 % (0.2-1.2); Eosinophils Absolute Auto 0.6 K/mm3 (0-0.3); Eosinophils Percent Auto 4.3 % (0-4.4); Hematocrit 41.1 % (37.0-47.0); Hemoglobin 12.7 g/dL (12.0-15.0); Immature Granulocyte Absolute 0.04 K/mm3 (0.00-0.031); Immature Granulocyte Percent A 0.3 % (0-0.5); Lymphocytes Absolute Auto 2.84 K/mm3 (0.9-3.2); Lymphocytes Percent Auto 21.6 % (18.3-44.2); Mean Corpuscular HGB Conc 30.9 g/dl (32-36); Mean Corpuscular Hemoglobin 23.2 pg (26-34); Mean Platelet Volume 9.8 fl (7.4-10.4); Monocytes Absolute Auto 0.7 K/mm3 (0.1-0.6); Monocytes Percent Auto 4.9 % (2.6-8.5); Neutrophils Percent Auto 68.6 % (45.5-73.1); Platelet Count Result 345 k/mm3 (150-375); Red Blood Count 5.48 M/mm3 (4.2-5.4); Red Cell Distribution Width 15.1 % (11.5-14.5); White Blood Count 13.2 K/mm3 (4.5-10.0)
[2024-10-20 18:22] LABS: Amphetamine Screen Urine Negative (Negative); Barbiturate Screen Urine Negative (Negative); Benzodiazepines Screen Urine Negative (Negative); Cannabinoid Screen Urine Positive (Negative); Cocaine Screen Urine Negative (Negative); Methadone Screen Urine Negative (Negative); Opiate Screen Urine Negative (Negative); Phencyclidine Screen Urine Negative (Negative)
[2024-10-20 18:26] LABS: Salicylate < 1.0 mg/dL (2-20)
[2024-10-20 18:27] LABS: Alanine Aminotransferase 26 U/L (6-35); Albumin Level 4.8 g/dL (3.5-5.1); Alkaline Phosphatase 79 U/L (38-126); Anion Gap 12 mmol/L (4-12); Aspartate Amino Transferase 27 U/L (14-36); Bilirubin,Total 0.2 mg/dL (0.2-1.3); Blood Urea Nitrogen 11 mg/dL (7-17); Calcium 9.5 mg/dL (8.4-10.2); Carbon Dioxide 24 mmol/L (22-30); Chloride 104 mmol/L (98-107); Estimated CRCL calculation 116 ml/min; Estimated Glomerular Filt Rate > 60; Glucose 90 mg/dL (65-110); Potassium 3.7 mmol/L (3.4-5.0); Sodium 140 mmol/L (137-145)
[2024-10-20 18:28] LABS: Acetaminophen < 10 ug/mL (10-30); Ethanol < 10 mg/dL (<10)
[2024-10-20] MEDS: CEPHALEXIN 500 MG CAPSULE PO (18:48)
--- NOTE | 2024-10-20 19:14 | PC.NURSE ---
Urine culture added on for patient.
[2024-10-20 19:28] LABS: Influenza A QL RT-PCR Negative (Negative); Influenza B QL RT-PCR Negative (Negative); RSV RNA, RT-PCR Negative (Negative); SARS-CoV-2 RNA PCR Negative (Negative)
--- NOTE | 2024-10-20 19:28 | PC.NURSE ---
Per EDP patient is medically cleared and we may call crisis.
[2024-10-20 21:39] VITALS: BP 127/67; PULSE 77; RESP 18; O2SAT 100
--- NOTE | 2024-10-21 00:33 | PC.NURSE ---
RN offered pt melatonin at this time. Pt states she wants to hold off taking it until we get more of an idea when she will leave here because it makes me foggy .
== END 2024-10-21 01:17 ==
PROVIDERS: Emergency Provider Physician Assistant; PCP Nurse Practitioner Family
DX: R45.851 Suicidal ideations (principal); N30.00 Acute cystitis without hematuria; Z20.822 Contact with and (suspected) exposure to COVID-19; E78.5 Hyperlipidemia, unspecified; F90.9 Attention-deficit hyperactivity disorder, unspecified type; Z87.442 Personal history of urinary calculi; F32.A Depression, unspecified
CPT/HCPCS: 36415; 80053; 80143; 80179; 80307; 81001; 81025; 82077; 84443; 85025; 87086; 87637; 99285; A9270

== ENCOUNTER 2025-04-16 10:22 | Emergency (ER) | payer OTHER, SELFPAY ==
--- OUTSIDE RECORDS SUMMARY | 2024-10-28 04:00 | XMS_ITS ---
Author Organization [facility] Address [address] [place] [address] Care Team Providers Care Shot Hole Shooter Name Role Phone Sidra Domingo Primary Care Provider Diony Paul Unavailable [phone] Results Component Value Reference Range Notes Test, Urine Reviewed date:10/28/2024 01:40:46 PM Interpretation:Negative Performing Lab: Notes/Report: Negative REASON FOR VISIT labs Medications Medication SIG (Take, Route, Frequency, Duration) Notes Start Date End Date Status metFORMIN HCl 500 MG 1 tablet with a bart l Orally twice a day Active hydrOXYzine HCl 25 MG 1-2 capsules Orall y every 4 hours as needed for anxiety, agitation, or inability to sleep. Do not given within 4 hours of diphenhydramine; Duration: 5 days 10/24/2024 Active Multi Vitamin - 1 tablet Orally Once a day; Duration: 30 days 10/24/2024 Active Melatonin 5 MG 1 tablet at bedtime as needed Orally Once a day; Duration: 30 days 10/24/2024 Active Vitamin D3 25 MCG (1000 UT) 1 capsule Or ally Once a day Active QUEtiapine Fumarate 100 MG 1 tablet Oral ly at bedtime Active Cephalexin 500 MG 1 capsule Orally twi ce a day Active Flonase 50 MCG/DOSE 1 spray in each nost ril Nasally Twice a day Active FLUoxetine HCl 20 MG 1 capsule Orally On ce a day Active Albuterol Sulfate HFA 108 (90 Base) MCG/ACT 1 puff as needed Inhalation every 4 hrs Active Encounters Encounter Location Date Provider Diagnosis [facility] [place] [place] [address] 10/28/2024 Diony Paul Routine general medical examination at a health care facility Z00.00 Assessments Encounter Date Diagnosis (ICD Code) Assessment Notes Treatment Notes Treatment Clinical Notes Section Notes 10/28/2024 Routine general medical examination at a health care facility (ICD-10 - Z00.00) 10/28/2024 Other Learning About the Mediterranean Diet material was printed Plan Of Treatment Treatment Notes Assessment Notes Other Learning About the M edilmaan Diet material was printed Progress Notes * Lazara LEDESMA RDOB: 3 (24 yo F)Acc No.[id number]:10/28/2024 UNLOCKED PROGRESS NOTE Patient: Lazara BLANK Provider: Arben Paul, MSN, CLOTH DESIZING RANGE TENDER, MECHANIC SENIOR-C :2000 A ge:24 Y S ex:Female Date:10/28/2024 Address:[address] [place], [place] [id number] Pcp:Sidra Domingo Check In:09:47 AM BANK CREDIT CARD COLLECTION CLERK Subjective: * Chief Complaints: * 1 . Labs. * Medical History: * Medications: T aking Vitamin D3 25 MCG (1000 UT) Capsule 1 capsule Orally Once a day , Taking QUEtiapine Fumarate 100 MG Tablet 1 tablet Orally at bedtime , Taking Flonase 50 MCG/DOSE Inhaler 1 spray in each nostril Nasally Twice a day , Taking Cephalexin 500 MG Capsule 1 capsule Orally twice a day , Taking Albuterol Sulfate HFA 108 (90 Base) MCG/ACT Aerosol Solution 1 puff as needed Inhalation every 4 hrs , Taking FLUoxetine HCl 20 MG Capsule 1 capsule Orally Once a day , Taking metFORMIN HCl 500 MG Tablet 1 tablet with a meal Orally twice a day , Taking Multi Vitamin - Tablet 1 tablet Orally Once a day , Taking hydrOXYzine HCl 25 MG Tablet 1-2 capsules Orally every 4 hours as needed for anxiety, agitation, or inability to sleep. Do not given within 4 hours of diphenhydramine , Taking Melatonin 5 MG Tablet 1 tablet at bedtime as needed Orally Once a day Objective: * Vitals: Assessment: * Assessment: 1. R outine general medical examination at a health care facility - Plan: * Treatment: 2. O thers Notes: Learning About the Mediterranean Diet material was printed * Procedure Codes: 8 1025 URINE TEST, Modifiers: QW , 21311 SPECIMEN HANDLING * * Electronic signature of Iesha Paul APRN, [id number] on 04/16/2025 at 12:26 PM BANK CREDIT CARD COLLECTION CLERK Sign off status: Pending * Provider: Arben Paul, MSN, CLOTH DESIZING RANGE TENDER, MECHANIC SENIOR-C Date: 0 10/28/2024 Generated for Roberto england/Vanessa/Tosin on: 1 06/16/2024 12:26 PM BANK CREDIT CARD COLLECTION CLERK
--- OUTSIDE RECORDS SUMMARY | 2024-10-31 07:20 | XMS_ITS ---
Author Organization [facility] Address [address] [place] [address] Care Team Providers Care Peat Shredder Tender Name Role Phone Sidra Domingo Primary Care Provider Irvin Lord [phone] REASON FOR VISIT on CRU-bilateral tingling in legs Encounters Encounter Location Date Provider Diagnosis [address] [place] [address] 10/31/2024 Irvin Lord Plan Of Treatment No Information Progress Notes * Lazara LEDESMA RDOB: 3 (24 yo F)Acc No.[id number]:10/31/2024 UNLOCKED PROGRESS NOTE Progress Note Patient: Lazara BLANK Provider: Selwyn Lord :2000 A ge:24 Y S ex:Female Date:10/31/2024 Address:[address] [place] [address], [address] [facility] Pcp:Sidra Domingo Subjective: * Chief Complaints: * 1 . on CRU-bilateral tingling in legs. * Medical History: Objective: * Vitals: Assessment: Plan: * Treatment: * * Electronic signature of Sonu Lord , [id number] on 04/16/2025 at 12:26 PM BROOM BUNDLER Sign off status: Pending * Provider: Selwyn Lord Date: 0 10/31/2024 Generated for Roberto england/Fakassieg/eTransmitting on: 1 06/16/2024 12:26 PM BROOM BUNDLER
--- OUTSIDE RECORDS SUMMARY | 2024-11-04 07:40 | XMS_ITS ---
Author Organization [facility] Address [address] [place] [address] Care Team Providers Care Skilled Trades Teacher Name Role Phone Sidra Domingo Primary Care Provider Kevin Rob [phone] REASON FOR VISIT on CRU-Psych Eval Encounters Encounter Location Date Provider Diagnosis [address] [place] [address] 11/04/2024 Kevin Rob Plan Of Treatment No Information Progress Notes * Lazara LEDESMA RDOB: 3 (24 yo F)Acc No.[id number]:11/04/2024 UNLOCKED PROGRESS NOTE Patient: Lazara BLANK Provider: Mariano Rob APN :2000 A ge:24 Y S ex:Female Date:11/04/2024 Address:[address] [place] [address], [address] [place], [id number] Pcp:Sidra Domingo Subjective: * Chief Complaints: * 1 . on CRU-Psych Eval. * Medical History: Objective: * Vitals: Assessment: Plan: * Treatment: * * Electronic signature of Kevin Rob on 04/16/2025 at 12:26 PM AUTO MECHANIC SUPERVISOR Sign off status: Pending * Provider: Mariano Rob APN Date: 0 11/04/2024 Generated for Roberto ng/Reneeg/eTransmitting on: 1 06/16/2024 12:26 PM AUTO MECHANIC SUPERVISOR
--- NOTE | ~2025-04-16 | XR_ITS ---
EXAMINATION: XR chest 2V, 04/16/2025 13:00 CONTINUOUS IMPROVEMENT BLACK BELT HISTORY: cough, ASTHMA ATTACK COMPARISON: No comparisons available. Technique: 2 views obtained. Findings: The lungs are clear, no effusion. No pneumothorax. Heart is normal size. Mediastinal and hilar contours are within normal limits. Bony thorax no acute abnormality. Impression: No acute cardiopulmonary abnormality. Reviewed, dictated and finalized at location P. INUOUS IMPROVEMENT BLACK BELT Impression: No acute cardiopulmonary abnormality.
[2025-04-16 10:25] VITALS: BP 137/105; PULSE 107; RESP 20; TEMP 37.1; O2SAT 100
[2025-04-16 12:03] VITALS: BP 114/77; PULSE 93; RESP 18; O2SAT 100
[2025-04-16 12:04] VITALS: O2SAT 100
--- NOTE | 2025-04-16 12:48 | ED_ITS ---
HPI - Asthma General Chief Complaint: Asthma Stated Complaint: asthma attack Time Seen by Provider: 04/16/25 12:01 History of Present Illness HPI Narrative: This is a 24-year-old female with history of exercise-induced asthma who presents the ED for asthma attack. Patient states that she was at work at the [employer] and she thinks there was some dust in the air she was walking a little bit longer than x-ray which began have shortness of breath and a cough. She did not have an inhaler on her and no one at work had 1 either so EMS was called. She got a DuoNeb in route and has been feeling better since then. She did wake up with a cough this morning but has otherwise been feeling well. Related Data Home Medications ?Medication ?Instructions ?Recorded ?Confirmed ?Last Taken ?Type albuterol sulfate 90 mcg/actuation 1 puff inhalation Q 4H PRN 06/12/23 02/03/25 Unknown History aerosol inhaler Shortness Of Breath atomoxetine 25 mg capsule 25 mg PO DAILY 01/06/2501/10 Unknown History cholecalciferol (vitamin D3) PO DAILY 01/06/25 5 Unknown History fluoxetine 20 mg capsule (Prozac) 20 mg PO DAILY 01/0602/03/25 Unknown History fluticasone propionate inhalation BID 01/06/2501/10 Unknown History gabapentin 100 mg capsule 100 mg PO BID 01/06/2502/03 Unknown History multivitamin 1 tablet PO DAILY 01/06/25 0 02/03/25 Unknown History Allergies Allergy/AdvReac Type Severity Reaction Status Date / Time No Known Allergies Allergy Verified 04/16/25 10:27 Review of Systems Review of Systems: Gen.: Denies fevers or chills Eyes: Denies eye pain or visual change ENT: Denies congestion Respiratory: As per HPI CV: Denies chest pain or palpitations GI: Denies abdominal pain nausea, emesis or diarrhea denies burning, urgency, frequency or hematuria Musculoskeletal: Denies back pain or muscle pain Neuro: Denies numbness, tingling, weakness or focal weakness Skin: Denies rash Except as documented, all other systems reviewed and negative [facility] Past Medical History Medical History Anemia BMI 31.0-31.9,adult Hypersomnia Peripheral neuropathy Benign essential tremor Peripheral neuropathy Autistic disorder Vitamin D deficiency Paresthesia and pain of extremity Hypertriglyceridemia Elevated liver enzymes Eosinophilic esophagitis Night sweats Chest x-ray 01/14/2024 unremarkable. Tremor of both hands Right knee pain Left knee pain Paresthesia of both hands Paresthesia of both feet Dizziness Palpitations PTSD (post-traumatic stress disorder) Low serum parathyroid hormone (PTH) Left hand pain Hand edema Arthralgia of multiple joints Hyperlipidemia Hypercalcemia ADHD Recurrent kidney stones Dysphagia Fatigue Snoring Exercise-induced asthma Paresthesia Tremor Encounter to establish care Enlarged thyroid BMI 30.0-30.9,adult History of kidney stones PCOS (polycystic ovarian syndrome) Acid reflux BMI 27.0-27.9,adult ADD (attention deficit disorder) BMI 26.0-26.9,adult BMI 25.0-25.9,adult Anxiety Post-traumatic stress disorder, unspecified 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 Social History Social History Alcohol intake: current Alcohol use details: RARE OCCASIONS Substance use: current Substance use type: does not use Other substance usage details: OCCASIONALLY FOR PAIN Do You Feel Safe in your Home?: Yes Lack of Transportation: No Lack of Food: Never True Current Housing: I Have Housing Concerned About Future Housing: No Difficulty Paying Gas/Electric Bills: No Difficulty Paying for Meds: No Currently Unemployed: YES Education: High School Diploma/GED Living arrangements: with family Additional living arrangements comments: LIVES WITH SISTER Occupation/Education: occupation 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 CARDIOVASCULAR: Regular rate and rhythm without murmurs rubs or gallops. ABDOMINAL: Soft, nontender, nondistended, no rebound or guarding MUSCULOSKELETAl: Moves all extremities. No clubbing, cyanosis or edema. NEURO: Awake and alert. Following commands, speech normal, no focal deficits SKIN:: Warm, dry. No rashes lesions or abrasions PSYCHIATRIC: Normal affect/mood, Course Vital Signs Vital signs: Vital Signs Temperature 98.7 F 04/16/25 10:25 Pulse Rate 107 H 04/16/25 10:25 Respiratory Rate 20 04/16/25 10:25 Blood Pressure 137/105 H 04/16/25 10:25 Pulse Oximetry 100 04/16/25 10:25 Oxygen Delivery Room Air 04/16/25 10:25 Temperature 98.7 F 04/16/25 10:25 Pulse Rate 93 04/16/25 12:03 Respiratory Rate 18 04/16/25 12:03 Blood Pressure 114/77 04/16/25 12:03 Pulse Oximetry 100 04/16/25 12:04 Oxygen Delivery Room Air 04/16/25 12:04 MDM - Asthma MDM Narrative Medical decision making narrative: 24-year-old female Presenting for shortness of breath and asthma exacerbation. On initial evaluation patient was in no acute distress afebrile, hemodynamic stable. Differentials include but are not limited to: ACS, CHF Exacerbation, COPD exacerbation, PE, PNA, PTX, bronchitis, viral syndrome Notable exam findings: No respiratory distress or wheezes there was mildly diminished breath sounds throughout. Notable imaging findings: Chest x-ray showed no acute process Patient had received a DuoNeb by EMS. By the time she was evaluated in the ED, she had near resolution of her symptoms. She does have exercise-induced asthma but I believe that she had a multitude of clotting factors that caused her asthma exacerbation today. She will be given a short course of steroids. She was given a refill of her albuterol inhaler. She was advised follow-up with her PCP in the next week for re-evaluation. Patient was agreeable to this plan. Given strict return precautions. Medical Records Attestation: I reviewed the patient's medical records. Imaging Data Attestation: I personally reviewed and interpreted this imaging study as follows: My impression: Chest x-ray: Normal cardiac silhouette, no consolidations, no pleural effusions, no pulmonary vascular congestion Radiologist's impression: Impressions Chest X-Ray 04/16/25 13:08 Impression: No acute cardiopulmonary abnormality. Discharge Plan Discharge Clinical Impression: Asthma exacerbation Qualifiers: Asthma severity: mild Asthma persistence: unspecified Qualified Code(s): J45.901 - Unspecified asthma with (acute) exacerbation Patient Disposition: Home Condition: Stable Instructions: Antibiotic Form, Asthma (ED) Additional Instructions: I suspect the had an asthma exacerbation due to change of season allergies, and working environment with exercise. Use your albuterol inhaler as prescribed. Take the Medrol Dosepak as prescribed. Follow-up with your PCP in the next week for re-evaluation. Return to the ED for any new or worsening symptoms. Patient Language: Nicaraguan Prescriptions: New albuterol sulfate 90 mcg/actuation aerosol powdr breath activated 2 inh inhalation Q4-6H PRN (Reason: shortness of breath or wheezing) Qty: 1 0RF methylprednisolone [Medrol (Conrad)] 4 mg tablets,dose pack See Rx Instructions .ROUTE .COMPLEX Qty: 21 0RF Rx Instructions: for 6 days No Action albuterol sulfate 90 mcg/actuation HFA aerosol inhaler 1 puff inhalation Q4H PRN (Reason: Shortness Of Breath) buspirone 5 mg tablet 5 mg PO BID Qty: 90 0RF Rx Instructions: start 5mg 2x/day and increase by 5mg every 5 days to max 15mg BID. Call for refill metformin 500 mg tablet 500 mg PO BID Qty: 60 11RF fluticasone propionate inhalation BID cholecalciferol (vitamin D3) PO DAILY gabapentin 100 mg capsule 100 mg PO BID fluoxetine [Prozac] 20 mg capsule 20 mg PO DAILY atomoxetine 25 mg capsule 25 mg PO DAILY multivitamin Tablet 1 tablet PO DAILY quetiapine 100 mg tablet 100 mg PO QHS Qty: 30 0RF Follow-up/Referrals: Princess Buck APRN [Primary Care Provider, Family Practice]
--- OUTSIDE RECORDS SUMMARY | 2025-04-16 18:36 | XMS_ITS | Data Portability ---
Author Organization [place] - [facility], [place] [address] Care Team Providers Care Shuttle Hand Name Role Phone JOLIE FRANK Referring Provider Assessment Encounter Date Assessment Date [...] recorded. Lab urinalysis, dipstick, auto 2022 023 [facility] ([facility]), [address], [address], [place], [address], 15:37:39 urinalysis, microscopic 2022 023 [email or web address] [facility], [address], [place], [address], 3 15:27:08 urinalysis, dipstick, auto 2022 023 [email or web address] [facility] ([facility]), [address], [address], [place], [address], 3 15:16:02 urinalysis, microscopic 2022 023 [email or web address] [facility], [address], [place], [address], 3 15:16:02 Referral None recorded. Procedures None recorded. Surgeries ureteroscop y with stone basket extraction, holmium laser fragmentati on (SURG) 2022 023 [email or web address] [facility], [address], [place], [address], 3 10:08:26 Imaging None recorded. Medication Orders None recorded. Patient TargetsNo targets recorded. Patient Instructions Encounter Date Encounter Id Patient Instructions Last Modified By Organization Details Last Modified Time 01/16/2023 [id number] Patient Surgery Schedule and Instructions [email or web address] Not available 01/16/2023 15:16:47 Reason for Referral None Reported. Results Created Date Observation Date Name Description Value Unit Range Abnormal Flag Note LastModifiedBy Organization Detail LastModifiedTime 01/17/2001/16/2023 urina lysis , micro scopi c WBC/hpf rare 0 - 4 Not Available [facility] [address], [place], [address], 01/16/2023 15:01:55 01/17/20 23 01/16/2023 urina lysis , micro scopi c RBC/hpf 10-20 0 - 2 Not Available [facility] [address], [place], [address], 01/16/2023 15:01:55 01/17/20 23 01/16/2023 urina lysis , micro scopi c casts/lpf 0 neg Not Available [facility] [address] , [place], [address], 01/16/2023 15:01:55 01/17/20 23 01/16/2023 urina lysis , micro scopi c bacteria trace neg Not Available The [facility] [address] , [place], [address], 01/16/2023 15:01:55 01/17/20 23 01/16/2023 urina lysis , micro scopi c crystals 0 occ Not Available [facility] [address] , [place], [address], 01/16/2023 15:01:55 01/17/20 23 01/16/2023 urina lysis , micro scopi c epith cells >40 0 - 5 Not Available The [facility] [address] , [place], [address], 01/16/2023 15:01:55 01/17/20 23 01/16/2023 urina lysis , micro scopi c date resulted 01/16/23 Not Available [facility] [address] , [place], [address], 01/16/2023 15:01:55 01/17/20 23 01/16/2023 urina lysis , micro scopi c resulted by tk Not Available [facility] [address] , [place], [address], 01/16/2023 15:01:55 01/17/20 23 01/16/2023 urina lysis , dipst ick, auto color lizet normal Not Available [facility] ([facility]) [address], [place], [address], 01/16/2023 14:48:16 01/17/20 23 01/16/2023 urina lysis , dipst ick, auto clarity slight ly cloudy normal Not Available [facility] ([facility]) [address] [facility] [address], [place], [address], 01/16/2023 14:48:16 01/17/20 23 01/16/2023 urina lysis , dipst ick, auto glucose negati ve mg/dL neg normal Not Available [facility] ([facility]) [address] [facility] [address], [place], [address], 01/16/2023 14:48:16 01/17/20 23 01/16/2023 urina lysis , dipst ick, auto bilirubin negati ve neg normal Not Available [facility] ([facility]) [address] [facility] [address], [place], [address], 01/16/2023 14:48:16 01/17/20 23 01/16/2023 urina lysis , dipst ick, auto ketones trace neg abnormal Not Available [facility] ([facility]) [address] [facility] [address], [place], [address], 01/16/2023 14:48:16 01/17/20 23 01/16/2023 urina lysis , dipst ick, auto specific gravity 1.015 1-1.03 normal Not Available [facility]) [address] [facility] [address], [place], [address], 01/16/2023 14:48:16 01/17/20 23 01/16/2023 urina lysis , dipst ick, auto blood/hemogl obin modera te joseluis/m c neg abnormal Not Available [facility] ([facility]) [address] [facility] [address], [place], [address], 01/16/2023 14:48:16 01/17/20 23 01/16/2023 urina lysis , dipst ick, auto pH 6.0 5-9 normal Not Available [facility] ([facility]) [address] [facility] [address], [place], [address], 01/16/2023 14:48:16 01/17/20 23 01/16/2023 urina lysis , dipst ick, auto protein 30 mg/dL neg abnormal Not Available [facility] ([facility]) [address] [facility] [address], [place], [address], 01/16/2023 14:48:16 01/17/20 23 01/16/2023 urina lysis , dipst ick, auto urobilinogen 0.2 eu/dL normal normal Not Available [facility]) [address] [facility] [address], [place], [address], 01/16/2023 14:48:16 01/17/20 23 01/16/2023 urina lysis , dipst ick, auto nitrites negati ve neg normal Not Available [facility] ([facility]) [address] [facility] [address], [place], [address], 01/16/2023 14:48:16 01/17/20 23 01/16/2023 urina lysis , dipst ick, auto leukocytes small neg abnormal Not Available [facility]) [address] [facility] [address], [place], [address], 01/16/2023 14:48:16 02/22/20 23 02/21/2023 urina lysis , dipst ick, auto color yellow normal Not Available [facility] ([facility]) [address] [facility] [address], [place], [address], 02/21/2023 15:13:18 02/22/20 23 02/21/2023 urina lysis , dipst ick, auto clarity clear normal Not Available [facility] ([facility]) [address] [facility] [address], [place], [address], 02/21/2023 15:13:18 02/22/20 23 02/21/2023 urina lysis , dipst ick, auto glucose negati ve mg/dL neg normal Not Available [facility] ([facility]) [address], [place], [address], 02/21/2023 15:13:18 02/22/20 23 02/21/2023 urina lysis , dipst ick, auto bilirubin negati ve neg normal Not Available [facility] ([facility]) [address], [place], [address], 02/21/2023 15:13:18 02/22/20 23 02/21/2023 urina lysis , dipst ick, auto ketones negati ve neg normal Not Available [facility] ([facility]) [address], [place], [address], 02/21/2023 15:13:18 02/22/20 23 02/21/2023 urina lysis , dipst ick, auto specific gravity 1.025 1-1.03 normal Not Available [facility]) [address], [place], [address], 02/21/2023 15:13:18 02/22/20 23 02/21/2023 urina lysis , dipst ick, auto blood/hemogl obin small joseluis/m c neg abnormal Not Available [facility] ([facility]) [address], [place], [address], 02/21/2023 15:13:18 02/22/20 23 02/21/2023 urina lysis , dipst ick, auto pH 7.0 5-9 normal Not Available [facility] ([facility]) [address], [place], [address], 02/21/2023 15:13:18 02/22/20 23 02/21/2023 urina lysis , dipst ick, auto protein trace mg/dL neg abnormal Not Available [facility] ([facility]) [address], [place], [address], 02/21/2023 15:13:18 02/22/20 23 02/21/2023 urina lysis , dipst ick, auto urobilinogen 0.2 eu/dL normal normal Not Available [facility]) [address], [place], [address], 02/21/2023 15:13:18 02/22/20 23 02/21/2023 urina lysis , dipst ick, auto nitrites negati ve neg normal Not Available [facility] ([facility]) [address] [facility] [address], [place], [address], 02/21/2023 15:13:18 02/22/20 23 02/21/2023 urina lysis , dipst ick, auto leukocytes trace neg abnormal Not Available [facility] ([facility]) [address] [facility] [address], [place], [address], 02/21/2023 15:13:18 02/22/20 23 02/21/2023 urina lysis , micro scopi c WBC/hpf rare 0 - 4 Not Available [facility] [address] , [place], [address], 02/21/2023 15:18:33 02/22/20 23 02/21/2023 urina lysis , micro scopi c RBC/hpf 5-10 0 - 2 Not Available [facility] [address] , [place], [address], 02/21/2023 15:18:33 02/22/20 23 02/21/2023 urina lysis , micro scopi c casts/lpf 0 neg Not Available [facility] [place] [address] , [place], [address], 02/21/2023 15:18:33 02/22/20 23 02/21/2023 urina lysis , micro scopi c bacteria trace neg Not Available The [place] [address] [place] [address], [place], [address], 02/21/2023 15:18:33 02/22/20 23 02/21/2023 urina lysis , micro scopi c crystals 0 occ Not Available The [address], [place], [address], 02/21/2023 15:18:33 02/22/20 23 02/21/2023 urina lysis , micro scopi c epith cells 4 0 - 5 Not Available The [facility] [address], [address], 02/21/2023 15:18:33 02/22/20 23 02/21/2023 urina lysis , micro scopi c date resulted 3 Not Available [facility] [address], [address], 02/21/2023 15:18:33 02/22/20 23 02/21/2023 urina lysis , micro scopi c resulted by tk Not Available The [address], [address], 02/21/2023 15:18:33 01/17/20 23 01/12/2023 CT, abdom en + pelvi s, w/o contr ast No observ ation record ed. [email or web address] Not Available 2022 12:53:56 01/20/2001/18/2023 fluor oscop y (PROC ) No observ ation record ed. [email or web address] [facility] [address] [facility], [place], [address], 01/19/2023 12:25:35 05/07/20 23 05/07/2023 XR, urogr am, retro grade No observ ation record ed. [email or web address] [facility] [address] [facility], [place], [address], 05/07/2023 17:10:11 Result Notes None recorded. Problems No Known Problems Procedures Surgical History Date Name Laterality Status Provider Name and Address Organization Details Recorded Time 05/11/20 23 DELORES Dangler Stent Removal completed Minoo Miles [facility] 05/11/2023 15:59:19 05/06/20 23 Cystouretero w/stone remove completed Sreedhar Flores [facility] 05/10/2023 11:31:39 01/24/20 23 DELORES Clinical Rooms Director Note completed Isabelle Barba [facility] 01/23/2023 09:23:43 01/24/20 23 Cysto Stent Removal completed Sreedhar Flores [facility] 02/06/2023 11:06:03 01/19/20 23 Cystouretero w/stone remove completed Sreedhar Flores [facility] 02/06/2023 11:05:49 06/11/19 21 extraction of wisdom tooth completed Minoo Miles [facility] 01/16/2023 15:14:22 Imaging Results None recorded. Procedure Notes None recorded. Medical Equipment None Reported. Allergies No known drug allergies Medications Name Sig Start Date Stop Date Status Note LastModified by Organization Details LastModified Time primidone 50 mg tablet 02/21 completed Not Available Not Available Not Available azithromyci n 250 mg tablet TAKE TWO TABLETS BY MOUTH ONE DOSE ON THE FIRST DAY, THEN TAKE ONE DAILY THEREAFTE R. active Not Available Not Available No [...] 01/16/2023 170.18 cm 86 % 26.9 kg/m2 67212.89 g [facility]inoo Miles [facility] 01/16/2023 15:11:14 Date Recorded Body temperature Heart rate Systolic And Diastolic Provider Name and Address Organization Details Last Updated DateTime 01/16/2023 98.3 [degF] 88 /min 120/66 mm[Hg] Denise Davies [facility] 01/16/2023 14:57:04 Date Recorded Body height Body mass index (BMI) [Percentile] Per age and sex Body mass index (BMI) Body weight Heart rate Body temperature Systolic And Diastolic Provider Name and Address Organization Details Last Updated DateTime 3 170.18 cm 87 % 27.4 kg/m2 59032.6 6 g 89 /min 98 [degF] 129/74 mm[Hg] Isabelle Barba [facility] 3 09:20:27 Date Recorded Body height Body mass index (BMI) [Percentile] Per age and sex Body mass index (BMI) Body weight Heart rate Body temperature Systolic And Diastolic Provider Name and Address Organization Details Last Updated DateTime 3 156.21 cm 95 % 32.2 kg/m2 65479.4 8 g 86 /min 97.6 [degF] 105/69 mm[Hg] Minoo Miles [facility] 3 15:11:36 Date Recorded Body height Body mass index (BMI) [Percentile] Per age and sex Body mass index (BMI) Body weight Heart rate Body temperature Systolic And Diastolic Provider Name and Address Organization Details Last Updated DateTime 3 156.21 cm 96 % 33.5 kg/m2 63147.6 3 g 89 /min 97.7 [degF] 104/71 mm[Hg] Minoo Miles [place] [facility] 15:57:36 Social History Question Answer Notes LastModified by Organizat ion Details LastModified Time Tobacco Smoking Status Never Smoker Minoo LADI [facility] [facility] 01/16/2023 15:13:47 Do You Have An Advance Directive? No [email or web address] Information not available 01/16/2023 What Is Your Level Of Caffeine Consumption? Occasional [email or web address] Information not available 01/16/2023 Sex: Unknown Functional Status Question Answer Note LastModified by Organization D etails LastModified Time What is your level of alcohol consumption? None [email or web address] Information not available 01/16/2023 Mental Status None recorded. Family History Relationship Description Onset Age of this Age Resolved Age Notes LastModified by Organization Details LastModified Time Mother Diabetes mellitus [email or web address] Not available 2022 15:12:02 Father Kidney stone [email or web address] Not avail able 01/16/2023 15:12:15 Notes:dad passed [...] - Testicular N Parkinson's Disease N Heart Attack/ID N Chemotherapy N Cardiac Arrhythmia N Multiple [...] Diagnosis SNOMED-CT Code Diagnosis ICD10 Code Diagnosis IMO Codes Diagnosis Note [id number] Roxane Curry [address] [address] 01/16/2023 14:45:54 01/18/2023 10:48:50 Urolithiasis 44458916 N20.9 Left flank pain 44334328 9 R10.9 [id number] Frankie Butts MD [address] [address] 01/23/2023 08:48:54 01/23/2023 09:27:42 Urolithiasis 83866040 N20.9 [id number] Frankie Butts MD [address] [address] 02/21/2023 14:29:54 02/23/2023 12:47:55 Kidney stone 55643216 N20.0 [id number] Shreyas Gilmore MD [address] [address] 05/11/2023 15:34:25 05/11/2023 16:00:45 Health Concerns Section Related Observation LastModified by Organization Detai ls LastModified Time None Recorded Concern Status LastModified by Organization Details LastModified Time None Recorded Advance Directives Directive N: Payers Insurance Date Sequence Insurance Name Policy Number Policy Sorto Covered Member ID Sorto Member ID Guarantor Name 01/18/2023 1 [employer] () [id number] Zaire Ledesma [id number] Lazara Ledesma 05/11/2023 1 [place] [employer] () Zaire Ledesma [id number] Lazara Ledesma Notes Date Note Type Note Provider Name and Address Organization Details Recorded Time 01/16/2023 text/html ROS as noted in the HPI 22 year old female patient who presents today for ER follow up. She initially presented to [facility] ER on 01/12/23 due to severe [...] currently being evaluated for this. Roxane Curry [address], [address], [facility] 01/17/2023 14:26:14 02/21/2023 text/html ROS as noted in the HPI She initially presented to [facility] ER on 01/12/23 due to severe [...] 50% calcium phosphate. Frankie Butts MD [address], [address], [facility] 02/22/2023 22:36:42 OBGyn Episode No OBEpisode recorded.
--- OUTSIDE RECORDS SUMMARY | 2025-04-16 18:36 | XMS_ITS | Encounter Summary ---
Author Organization [facility] Address [address] [place] [address] [place] [address] Care Team Providers Care Game Artist Name Role Phone Unavailable Primary Care Provider Unavailabl e Encounter Details Date Type Department Care Team (Late st Contact Info) Description 01/22/2024 Lab Requisition [facility] - Pathology Lab [address] [place] [address] Bri Mendoza MD [address] [facility] [address] Enlarged lymph nodes, unspecified Social History Tobacco [...] AM CDT) Case Report Flow Cytometry Case: [id number] Authorizing Provider: Bri Mendoza MD Collected: 01/22/2024 10:00 AM Ordering Location: [facility] - Received: 01/22/2024 02:01 PM Pathology Lab Pathologist: Peter Greenwood MD Specimen: Axillary Lymph Node, Left Axillary 01/23/2024 8:13 AM CDT [facility] Final Diagnosis Axillary lymph node, flow cytometric immunophenotypic analysis: - No diagnostic evidence of non-Hodgkin T-cell or B-cell lymphoma. - See interpretation. 01/23/2024 8:13 AM [facility] PATHOLOGY LAB at [address] [facility] Flow Cytometry Interpretation Viability: 71% Lymphocytes: 99% B-cells: 37% of the lymphocytes, polytypic, kappa:lambda ratio 1.56:1 T-cells: 61% % of the lymphocytes, no immunophenotypic aberrancy detected based on the markers performed, CD4:CD8 ratio 1.57:1 Dim CD45 region: 0%. No blasts are identified Granulocytes: 1% A cytospin prepared from the flow cytometry specimen has been reviewed for water quality control engineer purposes. 01/23/2024 8:13 AM [facility] Flow Cytometry Results Differential Result Comment Flow Cell Count /uL 4,200 Total Viability % 71.0 Lymphocytes % 99 Dim CD45 Region % 0 Monocytes % 0 Granulocytes % 1 01/23/2024 8:13 AM [facility] Reason for test Enlarged lymph nodes, unspecified 01/23/2024 8:13 AM [facility] Client Specimen ID # [id number] 01/23/2024 8:13 AM [facility] Number of markers 16 were performed. A-2 Flow CD3 A-4 Flow CD10 A-6 Flow CD20 A-7 Flow CD23 A-12 Flow CD2 A-13 Flow CD4 A-16 Flow CD1a A-3 Flow CD5 A-5 Flow CD19 A-8 Flow CD34 A-9 Flow CD45 A-14 Flow CD7 A-15 Flow CD8 A-17 Flow CD30 A-10 [place]+CD19+ A-11 Lambda+CD19+ 01/23/2024 8:13 AM [facility] Pathologist Location at [facility] 01/23/2024 8:13 AM [facility] LAB Disclaimer Test performed at [facility], [address] [place] [address], [id number]. *The established laboratory minimum viability is 70%. [...] complexity clinical testing. 01/23/2024 8:13 AM CDT [facility] Embedded Images 8:13 AM CDT [facility] Pathology/Cytolo gy AXILLARY LYMPH NODE STRUCTURE / Unknown 01/22/2024 10:00 AM CDT 01/22/2024 2:01 PM CDT Bri Mendoza MD LAB - PATHOLOGY/CYTOLOGY OR DERABLES Final Result [facility] [address] [phone] documented in this encounter Visit Diagnoses Diagnosis Enlarged lymph nodes, unspecified documented in this encounter
--- OUTSIDE RECORDS SUMMARY | 2025-04-16 18:36 | XMS_ITS | Data Portability ---
Author Organization [facility] Address [address] [place] [address] Care Team Providers Care Taker Away Name Role Phone TIM POON Primary Care [...] None recorded. Lab prolactin, serum 2023 024 [facility] (Lab), [address] [place], [address], 4 23:59:03 FSH (follicle-s timulating hormone), serum 2023 024 [facility] (Lab), [address] [place], [address], 4 23:59:04 estradiol, serum 2023 024 [facility] (Lab), [address], [place], [address], 4 23:59:03 lh (luteinizin g hormone), serum 2023 024 [facility] (Lab), [address] [place], [address], 4 23:59:04 17-hydroxyp rogesterone , QN, serum 2023 024 [facility] (Lab), [address] [facility] [address] [facility], [place], [address], 4 23:59:05 HbA1c (hemoglobin A1c), blood 2023 024 [facility] (Lab), [address], [place], [address], 4 23:59:05 testosteron e, total, serum 2023 024 [facility] (Lab), [address], [place], [address], 4 23:59:02 Referral None recorded. Procedures None recorded. Surgeries None recorded. Imaging US, axilla - left 2023 [facility], [address] [place] [address], [place], [address], 12:02:26 US, transvagina l [address], [address], [place], [address], 22:38:19 US, pelvis 2023 [address], [address], [place], [address], 4 15:20:44 US, transvagina l 2023 [address], [place], [address], 4 15:20:44 Medication Orders Prometrium 200 mg capsule 2023 024 [id number], [address] [facility], [place], [place], [id number], 17:38:58 Provera 10 mg tablet 2023 024 [id number], [address], [place], [id number], 4 10:21:42 Patient TargetsNo targets recorded. Patient [...] [id number] Autho melvina alvarez Provi shlioh: Markel Shukla Colle cted: 09/02 0805 [employer] WORK[employer] Order ing Locat ion: [place] Patho logy [...] as clini chema curran nted. Not Available [facility] (Lab) [address] [place], [address], 09/05/2023 22:02:42 09/03/19 24 09/03/2023 TRICH OMONA S VAGIN BRONWYN (RRNA ) trichomonas vaginalis ribosomal RNA (rrna) Negati ve negati ve Not Available [facility] (Lab) [address] [place], [address], 09/05/2023 22:02:42 09/03/19 24 09/03/2023 CT/GC (HEYDI) , THINP REP VIAL chlamydia trachomatis, PCR Negati ve negati ve Not Available [facility] (Lab) [address] [place], [address], 09/05/2023 22:02:43 09/03/19 24 09/03/2023 CT/GC (HEYDI) , THINP REP VIAL neisseria gonorrhoeae, PCR Negati ve negati ve Not Available [facility] (Lab) [address] [facility], [place], [address], 09/05/2023 22:02:43 09/17/19 24 09/17/2023 TESTO STERO NE, TOTAL testosterone , total 90 NG/dL 0-100 Not Available [facility] (Lab) [address], [place], [address], 09/20/2023 23:59:02 09/17/19 24 09/17/2023 ESTRA DIOL [...] 154-3 243 pg/mL 2nd Trime ster 1561- 21502 pg/mL 3rd Trime ster 8525- >3000 0 pg/mL Not Available [facility] (Lab) [address], [place], [address], 09/20/2023 23:59:03 09/17/19 24 09/17/2023 PROLA CTIN prolactin, total 40.30 NG/mL 4.79-2 3.30 high This assay was perfo rmed using [employer] n reage nts and test kits. Value s obtai yaneth with other assay metho ds or kits canno t be used inter joyce eably . Not Available [facility] (Lab) [address], [place], [address], 09/20/2023 23:59:03 09/17/19 24 09/17/2023 LH (LUTE NIZIN G HORMO NE) LH 16.7 mIU/m L This assay was perfo rmed using [employer] reage nts and test kits. Value s obtai yaneth with other assay metho ds or kits canno t be used inter [facility] . Femal es Mid-F ollic ular: 2.4-1 2.6 mIU/m L Mid-C ycle: 14.0- 95.6 mIU/m L Mid-L uteal : 1.0-1 1.4 mIU/m L Postm enopa use: 7.7-5 8.5 mIU/m L Not Available [facility] (Lab) [address], [place], [address], 09/20/2023 23:59:04 09/17/19 24 09/17/2023 FSH FSH 5.9 mIU/m L This assay was perfo rmed using [employer] reage nts and test kits. Value s obtai yaneth with other assay metho ds or kits canno t be used inter [facility] . Femal es Folli cular : 3.5-1 2.5 mIU/m L Ovula tion: 4.7-2 1.5 mIU/m L Lutea l: 1.7-7 .7 mIU/m L Postm enopa use: 25.8- 134.8 mIU/m L Not Available [facility] (Lab) [address], [place], [address], 09/20/2023 23:59:04 09/17/19 24 09/17/2023 HEMOG LOBIN A1C hemoglobin A1C 6.0 % 0-5.6 high The Ameri can [employer] maylin [employer] iatio n recom mends that a prima ry goal of thera renata gregorio d be a HBA1C of < 7% and that physi cians jg d reeva luate the treat ment regim en in patie nts with HBA1C value s consi stent ly > 8%. <5.7% Lilia l 5.7 - 6.4% Incre ased risk for diabe maylin >=6.5 % Diagn ostic of diabe maylin <7.0% Goal of thera py >8.0% Actio n sugge sted Not Available [facility] (Lab) [address], [place], [address], 09/20/2023 23:59:05 09/17/19 24 09/17/2023 17-OH PROGE [...] ses. Perfo rming Organ izati on Infor matio n: Site ID: [id number] Name: [facility] , Addre ss: [id number] [place] [address] Direc tor: Licha clayton MD,Ph D,GABRIELLA Not Available [facility] (Lab) [address], [place], [address], 09/20/2023 23:59:05 10/04/19 24 10/04/2023 GTT- NON GESTA ANALIA L, 2 HOUR glucose, fasting 77 mg/dL 70-100 Not Available [facility] (Lab) [address] [place], [address], 10/05/2023 07:28:22 10/04/19 24 10/04/2023 GTT- NON GESTA ANALIA L, 2 HOUR glucose, 2 hour 138 mg/dL 70-139 Not Available [facility] (Lab) [address] [place], [address], 10/05/2023 07:28:22 10/04/19 24 10/04/2023 PROLA CTIN prolactin, total 40.30 NG/mL 4.79-2 3.30 high This assay was perfo rmed using [employer] n reage nts and test kits. Value s obtai yaneth with other assay metho ds or kits canno t be used inter [facility] . Not Available [facility] (Lab) [address] [place], [address], 10/05/2023 07:28:23 10/04/19 24 10/04/2023 INSUL IN,FA STING insulin, fasting 11.4 uIU/m L 1.9-23 .0 Not Available [facility] (Lab) [address] [place], [address], 10/05/2023 07:28:23 10/04/19 24 10/04/2023 C-PEP TIDE C-peptide 3.29 NG/mL 1.1-4. 4 Not Available [facility] (Lab) [address] [place], [address], 10/05/2023 07:28:23 10/18/19 24 10/18/2023 PROLA CTIN prolactin, total 21.70 NG/mL 4.79-2 3.30 This assay was perfo rmed using [employer] n reage nts and test kits. Value s obtai yaneth with other assay metho ds or kits canno t be used inter joyce eably . Not Available [facility] (Lab) [address], [place], [address], 10/19/2023 03:55:41 11/20/19 24 11/20/2023 PROLA CTIN prolactin, total 20.30 NG/mL 4.79-2 3.30 This assay was perfo rmed using [employer] n reage nts and test kits. Value s obtai yaneth with other assay metho ds or kits canno t be used inter joyce eably . Not Available [facility] (Lab) [address], [place], [address], 11/21/2023 03:55:46 09/17/19 24 09/18/2023 US, pelvi s No observ ation record ed. [email or web address] [place] [address], [place], [address], 09/18/2023 13:05:27 09/17/19 24 09/18/2023 US, trans vagin al No observ ation record ed. [email or web address] [place] [address], [place], [address], 09/18/2023 13:05:17 09/17/19 24 09/17/2023 US, pelvi s No observ ation record ed. [email or web address] [address], [place], [address], 09/19/2023 13:50:40 12/17/19 24 12/17/2023 US, trans vagin al No observ ation record ed. [email or web address] [place] [address], [place], [address], 12/17/2023 11:06:17 12/17/19 24 12/17/2023 US, trans vagin al No observ ation record ed. [email or web address] [address], [place], [address], 12/19/2023 15:54:48 12/31/19 24 12/31/2023 US, normall a No observ ation record ed. [email or web address] [facility] [address], [place], [address], 01/08/2024 17:14:08 Result Notes None recorded. Procedures Surgical History Date Name Laterality Status Provider Name and Address Organization Details Recorded Time 09/01/19 24 Date of Last Pap Smear completed Maryuri Vasquez [facility] 09/01/2023 11:08:39 06/11/19 23 ultrasonic fragmentation of urinary stone through percutaneous nephrostomy completed [facility] 12/18/2023 10:22:59 06/11/19 21 extraction of wisdom tooth completed [facility] 12/18/2023 10:22:44 Imaging Results None recorded. Procedure Notes None [...] Body mass index (BMI) Body weight Systolic And Diastolic Provider Name and Address Organization Details Last Updated DateTime 09/01/2023 157.48 cm 31.3 kg/m2 39302.73 g 111/79 mm[Hg] Maryuri Vasquez [facility] 09/01/2023 11:08:15 Date Recorded Body height Body mass index (BMI) Body weight Systolic And Diastolic Provider Name and Address Organization Details Last Updated DateTime 09/18/2023 157.48 cm 31.3 kg/m2 81731.3 g 126/64 mm[Hg] Lia Roger [facility] 09/18/2023 12:02:18 Date Recorded Body height Body mass index (BMI) Body weight Systolic And Diastolic Provider Name and Address Organization Details Last Updated DateTime 12/18/2023 157.48 cm 31.1 kg/m2 42903.7 g 100/70 mm[Hg] Kristi Smith [facility] 12/18/2023 10:21:11 Social History Question Answer Notes LastModified by Organizat ion Details LastModified Time Tobacco Smoking Status Never Smoker Maryuri Vasquez [facility] 09/01/2023 11:09:37 Are You Blind Or [...] Or The Highest Degree You Have Received? [id number] Information not available 09/01/2023 Are There Any [...] IV Drugs? No Information not available 09/01/2023 Do You Have Difficulty Walking Or Climbing Stairs? No Information not available 09/01/2023 Sex: Unknown Functional Status Question Answer Note LastModified by Organizat ion Details LastModified Time Do you use any illicit or recreational drugs? No Information not available 09/01/2023 What is your level of alcohol consumption? None Information not available 09/01/2023 Are you able to walk independently without assistance or assistive devices? YESWOREST Information not available 09/01/2023 Are you able to care for yourself independently? Yes Information not available 09/01/2023 What is your occupation? [employer] Information not available 09/01/2023 Do you have difficulty dressing, bathing, grooming, or toileting? No Information not available 09/01/2023 What is your exercise level? Moderate Information not available 09/01/2023 Mental Status Question Answer Note LastModified by Organization D etails LastModified Time Do you feel stressed (tense, restless, nervous, or anxious, or unable to sleep at night)? 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 TAUS with possible TVUS if feels comfortabl e with this.2. Lab work-when return for US3. Consider Provera q1-3mos to manage menses4. EMBX-will need ativan (very anxious) [id number] Josh Heredia MD [place] [address],[place] [address] 09/17/2023 09:45:21 09/17/2023 11:19:19 Irregular periods 30176835 N92.6 [id number] [facility] [address],[place] [address] 09/18/2023 11:51:51 09/18/2023 12:16:23 Secondary amenorrhea 053665298 N91.1 Today we reviewed TVUS/TAUSW e agreed [...] counseling and review of plan of care. [id number] Josh Heredia MD [place] [address],[place] [address] 12/17/2023 10:14:42 12/17/2023 11:05:18 Irregular periods 88082758 N92.6 [id number] Jennie Landry [facility] [address],[place] [address] 12/18/2023 10:14:01 12/19/2023 07:24:56 Irregular periods 50003695 N92.6 Detailed health hx updated and revieweddi scussed h/o irregular periods/PC OSreviewed updated pelvic u/sdiscuss ed options for endometria l protection declines BC at this time, would like to continue with cyclic progestero ner/b/a reviewed, rx sent, take every 3 months if spontaneou s menses does not occurquest ions answered, encouraged healthy lifestyle/ regular exercise Pain in axilla [id number] M79.629 left axillary u/s ordered Time spent in visit is a total of 30 mins with at least 50% of visit consisting of counseling and review of plan of care. Health Concerns Section Related Observation LastModified by Organization Detai ls LastModified Time None Recorded Concern Status LastModified by Organization Details LastModified Time None Recorded Advance Directives Directive None Recorded Payers Insurance Date Sequence Insurance Name Policy Number Policy Sorto Covered Member ID Sorto Member ID Guarantor Name 12/18/2023 1 [facility] - DOS ON OR AFTER 20 (MEDICAID REPLACEMENT - HMO) Lazara Ledesma [id number] Lazara Ledesma Notes Date Note Type Note Provider Name and Address Organization Details Recorded Time 4 text/html Annual GYNReported by PatientGenitourinary symptomsFor menstrual cycle, patient reportsmissed most recent period (secondary amenorrhea with hx of pcoshad a full menses august of 2022; then no menses until june of 2023 which was only2 days and very light.sa-females onlynever sa males). For urinary symptoms, patient reportsno hematuriaandno incontinence. For vulva, patient reportsno genital lesion. For vagina, patient reportsnormal vaginal discharge.Breast symptomsFor breast, patient reportsno breast pain,no breast lump, andno nipple discharge.ContraceptionFo r current contraception, patient reportsbirth control not practiced.Endocrine symptomsFor sexual complaints, patient reportsno sexual complaints,no pain during intercourse, andnormal libido. For menopausal symptoms, patient reportsno menopausal symptomsandnormal vaginal lubrication.Psychological symptomsFor psychological symptoms, patient reportsno depression,no anxiety, andno pmdd.Preventative measuresFor preventive measures, patient reportsencourage self breast examination,encourage regular exercise,encourage no tobacco use,encourage regular mammograms starting age 40, andfollowed with yearly pap smears. Shahida Will, DANNIE-[facility] [address], [place], [address], [place] [facility] 09/01/2023 11:35:02 4 text/html 23yopresents for u/s f/uh/o irregular periods/PCOS, went 1 yr without a period in 2022took provera course 09/2023 which produced a withdrawal bleed, had a period on her own last week that lasted 4 daysnot currently SA left axillary tenderness x 1 month, comes and goes Jennie Landry, DARRYL [address], [place], [address], [place] [facility] 12/18/2023 17:40:44 OBGyn Episode No OBEpisode recorded.
--- OUTSIDE RECORDS SUMMARY | 2025-04-16 18:36 | XMS_ITS | Encounter Summary ---
Author Organization [facility] Address [address] [place] [address] [place] [address] Care Team Providers Care Mill Labor Supervisor Name Role Phone Unavailable Primary Care Provider Unavailabl e Encounter Details Date Type Department Care Team (Late st Contact Info) Description 01/24/2024 Lab Requisition [facility] - Pathology Lab [address] [place] [address] Bri Mendoza MD [address] [facility] [place] [address] Illness, unspecified Social History Tobacco Use Types [...] CDT) Case Report Surgical Pathology Report Case: [id number] Authorizing Provider: Bri Mendoza MD Collected: 01/22/2024 10:41 AM Ordering Location: [facility] - Received: 01/24/2024 09:10 AM Pathology Lab Pathologist: Peter Greenwood MD Specimen: Lymph Node Biopsy 01/29/2024 3:39 PM CDT [facility] Final Diagnosis Axillary lymph node, core biopsy: Reactive lymphoid tissue, with EBV-related changes and focal dermatopathic changes. 01/29/2024 3:39 PM T [facility] at 1539 CDT Microscopic Description and Comment The H&E sections [...] T-cell or B-cell lymphoma. 01/29/2024 3:39 PM T [facility] Clinical History Lymphadenopathy. 01/29/2024 3:39 PM [facility] AP Comment Overall, the finding s are consistent with EBV-related lymphoid proliferation. There is no diagnostic evidence of T- or B-cell lymphoma in the current material. If clinically indicated, an excisional biopsy can be considered to provide architecture information, and additional material for further evaluation. Clinical and imaging correlation, and correlation with serology study recommended. 01/29/2024 3:39 PM [facility] Materials Received Received are 3 slide(s) and 1 block labeled [id number] along with a copy of the outside pathology report. [place] [address] . All original materials are returned to the referring institution, along with a copy of our final report. 01/29/2024 3:39 PM CDT [facility] Pathologist Location at Signout 01/29/2024 3:39 PM CDT [facility] Disclaimer The performance characteristics of all immunohistochemical and indirect immunofluorescence stains (if any) cited in this report were determined by the Histopathology Laboratory of [facility]. Some of these tests were developed by [...] attending (teaching) pathologist. 01/29/2024 3:39 PM CDT [facility] Embedded Images 01/29/2024 3:39 PM CDT [facility] Pathology/Cytolo gy BIOPSY OF LYMPH NODE / Unknown 01/22/2024 10:41 AM CDT 01/24/2024 9:10 AM CDT Bri Mendoza MD LAB - PATHOLOGY/CYTOLOGY OR DERABLES Final Result [facility] [address] [place], [place] [id number] [place] [address] documented in this encounter Visit Diagnoses Diagnosis Illness, unspecified documented in this encounter
--- OUTSIDE RECORDS SUMMARY | 2025-04-16 18:36 | XMS_ITS | Clinical Summary ---
Author Organization [facility] Address [address] [place] [address] Phone Care Team Providers Care Corporate Controller Name Role Phone Princess Buck MONTY CHIN [...] Active Active Problems No known active problems Immunizations Immunization Administration Dates Next Due DTAP [...] 07/2004,07/03/2003,01/01/2003,10/29 TDAP Vaccine 01/13/2014 Tuberculin Skin Test; Purifi ed Protein Derivative Solutiol 12/01/2022 Varicella Vaccine Live 06/20/2007,10/13/2003 Social History Tobacco Use Types Packs/Day Years Used Date Smoking Tobacco: Never Smokeless Tobacco: Never Alcohol Use Standard Drinks/Week Comments Not Currently 0 (1 standard drink = 0.6 oz pur e alcohol) Comments No Sex and Gender Information Value Date Recorded Sex Assigned at Not on file Legal Sex Female 11:41 AM ARCHERY INSTRUCTOR Gender Identity Not on file Sexual Orientation Not on file Last Filed Vital Signs Vital Sign Reading Time Taken Comments Blood Pressure 98/78 07/28/2024 11:59 AM ARCHERY INSTRUCTOR Pulse 90 07/28/2024 11:59 AM ARCHERY INSTRUCTOR Temperature 36.9 C (98.5 F) 07/28/2024 11:59 AM ARCHERY INSTRUCTOR Respiratory Rate 16 07/28/2024 11:59 AM ARCHERY INSTRUCTOR Oxygen Saturation 99% 07/28/2024 11:59 AM ARCHERY INSTRUCTOR Inhaled Oxygen Concentration - - Weight 77.1 kg (170 lb) 07/28/2024 11:59 AM ARCHERY INSTRUCTOR Height - - Body Mass Index - - Plan of Treatment Health Maintenance Due Date Last Done Comments Hepatitis C Virus (HCV) Screening 2002 Meningococcal B Immunization (1 of 2 - Standard) 2018 Pap Smear 08/27/2023 DTaP/Tdap/Td Immunization (7 - Td or Tdap) 01/14/2024 01/13/2014, 01/14/2007, 07/13/2004, Additional history exists Influenza Immunization (#1) 02/09/202506/11, 04/05/2016, 05/05/2015, Additional history exists SARS-COV-2 Immunization ( - season) 2025 06/25/2021, 11/21/2020, 10/24/2020 Respiratory Syncytial Virus (RSV) [...] Insurance MEDICAID [employer] Care Teams Corporate Controller Relationship Specialty Start Date End Date Princess Buck, ELSY, SUBSTATION DESIGNER [address] [place] [id number] PCP - General Advanced Practice Nurse 07/28/24
--- OUTSIDE RECORDS SUMMARY | 2025-04-16 18:37 | XMS_ITS | Clinical Summary ---
Author Organization [facility] Address [facility] [place] [address] Care Team Providers Care Guest Service Team Leader Name Role Phone Unavailable Primary Care Provider Unavailabl e Source Comments [facility],non-owned Affiliates and Associated Physician Practices is amultiple site organization consisting of ambulatory clinics and hospital sitesin [place], [place]. This disclosure is being madepursuant to the Care Everywhere program and may not contain all information available regarding this patient. Last updated 18.[facility] [employer] Social History Tobacco Use Types Packs/Day Years Used Date Smoking Tobacco: Never Assessed Comments Unknown Sex and Gender Information Value Date Recorded Sex Assigned at Not on file Legal Sex Female 7:03 AM CDT Gender Identity Not on file Sexual Orientation Not on file Plan of Treatment Health Maintenance Due Date Last Done Comments HIV SCREENING 2017 HPV VACCINE (1 - 3-dose series) 2017 CHLAMYDIA/GONORRHEA SCREENING 2018 MENINGOCOCCAL (Group B) VACC INE SHARED DECISION-MAKING (1 of 2 - Standard) 2018 HEPATITIS C SCREENING 08/21/2020 DTAP/TDAP/TD VACCINES (1 - Tdap) 2021 HEPATITIS B VACCINE (1 of 3 - 19+ 3-dose series) 2021 PAP SMEAR 08/27/2023 DEPRESSION SCREENING 06/11/2024 COVID-19 VACCINE ( - 2023-2 5 season) 2025 INFLUENZA VACCINE (#1) 2025 ZOSTER VACCINE (1 of 2) 2052 HIB VACCINE Aged Out No longer eligi ble based on patient's age to complete this topic MENINGOCOCCAL GROUPS A/C/Y/W VACCINE Aged Out No longer eligible b ased on patient's age to complete this topic PNEUMOCOCCAL VACCINE Aged Out No long er eligible based on patient's age to complete this topic Insurance [facility] [employer] [facility] NO INSURANCE Member Subscriber Plan / Payer (Ef fective for All Dates) Name:Rafy Ledesma Member ID:Not on file Relation to Subscriber:Not on file Name:RAFY LEDESMA Subscriber ID:Not on file (Home) Address: [address] [place] [address] Payer ID:Not on file Group ID:Not on file Type:Self Pay Address: [place], [place] * Guarantor: RAFY LEDESMA Account Type Relation to Patient Date of Phone Billing Address Personal/Family [address] [place] [address] [facility] [employer] NO INSURANCE Member Subscriber Plan / Payer (Ef fective for All Dates) Name:Rafy Ledesma Member ID:Not on file Relation to Subscriber:Not on file Name:TRICE LEDESMAANA Subscriber ID:Not on file Address: [address] [place] [address] Payer ID:Not on file Group ID:Not on file Type:Self Pay Address: [place], [place] * Guarantor: RAFY LEDESMA Account Type Relation to Patient Date of Phone Billing Address Personal/Family [address] [place] [address] [facility] [employer]EL[employer] PA[employer] NO INSURANCE Member Subscriber Plan / Payer (Ef fective for All Dates) Name:Callie Rafy Member ID:Not on file Relation to Subscriber:Not on file Name:YENNILissetteRAFY Subscriber ID:Not on file Address: [address] [place] [address] Payer ID:Not on file Group ID:Not on file Type:Self Pay Address: [place], [place] * Guarantor: RAFY LEDESMA Account Type Relation to Patient Date of Phone Billing Address Personal/Family [address] [place] [address] [facility] [employer] PA[employer] NO INSURANCE Member Subscriber Plan / Payer (Ef fective for All Dates) Name:Rafy Ledesma Member ID:Not on file Relation to Subscriber:Not on file Name:RAFY LEDESMA Subscriber ID:Not on file Address: [address] [place] [address] Payer ID:Not on file Group ID:Not on file Type:Self Pay Address: [place], [place]
--- OUTSIDE RECORDS SUMMARY | 2025-04-16 18:37 | XMS_ITS | Patient Health Record ---
Author Organization [facility] Address [address] [place] [address] Care Team Providers Care Electrician Second Name Role Phone Jose L Sidra Primary Care Provider Beverly Diony Unavailable [phone] Irvin Lord Unavailable [phone] Joselin Paige Unavailable [phone] RobKevin lopez Unavailable [phone] Esme Felix Unavailable [phone] Allergies No Known Allergies Results Component Value Reference Range Notes Test, Urine Reviewed date:10/28/2024 01:40:46 PM Interpretation:Negative Performing Lab: Notes/Report: Negative 12 Panel Urine Drug Screen Reviewed date:10/30/2024 04:13:05 PM Interpretation: Performing Lab: Notes/Report: THC neg NEVILLE neg MOP (OPI) neg AMP neg MET neg BAR neg BZO neg MDMA neg MTD neg OXY neg PCP neg BUP neg QuantiFERON-TB Gold Plus (10 4621) Reviewed date:11/05/2024 10:21:17 AM Interpretation:Negative Performing Lab:[facility], [address], Phone - [phone], Director - PhDRicchiuti Notes/Report: QuantiFERON Incubation Incubation performed. QuantiFERON-TB Gold Plus Negative Negative No response to M tuberculosis antigens detected. Infection with M tuberculosis is unlikely, but high risk individuals should be considered for additional testing (ATS/IDSA/CDC Clinical Practice Guidelines, 2017). The reference range is an Antigen minus Nil result of <0.35 IU/mL. Chemiluminescence immunoassay methodology QuantiFERON Criteria QuantiFERON-TB Gold Plus is a qualitative indirect test for M tuberculosis infection (including disease) and is intended for use in conjunction with risk assessment, radiography, and other medical and diagnostic evaluations. The QuantiFERON-TB Gold Plus result is determined by subtracting the Nil value from either TB antigen (Ag) value. The Mitogen tube serves as a control for the test. QuantiFERON TB1 Ag Value 0.04 QuantiFERON TB2 Ag Value 0.04 QuantiFERON Nil Value 0.04 QuantiFERON Mitogen Value >10.00 Breathalyzer Reviewed date:10/27/2024 12:55:21 PM Interpretation:0.000 Performing Lab: Notes/Report: 0.000 SHADY 0.000 CBC With Differential/Platel et* Reviewed date:11/05/2024 10:21:17 AM Interpretation: Performing Lab:[facility] [place], [address] [facility], Phone - [phone], Director - Uli Notes/Report: WBC 7.7 3.4-10.8 x10E3/uL RBC 5.29 3.77-5.28 x10E6/uL Hemoglobin 12.1 11.1-15.9 g/dL Hematocrit 39.8 34.0-46.6 % MCV 75 79-97 fL MCH 22.9 26.6-33.0 pg MCHC 30.4 31.5-35.7 g/dL RDW 14.6 11.7-15.4 % Platelets 344 150-450 x10E3/uL Neutrophils 53 Not Estab. % Lymphs 35 Not Estab. % Monocytes 6 Not Estab. % Eos 5 Not Estab. % Basos 1 Not Estab. % Neutrophils (Absolute) 4.1 1.4-7.0 x10E3/uL Lymphs (Absolute) 2.7 0.7-3.1 x10E3/uL Monocytes(Absolute) 0.4 0.1-0.9 x10E3/uL Eos (Absolute) 0.4 0.0-0.4 x10E3/uL Baso (Absolute) 0.1 0.0-0.2 x10E3/uL Immature Granulocytes 0 Not Estab. % Immature Grans (Abs) 0.0 0.0-0.1 x10E3/uL CMP 14 Comprehensive Metabol ic Panel* Reviewed date:11/05/2024 10:21:17 AM Interpretation:Normal Performing Lab:[facility] [place], [address], [place], Phone - [phone], Director - Bryanuti Notes/Report: Glucose 70 70-99 mg/dL BUN 11 6-20 mg/dL Creatinine 0.65 0.57-1.00 mg/dL eGFR 128 >59 mL/min/1.73 BUN/Creatinine Ratio 17 9-23 Sodium 138 134-144 mmol/L Potassium 4.6 3.5-5.2 mmol/L Chloride 100 96-106 mmol/L Carbon Dioxide, Total 22 20-29 mmol/L Calcium 9.4 8.7-10.2 mg/dL Protein, Total 7.3 6.0-8.5 g/dL Albumin 4.4 4.0-5.0 g/dL Globulin, Total 2.9 1.5-4.5 g/dL Bilirubin, Total 0.3 0.0-1.2 mg/dL Alkaline Phosphatase 91 44-121 IU/L AST (SGOT) 17 0-40 IU/L ALT (SGPT) 18 0-32 IU/L Reason For Referral No Information Medications Medication SIG (Take, Route, Fr equency, Duration) Notes Start Date End Date Status Cephalexin 500 MG 1 capsule Orally twice a day Active Gabapentin 100 MG 1 capsule Orally twi ce a day; Duration: 30 days 11/07/2024 Active hydrOXYzine HCl 25 MG 1-2 capsules Orall y every 4 hours as needed for anxiety, agitation, or inability to sleep. Do not given within 4 hours of diphenhydramine Active Vitamin D3 25 MCG (1000 UT) 1 capsule Orally Once a day; Duration: 30 days Active Melatonin 5 MG 1 tablet at bedtime as needed Orally Once a day Active FLUoxetine HCl 20 MG 1 capsule Orally On ce a day; Duration: 30 days Active metFORMIN HCl 500 MG 1 tablet with a bart l Orally twice a day Active busPIRone HCl 10 MG 1 tablet Orally Twic e a day; Duration: 30 days Active Albuterol Sulfate HFA 108 (90 Base) MCG/ACT 1 puff as needed Inhalation every 4 hrs Active Atomoxetine HCl 25 MG 1 capsule Orally d aily; Duration: 30 days 11/11/2024 Active QUEtiapine Fumarate 100 MG 1 tablet Orally at bedtime; Duration: 30 days Active Multi Vitamin - 1 tablet Orally Once a day; Duration: 30 days 10/24/2024 Active Social History Tobacco Use: Social History Observation Description Date Details (start date - stop date) Never Smoker NA - NA PRAPARE Question Answer Notes Date Completed/Updated: 10/24/2024 What is your current housing situation? I have h ousing Are you worried about losing your housing? Yes What is the highest level of school that you have finished? 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 Check all that apply I do not have problems meeting my needs Has lack of transportation k ept you from medical appointments, meetings, work or from getting things needed for daily living? Yes, it has kept me from non-medical meetings, appointments, work, or getting things needed for daily living How often do you see or talk to people that you care about and feel close to? (For example: talking to friends on the phone, visiting friends or family, going to synagogue or club meetings) More than 5 times a week How stressed are you? Stress is when someone feels tense, nervous, anxious, or can\t sleep at night because their mind is troubled Quite a bit In the past year have you sp ent more than 2 nights in a row in a mcc, custodial, retirement center, or juvenile correctional facility? No Are you a refugee? I choose not to answer this q uestion What country are you from? I choose not to answe r this question Do you feel physically and e motionally safe where you currently live? No In the past year, have you b een afraid of your partner or ex-partner? No PRAPARE Score: 6 Tobacco Control (Standard) Question Answer Notes Tobacco use: Nonsmoker Problems Problem Type SNOMED Code ICD Code Onset Dates Problem Status W/U Status Risk Notes Problem Insomnia (494806569) Insomnia (G47.00) Active confirmed Problem Posttraumatic stress disorder (13505160) PTSD (post-traumatic stress disorder) (F43.10) Active confirmed Problem Attention deficit hyperactivity disorder (021514417) ADHD (attention deficit hyperactivity disorder) (F90.9) Active confirmed Problem General examination of patient (454489277) Routine general medical examination at a health care facility (Z00.00) Active confirmed Problem Major depressive disorder (399454782) Major depressive disorder (F32.9) Active confirmed Problem Generalized anxiety disorder (57367230) BURT (generalized anxiety disorder) (F41.1) Active confirmed Problem Autism spectrum disorder (75353114) Autism spectrum disorder (F84.0) Active confirmed Problem Overweight (042955926) Over weight (E66.3) Active confirmed Problem Neuropathic pain , leg, bilateral (G57.93) Active confirmed Vital Signs Heart Rate 80 /min 11/07/2024 Temperature 97.6 degrees Fahrenheit 11/07/2024 Respiratory Rate 24 /min 11/07/2024 Blood pressure diastolic 70 mm Hg 11/07/2024 Oximetry 100 % 11/07/2024 Height 62 in 11/07/2024 Blood pressure systolic 98 mm Hg 11/07/2024 Weight 177.6 lbs 11/07/2024 BMI 32.48 kg/m2 11/07/2024 Encounters Encounter Location Date Provider Diagnosis [facility] [address] [place] [address] 10/28/2024 Diony Paul Routine general medical examination at a health care facility Z00.00 [facility] [address] [place] [address] 10/24/2024 Diony Paul Routine general medical examination at a health care facility Z00.00 [facility] [address] [place] [address] 10/24/2024 Esme Felix [address] [place] [address] 11/04/2024 Sidra Domingo BURT (generalized anxiety disorder) F41.1 ; Major depressive disorder F32.9 ; PTSD (post-traumatic stress disorder) F43.10 ; Autism spectrum disorder F84.0 ; Over weight E66.3 ; ADHD (attention deficit hyperactivity disorder) F90.9 and Insomnia G47.00 [facility] [address] [place] [address] 11/07/2024 Irvin Lord Over weight E66.3 an d Neuropathic pain, leg, bilateral G57.[address] [place] [address] 11/11/2024 Sidra Domingo BURT (generalized anxiety disorder) F41.1 ; ADHD (attention deficit hyperactivity disorder) F90.9 ; Major depressive disorder F32.9 ; PTSD (post-traumatic stress disorder) F43.10 ; Autism spectrum disorder F84.0 ; Over weight E66.3 and Insomnia G47.00 [facility] [address] [place] [address] 10/28/2024 Esme Felix [address] [place] [address] 11/25/2024 Paige Olivera Major depressive disorder F32.9 ; Routine general medical examination at a health care facility Z00.00 and Autism spectrum disorder F84.0 Assessments Encounter Date Diagnosis (ICD Code) Assessment Notes Treatment Notes Treatment Clinical Notes Section Notes 10/24/2024 Routine general medical examination at a [facility] facility (ICD-10 - Z00.00) Admit to the crisis unit for 24-hour observation and initiate standing/protocol orders: The following PRN medications may be self-administered by patients under the supervision of approved staff or administered by nursing staff: Ibuprofen 200mg, 2-4 tablets by mouth (with food) every 6 hours as needed for pain (unless on lithium). (NOTE: Ibuprofen and acetaminophen may be given together, but alternating is recommended for continuous pain relief. Guaifenesin 400 mg, 1 tablet by mouth every four hours as needed for cough and chest congestion (take with large glass of water). Loratadine 10 mg, 1 tablet by mouth daily as needed for allergies, watery itchy eyes, or sinus drainage. Throat Lozenges, up to 4 tablets by mouth every three to four hours as needed for sore throat. Antacid tablets, 1-2 tablets by mouth every one to two hours as needed for indigestion or heart burn. If the client prefers liquid, could use: Liquid Antacid : 1 ounce by mouth up to four times daily as needed for indigestion or heartburn Omeprazole 20mg, 1 capsule by mouth once daily for 14 days for frequent heartburn (frequent heartburn is more than 2 episodes per week). Do not exceed 14 days. Do not give to client already taking a proton-pump inhibitor: esomeprazole (Nexium), lansoprazole (Prevacid), pantoprazole (Protonix), rabeprazole (Aciphex), dexlansoprazole (Dexilant) Zofran ODT disintegrating (under the tongue) 4 mg, 1-2 tablets every 8 hours as needed for nausea/vomiting. Milk of Magnesia (MOM): 1 ounce (30 milliliters) by mouth every day as needed for constipation. OR Miralax: Stir and fully dissolve 17 grams (1 packet or 1 capful to measured line) in any 4 to 8 ounces of beverage then drink once daily for constipation. Do not use for more than 7 days. OR Docusate 100 mg, 1 capsule twice daily as needed for constipation Hydrocortisone 1% Cream, apply topically (to the skin) to the affected area up to three times daily as needed for itching or inflammation (avoid eyes and genitals). 2% Antifungal Cream, apply topically (to the skin) as directed as needed to affected areas for athlete's foot or jock itch. Triple Antibiotic Ointment, apply topically (to the skin) up to three times daily as needed for minor cuts and scrapes. Carmex or Chapstick, apply topically (to the skin) as needed for chapped lips and skin. Orajel, apply to affected areas as needed for mouth or tooth pain. Lubricating Eye Drops, instill 1-2 drops to the affected eye(s) as needed for dry/irritated eye(s). Hemorrhoid medications, apply to affected area according to directions as needed for hemorrhoid discomfort and itch. Nix (Permethrin 1%) cream 2 ounces, apply topically (to the skin) as directed as needed for head lice. Sunscreen 30 SPF, Apply to exposed skin prior to exposure to sun. The following PRN medications must be approved by nursing staff before self-administration by patients: Diphenhydramine 25 mg, 2 tablets by mouth every 4 hours as needed for allergic reaction or itchy rash. Caution: Do not use hydroxyzine within 4 hours of diphenhydramine and vice versa. Loperamide 2 mg capsules, may give two capsules by mouth for the initial dose, followed by one capsule up to 3 times a day as needed for diarrhea. Acetaminophen 500 mg, 1 - 2 tablets by mouth every six hours as needed for pain. (NOTE: Ibuprofen and acetaminophen may be given together, but alternating is recommended for continuous pain relief). Oxygen-May administer oxygen 2L/min via nasal cannula if O2 saturation is less than 92%, AND client complains of shortness of breath. Target O2 saturation is 94-98%. Caution: Remember too much oxygen can be detrimental to a client with COPD. Oxygen is a drug and should be delivered by trained staff only. Nurses may remove superficial splinters and sutures from skin lacerations. May apply gauze or bandages to any weeping wounds. Contact nursing if there is pus, a foul odor, increased pain/redness/swelli ng, or if soaking through bandages. 10/28/2024 Routine general medical examination at a health care facility (ICD-10 - Z00.00) 11/04/2024 Major depressive disorder (ICD-10 - F32.9) 11/04/2024 BURT (generalized anxiety disorder) (ICD-10 - F41.1) 11/07/2024 Over weight (ICD-10 - E66.3) 11/07/2024 Neuropathic pain, leg, bilateral (ICD-10 - G57.93) F/U WITH DR. GARAY AND Marian POON SLATE MIXER WITH [facility] AFTER DISCHARGE. DISCUSSED HEALTHY DIET, AVOIDING ALCOHOL. 11/11/2024 ADHD (attention deficit hyperactivity disorder) (ICD-10 - F90.9) 11/11/2024 BURT (generalized anxiety disorder) (ICD-10 - F41.1) 11/25/2024 Major depressive disorder (ICD-10 - F32.9) 11/25/2024 Routine general medical examination at a health care facility (ICD-10 - Z00.00) 11/11/2024 Major depressive disorder (ICD-10 - F32.9) 11/04/2024 PTSD (post-traumatic stress disorder) (ICD-10 - F43.10) 11/04/2024 Autism spectrum disorder (ICD-10 - F84.0) 11/11/2024 PTSD (post-traumatic stress disorder) (ICD-10 - F43.10) 11/25/2024 Autism spectrum disorder (ICD-10 - F84.0) 11/11/2024 Autism spectrum disorder (ICD-10 - F84.0) 11/04/2024 Over weight (ICD-10 - E66.3) 11/04/2024 ADHD (attention deficit hyperactivity disorder) (ICD-10 - F90.9) 11/11/2024 Over weight (ICD-10 - E66.3) 11/11/2024 Insomnia (ICD-10 - G47.00) 11/04/2024 Insomnia (ICD-10 - G47.00) 10/28/2024 Other Learning About the Mediterranean Diet material was printed 10/24/2024 Other Clinician met w ith client to assess needs for residential services. Clinician gathered information regarding historical presentation of mental health and substance use symptoms including withdrawal, HIV Risk assessment, psychiatric hospitalization history and presenting concern. Clinician conducted PHQ9 and CSSRS assessments as well as social drivers of health screening for the purposes of identifying additional service needs. Plan Of Treatment No Information Insurance Providers Payer Name Payer Address Payer Phone Subscriber Number Group Number Insured Name Patient Relationship to Insured Coverage Start Date Coverage End Date [facility] Claims Department [address] [place] [address] [phone] [id number] Lazara Ledesma Self - patient is the insured 5 [facility] Claims Department [address] [place] [address] [phone] [id number] Lazara Ledesma Self - patient is the insured 5 Medical (General) History Medical History History ICD Code PTSD Depression Anxiety Eosinophilic esophagitis PCOS Autism Spectrum Disorder Surgical History Surgery Date(Month/Year) Hospitalization History Reason Date(Month/Year) [facility] - psychiatric admission 10/2024
--- OUTSIDE RECORDS SUMMARY | 2025-04-16 19:29 | XMS_ITS | Encounter Summary ---
Author Organization [facility] Address [address] [place] [address] [place] [address] Care Team Providers Care Ruby Rails Developer Name Role Phone Unavailable Primary Care Provider Unavailabl e Encounter Details Date Type Department Care Team (Late st Contact Info) Description 01/24/2024 Lab Requisition [facility] - Pathology Lab [address] [place] [address] Bri Mendoza MD [address] [facility] [place] [address] Illness, unspecified Social History Tobacco [...] CDT) Case Report Surgical Pathology Report Case: [id number] Authorizing Provider: Bri Mendoza MD Collected: 01/22/2024 10:41 AM Ordering Location: [facility] - Received: 01/24/2024 09:10 AM Pathology Lab Pathologist: Peter Greenwood MD Specimen: Lymph Node Biopsy 01/29/2024 3:39 PM CDT [facility] Final Diagnosis Axillary lymph node, core biopsy: Reactive lymphoid tissue, with EBV-related changes and focal dermatopathic changes. 01/29/2024 3:39 PM T [facility] at 1539 CDT Microscopic Description [...] or B-cell lymphoma. 01/29/2024 3:39 PM T [facility] Clinical History Lymphadenopathy. 01/29/2024 3:39 PM [facility] AP Comment Overall, the finding s are consistent with EBV-related lymphoid proliferation. There is no diagnostic evidence of T- or B-cell lymphoma in the current material. If clinically indicated, an excisional biopsy can be considered to provide architecture information, and additional material for further evaluation. Clinical and imaging correlation, and correlation with serology study recommended. 01/29/2024 3:39 PM [facility] Materials Received Received are 3 slide(s) and 1 block labeled [id number] along with a copy of the outside pathology report. [place] [address] . All original materials are returned to the referring institution, along with a copy of our final report. 01/29/2024 3:39 PM CDT [facility] Pathologist Location at Signout 01/29/2024 3:39 PM CDT [facility] Disclaimer The performance characteristics of all immunohistochemical and indirect immunofluorescence stains (if any) cited in this report were determined by the Histopathology Laboratory of [facility]. Some of these tests were developed by [...] attending (teaching) pathologist. 01/29/2024 3:39 PM CDT [facility] Embedded Images 01/29/2024 3:39 PM CDT [facility] Pathology/Cytolo gy BIOPSY OF LYMPH NODE / Unknown 01/22/2024 10:41 AM CDT 01/24/2024 9:10 AM CDT Bri Mendoza MD LAB - PATHOLOGY/CYTOLOGY OR DERABLES Final Result [facility] [address] [place], [place] [id number] [place] [address] documented in this encounter Visit Diagnoses Diagnosis Illness, unspecified documented in this encounter
--- OUTSIDE RECORDS SUMMARY | 2025-04-16 19:29 | XMS_ITS | Encounter Summary ---
Author Organization [facility] Address [address] [place] [address] [place] [address] Care Team Providers Care Business Technology Teacher Name Role Phone Unavailable Primary Care Provider Unavailabl e Encounter Details Date Type Department Care Team (Late st Contact Info) Description 01/22/2024 Lab Requisition [facility] - Pathology Lab [address] [place] [address] Bri Mendoza MD [address] [facility] [place] [address] Enlarged lymph nodes, unspecified Social [...] AM CDT) Case Report Flow Cytometry Case: [id number] Authorizing Provider: Bri Mendoza MD Collected: 01/22/2024 10:00 AM Ordering Location: [facility] - Received: 01/22/2024 02:01 PM Pathology Lab Pathologist: Peter Greenwood MD Specimen: Axillary Lymph Node, Left Axillary 01/23/2024 8:13 AM CDT [facility] Final Diagnosis Axillary lymph node, flow cytometric immunophenotypic analysis: - No diagnostic evidence of non-Hodgkin T-cell or B-cell lymphoma. - See interpretation. 01/23/2024 8:13 AM [facility] at [address] [facility] Flow Cytometry Interpretation Viability: 71% Lymphocytes: 99% B-cells: 37% of the lymphocytes, polytypic, kappa:lambda ratio 1.56:1 T-cells: 61% % of the lymphocytes, no immunophenotypic aberrancy detected based on the markers performed, CD4:CD8 ratio 1.57:1 Dim CD45 region: 0%. No blasts are identified Granulocytes: 1% A cytospin prepared from the flow cytometry specimen has been reviewed for ethanol quality leader purposes. 01/23/2024 8:13 AM [facility] Flow Cytometry Results Differential Result Comment Flow Cell Count /uL 4,200 Total Viability % 71.0 Lymphocytes % 99 Dim CD45 Region % 0 Monocytes % 0 Granulocytes % 1 01/23/2024 8:13 AM [facility] Reason for test Enlarged lymph nodes, unspecified 01/23/2024 8:13 AM [facility] Client Specimen ID # [id number] 01/23/2024 8:13 AM [facility] Number of markers 16 were performed. A-2 Flow CD3 A-4 Flow CD10 A-6 Flow CD20 A-7 Flow CD23 A-12 Flow CD2 A-13 Flow CD4 A-16 Flow CD1a A-3 Flow CD5 A-5 Flow CD19 A-8 Flow CD34 A-9 Flow CD45 A-14 Flow CD7 A-15 Flow CD8 A-17 Flow CD30 A-10 [place]+CD19+ A-11 Lambda+CD19+ 01/23/2024 8:13 AM [facility] Pathologist Location at [facility] 01/23/2024 8:13 AM [facility] Disclaimer Test performed at [facility], [address] [place] [address], [address]. *The established laboratory minimum viability is 70%. [...] complexity clinical testing. 01/23/2024 8:13 AM CDT [facility] Embedded Images 8:13 AM CDT [facility] Pathology/Cytolo gy AXILLARY LYMPH NODE STRUCTURE / Unknown 01/22/2024 10:00 AM CDT 01/22/2024 2:01 PM CDT Bri Mendoza MD LAB - PATHOLOGY/CYTOLOGY OR DERABLES Final Result [facility] [address] [phone] documented in this encounter Visit Diagnoses Diagnosis Enlarged lymph nodes, unspecified documented in this encounter
--- OUTSIDE RECORDS SUMMARY | 2025-04-16 19:29 | XMS_ITS | Clinical Summary ---
Author Organization [facility] Address [address] [place] [address] Phone Care Team Providers Care Wire Brush Maker Name Role Phone Princess Buck MONTY CHIN [...] on file Legal Sex Female 11:41 AM SAND FILLER Gender Identity Not on file Sexual Orientation Not on file Last Filed Vital Signs Vital Sign Reading Time Taken Comments Blood Pressure 98/78 07/28/2024 11:59 AM SAND FILLER Pulse 90 07/28/2024 11:59 AM SAND FILLER Temperature 36.9 C (98.5 F) 07/28/2024 11:59 AM SAND FILLER Respiratory Rate 16 07/28/2024 11:59 AM SAND FILLER Oxygen Saturation 99% 07/28/2024 11:59 AM SAND FILLER Inhaled Oxygen Concentration - - Weight 77.1 kg (170 lb) 07/28/2024 11:59 AM SAND FILLER Height - - Body Mass Index - [...] Insurance MEDICAID [employer] Care Teams Wire Brush Maker Relationship Specialty Start Date End Date Princess Buck, ELSY, COATER HAND [address] [place] [phone] PCP - General Advanced Practice Nurse 07/28/24
--- OUTSIDE RECORDS SUMMARY | 2025-04-16 19:30 | XMS_ITS | Clinical Summary ---
Author Organization [facility] Address [facility] [facility] [place] [address] Care Team Providers Care Trimmer Meat Name Role Phone Unavailable Primary Care Provider Unavailabl e Source Comments [facility],non-owned Affiliates and Associated Physician Practices is amultiple site organization consisting of ambulatory clinics and hospital sitesin [place], [place], [place] and [place]. This disclosure is being madepursuant to the Care Everywhere program and may not contain all information available regarding this patient. Last updated 18.[facility] [employer] Social History Tobacco Use Types Packs/Day Years [...] patient's age to complete this topic Insurance [facility] SELF PAY NO INSURANCE Member Subscriber Plan / Payer (Ef fective for All Dates) Name:Rafy Ledesma Member ID:Not on file Relation to Subscriber:Not on file Name:RAFY LEDESMA Subscriber ID:Not on file (Home) Address[address] [place] [address] Payer ID:Not on file Group ID:Not on file Type:Self Pay Address: [place], [place] * Guarantor: RAFY LEDESMA Account Type Relation to Patient Date of Phone Billing Address Personal/Family [address] [place] [address] [facility] SELF PA[employer] NO INSURANCE Member Subscriber Plan / Payer (Ef fective for All Dates) Name:Rafy Ledesma Member ID:Not on file Relation to Subscriber:Not on file Name:TRICE LEDESMAANA Subscriber ID:Not on file Address: [address] [place] [address] Payer ID:Not on file Group ID:Not on file Type:Self Pay Address: [place], [place] * Guarantor: RAFY LEDESMA Account Type Relation to Patient Date of Phone Billing Address Personal/Family [address] [place] [address] [facility] SELF PA[employer] NO INSURANCE Member Subscriber Plan / Payer (Ef fective for All Dates) Name:Callie Rafy Member ID:Not on file Relation to Subscriber:Not on file Name:YENNILissetteRAFY Subscriber ID:Not on file Address: [address] [place] [address] Payer ID:Not on file Group ID:Not on file Type:Self Pay Address: [place], [place] * Guarantor: RAFY LDEESMA Account Type Relation to Patient Date of Phone Billing Address Personal/Family [address] [place] [address] [facility] SELF PA[employer] NO INSURANCE Member Subscriber Plan / Payer (Ef fective for All Dates) Name:Rafy Ledesma Member ID:Not on file Relation to Subscriber:Not on file Name:RAFY LEDESMA Subscriber ID:Not on file Address: [address] [place] [id number] Payer ID:Not on file Group ID:Not on file Type:Self Pay Address: [place], [place]
== END 2025-04-16 13:24 | disposition home or self-care (01) ==
PROVIDERS: Emergency Provider Student in an Organized Health Care Education/Training Program; PCP Nurse Practitioner Family
DX: J45.901 Unspecified asthma with (acute) exacerbation (principal); E28.2 Polycystic ovarian syndrome; E78.5 Hyperlipidemia, unspecified; E55.9 Vitamin D deficiency, unspecified; G62.9 Polyneuropathy, unspecified; G25.0 Essential tremor; F84.0 Autistic disorder; F43.10 Post-traumatic stress disorder, unspecified; F90.9 Attention-deficit hyperactivity disorder, unspecified type; F41.9 Anxiety disorder, unspecified; F32.A Depression, unspecified; Z79.84 Long term (current) use of oral hypoglycemic drugs; Z79.899 Other long term (current) drug therapy
CPT/HCPCS: 71046; 99283